=== PATIENT | female | born 1965 | race Caucasian/White ===

== ENCOUNTER 2016-09-19 14:04 | Outpatient (RCR) | payer BC ==
--- OUTSIDE RECORDS SUMMARY | 2016-06-25 14:03 | XMS REPORT | Continuity of Care Document ---
Author Author [facility] Organization [facility] Address Unknown Phone Unavailable Care Team Providers Care Motivational Speaker Name Role Phone Ashanti Hayward PCP [phone] Source Comments Some departments are not documenting in the electronic medical record. If you do not see the information that you expected, contact Release of Information in the Health Information Management department at [phone] for further assistance in locating additional records.[facility] Active Allergies and Adverse Reactions Allergen Noted Date Severity Reactions Comments Adhesive Tape (Rosins) 07/23/2015 Medium RASH, ITCHING Allopurinol 07/28/2015 Medium RASH DRESS syndrome Peanut 07/25/2015 Medium UNKNOWN Shellfish Containing 07/20/2015 Low UNKNOWN Pt also reports severe Products intolerances to casein and Gluten (abdominal pain). Sulfa (Sulfonamide 07/17/2015 Medium HIVES Antibiotics) Current Medications Prescription Sig. Disp. Refills Start End Date Status Date aspirin/acetaminophen/caf Take 2 Tabs by mouth Active feine(+) (EXCEDRIN twice daily as needed. MIGRAINE) 250/250/65 mg tab voriconazole (VFEND) 50 Take 1 (200mg tablet) and 140 Tab 0 /13/20 Active mg tablet 2 (50mg tablets) twice a 15 day every day. voriconazole (VFEND) 200 Take 1 (200mg tablet) and 70 Tab 0 11/13/20 Active mg tablet 2 (50mg tablets) twice a 15 day every day. hydrOXYzine (ATARAX) 25 Take 1 Tab by mouth three 90 Tab 0 11/13/20 Active mg tablet times daily as needed for 15 Itching. Can stop taking on once rash improves cetirizine (ZYRTEC) 10 mg Take 1 Tab by mouth 90 Tab 3 07/28/20 Active tablet daily. Indications: 15 URTICARIA loratadine (CLARITIN) 10 Take 1 Tab by mouth 90 Tab 3 07/28/20 Active mg tablet daily. Can stop taking 15 once rash and itching improves acyclovir (ZOVIRAX) 400 Take 1 Tab by mouth twice 60 Tab 2 07/28/20 Active mg tablet daily. 15 albuterol (VENTOLIN HFA, Inhale 2 Puffs by mouth 3 Inhaler 3 07/28/20 Active PROAIR HFA) 90 every 6 hours as needed 15 mcg/actuation inhaler for Wheezing. famotidine (PEPCID) 20 mg Take 1 Tab by mouth twice 180 Tab 3 Active tablet daily. 15 levofloxacin (LEVAQUIN) Take 1 Tab by mouth every 30 Tab 2 07/28/20 Active 750 mg tablet 24 hours. 15 triamcinolone acetonide apply to area of rash 1 Container 0 07/28/20 Active (KENALOG) 0.1 % topical 15 ointment LORazepam (ATIVAN) 0.5 mg Take 1 Tab by mouth every 30 Tab 0 08/09/20 Active tablet 4 hours as needed for 15 Other... (Itching, insomnia, anxiety). Active Problems Problem Noted Date Rash 08/09/2015 SOB (shortness of breath) 08/09/2015 Tracheobronchitis due to Aspergillus ([facility]) 07/21/2015 CLL (chronic lymphocytic leukemia) ([facility]) 07/17/2015 Anxiety and depression 07/17/2015 Chronic headache 07/17/2015 Tobacco abuse 07/17/2015 Neutropenic fever ([facility]) 07/17/2015 Immunizations Name Dates Previously Given Next Due Flu Vaccine 08/02/2015 Quadrivalent=>3 Yo (Preservative Free) Social History Tobacco Use Types Packs/Day Years Used Date Former Smoker Cigarettes 0.5 30 Quit: 2015 Smokeless Tobacco: Never Used Alcohol Use Drinks/Week oz/Week Comments No Last Filed Vital Signs Vital Sign Reading Time Taken Blood Pressure 94/60 08/17/2015 3:02 PM IT PROJECT COORDINATOR Pulse 76 08/17/2015 3:02 PM IT PROJECT COORDINATOR Temperature 36.7 C (98.1 F) 08/17/2015 3:02 PM IT PROJECT COORDINATOR Respiratory Rate 16 08/17/2015 3:02 PM IT PROJECT COORDINATOR Height 1.626 m (5' 4") 08/17/2015 3:02 PM IT PROJECT COORDINATOR Weight 52.617 kg (116 lb) 08/17/2015 3:02 PM IT PROJECT COORDINATOR Body Mass Index 19.9 08/17/2015 3:02 PM IT PROJECT COORDINATOR Oxygen Saturation 100% 08/09/2015 12:52 PM IT PROJECT COORDINATOR Plan of Care Health Maintenance Due Date Last Done Comments Hepatitis C Screening 1965 Physical (Comprehensive) 1971 Exam Pertussis Vaccine 1975 Tetanus Vaccine 1981 Cervical Cancer Screening 1985 Breast Cancer Screening 2004 Colorectal Cancer 2014 Screening Influenza Vaccine 05/16/2016 08/02/2015 Results from Last 3 Months Not on file
[2016-06-25 14:58] LABS: BASOPHILS % (AUTO) 1 % (0-10); EOSINOPHILS # (AUTO) 0.1 10^3/uL (0.0-0.3); EOSINOPHILS % (AUTO) 3 % (0-10); LYMPHOCYTES # (AUTO) 1.5 X 10^3 (1.0-4.0); LYMPHOCYTES % (AUTO) 37 % (12-44); MEAN CORPUSCULAR HEMOGLOBIN 33 PG (25-34); MEAN CORPUSCULAR HGB CONC 34 G/DL (32-36); MEAN CORPUSCULAR VOLUME 96 FL (80-99); MEAN PLATELET VOLUME 9.7 FL (7.4-10.4); MONOCYTES # (AUTO) 0.5 X 10^3 (0.0-1.0); MONOCYTES % (AUTO) 12 % (0-12); NEUTROPHILS # (AUTO) 1.9 X 10^3 (1.8-7.8); NEUTROPHILS % (AUTO) 47 % (42-75); PLATELET COUNT 204 10^3/uL (130-400); RED BLOOD COUNT 3.95 10^6/uL (4.35-5.85); RED CELL DISTRIBUTION WIDTH 13.8 % (10.0-14.5)
[2016-06-25 15:24] LABS: ANION GAP 11 MMOL/L (5-14); BLOOD UREA NITROGEN 10 MG/DL (7-18); BUN/CREATININE RATIO 13; CALCIUM 8.9 MG/DL (8.5-10.1); CARBON DIOXIDE 20 MMOL/L (21-32); CHLORIDE 112 MMOL/L (98-107); GFR ESTIMATED > 60; GLUCOSE 73 MG/DL (70-105); SODIUM 143 MMOL/L (135-145)
[2016-07-25 13:13] LABS: BASOPHILS # (AUTO) 0.1 10^3/uL (0.0-0.1); BASOPHILS % (AUTO) 1 % (0-10); EOSINOPHILS # (AUTO) 0.1 10^3/uL (0.0-0.3); EOSINOPHILS % (AUTO) 3 % (0-10); LYMPHOCYTES # (AUTO) 2.1 X 10^3 (1.0-4.0); LYMPHOCYTES % (AUTO) 48 % (12-44); MEAN CORPUSCULAR HEMOGLOBIN 33 PG (25-34); MEAN CORPUSCULAR HGB CONC 34 G/DL (32-36); MEAN CORPUSCULAR VOLUME 96 FL (80-99); MEAN PLATELET VOLUME 10.2 FL (7.4-10.4); MONOCYTES # (AUTO) 0.4 X 10^3 (0.0-1.0); MONOCYTES % (AUTO) 10 % (0-12); NEUTROPHILS # (AUTO) 1.7 X 10^3 (1.8-7.8); NEUTROPHILS % (AUTO) 39 % (42-75); PLATELET COUNT 203 10^3/uL (130-400); RED BLOOD COUNT 4.26 10^6/uL (4.35-5.85); WHITE BLOOD COUNT 4.3 10^3/uL (4.3-11.0)
[2016-07-25 13:38] LABS: ALANINE AMINOTRANSFERASE 12 U/L (0-55); ALBUMIN 4.7 G/DL (3.2-4.5); ANION GAP 9 MMOL/L (5-14); ASPARTATE AMINO TRANSFERASE 21 U/L (5-34); BILIRUBIN,TOTAL 0.6 MG/DL (0.1-1.0); BLOOD UREA NITROGEN 11 MG/DL (7-18); BUN/CREATININE RATIO 13; CALCIUM 9.8 MG/DL (8.5-10.1); CARBON DIOXIDE 25 MMOL/L (21-32); CHLORIDE 109 MMOL/L (98-107); CREATININE SERUM 0.86 MG/DL (0.60-1.30); GFR ESTIMATED > 60; GLUCOSE 72 MG/DL (70-105); LACTATE DEHYDROGENASE 203 U/L (125-220); POTASSIUM 3.7 MMOL/L (3.6-5.0); SODIUM 143 MMOL/L (135-145); TOTAL PROTEIN 7.3 G/DL (6.4-8.2)
[2016-07-26 05:35] LABS: IMMUNOGLOBULIN IGA 12 mg/dL (71-263); IMMUNOGLOBULIN IGG 823 mg/dL (672-1680)
[2016-07-26 07:36] LABS: IMMUNOGLOBULIN IGM <10 mg/dL (47-209)
[~2016-09-19 14:04] MED LIST: ACETAMINOPHEN 500 MG TAB (TYLENOL) CANCER CTR PO PRN; ACYC400T PO; ALLO300T2 PO; ASPI-992 PO; CIPR-225 PO; CIPR500T4 PO; DOCU-143 PO; DULO30CA48 PO; FLUT1DIS26 IH; FLUT1DIS26 INH; FLUT1DIS28 IH; IMMUNE GLOBULIN,GAMMA (IGG) 200 ML IV SCH; LEVO500T80 PO; LEVO750T6 PO; OMEP20CA12 PO; OMEP20TA7 PO; ONDA8TAB12 PO; ONDA8TAB6 PO; OSLT75CRX PO; PROC10TA PO; RT-ALBUINH INH; [UNRECOGNIZED DRUG - OTHER]; diphenhydrAMINE 25 MG TAB (BENADRYL) CANCER CENTER PO SCH
== END 2016-09-23 | disposition home or self-care (01) ==
LOC: ONC 14:04
PROVIDERS: ATTEND Internal Medicine Hematology & Oncology
DX: C91.10 Chronic lymphocytic leukemia of B-cell type not having achieved remission (principal); D80.1 Nonfamilial hypogammaglobulinemia; F17.200 Nicotine dependence, unspecified, uncomplicated; Z79.899 Other long term (current) drug therapy
CPT/HCPCS: 36415; 80048; 80053; 82784; 83615; 85025; 96365; 96366; 99213

== ENCOUNTER 2017-01-30 11:03 | Outpatient (RCR) | payer BC ==
--- OUTSIDE RECORDS SUMMARY | 2016-11-07 10:41 | XMS REPORT | Continuity of Care Document ---
Author Author [facility] Organization [facility] Address Unknown Phone Unavailable Care Team Providers Care Gill Box Fixer Name Role Phone Ashanti Hayward PCP [phone] Source Comments Some departments are not documenting in the electronic medical record. If you do not see the information that you expected, contact Release of Information in the Health Information Management department at [phone] for further assistance in locating additional records.[facility] Active Allergies and Adverse Reactions Allergen [...] of breath) 08/09/2015 Tracheobronchitis due to Aspergillus ([facility]) 07/21/2015 CLL (chronic lymphocytic leukemia) ([facility]) 07/17/2015 Anxiety and depression 07/17/2015 Chronic headache 07/17/2015 Tobacco abuse 07/17/2015 Neutropenic fever ([facility]) 07/17/2015 Immunizations Name Dates Previously Given Next Due Flu Vaccine 08/02/2015 Quadrivalent=>3 Yo (Preservative Free) Social History Tobacco Use Types Packs/Day Years Used Date Former Smoker Cigarettes 0.5 30 Quit: 2015 Smokeless Tobacco: Never Used Alcohol Use Drinks/Week oz/Week Comments No Last Filed Vital Signs Vital Sign Reading Time Taken Blood Pressure 94/60 08/17/2015 3:02 PM CAR TOP BOLTER Pulse 76 08/17/2015 3:02 PM CAR TOP BOLTER Temperature 36.7 C (98.1 F) 08/17/2015 3:02 PM CAR TOP BOLTER Respiratory Rate 16 08/17/2015 3:02 PM CAR TOP BOLTER Height 1.626 m (5' 4") 08/17/2015 3:02 PM CAR TOP BOLTER Weight 52.617 kg (116 lb) 08/17/2015 3:02 PM CAR TOP BOLTER Body Mass Index 19.9 08/17/2015 3:02 PM CAR TOP BOLTER Oxygen Saturation 100% 08/09/2015 12:52 PM CAR TOP BOLTER Plan of Care Health Maintenance Due Date Last Done Comments Hepatitis C Screening 1965 Physical (Comprehensive) 1971 Exam Pertussis Vaccine 1975 Tetanus Vaccine 1981 Cervical Cancer Screening 1985 Breast Cancer Screening 2004 Colorectal Cancer 2014 Screening Influenza Vaccine 05/16/2016 08/02/2015 Results from Last 3 Months Not on file
[2016-11-07 10:51] LABS: BASOPHILS % (AUTO) 1 % (0-10); EOSINOPHILS # (AUTO) 0.2 10^3/uL (0.0-0.3); EOSINOPHILS % (AUTO) 3 % (0-10); LYMPHOCYTES # (AUTO) 2.6 X 10^3 (1.0-4.0); LYMPHOCYTES % (AUTO) 44 % (12-44); MEAN CORPUSCULAR HEMOGLOBIN 33 PG (25-34); MEAN CORPUSCULAR HGB CONC 34 G/DL (32-36); MEAN CORPUSCULAR VOLUME 95 FL (80-99); MEAN PLATELET VOLUME 9.9 FL (7.4-10.4); MONOCYTES # (AUTO) 0.6 X 10^3 (0.0-1.0); MONOCYTES % (AUTO) 10 % (0-12); NEUTROPHILS # (AUTO) 2.6 X 10^3 (1.8-7.8); NEUTROPHILS % (AUTO) 44 % (42-75); PLATELET COUNT 186 10^3/uL (130-400); RED BLOOD COUNT 3.87 10^6/uL (4.35-5.85); RED CELL DISTRIBUTION WIDTH 12.9 % (10.0-14.5); WHITE BLOOD COUNT 5.9 10^3/uL (4.3-11.0)
[2016-11-07 11:22] LABS: ALANINE AMINOTRANSFERASE 18 U/L (0-55); ANION GAP 10 MMOL/L (5-14); ASPARTATE AMINO TRANSFERASE 20 U/L (5-34); BILIRUBIN,TOTAL 0.5 MG/DL (0.1-1.0); BLOOD UREA NITROGEN 11 MG/DL (7-18); BUN/CREATININE RATIO 12; CALCIUM 9.2 MG/DL (8.5-10.1); CARBON DIOXIDE 22 MMOL/L (21-32); CHLORIDE 111 MMOL/L (98-107); GFR ESTIMATED > 60; GLUCOSE 107 MG/DL (70-105); POTASSIUM 3.8 MMOL/L (3.6-5.0); SODIUM 143 MMOL/L (135-145); TOTAL PROTEIN 6.2 G/DL (6.4-8.2)
[2016-11-08 06:25] LABS: IMMUNOGLOBULIN IGA 9 mg/dL (71-263); IMMUNOGLOBULIN IGG 529 mg/dL (672-1680)
[2016-11-08 08:34] LABS: IMMUNOGLOBULIN IGM <10 mg/dL (47-209)
[2017-01-30 11:26] LABS: BASOPHILS % (AUTO) 1 % (0-10); EOSINOPHILS # (AUTO) 0.2 10^3/uL (0.0-0.3); EOSINOPHILS % (AUTO) 2 % (0-10); LYMPHOCYTES # (AUTO) 4.9 X 10^3 (1.0-4.0); LYMPHOCYTES % (AUTO) 69 % (12-44); MEAN CORPUSCULAR HEMOGLOBIN 32 PG (25-34); MEAN CORPUSCULAR HGB CONC 34 G/DL (32-36); MEAN CORPUSCULAR VOLUME 95 FL (80-99); MEAN PLATELET VOLUME 10.6 FL (7.4-10.4); MONOCYTES # (AUTO) 0.5 X 10^3 (0.0-1.0); MONOCYTES % (AUTO) 8 % (0-12); NEUTROPHILS # (AUTO) 1.5 X 10^3 (1.8-7.8); NEUTROPHILS % (AUTO) 21 % (42-75); PLATELET COUNT 142 10^3/uL (130-400); RED BLOOD COUNT 4.11 10^6/uL (4.35-5.85); RED CELL DISTRIBUTION WIDTH 12.7 % (10.0-14.5); WHITE BLOOD COUNT 7.1 10^3/uL (4.3-11.0)
[2017-01-30 11:47] LABS: ALANINE AMINOTRANSFERASE 18 U/L (0-55); ALBUMIN 4.2 G/DL (3.2-4.5); ANION GAP 7 MMOL/L (5-14); ASPARTATE AMINO TRANSFERASE 21 U/L (5-34); BILIRUBIN,TOTAL 0.4 MG/DL (0.1-1.0); BLOOD UREA NITROGEN 9 MG/DL (7-18); BUN/CREATININE RATIO 10; CALCIUM 9.4 MG/DL (8.5-10.1); CARBON DIOXIDE 26 MMOL/L (21-32); CHLORIDE 109 MMOL/L (98-107); CREATININE SERUM 0.92 MG/DL (0.60-1.30); GFR ESTIMATED > 60; GLUCOSE 94 MG/DL (70-105); LACTATE DEHYDROGENASE 170 U/L (125-220); POTASSIUM 3.7 MMOL/L (3.6-5.0); SODIUM 142 MMOL/L (135-145); TOTAL PROTEIN 6.4 G/DL (6.4-8.2)
[2017-01-30 23:28] LABS: IMMUNOGLOBULIN IGA 8 mg/dL (71-263); IMMUNOGLOBULIN IGG 634 mg/dL (672-1680)
[2017-01-31 10:11] LABS: IMMUNOGLOBULIN IGM <10 mg/dL (47-209)
== END 2017-02-05 | disposition home or self-care (01) ==
LOC: ONC 11:03
PROVIDERS: ATTEND Internal Medicine Hematology & Oncology
DX: C91.10 Chronic lymphocytic leukemia of B-cell type not having achieved remission (principal); D80.1 Nonfamilial hypogammaglobulinemia; F17.200 Nicotine dependence, unspecified, uncomplicated; Z79.899 Other long term (current) drug therapy
CPT/HCPCS: 36415; 80053; 82784; 83615; 85025; 96365; 96366; 99213

== ENCOUNTER 2017-04-23 10:38 | Outpatient (RCR) | payer BC ==
[2017-04-23 10:56] LABS: BASOPHILS % (AUTO) 0 % (0-10); EOSINOPHILS # (AUTO) 0.2 10^3/uL (0.0-0.3); EOSINOPHILS % (AUTO) 1 % (0-10); LYMPHOCYTES # (AUTO) 9.3 X 10^3 (1.0-4.0); LYMPHOCYTES % (AUTO) 80 % (12-44); MEAN CORPUSCULAR HEMOGLOBIN 32 PG (25-34); MEAN CORPUSCULAR HGB CONC 34 G/DL (32-36); MEAN CORPUSCULAR VOLUME 95 FL (80-99); MEAN PLATELET VOLUME 10.7 FL (7.4-10.4); MONOCYTES # (AUTO) 0.5 X 10^3 (0.0-1.0); MONOCYTES % (AUTO) 4 % (0-12); NEUTROPHILS # (AUTO) 1.7 X 10^3 (1.8-7.8); NEUTROPHILS % (AUTO) 14 % (42-75); PLATELET COUNT 208 10^3/uL (130-400); RED BLOOD COUNT 4.01 10^6/uL (4.35-5.85); RED CELL DISTRIBUTION WIDTH 13.6 % (10.0-14.5); WHITE BLOOD COUNT 11.6 10^3/uL (4.3-11.0)
[2017-04-23 11:22] LABS: ALANINE AMINOTRANSFERASE 15 U/L (0-55); ALBUMIN 4.3 GM/DL (3.2-4.5); ANION GAP 9 MMOL/L (5-14); ASPARTATE AMINO TRANSFERASE 17 U/L (5-34); BILIRUBIN,TOTAL 0.3 MG/DL (0.1-1.0); BLOOD UREA NITROGEN 10 MG/DL (7-18); BUN/CREATININE RATIO 11; CALCIUM 9.4 MG/DL (8.5-10.1); CARBON DIOXIDE 24 MMOL/L (21-32); CHLORIDE 110 MMOL/L (98-107); CREATININE SERUM 0.88 MG/DL (0.60-1.30); GFR ESTIMATED > 60; GLUCOSE 90 MG/DL (70-105); POTASSIUM 3.7 MMOL/L (3.6-5.0); SODIUM 143 MMOL/L (135-145); TOTAL PROTEIN 6.6 GM/DL (6.4-8.2)
[2017-04-24 01:01] LABS: IMMUNOGLOBULIN IGA 9 mg/dL (71-263); IMMUNOGLOBULIN IGG 524 mg/dL (672-1680)
[2017-04-24 08:14] LABS: IMMUNOGLOBULIN IGM <10 mg/dL (47-209)
== END 2017-05-14 | disposition home or self-care (01) ==
LOC: ONC 10:38
PROVIDERS: ATTEND Internal Medicine Hematology & Oncology
DX: C91.10 Chronic lymphocytic leukemia of B-cell type not having achieved remission (principal); D80.1 Nonfamilial hypogammaglobulinemia; F17.200 Nicotine dependence, unspecified, uncomplicated; Z79.899 Other long term (current) drug therapy
CPT/HCPCS: 36415; 80053; 82784; 85025; 96365; 96366

== ENCOUNTER 2017-05-22 14:04 | Outpatient (RCR) | payer BC | END 2017-06-14 | disposition home or self-care (01) | LOC: ONC 14:04 | PROVIDERS: ATTEND Internal Medicine Hematology & Oncology | DX: C91.10 Chronic lymphocytic leukemia of B-cell type not having achieved remission (principal); D80.1 Nonfamilial hypogammaglobulinemia; F17.200 Nicotine dependence, unspecified, uncomplicated; Z79.899 Other long term (current) drug therapy | CPT/HCPCS: 96365; 96366 ==

== ENCOUNTER 2017-07-27 22:09 | Emergency (ER) | payer BC ==
[~2017-07-27] VITALS: Ht 162.6 cm; Wt 47.6 kg
[~2017-07-27 22:09] MED LIST changes: -ACETAMINOPHEN 500 MG TAB (TYLENOL) CANCER CTR PO PRN; -IMMUNE GLOBULIN,GAMMA (IGG) 200 ML IV SCH; -diphenhydrAMINE 25 MG TAB (BENADRYL) CANCER CENTER PO SCH
--- OUTSIDE RECORDS SUMMARY | 2017-07-27 22:15 | XMS REPORT | Clinical Summary ---
Author Author [facility] Organization [facility] Address Unknown Phone Unavailable Care Team Providers Care Lime Filter Operator Name Role Phone PCP Unavailable Source Comments Some departments are not documenting in the electronic medical record. If you do not see the information that you expected, contact Release of Information in the Health Information Management department at [phone] for further assistance in locating additional records.[facility] Allergies Active Allergy Reactions Severity Noted Date Comments Adhesive Tape (Rosins) RASH, ITCHING Medium 07/23/2015 Allopurinol RASH Medium 07/28/2015 DRESS syndrome Peanut UNKNOWN Medium 07/25/2015 Sulfa (Sulfonamide HIVES Medium 07/17/2015 Antibiotics) Shellfish Containing UNKNOWN Low 07/20/2015 Pt also reports severe Products intolerances to casein and Gluten (abdominal pain). Current Medications Prescription Sig. Disp. Refills Start End Date Status Date aspirin/acetaminophen/caf Take 2 Tabs by mouth Active feine(+) (EXCEDRIN twice daily as needed. MIGRAINE) 250/250/65 mg tab voriconazole (VFEND) 50 Take 1 (200mg tablet) and 140 Tab 0 07/28/20 Active mg tablet 2 (50mg tablets) twice a 15 day every day. voriconazole (VFEND) 200 Take 1 (200mg tablet) and 70 Tab 0 /13/20 Active mg tablet 2 (50mg tablets) twice a 15 day every day. hydrOXYzine (ATARAX) 25 Take 1 Tab by mouth three 90 Tab 0 11/13/20 Active mg tablet times daily as needed for 15 Itching. Can stop taking on once rash improves cetirizine (ZYRTEC) 10 mg Take 1 Tab by mouth 90 Tab 3 07/28/20 Active tabletIndications: daily. Indications: 15 URTICARIA URTICARIA loratadine (CLARITIN) 10 Take 1 Tab [...] of breath) 08/09/2015 Tracheobronchitis due to Aspergillus ([facility]) 07/21/2015 CLL (chronic lymphocytic leukemia) ([facility]) 07/17/2015 Anxiety and depression 07/17/2015 Chronic headache 07/17/2015 Tobacco abuse 07/17/2015 Neutropenic fever ([facility]) 07/17/2015 Immunizations Name Dates Previously Given Next Due Flu Vaccine 08/02/2015 Quadrivalent=>3 Yo (Preservative Free) Family History Medical History Relation Name Comments Depression Maternal Grandmother Diabetes Paternal Grandfather Cancer Paternal Grandmother Relation Name Status Comments Maternal Grandmother Paternal Grandfather Paternal Grandmother Social History Tobacco Use Types Packs/Day Years Used Date Former Smoker Cigarettes 0.5 30 Quit: 2015 Smokeless Tobacco: Never Used Alcohol Use Drinks/Week oz/Week Comments No Sex Assigned at Date Recorded Not on file Last Filed Vital Signs Vital Sign Reading Time Taken Blood Pressure 94/60 08/17/2015 3:02 PM FINISHING ROOM SUPERVISOR Pulse 76 08/17/2015 3:02 PM FINISHING ROOM SUPERVISOR Temperature 36.7 C (98.1 F) 08/17/2015 3:02 PM FINISHING ROOM SUPERVISOR Respiratory Rate 16 08/17/2015 3:02 PM FINISHING ROOM SUPERVISOR Oxygen Saturation 100% 08/09/2015 12:52 PM FINISHING ROOM SUPERVISOR Inhaled Oxygen - - Concentration Weight 52.6 kg (116 lb) 08/17/2015 3:02 PM FINISHING ROOM SUPERVISOR Height 162.6 cm (5' 4") 08/17/2015 3:02 PM FINISHING ROOM SUPERVISOR Body Mass Index 19.91 08/17/2015 3:02 PM FINISHING ROOM SUPERVISOR Plan of Treatment Health Maintenance Due Date Last Done Comments HEPATITIS C SCREENING 1965 PHYSICAL (COMPREHENSIVE) 1971 EXAM PERTUSSIS VACCINE 1975 TETANUS VACCINE 1981 CERVICAL CANCER SCREENING 1994 BREAST CANCER SCREENING 2004 COLORECTAL CANCER 2014 SCREENING INFLUENZA VACCINE 04/15/2017 08/02/2015 Results Not on filefrom Last 3 Months
[2017-07-27] MEDS ORDERED: CETI10TA17 (22:21)
[2017-07-27] MEDS ORDERED: GAMMAGARD (22:21)
[2017-07-27] MEDS ORDERED: NS IV 1000 ML 1,000 ML IV ONE (22:22)
--- OUTSIDE RECORDS SUMMARY | 2017-07-27 22:25 | XMS REPORT | Clinical Summary ---
Author Author User, [employer] Organization Ashanti Hayward DO, FACP Address Unknown Phone Allergies, Adverse Reactions, Alerts Allergy Name Reaction Description Start Date Severity Status Provider SULFA Critical Active Ashanti Hayward Conditions or Problems Problem Name Problem Code Onset Date Status Entry Date Provider Comment Standard Description Annotate CLL 204.10 Active Ashanti Hayward Chronic lymphoid leukemia without mention of having achieved remission BRONCHITIS 490 Resolved Ashanti Hayward Bronchitis, not specified as acute or chronic SINUSITIS, SPHENOIDAL, ACUTE 461.3 Resolved Ashanti Hayward Acute sphenoidal sinusitis PNEUMONIA 486 Resolved Ashanti Hayward Pneumonia, organism unspecified WHEEZING 786.07 Active Ashanti Hayward Wheezing PNEUMONIA 486 Resolved Ashanti Hayward Pneumonia, organism unspecified PLEURISY 511.0 Active Ashanti Hayward Pleurisy without mention of effusion or current tuberculosis DEHYDRATION 276.51 Resolved Ashanti Hayward Dehydration CONJUNCTIVITIS 372.30 Resolved Ashanti Hayward Conjunctivitis, unspecified DEPRESSION 311 Active Ashanti Hayward Depressive disorder, not elsewhere classified ANXIETY 300.00 Active Ashanti Hayward Anxiety state, unspecified ASTHMA, INTERMITTENT, MODERATE 493.10 Active Ashanti Hayward Intrinsic asthma, unspecified LEG PAIN, RIGHT 729.5 Active Ashanti Hayward Pain in limb Medication List Medication Instructions Start Date Stop Date Generic Name ND Status Provider Patient Instruction XANAX 0.25 MG TABS 1 PO Q6hrs prn ALPRAZOLAM 14338959175 No Longer Active Ashanti Etelvina Hayward PROAIR HFA 108 (90 BASE) MCG/ACT AERS 2 puff Q4 hrs prn wheezing ALBUTEROL SULFATE 23521482866 No Longer Active Ashanti Etelvina Hayward ADVAIR DISKUS 250-50 MCG/DOSE MISC 1 Puff BID FLUTICASONE-SALMETEROL 86740070741 No Longer Active Ashantisantos Hayward CYMBALTA 30 MG CPEP 1 PO daily DULOXETINE HCL 56573271249 Active Ashantisantos Hayward COLACE 100 MG CAP 5 PO QAM DOCUSATE SODIUM 47585242363 No Longer Active Ashantisantos Hayward ADVAIR DISKUS 100-50 MCG/DOSE MISC 1 puff BID FLUTICASONE-SALMETEROL 72897920815 No Longer Active Ashantisantos Hayward PROAIR HFA 108 (90 BASE) MCG/ACT AERS 2 puff Q4 hrs prn wheezing ALBUTEROL SULFATE 15351353159 No Longer Active Ashanti Hayward NEOSPORIN OINT Apply to affected eye 1/2 in ribbon TID [id number] OINT [id number] No Longer Active Ashanti Hayward INDOMETHACIN 25 MG CAPS 1 PO TID prn INDOMETHACIN 68169063575 No Longer Active Ashantisantos Hayward BIAXIN XL PAC 500 MG TB24 2 pills at same time daily for 7 days CLARITHROMYCIN 19788556315 No Longer Active Ashantisantos Hayward BIAXIN XL PAC 500 MG TB24 2 pills at same time daily for 7 days CLARITHROMYCIN 65682914410 No Longer Active Ashanti Hayward ADVAIR DISKUS 100-50 MCG/DOSE MISC 1 puff BID FLUTICASONE-SALMETEROL 25205733818 No Longer Active Ashanti Etelvina STEVEN'Renae NASAL SPRAY (DEXAMETHASONE, GENTAMICIN, SALINE) 2 puffs each nostril TID for [address] STEVEN'Renae NASAL SPRAY ( DEXAMETHASONE, GENTAMICIN, SALINE) No Longer Active Ashanti Hayward AUGMENTIN 500-125 MG TAB 1 PO BID AMOXICILLIN-POT CLAVULANATE 24674766158 No Longer Active Ashanti Hayward Vital Signs Date Name Value Unit Range Description blood pressure, diastolic - 8462-4 50 mm[Hg] BP cho blood pressure, systolic - 8480-6 100 mm[Hg] BP sys pulse rate E&M - 8867-4 88 /min Heart rate respiratory rate E&M - 9279-1 14 /min Resp rate temperature E&M 98.6 [degF] Body temperature weight E&M - 3141-9 108 [lb_av] Weight Measured blood pressure, diastolic - 8462-4 48 mm[Hg] BP cho blood pressure, systolic - 8480-6 84 mm[Hg] BP sys pulse rate E&M - 8867-4 64 /min Heart rate respiratory rate E&M - 9279-1 14 /min Resp rate temperature E&M 97.5 [degF] Body temperature weight E&M - 3141-9 103 [lb_av] Weight Measured blood pressure, diastolic - 8462-4 60 mm[Hg] BP cho blood pressure, systolic - 8480-6 90 mm[Hg] BP sys pulse rate E&M - 8867-4 70 /min Heart rate respiratory rate E&M - 9279-1 14 /min Resp rate weight E&M - 3141-9 100 [lb_av] Weight Measured blood pressure, diastolic - 8462-4 64 mm[Hg] BP cho blood pressure, systolic - 8480-6 89 mm[Hg] BP sys pulse rate E&M - 8867-4 84 /min Heart rate respiratory rate E&M - 9279-1 14 /min Resp rate weight E&M - 3141-9 100 [lb_av] Weight Measured Diagnostic Results Date Name Value Unit Range Description Clinical Lists Update: CBC,BMP [facility] - Chemistry Estimated Glomerular Filtration Rate (calc) >60 mL/min/1.73m2 glucose, plasma fasting 99 mg/dL urea nitrogen, blood 8 mg/dL calcium, serum 9.4 mg/dL chloride, serum 106 mmol/L carbon dioxide, venous blood 22 mmol/L creatinine, serum 0.87 mg/dL potassium, serum 4.6 mmol/L sodium, serum 138 mmol/L Clinical Lists Update: CBC,BMP [facility] - Hematology platelet count 270 10*3/mm3 erythrocyte (RBC) count 3.62 10*6/mm3 leukocyte count, blood 129.3 10*3/mm3 mean corpuscular volume, RBC 94 fL red blood cell distribution width 17.8 % hemoglobin, blood 10.3 g/dL hematocrit, blood 34 % Encounters Code Encounter Date Provider Facility CPT-48104 Ofc Vst, Est Level IV 17:40:17 CDT Ashanti Hayward DO, FACP CPT-85744 Ofc Vst, Est Level III 21:28:17 CDT Ashantisantos Macdonald Hayward, DO, FACP CPT-28168 Ofc Vst, Est Level IV 17:45:46 CDT Ashanti Etelvina Macdonald Yesy, DO, FACP CPT-04929 Ofc Vst, New Level III 17:10:58 CDT Ashanti Etelvina Macdonald Yesy, DO, FACP CPT-37262 Ofc Vst, Est Level III 16:21:49 CDT Ashanti Etelvina Macdonald Hayward, DO, FACP CPT-65065 Ofc Vst, Est Level IV 14:42:00 BEHAVIORAL THERAPY COORDINATOR Ashantisantos Macdonald Yesy, DO, FACP CPT-20338 Ofc Vst, Est Level IV 12:12:42 BEHAVIORAL THERAPY COORDINATOR Ashanti Macdonald Yesy, DO, FACP CPT-65996 Ofc Vst, Est Level V 10:37:16 CDT Ashantisantos Macdonald Yesy, DO, FACP CPT-97148 Ofc Vst, Est Level IV 15:20:28 CDT Ashanti Etelvina Macdonald Hayward, DO, FACP CPT-69750 Ofc Vst, Est Level IV 14:41:03 CDT Ashanti Macdonald Yesy, DO, FACP CPT-44711 Ofc Vst, Est Level IV 11:11:13 CDT Ashanti Etelvina Macdonald Yesy, DO, FACP CPT-39822 Ofc Vst, New Level IV 12:24:45 BEHAVIORAL THERAPY COORDINATOR Ashanti Etelvina Browningi S Hayward, DO, FACP
[2017-07-27] MEDS ORDERED: HYOSCYAMINE 0.125 MG (LEVSIN) TAB PO ONE (22:30)
[2017-07-27] MEDS ORDERED: ONDANSETRON 4 MG/2 ML (SDV) Z0FRAN IVP ONE (22:30)
--- OUTSIDE RECORDS SUMMARY | 2017-07-27 22:30 | XMS REPORT | Continuity of Care Document ---
Author Author [facility] Address Unknown Phone Unavailable Allergies Active Description Code Type Severity Reaction Onset Reported/Identified Relationship to Patient Clinical Status Yes Sulfa (Sulfonamide Antibiotics) [id number] Drug Allergy Unknown N/A 07/19/2010 Yes ascorbic acid [id number] Drug Allergy Unknown N/A 07/20/2010 Yes bromelains [id number] Drug Allergy Unknown N/A 07/20/2010 Yes glutamine [id number] Drug Allergy Unknown N/A 07/20/2010 Yes quercetin [id number] Drug Allergy Unknown N/A 07/20/2010 Yes selenium [id number] Drug Allergy Unknown N/A 07/20/2010 Yes egg [id number] Drug Allergy Moderate NAUSEA 07/06/2015 Yes gluten [id number] Drug Allergy Moderate ANAPHYLAXIS 07/06/2015 Medications 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 08/14/1343 ROSHAN AYON Ot D80.1 NONFAMILIAL HYPOGAMMAGLOBULINEMIA 08/14/1343 ROSHAN AYON Ot 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 DEPENDENCE, UNSPECIFIED, UNCOMP 08/14/1343 ROSHAN AYON Ot Z79.899 OTHER LONG-TERM (CURRENT) DRUG THERAPY 07/22/2010 Ot 038.2 07/22/2010 Ot 204.10 07/22/2010 Ot 276.51 07/22/2010 Ot 305.1 07/22/2010 Ot 486 07/22/2010 Ot 511.0 07/22/2010 Ot 780.52 07/22/2010 Ot 995.91 12/24/2010 Ot 204.10 03/26/2011 Ot 204.10 03/26/2011 Ot 279.00 03/26/2011 Ot 305.1 03/26/2011 Ot V58.69 07/17/2011 Ot 110.5 07/17/2011 Ot 204.10 07/17/2011 Ot 279.00 07/17/2011 Ot 305.1 07/17/2011 Ot V58.69 10/15/2011 Ot 204.10 10/15/2011 Ot 279.00 10/15/2011 Ot 305.1 10/15/2011 Ot V58.69 01/15/2012 Ot 204.10 CHRONIC LYMPHOID LEUKEMIA, W/O MENTION A 01/15/2012 Ot 279.00 HYPOGAMMAGLOBULINEM NOS 01/15/2012 Ot V58.69 OTH MED,LT,CURRENT USE 07/22/2012 Ot 204.10 CHRONIC LYMPHOID LEUKEMIA, W/O MENTION A 07/22/2012 Ot V58.69 OTH MED,LT,CURRENT USE 11/11/2012 Ot 204.10 CHRONIC LYMPHOID LEUKEMIA, W/O MENTION A 11/11/2012 Ot V58.69 OTH MED,LT,CURRENT USE 02/10/2013 GABOROSHAN N Ot 204.10 CHRONIC LYMPHOID LEUKEMIA, W/O MENTION A 02/10/2013 GABOROSHAN RODRIGUEZ N Ot V58.69 OTH MED,LT,CURRENT USE 07/07/2013 GABOROSHAN N Ot 204.10 CHRONIC LYMPHOID LEUKEMIA, W/O MENTION A 07/07/2013 GABOROSHAN N Ot V58.69 OTH MED,LT,CURRENT USE 10/06/2013 GABOROSHAN RODRIGUEZ N Ot 204.10 CHRONIC LYMPHOID LEUKEMIA, W/O MENTION A 10/06/2013 GABOROSHAN N Ot 279.00 HYPOGAMMAGLOBULINEM NOS 10/06/2013 GABOROSHAN RODRIGUEZ N Ot 305.1 TOBACCO USE DISORDER 10/06/2013 GABOROSHAN N Ot V58.69 OTH MED,LT,CURRENT USE 01/12/2014 GABOROSHAN N Ot 204.10 CHRONIC LYMPHOID LEUKEMIA, W/O MENTION A 01/12/2014 GABOROSHAN N Ot 279.00 HYPOGAMMAGLOBULINEM NOS 01/12/2014 GABO, BOBLEXIE N Ot 305.1 TOBACCO USE DISORDER 01/12/2014 GABOJOSEAN N Ot V58.69 OTH MED,LT,CURRENT USE 05/18/2014 GABOROSHAN RODRIGUEZ N Ot 204.10 CHRONIC LYMPHOID LEUKEMIA, W/O MENTION A 05/18/2014 GABO, BOBAN N Ot 279.00 HYPOGAMMAGLOBULINEM NOS 05/18/2014 GABO, BOBAN N Ot 305.1 TOBACCO USE DISORDER 05/18/2014 GABO, BOBAN N Ot V58.69 OT MED,LT,CURRENT USE 08/22/2014 GABO, BOBAN N Ot 204.10 08/22/2014 GABO, BOBAN N Ot 279.00 08/22/2014 GABO, BOBAN N Ot 305.1 08/22/2014 GABO, BOBAN N Ot V58.69 08/24/2014 GABO, BOBAN N Ot 204.10 CHRONIC LYMPHOID LEUKEMIA, W/O MENTION A 08/24/2014 GABO, BOBAN N Ot 279.00 HYPOGAMMAGLOBULINEM NOS 08/24/2014 GABO, BOBAN N Ot 305.1 TOBACCO USE DISORDER 08/24/2014 GABO, BOBAN N Ot V58.69 OT MED,LT,CURRENT USE 09/22/2014 GABO, BOBAN N Ot 204.10 09/22/2014 GABO, BOBAN N Ot 279.00 09/22/2014 GABO, BOBAN N Ot 305.1 09/22/2014 GABO, BOBAN N Ot V58.69 09/22/2014 GABO, BOBAN N Ot 204.10 09/22/2014 GABO, BOBAN N Ot 279.00 09/22/2014 GABO, BOBAN N Ot 305.1 09/22/2014 GABO, BOBAN N Ot V58.69 09/23/2014 GABO, BOBAN N Ot 204.10 09/23/2014 GABO, BOBAN N Ot 279.00 09/23/2014 GABO, BOBAN N Ot 305.1 09/23/2014 GABO, BOBAN N Ot V58.69 10/02/2014 SOLE CHENEY, MISHEL Wade Ot 487.1 FLU W RESP MANIFEST NEC 10/02/2014 SOLE CHENEY, MISHEL Wade Ot 786.2 COUGH 10/20/2014 GABO, BOBAN N Ot 204.10 10/20/2014 GABO, BOBAN N Ot 279.00 10/20/2014 GABO, BOBAN N Ot 305.1 10/20/2014 GABO, BOBAN N Ot V58.69 11/03/2014 BRUCE REED Ot 204.10 11/03/2014 REEDBRUCE Macdonald TELETYPE TECHNICIAN Ot 279.00 11/03/2014 REEDBRUCE Macdonald TELETYPE TECHNICIAN Ot 305.1 11/03/2014 REED BRUCE Macdonald TELETYPE TECHNICIAN Ot V58.69 11/10/2014 GABO, BOBAN N Ot 204.10 11/10/2014 GABO, BOBAN N Ot 279.00 11/10/2014 GABO, BOBAN N Ot 305.1 11/10/2014 GABO, BOBAN N Ot V58.69 12/21/2014 GABO, BOBAN N Ot 204.10 CHRONIC LYMPHOID LEUKEMIA, W/O MENTION A 12/21/2014 GABO, BOBAN N Ot 279.00 HYPOGAMMAGLOBULINEM NOS 12/21/2014 GABO, BOBAN N Ot 305.1 TOBACCO USE DISORDER 12/21/2014 GABO, BOBAN N Ot V58.69 OT MED,LT,CURRENT USE 01/10/2015 PONCHO TOBAR PSYD 296.22 MO DEPRESSIVE SINGLE MODERATE 01/12/2015 GABO, BOBAN N Ot 204.10 01/12/2015 GABO, BOBAN N Ot 279.00 01/12/2015 GABO, BOBAN N Ot 305.1 01/12/2015 GABO, BOBAN N Ot V58.69 01/12/2015 GABO, BOBAN N Ot 204.10 01/12/2015 GABO, BOBAN N Ot 279.00 01/12/2015 GABO, BOBAN N Ot 305.1 01/12/2015 GABO, BOBAN N Ot V58.69 01/13/2015 GABO, BOBAN N Ot 204.10 01/13/2015 GABO, BOBAN N Ot 279.00 01/13/2015 GBAO, BOBAN N Ot 305.1 01/13/2015 GABO, BOBAN N Ot V58.69 01/13/2015 GABO, BOBAN N Ot 204.10 01/13/2015 GABO, BOBAN N Ot 279.00 01/13/2015 GABO, BOBAN N Ot 305.1 01/13/2015 GABO, BOBAN N Ot V58.69 02/28/2015 GABO, BOBAN N Ot 204.10 02/28/2015 GABO, BOBAN N Ot 279.00 02/28/2015 GABO, BOBAN N Ot 305.1 02/28/2015 GABO, BOBAN N Ot V58.69 03/01/2015 GABO, BOBLEXIE N Ot 786.05 03/07/2015 BRUCE REED TELETYPE TECHNICIAN Ot 204.10 03/07/2015 BRUCE REED TELETYPE TECHNICIAN Ot 279.00 03/07/2015 BRUCE REED S TELETYPE TECHNICIAN Ot 305.1 03/07/2015 BRUCE REED TELETYPE TECHNICIAN Ot V58.69 04/12/2015 GABO JOSEAN N Ot 204.10 CHRONIC LYMPHOID LEUKEMIA, W/O MENTION A 04/12/2015 ROSHAN AYON N Ot 279.00 HYPOGAMMAGLOBULINEM NOS 04/12/2015 GABO BOBAN N Ot 305.1 TOBACCO USE DISORDER 04/12/2015 ROSHAN AYON N Ot V58.69 OT MED,LT,CURRENT USE 04/20/2015 GABO, BOBAN N Ot 204.10 04/20/2015 GABO, BOBAN N Ot 279.00 04/20/2015 GABO, BOBAN N Ot 305.1 04/20/2015 GABO, BOBAN N Ot V58.69 04/21/2015 GABO, BOBAN N Ot 204.10 04/21/2015 GABO, BOBAN N Ot 279.00 04/21/2015 GBAO, BOBAN N Ot 305.1 04/21/2015 GABO, BOBAN N Ot V58.69 05/03/2015 BRUCE REED TELETYPE TECHNICIAN Ot 204.10 05/03/2015 BRUCE REED TELETYPE TECHNICIAN Ot 279.00 05/03/2015 BRUCE REED TELETYPE TECHNICIAN Ot 305.1 05/03/2015 BRUCE REED TELETYPE TECHNICIAN Ot V58.69 05/03/2015 GABO, BOBAN N Ot 204.10 05/03/2015 GABO, BOBAN N Ot 279.00 05/03/2015 GABO, BOBAN N Ot 305.1 05/03/2015 GABO, BOBAN N Ot V58.69 05/04/2015 BRUCE REED S TELETYPE TECHNICIAN Ot 204.10 05/04/2015 BRUCE REED TELETYPE TECHNICIAN Ot 279.00 05/04/2015 BRUCE REED TELETYPE TECHNICIAN Ot 305.1 05/04/2015 BRUCE REED TELETYPE TECHNICIAN Ot V58.69 05/09/2015 GABO, BOBAN N Ot 204.10 05/09/2015 GABO, BOBAN N Ot 279.00 05/09/2015 GABO, BOBAN N Ot 305.1 05/09/2015 GABO, BOBAN N Ot V58.69 05/11/2015 GABO, BOBAN N Ot 204.10 05/11/2015 GABO, BOBAN N Ot 279.00 05/11/2015 GABO, BOBAN N Ot 305.1 05/11/2015 GABO, BOBAN N Ot V58.69 05/18/2015 HUANG DO, RICO Ot 729.5 06/01/2015 HUANG DO, RICO Ot 729.5 06/08/2015 GABO, BOBAN N Ot 204.10 06/08/2015 GABO, BOBAN N Ot 279.00 06/08/2015 GABO, BOBAN N Ot 305.1 06/08/2015 GABO, BOBAN N Ot V58.69 06/14/2015 GABO, BOBAN N Ot 204.10 CHRONIC LYMPHOID LEUKEMIA, W/O MENTION A 06/14/2015 GABO, BOBAN N Ot 279.00 HYPOGAMMAGLOBULINEM NOS 06/14/2015 GABO, BOBAN N Ot 305.1 TOBACCO USE DISORDER 06/14/2015 GABO, BOBAN N Ot V58.69 OT MED,LT,CURRENT USE 06/15/2015 GABO, BOBAN N Ot 204.10 06/15/2015 GABO, BOBAN N Ot 279.00 06/15/2015 GABO, BOBAN N Ot 305.1 06/15/2015 GABO, BOBAN N Ot V58.69 06/15/2015 GABO, BOBAN N Ot 204.10 06/15/2015 GABO, BOBAN N Ot 279.00 06/15/2015 GABO, BOBAN N Ot 305.1 06/15/2015 GABO, BOBAN N Ot V58.69 06/29/2015 HUANG DO, RICO Ot 204.10 06/29/2015 HUANG DO, RICO Ot 300.00 06/29/2015 HUANG DO, RICO Ot 493.10 06/29/2015 HUANG DO, RICO Ot 511.0 06/29/2015 HUANG DO, RICO Ot 729.5 06/29/2015 HUANG DO, RICO Ot V58.69 06/29/2015 SAL DO, RICO Ot V70.0 06/29/2015 REEDBRUCE Macdonald TELETYPE TECHNICIAN Ot C91.10 06/29/2015 DEREK BRUCE Renae TELETYPE TECHNICIAN Ot D80.1 06/29/2015 BRUCE REED TELETYPE TECHNICIAN Ot Z79.899 07/05/2015 Ot 204.10 07/05/2015 Ot 279.00 07/05/2015 Ot 305.1 07/05/2015 Ot 204.10 07/05/2015 Ot 204.10 07/05/2015 Ot 279.00 07/05/2015 Ot 305.1 07/05/2015 Ot V58.69 07/05/2015 Ot 204.10 07/05/2015 Ot 279.00 07/05/2015 Ot 305.1 07/05/2015 Ot V58.69 07/05/2015 Ot 204.10 07/05/2015 Ot 279.00 07/05/2015 Ot 305.1 07/05/2015 Ot V58.69 07/05/2015 BRUCE REED TELETYPE TECHNICIAN Ot 204.10 07/05/2015 EZ REEDSAMM Renae TELETYPE TECHNICIAN Ot 279.00 07/05/2015 BRUCE REED TELETYPE TECHNICIAN Ot 305.1 07/05/2015 DEREK BRUCE Renae TELETYPE TECHNICIAN Ot V58.69 07/05/2015 EZ REEDSAMM S TELETYPE TECHNICIAN Ot 204.10 07/05/2015 EZ REEDSAMM S TELETYPE TECHNICIAN Ot 279.00 07/05/2015 EZ REEDSAMM S TELETYPE TECHNICIAN Ot 305.1 07/05/2015 DEREK EZSAMM Renae TELETYPE TECHNICIAN Ot V58.69 07/05/2015 BRUCE REED S TELETYPE TECHNICIAN Ot 204.10 07/05/2015 BRUCE REED S TELETYPE TECHNICIAN Ot 279.00 07/05/2015 BRUCE REED TELETYPE TECHNICIAN Ot 305.1 07/05/2015 BRUCE REED TELETYPE TECHNICIAN Ot V58.69 07/05/2015 ROSHAN AYON N Ot 564.00 07/05/2015 ROSHAN AYON N Ot 785.6 07/05/2015 ROSHAN AYON N Ot 789.04 07/05/2015 ROSHAN AYON N Ot 789.2 07/05/2015 ROSHAN AYON N Ot 793.5 07/05/2015 REEDBRUCE Macdonald TELETYPE TECHNICIAN Ot 204.10 07/05/2015 REEDBRUCE Macdonald S TELETYPE TECHNICIAN Ot 279.00 07/05/2015 REEDBRUCE S TELETYPE TECHNICIAN Ot 305.1 07/05/2015 DEREK BRUCE S TELETYPE TECHNICIAN Ot V58.69 07/05/2015 ALBERTO DO, EWA C Ot 256.31 07/05/2015 ALBERTO DO, EWA C Ot 785.6 07/05/2015 ALBERTO DO, EWA C Ot 789.04 07/05/2015 ALBERTO DO, EWA C Ot V70.0 07/05/2015 ALBERTO , EWA C Ot V76.12 07/05/2015 DEREK BRUCE S TELETYPE TECHNICIAN Ot 204.10 07/05/2015 DEREK BRUCE S TELETYPE TECHNICIAN Ot 279.00 07/05/2015 DEREK BRUCE S TELETYPE TECHNICIAN Ot 305.1 07/05/2015 DEREK BRUCE S TELETYPE TECHNICIAN Ot V58.69 07/05/2015 ROSHAN AYON N Ot 786.05 07/05/2015 DEREK BRUCE S TELETYPE TECHNICIAN Ot 204.10 07/05/2015 DEREK BRUCE S TELETYPE TECHNICIAN Ot 279.00 07/05/2015 DEREK BRUCE S TELETYPE TECHNICIAN Ot 305.1 07/05/2015 DEREK BRUCE S TELETYPE TECHNICIAN Ot V58.69 07/05/2015 DEREK BRUCE S TELETYPE TECHNICIAN Ot 204.10 07/05/2015 DEREK BRUCE S TELETYPE TECHNICIAN Ot 279.00 07/05/2015 DEREK BRUCE S TELETYPE TECHNICIAN Ot 305.1 07/05/2015 DEREK BRUCE S TELETYPE TECHNICIAN Ot V58.69 07/05/2015 HUANG DO, RIOC Ot 729.5 07/05/2015 HUANG DO, RICO Ot J45.902 07/05/2015 HUANG DO, RICO Ot 204.10 07/05/2015 HUANG DO, RICO Ot 300.00 07/05/2015 HUANG DO, RICO Ot 493.10 07/05/2015 HUANG DO, RICO Ot 511.0 07/05/2015 HUANG DO, RICO Ot 729.5 07/05/2015 HUANG DO, RICO Ot V58.69 07/05/2015 HUANG DO, RICO Ot V70.0 07/05/2015 ROSHAN AYON N Ot 204.10 07/05/2015 GABOJOSE RODRIGUEZLEXIE N Ot 279.00 07/05/2015 GABO, ROSHAN N Ot 305.1 07/05/2015 GABOROSHAN N Ot V58.69 07/05/2015 BRUCE REED TELETYPE TECHNICIAN Ot C91.10 07/05/2015 BRUCE REED TELETYPE TECHNICIAN Ot D80.1 07/05/2015 BRUCE REED TELETYPE TECHNICIAN Ot Z79.899 07/07/2015 GABOROSHAN RODRIGUEZ N Ot C91.10 07/07/2015 GABOROSHAN RODRIGUEZ N Ot D64.9 07/07/2015 GABOROSHAN RODRIGUEZ N Ot D70.1 07/07/2015 GABOROSHAN RODRIGUEZ N Ot F17.200 07/07/2015 GABOROSHAN N Ot F32.9 07/07/2015 GABOROSHAN N Ot F41.9 07/07/2015 GABOROSHAN RODRIGUEZ N Ot J45.909 07/07/2015 GABOROSHAN RODRIGUEZ N Ot R09.89 07/10/2015 HUANG DO, RICO Ot J45.902 07/13/2015 GABOROSHAN N Ot C91.10 07/13/2015 GABOROSHAN N Ot D64.9 07/13/2015 GABOROSHAN N Ot D70.1 07/13/2015 GABOROSHAN N Ot F17.200 07/13/2015 GABOROSHAN N Ot F32.9 07/13/2015 GABOROSHAN N Ot F41.9 07/13/2015 GABOROSHAN RODRIGUEZ N Ot J45.909 07/13/2015 GABOROSHAN RODRIGUEZ N Ot R09.89 07/17/2015 GABOROSHAN RODRIGUEZ N Ot 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 07/17/2015 ROSHAN AYON N Ot D64.81 ANEMIA DUE TO ANTINEOPLASTIC CHEMOTHERAP 07/17/2015 ROSHAN AYON N Ot D64.9 07/17/2015 GABOROSHAN N Ot D69.59 OTHER SECONDARY THROMBOCYTOPENIA 07/17/2015 ROSHAN AYON Ot D70.1 AGRANULOCYTOSIS SECONDARY TO CANCER CHEM 07/17/2015 ROSHAN AYON Ot D80.1 NONFAMILIAL HYPOGAMMAGLOBULINEMIA 07/17/2015 ROSHAN AYON N Ot 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 DEPENDENCE, UNSPECIFIED, UNCOMP 07/17/2015 ROSHAN AYNO Ot F32.9 MAJOR DEPRESSIVE DISORDER, SINGLE EPISOD 07/17/2015 ROSHAN AYON Ot F41.9 ANXIETY DISORDER, UNSPECIFIED 07/17/2015 ROSHAN AYON Ot G43.919 MIGRAINE, UNSP, INTRACTABLE, WITHOUT STA 07/17/2015 ROSHAN AYON Ot G47.00 INSOMNIA, UNSPECIFIED 07/17/2015 ROSHAN AYON Ot J44.9 CHRONIC OBSTRUCTIVE PULMONARY DISEASE, U 07/17/2015 ROSHAN AYON Ot J45.909 UNSPECIFIED ASTHMA, UNCOMPLICATED 07/17/2015 ROSHAN AYON Ot K59.00 CONSTIPATION, UNSPECIFIED 07/17/2015 GABOROSHAN RODRIGUEZ N Ot R09.89 OTH SYMPTOMS AND SIGNS INVOLVING THE CIR 07/17/2015 ROSHAN AYON Ot R21 RASH AND OTHER NONSPECIFIC SKIN ERUPTION 07/17/2015 ROSHAN AYON N Ot R50.81 FEVER PRESENTING WITH CONDITIONS CLASSIF 07/17/2015 ROSHAN AYON Ot T45.1X5A ADVERSE EFFECT OF ANTINEOPLASTIC AND IMM 07/24/2015 ROSHAN AYON Ot 204.10 07/24/2015 GABOROSHAN RODRIGUEZ N Ot 279.00 07/24/2015 GABOROSHAN N Ot 305.1 07/24/2015 GABOROSHAN N Ot V58.69 08/02/2015 GABOROSHAN RODRIGUEZ N Ot C91.10 08/02/2015 GABOROSHAN RODRIGUEZ N Ot D80.1 08/02/2015 GABOROSHAN RODRIGUEZ N Ot F17.200 08/02/2015 GABOROSHAN RODRIGUEZ N Ot Z51.11 08/02/2015 GABOROSHAN RODRIGUEZ N Ot Z79.899 09/12/2015 GABOROSHAN RODRIGUEZ N Ot C91.10 09/12/2015 GABOROSHAN RODRIGUEZ N Ot D80.1 09/12/2015 GABOJOSE RODRIGUEZLEXIE N Ot F17.200 09/12/2015 GABOROSHAN RODRIGUEZ N Ot Z51.11 09/12/2015 GABOROSHAN RODRIGUEZ N Ot Z79.899 09/19/2015 GABOROSHAN RODRIGUEZ N Ot 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 09/19/2015 ROSHAN AYON N Ot D80.1 NONFAMILIAL HYPOGAMMAGLOBULINEMIA 09/19/2015 ROSHAN AYON N Ot 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 DEPENDENCE, UNSPECIFIED, UNCOMP 09/19/2015 GABOROSHAN RODRIGUEZ N Ot Z51.11 ENCOUNTER FOR ANTINEOPLASTIC CHEMOTHERAP 09/19/2015 ROSHAN AYON N Ot Z79.899 OTHER SUPERVISOR COMPOSING ROOM (CURRENT) DRUG THERAPY 09/27/2015 BRUCE REED TELETYPE TECHNICIAN Ot B44.1 09/27/2015 BRUCE REED TELETYPE TECHNICIAN Ot C91.10 09/27/2015 BRUCE REED TELETYPE TECHNICIAN Ot D75.9 09/27/2015 BRUCE REED TELETYPE TECHNICIAN Ot D80.1 09/27/2015 BRUCE REED TELETYPE TECHNICIAN Ot F17.200 09/27/2015 BRUCE REED TELETYPE TECHNICIAN Ot Z79.899 10/09/2015 GABOROSHAN N Ot C91.10 10/09/2015 GABO, ROSHAN N Ot D80.1 10/09/2015 GABO, ROSHAN N Ot F17.200 10/09/2015 GABO, BOBLEXIE N Ot Z51.11 10/09/2015 GABO, BOBAN N Ot Z79.899 11/09/2015 GABO, BOBAN N Ot C91.10 11/09/2015 GABO, BOBAN N Ot D80.1 11/09/2015 GABO, BOBLEXIE N Ot F17.200 11/09/2015 GABO, BOBAN N Ot Z51.11 11/09/2015 GABO, BOBAN N Ot Z79.899 11/23/2015 GABO, BOBAN N Ot C91.10 11/23/2015 GABO, BOBAN N Ot D80.1 11/23/2015 ROSHAN AYON N Ot F17.200 11/23/2015 ROSHAN AYON N Ot Z51.11 11/23/2015 ROSHAN AYON N Ot Z79.899 11/23/2015 BRUCE REED TELETYPE TECHNICIAN Ot B44.1 11/23/2015 BRUCE REED S TELETYPE TECHNICIAN Ot C91.10 11/23/2015 REEDBRUCE Macdonald S TELETYPE TECHNICIAN Ot D75.9 11/23/2015 REEDBRUCE Macdonald S TELETYPE TECHNICIAN Ot D80.1 11/23/2015 BRUCE REED S TELETYPE TECHNICIAN Ot F17.200 11/23/2015 BRUCE REED S TELETYPE TECHNICIAN Ot Z79.899 12/05/2015 Ot 204.10 12/05/2015 Ot 279.00 12/05/2015 Ot 305.1 12/05/2015 Ot 204.10 12/05/2015 Ot 204.10 12/05/2015 Ot 279.00 12/05/2015 Ot 305.1 12/05/2015 Ot V58.69 12/05/2015 Ot 204.10 12/05/2015 Ot 279.00 12/05/2015 Ot 305.1 12/05/2015 Ot V58.69 12/05/2015 Ot 204.10 12/05/2015 Ot 279.00 12/05/2015 Ot 305.1 12/05/2015 Ot V58.69 12/05/2015 REEDBRUCE Macdonald S TELETYPE TECHNICIAN Ot 204.10 12/05/2015 REEDBRUCE S TELETYPE TECHNICIAN Ot 279.00 12/05/2015 DEREK BRUCE S TELETYPE TECHNICIAN Ot 305.1 12/05/2015 DEREK BRUCE S TELETYPE TECHNICIAN Ot V58.69 12/05/2015 REEDBRUCE S TELETYPE TECHNICIAN Ot 204.10 12/05/2015 REEDBRUCE S TELETYPE TECHNICIAN Ot 279.00 12/05/2015 DEREK BRUCE S TELETYPE TECHNICIAN Ot 305.1 12/05/2015 DEREK BRUCE S TELETYPE TECHNICIAN Ot V58.69 12/05/2015 DEREK BRUCE S TELETYPE TECHNICIAN Ot 204.10 12/05/2015 DEREK BRUCE S TELETYPE TECHNICIAN Ot 279.00 12/05/2015 DEREK BRUCE S TELETYPE TECHNICIAN Ot 305.1 12/05/2015 DEREK BRUCE S TELETYPE TECHNICIAN Ot V58.69 12/05/2015 ROSHAN AYON N Ot 564.00 12/05/2015 ROSHAN AYON N Ot 785.6 12/05/2015 ROSHAN AYON N Ot 789.04 12/05/2015 ROSHAN AYON N Ot 789.2 12/05/2015 ROSHAN AYON N Ot 793.5 12/05/2015 DEREK BRUCE Macdonald TELETYPE TECHNICIAN Ot 204.10 12/05/2015 DEREK BRUCE S TELETYPE TECHNICIAN Ot 279.00 12/05/2015 DEREK BRUCE S TELETYPE TECHNICIAN Ot 305.1 12/05/2015 DEREK BRUCE S TELETYPE TECHNICIAN Ot V58.69 12/05/2015 DOLLY RAMSEY EWA C Ot 256.31 12/05/2015 ALBERTO DO EWA C Ot 785.6 12/05/2015 ALBERTO DO EWA C Ot 789.04 12/05/2015 DOLLY RAMSEY EWA C Ot V70.0 12/05/2015 ALBERTOCollin RAMSEY EWA C Ot V76.12 12/05/2015 DEREK BRUCE S TELETYPE TECHNICIAN Ot 204.10 12/05/2015 DEREK BRUCE S TELETYPE TECHNICIAN Ot 279.00 12/05/2015 DEREK BRUCE S TELETYPE TECHNICIAN Ot 305.1 12/05/2015 DEREK BRUCE Macdonald TELETYPE TECHNICIAN Ot V58.69 12/05/2015 ROSHAN AYON N Ot 786.05 12/05/2015 DEREK BRUCE S TELETYPE TECHNICIAN Ot 204.10 12/05/2015 DEREK BRUCE S TELETYPE TECHNICIAN Ot 279.00 12/05/2015 DEREK BRUCE S TELETYPE TECHNICIAN Ot 305.1 12/05/2015 DEREK BRUCE S TELETYPE TECHNICIAN Ot V58.69 12/05/2015 DEREK BRUCE S TELETYPE TECHNICIAN Ot 204.10 12/05/2015 DEREK BRUCE S TELETYPE TECHNICIAN Ot 279.00 12/05/2015 DEREK BRUCE S TELETYPE TECHNICIAN Ot 305.1 12/05/2015 DEREK BRUCE S TELETYPE TECHNICIAN Ot V58.69 12/05/2015 HUANG DO, RICO Ot 729.5 12/05/2015 HUANG DO, RICO Ot J45.902 12/05/2015 HUANG DO, RICO Ot 204.10 12/05/2015 HUANG DO, RICO Ot 300.00 12/05/2015 HUANG DO, RICO Ot 493.10 12/05/2015 HUANG DO, RICO Ot 511.0 12/05/2015 HUANG DO, RICO Ot 729.5 12/05/2015 HUANG DO, [place] Ot V58.69 12/05/2015 HUANG DO, [place] Ot V70.0 12/05/2015 DEREK BRUCE S TELETYPE TECHNICIAN Ot C91.10 12/05/2015 DEREK BRUCE S TELETYPE TECHNICIAN Ot D80.1 12/05/2015 DEREK BRUCE S TELETYPE TECHNICIAN Ot Z79.899 12/05/2015 DEREK BRUCE S TELETYPE TECHNICIAN Ot B44.1 12/05/2015 DEREK BRUCE S TELETYPE TECHNICIAN Ot C91.10 12/05/2015 DEREK BRUCE S TELETYPE TECHNICIAN Ot D75.9 12/05/2015 DEREK BRUCE S TELETYPE TECHNICIAN Ot D80.1 12/05/2015 EZ REEDSAMM S TELETYPE TECHNICIAN Ot F17.200 12/05/2015 DEREK BRUCE S TELETYPE TECHNICIAN Ot Z79.899 12/05/2015 ROSHAN AYON N Ot C91.10 12/05/2015 ROSHAN AYON N Ot D80.1 12/05/2015 ROSHAN AYON N Ot F17.200 12/05/2015 GABOROSHAN RODRIGUEZ N Ot Z51.11 12/05/2015 GABOROSHAN RODRIGUEZ N Ot Z79.899 12/05/2015 DEREK BRUCE S TELETYPE TECHNICIAN Ot B44.1 12/05/2015 DEREK BRUCE S TELETYPE TECHNICIAN Ot C91.10 12/05/2015 DEREK BRUCE S TELETYPE TECHNICIAN Ot D75.9 12/05/2015 DEREK EZSAMM S TELETYPE TECHNICIAN Ot D80.1 12/05/2015 DEREK EZSAMM S TELETYPE TECHNICIAN Ot F17.200 12/05/2015 DEREK BRUCE S TELETYPE TECHNICIAN Ot Z79.899 12/06/2015 GABOROSHAN RODRIGUEZ N Ot C91.10 12/06/2015 GABOROSHAN RODRIGUEZ N Ot D80.1 12/19/2015 GABOROSHAN RODRIGUEZ N Ot 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 12/19/2015 ROSHAN AYON Ot D80.1 NONFAMILIAL HYPOGAMMAGLOBULINEMIA 12/19/2015 ROSHAN AYON Ot 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 DEPENDENCE, UNSPECIFIED, UNCOMP 12/19/2015 ROSHAN AYON Ot Z51.11 ENCOUNTER FOR ANTINEOPLASTIC CHEMOTHERAP 12/19/2015 ROSHAN AYON Ot Z79.899 OTHER LONG-TERM (CURRENT) DRUG THERAPY 12/20/2015 ROSHAN AYON Ot C91.10 12/20/2015 ROSHAN AYON Ot D80.1 01/09/2016 BRUCE REED TELETYPE TECHNICIAN Ot 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 01/09/2016 BRUCE REEDP Ot D80.1 NONFAMILIAL HYPOGAMMAGLOBULINEMIA 01/09/2016 BRUCE REEDP Ot 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 DEPENDENCE, UNSPECIFIED, UNCOMP 01/09/2016 BRUCE REED S TELETYPE TECHNICIAN Ot Z79.899 OTHER SUPERVISOR COMPOSING ROOM (CURRENT) DRUG THERAPY 01/17/2016 SAL RAMSEY [place] Ot 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 01/17/2016 SAL DO [place] Ot Z00.01 ENCOUNTER FOR GENERAL ADULT MEDICAL EXAM 01/22/2016 NANCY HUANG DOI Ot 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 01/22/2016 HUANG DO [place] Ot Z00.01 ENCOUNTER FOR GENERAL ADULT MEDICAL EXAM 01/22/2016 NANCY HUANG DOI Ot 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 01/22/2016 HUANGSOPHIA RAMSEY [place] Ot Z00.01 ENCOUNTER FOR GENERAL ADULT MEDICAL EXAM 01/22/2016 SAL RAMSEY [place] Ot 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 01/22/2016 HUANGSOPHIA RAMSEY [place] Ot Z00.01 ENCOUNTER FOR GENERAL ADULT MEDICAL EXAM 01/24/2016 BRUCE REED TELETYPE TECHNICIAN Ot 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 01/24/2016 BRUCE REED TELETYPE TECHNICIAN Ot D80.1 NONFAMILIAL HYPOGAMMAGLOBULINEMIA 01/24/2016 BRUCE REED TELETYPE TECHNICIAN Ot 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 DEPENDENCE, UNSPECIFIED, UNCOMP 01/24/2016 BRUCE REED TELETYPE TECHNICIAN Ot Z79.899 OTHER SUPERVISOR COMPOSING ROOM (CURRENT) DRUG THERAPY 01/24/2016 SAL RAMSEY [place] Ot 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 01/24/2016 SAL RAMSEY [place] Ot Z00.01 ENCOUNTER FOR GENERAL ADULT MEDICAL EXAM 02/07/2016 ROSHAN AYON N Ot 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 02/07/2016 ROSHAN AYON N Ot D80.1 NONFAMILIAL HYPOGAMMAGLOBULINEMIA 02/07/2016 ROSHAN AYON N Ot 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 DEPENDENCE, UNSPECIFIED, UNCOMP 02/07/2016 ROSHAN AYON N Ot Z51.11 ENCOUNTER FOR ANTINEOPLASTIC CHEMOTHERAP 02/07/2016 ROSHAN AYON N Ot Z79.899 OTHER SUPERVISOR COMPOSING ROOM (CURRENT) DRUG THERAPY 02/23/2016 GABO JOSELEXIE N Ot 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 02/23/2016 GABOROSHAN RODRIGUEZ N Ot D80.1 NONFAMILIAL HYPOGAMMAGLOBULINEMIA 02/23/2016 GABOROSHAN RODRIGUEZ N Ot 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 DEPENDENCE, UNSPECIFIED, UNCOMP 02/23/2016 GBAOROSHAN RODRIGUEZ N Ot Z79.899 OTHER LONG-TERM (CURRENT) DRUG THERAPY 03/25/2016 ROSHAN AYON N Ot 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 03/25/2016 GABOROSHAN N Ot D80.1 NONFAMILIAL HYPOGAMMAGLOBULINEMIA 03/25/2016 ROSHAN AYON N Ot 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 DEPENDENCE, UNSPECIFIED, UNCOMP 03/25/2016 GABOROSHAN N Ot Z79.899 OTHER SUPERVISOR COMPOSING ROOM (CURRENT) DRUG THERAPY 04/02/2016 GABO JOSELEXIE N Ot 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 04/02/2016 GABO ROSHAN N Ot D80.1 NONFAMILIAL HYPOGAMMAGLOBULINEMIA 04/02/2016 GABO JOSELEXIE N Ot 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 DEPENDENCE, UNSPECIFIED, UNCOMP 04/02/2016 GABO JOSELEXIE N Ot Z79.899 OTHER SUPERVISOR COMPOSING ROOM (CURRENT) DRUG THERAPY 04/30/2016 BRUCE REED TELETYPE TECHNICIAN Ot 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 04/30/2016 REEDBRUCE Macdonald TELETYPE TECHNICIAN Ot D80.1 NONFAMILIAL HYPOGAMMAGLOBULINEMIA 04/30/2016 ZE REDESAMM Macdonald TELETYPE TECHNICIAN Ot 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 DEPENDENCE, UNSPECIFIED, UNCOMP 04/30/2016 EZ REEDSAMM Macdonald TELETYPE TECHNICIAN Ot Z79.899 OTHER LONG-TERM (CURRENT) DRUG THERAPY 04/30/2016 BRUCE REED TELETYPE TECHNICIAN Ot 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 04/30/2016 EZ REEDSAMM Macdonald TELETYPE TECHNICIAN Ot D80.1 NONFAMILIAL HYPOGAMMAGLOBULINEMIA 04/30/2016 EZ REEDSAMM Macdonald TELETYPE TECHNICIAN Ot 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 DEPENDENCE, UNSPECIFIED, UNCOMP 04/30/2016 EZ REEDSAMM Macdonald TELETYPE TECHNICIAN Ot Z79.899 OTHER SUPERVISOR COMPOSING ROOM (CURRENT) DRUG THERAPY 05/05/2016 BRUCE REED TELETYPE TECHNICIAN Ot 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 05/05/2016 EZ REEDSAMM Macdonald TELETYPE TECHNICIAN Ot D80.1 NONFAMILIAL HYPOGAMMAGLOBULINEMIA 05/05/2016 EZ REEDSAMM Macdonald TELETYPE TECHNICIAN Ot 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 DEPENDENCE, UNSPECIFIED, UNCOMP 05/05/2016 EZ REEDSAMM Madconald TELETYPE TECHNICIAN Ot Z79.899 OTHER LONG-TERM (CURRENT) DRUG THERAPY 05/13/2016 ROSHAN AYON Ot 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 05/13/2016 ROSHAN AYON Ot D80.1 NONFAMILIAL HYPOGAMMAGLOBULINEMIA 05/13/2016 ROSHAN AYON Ot 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 DEPENDENCE, UNSPECIFIED, UNCOMP 05/13/2016 ROSHAN AYON N Ot Z79.899 OTHER SUPERVISOR COMPOSING ROOM (CURRENT) DRUG THERAPY 05/16/2016 BRUCE REED TELETYPE TECHNICIAN Ot 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 05/16/2016 EZ REEDSAMM Mcadonald TELETYPE TECHNICIAN Ot D80.1 NONFAMILIAL HYPOGAMMAGLOBULINEMIA 05/16/2016 BRUCE REED TELETYPE TECHNICIAN Ot 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 DEPENDENCE, UNSPECIFIED, UNCOMP 05/16/2016 BRUCE REED TELETYPE TECHNICIAN Ot Z79.899 OTHER LONG-TERM (CURRENT) DRUG THERAPY 06/24/2016 GABOROSHAN N Ot 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 06/24/2016 GABOROSHAN N Ot D80.1 NONFAMILIAL HYPOGAMMAGLOBULINEMIA 06/24/2016 GABO, BOBAN N Ot 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 DEPENDENCE, UNSPECIFIED, UNCOMP 06/24/2016 GABOROSHAN N Ot Z79.899 OTHER SUPERVISOR COMPOSING ROOM (CURRENT) DRUG THERAPY 06/26/2016 GABO JOSELEXIE N Ot 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 06/26/2016 GABOROSHAN N Ot D80.1 NONFAMILIAL HYPOGAMMAGLOBULINEMIA 06/26/2016 GABO, BOBLEXIE N Ot 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 DEPENDENCE, UNSPECIFIED, UNCOMP 06/26/2016 GABO, BOBAN N Ot Z79.899 OTHER SUPERVISOR COMPOSING ROOM (CURRENT) DRUG THERAPY 08/02/2016 GABO JOSELEXIE N Ot 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 08/02/2016 GABOROSHAN N Ot D80.1 NONFAMILIAL HYPOGAMMAGLOBULINEMIA 08/02/2016 GABOROSHAN N Ot 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 DEPENDENCE, UNSPECIFIED, UNCOMP 08/02/2016 GABO, BOBLEXIE N Ot Z79.899 OTHER SUPERVISOR COMPOSING ROOM (CURRENT) DRUG THERAPY 09/23/2016 ROSHAN AYON N Ot 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 09/23/2016 GABOROSHAN N Ot D80.1 NONFAMILIAL HYPOGAMMAGLOBULINEMIA 09/23/2016 GABO JOSELEXIE N Ot 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 DEPENDENCE, UNSPECIFIED, UNCOMP 09/23/2016 GABO, BOBAN N Ot Z79.899 OTHER LONG-TERM (CURRENT) DRUG THERAPY 10/16/2016 GABO ROSHAN N Ot 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 10/16/2016 GABO JOSEAN N Ot D80.1 NONFAMILIAL HYPOGAMMAGLOBULINEMIA 10/16/2016 GABO BOBAN N Ot 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 DEPENDENCE, UNSPECIFIED, UNCOMP 10/16/2016 GABO JOSELEXIE N Ot Z79.899 OTHER SUPERVISOR COMPOSING ROOM (CURRENT) DRUG THERAPY 11/11/2016 ROSHAN AYON N Ot 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 11/11/2016 ROSHAN AYON N Ot D80.1 NONFAMILIAL HYPOGAMMAGLOBULINEMIA 11/11/2016 ROSHAN AYON N Ot 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 DEPENDENCE, UNSPECIFIED, UNCOMP 11/11/2016 ROSHAN AYON N Ot Z79.899 OTHER LONG-TERM (CURRENT) DRUG THERAPY 11/29/2016 ROSHAN AYON Trey Ot 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 11/29/2016 ROSHAN AYON N Ot D80.1 NONFAMILIAL HYPOGAMMAGLOBULINEMIA 11/29/2016 ROSHAN AYON N Ot 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 DEPENDENCE, UNSPECIFIED, UNCOMP 11/29/2016 GABO JOSELEXIE N Ot Z79.899 OTHER LONG-TERM (CURRENT) DRUG THERAPY 02/05/2017 ROSHAN AYON Trey Ot 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 02/05/2017 ROSHAN AYON Trey Ot D80.1 NONFAMILIAL HYPOGAMMAGLOBULINEMIA 02/05/2017 ROSHAN AYON N Ot 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 DEPENDENCE, UNSPECIFIED, UNCOMP 02/05/2017 GABOROSHAN RODRIGUEZ N Ot Z79.899 OTHER LONG-TERM (CURRENT) DRUG THERAPY 02/14/2017 GABO JOSELEXIE Trey Ot 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 02/14/2017 ROSHAN AYON N Ot D80.1 NONFAMILIAL HYPOGAMMAGLOBULINEMIA 02/14/2017 ROSHAN AYON N Ot 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 DEPENDENCE, UNSPECIFIED, UNCOMP 02/14/2017 ROSHAN AYON N Ot Z79.899 OTHER LONG-TERM (CURRENT) DRUG THERAPY 03/28/2017 GABO JOSELEXIE N Ot 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 03/28/2017 GABO, JOSELEXIE N Ot D80.1 NONFAMILIAL HYPOGAMMAGLOBULINEMIA 03/28/2017 GABO, JOSELEXIE N Ot 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 DEPENDENCE, UNSPECIFIED, UNCOMP 03/28/2017 GABO, JOSELEXIE N Ot Z79.899 OTHER SUPERVISOR COMPOSING ROOM (CURRENT) DRUG THERAPY 05/14/2017 GABO ROSHAN N Ot 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 05/14/2017 ROSHAN AYON Ot D80.1 NONFAMILIAL HYPOGAMMAGLOBULINEMIA 05/14/2017 ROSHAN AYON Ot 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 DEPENDENCE, UNSPECIFIED, UNCOMP 05/14/2017 ROSHAN AYON Ot Z79.899 OTHER SUPERVISOR COMPOSING ROOM (CURRENT) DRUG THERAPY 05/22/2017 Ot 204.10 CHRONIC LYMPHOID LEUKEMIA, W/O MENTION A 05/22/2017 Ot 279.00 HYPOGAMMAGLOBULINEM NOS 05/22/2017 Ot 305.1 TOBACCO USE DISORDER 05/22/2017 Ot V58.69 OTH MED,LT,CURRENT USE 05/22/2017 Ot 204.10 CHRONIC LYMPHOID LEUKEMIA, W/O MENTION A 05/22/2017 Ot 279.00 HYPOGAMMAGLOBULINEM NOS 05/22/2017 Ot 305.1 TOBACCO USE DISORDER 05/22/2017 Ot V58.69 OTH MED,LT,CURRENT USE 05/22/2017 Ot 204.10 CHRONIC LYMPHOID LEUKEMIA, W/O MENTION A 05/22/2017 Ot 279.00 HYPOGAMMAGLOBULINEM NOS 05/22/2017 Ot 305.1 TOBACCO USE DISORDER 05/22/2017 Ot V58.69 OTH MED,LT,CURRENT USE 05/22/2017 BRUCE REED TELETYPE TECHNICIAN Ot 204.10 CHRONIC LYMPHOID LEUKEMIA, W/O MENTION A 05/22/2017 REEDBRUCE Macdonald TELETYPE TECHNICIAN Ot 279.00 HYPOGAMMAGLOBULINEM NOS 05/22/2017 REEDBRUCE Macdonald TELETYPE TECHNICIAN Ot 305.1 TOBACCO USE DISORDER 05/22/2017 BRUCE REED TELETYPE TECHNICIAN Ot V58.69 OTH MED,LT,CURRENT USE 05/22/2017 BRUCE REED TELETYPE TECHNICIAN Ot 204.10 CHRONIC LYMPHOID LEUKEMIA, W/O MENTION A 05/22/2017 REEDBRUCE TELETYPE TECHNICIAN Ot 279.00 HYPOGAMMAGLOBULINEM NOS 05/22/2017 BRUCE REED TELETYPE TECHNICIAN Ot 305.1 TOBACCO USE DISORDER 05/22/2017 BRUCE REED TELETYPE TECHNICIAN Ot V58.69 OTH MED,LT,CURRENT USE 05/22/2017 BRUCE REED TELETYPE TECHNICIAN Ot 204.10 CHRONIC LYMPHOID LEUKEMIA, W/O MENTION A 05/22/2017 BRUCE REED TELETYPE TECHNICIAN Ot 279.00 HYPOGAMMAGLOBULINEM NOS 05/22/2017 BRUCE REED TELETYPE TECHNICIAN Ot 305.1 TOBACCO USE DISORDER 05/22/2017 BRUCE REED Ot V58.69 OTH MED,LT,CURRENT USE 05/22/2017 ROSHAN AYON N Ot 564.00 UNSPEC CONSTIPATION 05/22/2017 ROSHAN AYON N Ot 785.6 ENLARGEMENT LYMPH NODES 05/22/2017 ROSHAN AYON N Ot 789.04 ABDOMINAL PAIN, LEFT LOWER QUADRANT 05/22/2017 ROSHAN AYON N Ot 789.2 SPLENOMEGALY 05/22/2017 ROSHAN AYON N Ot 793.5 NOSP (ABN) FINDINGS ON RADIOLOGICAL OT 05/22/2017 BRUCE REEDP Ot 204.10 CHRONIC LYMPHOID LEUKEMIA, W/O MENTION A 05/22/2017 BRUCE REEDP Ot 279.00 HYPOGAMMAGLOBULINEM NOS 05/22/2017 BRUCE REED TELETYPE TECHNICIAN Ot 305.1 TOBACCO USE DISORDER 05/22/2017 BRUCE REED Ot V58.69 OTH MED,LT,CURRENT USE 05/22/2017 REFUGIO ALBERTO DOA C Ot 256.31 PREMATURE MENOPAUSE 05/22/2017 DOLLY DOREFUGIOA C Ot 785.6 ENLARGEMENT LYMPH NODES 05/22/2017 EWA ALBERTO DO C Ot 789.04 ABDOMINAL PAIN, LEFT LOWER QUADRANT 05/22/2017 EWA ALBERTO DO C Ot V70.0 ROUTINE MEDICAL EXAM 05/22/2017 REFUGIO ALBERTO DOA C Ot V76.12 OTH SCREEN MAMMO-MALIGN NEOPLASM OF BILLY 05/22/2017 BRUCE REEDP Ot 204.10 CHRONIC LYMPHOID LEUKEMIA, W/O MENTION A 05/22/2017 BRUCE REEDP Ot 279.00 HYPOGAMMAGLOBULINEM NOS 05/22/2017 BRUCE REED TELETYPE TECHNICIAN Ot 305.1 TOBACCO USE DISORDER 05/22/2017 BRUCE REED Ot V58.69 OTH MED,LT,CURRENT USE 05/22/2017 ROSHAN AYON N Ot 786.05 SHORTNESS OF BREATH 05/22/2017 BRUCE REED TELETYPE TECHNICIAN Ot 204.10 CHRONIC LYMPHOID LEUKEMIA, W/O MENTION A 05/22/2017 REED, HILAH S TELETYPE TECHNICIAN Ot 279.00 HYPOGAMMAGLOBULINEM NOS 05/22/2017 BRUCE REED TELETYPE TECHNICIAN Ot 305.1 TOBACCO USE DISORDER 05/22/2017 BRUCE REED TELETYPE TECHNICIAN Ot V58.69 OTH MED,LT,CURRENT USE 05/22/2017 BRUCE REED TELETYPE TECHNICIAN Ot 204.10 CHRONIC LYMPHOID LEUKEMIA, W/O MENTION A 05/22/2017 BRUCE REED TELETYPE TECHNICIAN Ot 279.00 HYPOGAMMAGLOBULINEM NOS 05/22/2017 BRUCE REED TELETYPE TECHNICIAN Ot 305.1 TOBACCO USE DISORDER 05/22/2017 BRUCE REEDP Ot V58.69 OTH MED,LT,CURRENT USE 05/22/2017 NANCY HUANG DOI Ot 729.5 PAIN IN LIMB 05/22/2017 NANCY HUANG DOI Ot J45.902 UNSPECIFIED ASTHMA WITH STATUS ASTHMATIC 05/22/2017 NANCY HUANG DOI Ot 204.10 CHRONIC LYMPHOID LEUKEMIA, W/O MENTION A 05/22/2017 NANCY HUANG DOI Ot 300.00 ANXIETY STATE NOS 05/22/2017 SAL RAMSEY RICO Ot 493.10 INTRINSIC ASTHMA, NOS 05/22/2017 SAL RAMSEY R[place] Ot 511.0 PLEURISY W/O EFFUS OR TB 05/22/2017 NANCY HUANG DOI Ot 729.5 PAIN IN LIMB 05/22/2017 NANCY HUANG DOI Ot V58.69 OTH MED,LT,CURRENT USE 05/22/2017 RICO HUANG DO Ot V70.0 ROUTINE MEDICAL EXAM 05/22/2017 BRUCE REED TELETYPE TECHNICIAN Ot 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 05/22/2017 BRUCE REEDP Ot D80.1 NONFAMILIAL HYPOGAMMAGLOBULINEMIA 05/22/2017 BRUCE REEDP Ot Z79.899 OTHER SUPERVISOR COMPOSING ROOM (CURRENT) DRUG THERAPY 05/22/2017 BRUCE REED TELETYPE TECHNICIAN Ot B44.1 OTHER PULMONARY ASPERGILLOSIS 05/22/2017 BRUCE REED TELETYPE TECHNICIAN Ot 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 05/22/2017 BRUCE REED TELETYPE TECHNICIAN Ot D75.9 DISEASE OF BLOOD AND BLOOD-FORMING ORGAN 05/22/2017 BRUCE REED TELETYPE TECHNICIAN Ot D80.1 NONFAMILIAL HYPOGAMMAGLOBULINEMIA 05/22/2017 BRUCE REEDP Ot 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 DEPENDENCE, UNSPECIFIED, UNCOMP 05/22/2017 BRUCE REED TELETYPE TECHNICIAN Ot Z79.899 OTHER SUPERVISOR COMPOSING ROOM (CURRENT) DRUG THERAPY 05/22/2017 BRUCE REEDP Ot B44.1 OTHER PULMONARY ASPERGILLOSIS 05/22/2017 BRUCE REED TELETYPE TECHNICIAN Ot 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 05/22/2017 BRUCE REEDP Ot D75.9 DISEASE OF BLOOD AND BLOOD-FORMING ORGAN 05/22/2017 BRUCE REEDP Ot D80.1 NONFAMILIAL HYPOGAMMAGLOBULINEMIA 05/22/2017 BRUCE REEDP Ot 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 DEPENDENCE, UNSPECIFIED, UNCOMP 05/22/2017 BRUCE REEDP Ot Z79.899 OTHER SUPERVISOR COMPOSING ROOM (CURRENT) DRUG THERAPY 05/22/2017 ROSHAN AYON Ot 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 05/22/2017 ROSHAN AYON Ot D80.1 NONFAMILIAL HYPOGAMMAGLOBULINEMIA 05/22/2017 BRUCE REED TELETYPE TECHNICIAN Ot 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 05/22/2017 BRUCE REEDP Ot D80.1 NONFAMILIAL HYPOGAMMAGLOBULINEMIA 05/22/2017 BRUCE REED Ot 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 DEPENDENCE, UNSPECIFIED, UNCOMP 05/22/2017 BRUCE REED TELETYPE TECHNICIAN Ot Z79.899 OTHER LONG-TERM (CURRENT) DRUG THERAPY 05/22/2017 RICO HUANG DO Ot 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 05/22/2017 RICO HUANG DO Ot Z00.01 ENCOUNTER FOR GENERAL ADULT MEDICAL EXAM 05/22/2017 BRUCE REEDP Ot 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 05/22/2017 BRUCE REED TELETYPE TECHNICIAN Ot D80.1 NONFAMILIAL HYPOGAMMAGLOBULINEMIA 05/22/2017 REED, HILAH S TELETYPE TECHNICIAN Ot 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 DEPENDENCE, UNSPECIFIED, UNCOMP 05/22/2017 REEDBRUCE Macdonald TELETYPE TECHNICIAN Ot Z79.899 OTHER SUPERVISOR COMPOSING ROOM (CURRENT) DRUG THERAPY 05/22/2017 GABO, BOBAN N Ot 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 05/22/2017 GABO, BOBAN N Ot D80.1 NONFAMILIAL HYPOGAMMAGLOBULINEMIA 05/22/2017 GABO, BOBAN N Ot 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 DEPENDENCE, UNSPECIFIED, UNCOMP 05/22/2017 GABO, BOBAN N Ot Z79.899 OTHER SUPERVISOR COMPOSING ROOM (CURRENT) DRUG THERAPY 05/23/2017 GABO, BOBAN N Ot 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 05/23/2017 GABO, BOBAN N Ot D80.1 NONFAMILIAL HYPOGAMMAGLOBULINEMIA 05/23/2017 GABO, BOBAN N Ot 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 DEPENDENCE, UNSPECIFIED, UNCOMP 05/23/2017 GABO, BOBAN N Ot Z79.899 OTHER LONG-TERM (CURRENT) DRUG THERAPY 06/14/2017 GABO, BOBAN N Ot 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 06/14/2017 GABO, BOBAN N Ot D80.1 NONFAMILIAL HYPOGAMMAGLOBULINEMIA 06/14/2017 GABO, BOBAN N Ot 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 DEPENDENCE, UNSPECIFIED, UNCOMP 06/14/2017 GABO, BOBAN N Ot Z79.899 OTHER SUPERVISOR COMPOSING ROOM (CURRENT) DRUG THERAPY 06/20/2017 GABO, BOBAN N Ot 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 06/20/2017 GABO, BOBAN N Ot D80.1 NONFAMILIAL HYPOGAMMAGLOBULINEMIA 06/20/2017 GABO, BOBAN N Ot 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 DEPENDENCE, UNSPECIFIED, UNCOMP 06/20/2017 GABO, BOBAN N Ot Z79.899 OTHER SUPERVISOR COMPOSING ROOM (CURRENT) DRUG THERAPY Procedures Code Description [place] [address] PSYCH DIAGNOSTIC EVALUATION 01/10/2015 Results Encounters ACCT No. Visit Date/Time Discharge Status Pt. Type Provider Facility Loc./Unit Complaint [id number] 01/10/2015 14:58:00 01/10/2015 23: 59:59 CLS Outpatient PONCHO TOBAR PSYD [id number] 07/17/2017 14:01:00 2016 23:59:59 CLS Outpatient ROSHAN AYON N Via [facility] ONC OV [id number] 05/22/2017 14:04:00 2016 00:01:00 DIS Outpatient ROSHAN AYON N [facility] ONC OV [id number] 04/23/2017 10:38:00 2016 00:01:00 DIS Outpatient ROSHAN AYON N [facility] ONC OV [id number] 01/30/2017 11:03:00 2016 00:01:00 DIS Outpatient ROSHAN AYON N [facility] ONC OV [id number] 09/19/2016 14:04:00 2016 00:01:00 DIS Outpatient ROSHAN AYON N [facility] ONC OV [id number] 05/28/2016 13:31:00 2015 13:44:00 DIS Outpatient ROSHAN AYON N [facility] ONC OV [id number] 04/29/2016 14:18:00 2015 23:59:59 CLS Outpatient BRUCE REED [facility] ONC [id number] 03/04/2016 14:02:00 2015 00:01:00 DIS Outpatient ROSHAN AYON N [facility] ONC OV [id number] 01/16/2016 15:26:00 2015 23:59:59 CLS Outpatient RICO HUANG DO [facility] LAB [id number] 01/08/2016 14:11:00 2015 23:59:59 CLS Outpatient BRUCE REED [facility] ONC [id number] 12/19/2015 15:25:00 2015 00:01:00 DIS Outpatient ROSHAN AYON N [facility] ONC OV [id number] 12/05/2015 12:38:00 2015 23:59:59 CLS Outpatient ROSHAN AYON [facility] RAD HYPOGAMMAGLOBULINEMIA,LEUKEMIA [id number] 11/06/2015 11:02:00 2015 23:59:59 CLS Outpatient BRUCE REED TELETYPE TECHNICIAN [facility] ONC [id number] 09/14/2015 14:07:00 2015 00:01:00 DIS Outpatient ROSHAN AYON [facility] ONC OV [id number] 09/12/2015 09:34:00 2014 23:59:59 CLS Outpatient BRUCE REED TELETYPE TECHNICIAN [facility] ONC [id number] 07/05/2015 22:48:00 2014 11:50:00 DIS Inpatient ROSHAN AYON [facility] 4TH NEUTROPENIC FEVER,MERCADO [id number] 06/16/2015 15:17:00 2014 23:59:59 CLS Outpatient HUANG DO RICO [facility] RT ASTHMA [id number] 06/15/2015 14:13:00 2014 23:59:59 CLS Outpatient BRUCE REED TELETYPE TECHNICIAN [facility] ONC [id number] 05/25/2015 11:01:00 2014 00:01:00 DIS Outpatient ROSHAN AYON [facility] ONC OV [id number] 06/13/2015 10:21:00 2014 23:59:59 CLS Outpatient HUANG DO, RICO [facility] RAD LEUKEMIC RETICULOENDOTHELISOS [id number] 05/15/2015 17:17:00 2014 23:59:59 CLS Outpatient HUANG DO, RICO [facility] RAD RT LEG PAIN [id number] 04/20/2015 10:32:00 2014 23:59:59 CLS Outpatient BRUCE REED TELETYPE TECHNICIAN [facility] ONC [id number] 03/29/2015 13:33:00 2014 00:01:00 DIS Outpatient ROSHAN AYON [facility] ONC OV [id number] 02/09/2015 10:53:00 2014 23:59:59 CLS Outpatient BRUCE REED TELETYPE TECHNICIAN [facility] ONC [id number] 01/16/2015 11:59:00 2014 23:59:59 CLS Outpatient ROSHAN AYON Trey [facility] RAD [id number] 12/15/2014 10:59:00 2014 00:01:00 DIS Outpatient ROSHAN AYON Trey [facility] ONC OV [id number] 10/20/2014 14:03:00 2014 23:59:59 CLS Outpatient BRUCE REED TELETYPE TECHNICIAN [facility] ONC [id number] 10/02/2014 08:19:00 2014 09:58:00 DIS Emergency MISHEL WHIPPLE MD [facility] ER COUGH,FEVER [id number] 08/18/2014 14:30:00 2013 00:01:00 DIS Outpatient ROSHAN AYON Trey [facility] ONC OV [id number] 04/26/2014 14:03:00 2013 00:01:00 DIS Outpatient ROSHAN AYON Trey [facility] ONC OV [id number] 05/05/2014 13:28:00 2013 23:59:59 CLS Outpatient EWA ALBERTO DO [facility] RAD INGUINAL LYMPHADENOPATHY [id number] 04/26/2014 14:05:00 2013 23:59:59 CLS Outpatient BRUCE REED TELETYPE TECHNICIAN [facility] ONC [id number] 03/10/2014 11:07:00 2013 23:59:59 CLS Outpatient ROSHAN AYON Trey [facility] RAD LEFT LOWER QUADRANT PAIN [id number] 01/06/2014 09:56:00 2013 00:01:00 DIS Outpatient GABOJOSELEXIE Yang [facility] ONC OV [id number] 01/06/2014 09:55:00 2013 23:59:59 CLS Outpatient BRUCE REED S TELETYPE TECHNICIAN [facility] ONC [id number] 09/14/2013 10:55:00 2013 00:01:00 DIS Outpatient ROSHAN AYON [facility] ONC OV [id number] 09/14/2013 10:54:00 2012 23:59:59 CLS Outpatient REEDBRUCE S TELETYPE TECHNICIAN [facility] ONC [id number] 07/08/2013 10:15:00 2012 23:59:59 CLS Outpatient BRUCE REED S TELETYPE TECHNICIAN [facility] ONC [id number] 05/13/2013 10:06:00 2012 00:01:00 DIS Outpatient ROSHAN AYON [facility] ONC OV [id number] 01/05/2013 10:24:00 2012 00:01:00 DIS Outpatient ROSHAN AYON [facility] ONC OV [id number] 07/05/2015 23:22:00 Document Registration [id number] 01/05/2013 10:23:00 Document Registration [id number] 10/15/2012 10:00:00 Document Registration [id number] 07/16/2012 10:39:00 Document Registration [id number] 06/18/2012 10:04:00 Document Registration [id number] 04/16/2012 09:06:00 Document Registration [id number] 01/09/2012 10:35:00 Document Registration [id number] 10/10/2011 13:22:00 Document Registration [id number] 07/11/2011 13:11:00 Document Registration [id number] 02/28/2011 13:06:00 Document Registration [id number] 12/20/2010 14:17:00 Document Registration [id number] 08/30/2010 13:07:00 Document Registration [id number] 08/01/2010 14:06:00 Document Registration [id number] 07/19/2010 10:59:00 Document Registration
[2017-07-27 22:49] LABS: BASOPHILS % (AUTO) 0 % (0-10); EOSINOPHILS # (AUTO) 0.1 10^3/uL (0.0-0.3); EOSINOPHILS % (AUTO) 0 % (0-10); LYMPHOCYTES # (AUTO) 9.8 X 10^3 (1.0-4.0); LYMPHOCYTES % (AUTO) 58 % (12-44); MEAN CORPUSCULAR HEMOGLOBIN 32 PG (25-34); MEAN CORPUSCULAR HGB CONC 34 G/DL (32-36); MEAN CORPUSCULAR VOLUME 94 FL (80-99); MEAN PLATELET VOLUME 10.4 FL (7.4-10.4); MONOCYTES # (AUTO) 0.5 X 10^3 (0.0-1.0); MONOCYTES % (AUTO) 3 % (0-12); NEUTROPHILS # (AUTO) 6.3 X 10^3 (1.8-7.8); NEUTROPHILS % (AUTO) 38 % (42-75); PLATELET COUNT 193 10^3/uL (130-400); RED BLOOD COUNT 4.51 10^6/uL (4.35-5.85); RED CELL DISTRIBUTION WIDTH 12.8 % (10.0-14.5); WHITE BLOOD COUNT 16.7 10^3/uL (4.3-11.0)
[2017-07-27 23:08] LABS: KETONES,URINE 1+ (NEGATIVE); LEUKOCYTE ESTERASE ,URINE 1+ (NEGATIVE); NITRITE,URINE NEGATIVE (NEGATIVE); PH,URINE 6 (5-9); PROTEIN,URINE 1+ (NEGATIVE); UROBILINOGEN,URINE NORMAL (NORMAL)
[2017-07-27 23:13] LABS: ALBUMIN 4.3 GM/DL (3.2-4.5); BILIRUBIN,TOTAL 0.5 MG/DL (0.1-1.0); CALCIUM 9.4 MG/DL (8.5-10.1); CREATININE SERUM 1.02 MG/DL (0.60-1.30); MAGNESIUM 2.3 MG/DL (1.8-2.4); POTASSIUM 3.6 MMOL/L (3.6-5.0); TOTAL PROTEIN 7.3 GM/DL (6.4-8.2)
[2017-07-27 23:17] LABS: BILIRUBIN,URINE 1+ (NEGATIVE)
[2017-07-27 23:19] LABS: WBC,URINE 0-2 /HPF
[2017-07-27] MEDS ORDERED: RX-ONDANSETRON 4 MG ODT (ZOFRAN) PPK #4 SL STA (23:40)
[2017-07-27] MEDS ORDERED: RX-HYOSCYAMINE 0.125 MG SL (LEVSIN) PPK#6 SL STA (23:40)
[2017-07-27] MEDS ORDERED: fentaNYL INJECTION 100 MCG/2 ML AMP IVP ONE (23:45)
[2017-07-27] MEDS ORDERED: HYDROcodone/APAP 5 MG/325 MG (LORTAB) TAB PO ONE (23:45)
--- NOTE | 2017-07-28 | ED GI ---
General Chief Complaint: Abdominal/GI Problems Stated Complaint: STOMACH FLU Nursing Triage Note: DIARRHEA, NAUSEA, HEADACHE Sepsis Screen: No Definite Risk Source of Information: Patient Exam Limitations: No Limitations History of Present Illness Time Seen By Provider: 22:12 Initial Comments This 52 old woman presents to the emergency room with diarrhea, headache and nausea with abdominal cramping that started this evening. She denies fever. She has CLL but is not currently receiving treatment. Her oncologist is Dr. Power and her primary care providers Dr. Huang. Allergies and Home Medications Allergies Coded Allergies: egg (Verified Allergy, Intermediate, NAUSEA, 07/06/15) Sulfa (Sulfonamide Antibiotics) (Unverified Allergy, Unknown, 07/19/10) Home Medications Cetirizine HCl 10 Mg Tablet, (Reported) Duloxetine HCl 30 Mg Capsule.dr, 30 MG PO DAILY, (Reported) [Gammagard] , (Reported) Review of Systems Constitutional: no symptoms reported EENTM: No Symptoms Reported Respiratory: No Symptoms Reported Cardiovascular: No Symptoms Reported Gastrointestinal: See HPI Genitourinary: No Symptoms Reported Musculoskeletal: no symptoms reported Skin: no symptoms reported Psychiatric/Neurological: See HPI Endocrine: No Symptoms Reported Hematologic/Lymphatic: See HPI Past Wbbchlq-Kkmxcs-Cipqzg Hx Patient Social History Alcohol Use: Denies Use Recreational Drug Use: No Smoking Status: Never a Smoker Recent Foreign Travel: No Contact w/Someone Who Travel: No Recent Infectious Disease Expo: No Recent Hopitalizations: No Immunizations Up To Date Tetanus Booster (TDap): More than 5yrs PED Vaccines UTD: Yes Seasonal Allergies Seasonal Allergies: No Surgeries History of Surgeries: Yes (2 C-sections) Surgeries: Section, Tubal Ligation Respiratory History of Respiratory Disorde: Yes ("chronic left lower lung fungal infection ") Respiratory Disorders: Asthma, Pneumonia Currently Using CPAP: No Currently Using BIPAP: No Cardiovascular History of Cardiac Disorders: Yes Cardiac Disorders: Hypotension Neurological History of Neurological Disord: No Reproductive System : No Hx Reproductive Disorders: No Sexually Transmitted Disease: No HIV/AIDS: 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 Genitourinary History of Genitourinary Disor: No Gastrointestinal History of Gastrointestinal Di: Yes Gastrointestinal Disorders: Irritable Bowel Musculoskeletal History of Musculoskeletal Dis: No Endocrine History of Endocrine Disorders: Yes (HYPOGLYCEMIA) HEENT History of HEENT Disorders: No Loss of Vision: Denies Hearing Impairment: Denies Cancer History of Cancer: Yes Cancer: Leukemia (CLL) Psychosocial History of Psychiatric Problem: No Integumentary History of Skin or Integumenta: No Blood Transfusions History of Blood Disorders: Yes (anemia) Adverse Reaction to a Blood Tr: No Family Medical History Family Medial History: Idiopathic hypertrophic subaortic stenosis 19 FATHER Physical Exam Vital Signs VS - Last 72 Hours, by Label 07/27/17 07/28/17 22:21 00:07 Temp 98.1 98.1 Pulse 79 75 Resp 20 20 B/P (MAP) 101/53 Pulse Ox 100 100 O2 Delivery Room Air Room Air Capillary Refill : Less Than 3 Seconds General Appearance: WD/WN, mild distress HEENT: PERRL/EOMI, normal ENT inspection, pharynx normal Neck: normal inspection Respiratory: lungs clear, normal breath sounds, no respiratory distress, no accessory muscle use Cardiovascular: regular rate, rhythm, no edema, no murmur Gastrointestinal: normal bowel sounds, soft, tenderness (left lower quadrant) Extremities: normal inspection, no pedal edema Neurologic/Psychiatric: second worker II-XII nml as tested, no motor/sensory deficits, alert, normal mood/affect, oriented x 3 Skin: normal color, warm/dry Progress/Results/Core Measures Results/Orders Lab Results Laboratory Tests Test 07/27/17 22:35 07/27/17 23:00 Range/Units White Blood Count 16.7 H 4.3-11.0 10^3/uL Red Blood Count 4.51 4.35-5.85 10^6/uL Hemoglobin 14.6 11.5-16.0 G/DL Hematocrit 43 35-52 % Mean Corpuscular Volume 94 80-99 FL Mean Corpuscular Hemoglobin 32 25-34 PG Mean Corpuscular Hemoglobin Concent 34 32-36 G/DL Red Cell Distribution Width 12.8 10.0-14.5 % Platelet Count 193 130-400 10^3/uL Mean Platelet Volume 10.4 7.4-10.4 FL Neutrophils (%) (Auto) 38 L 42-75 % Lymphocytes (%) (Auto) 58 H 12-44 % Monocytes (%) (Auto) 3 0-12 % Eosinophils (%) (Auto) 0 0-10 % Basophils (%) (Auto) 0 0-10 % Neutrophils # (Auto) 6.3 1.8-7.8 X 10^3 Lymphocytes # (Auto) 9.8 H 1.0-4.0 X 10^3 Monocytes # (Auto) 0.5 0.0-1.0 X 10^3 Eosinophils # (Auto) 0.1 0.0-0.3 10^3/uL Basophils # (Auto) 0.0 0.0-0.1 10^3/uL Sodium Level 140 135-145 MMOL/L Potassium Level 3.6 3.6-5.0 MMOL/L Chloride Level 107 98-107 MMOL/L Carbon Dioxide Level 19 L 21-32 MMOL/L Anion Gap 14 5-14 MMOL/L Blood Urea Nitrogen 15 7-18 MG/DL Creatinine 1.02 0.60-1.30 MG/DL Estimat Glomerular Filtration Rate 57 BUN/Creatinine Ratio 15 Glucose Level 129 H 70-105 MG/DL Calcium Level 9.4 8.5-10.1 MG/DL Magnesium Level 2.3 1.8-2.4 MG/DL Total Bilirubin 0.5 0.1-1.0 MG/DL Aspartate Amino Transf (AST/SGOT) 25 5-34 U/L Alanine Aminotransferase (ALT/SGPT) 23 0-55 U/L Alkaline Phosphatase 75 40-136 U/L Total Protein 7.3 6.4-8.2 GM/DL Albumin 4.3 3.2-4.5 GM/DL Urine Color YELLOW Urine Clarity CLEAR Urine pH 6 5-9 Urine Specific [place] 1.010 L 1.016-1.022 Urine Protein 1+ H NEGATIVE Urine Glucose (UA) NEGATIVE NEGATIVE Urine Ketones 1+ H NEGATIVE Urine Nitrite NEGATIVE NEGATIVE Urine Bilirubin 1+ H NEGATIVE Urine Urobilinogen NORMAL NORMAL MG/DL Urine Leukocyte Esterase 1+ H NEGATIVE Urine RBC (Auto) 2+ H NEGATIVE Urine RBC 2-5 H /HPF Urine WBC 0-2 /HPF Urine Crystals NONE /LPF Urine Bacteria NEGATIVE /HPF Urine Casts NONE /LPF Urine Mucus LARGE H /LPF Urine Culture Indicated NO My Orders Orders - GUSTAVO MEZA MD Cbc With Automated Diff (07/27/17 22:22) Comprehensive Metabolic Panel (07/27/17 22:22) Magnesium (07/27/17 22:22) Ua Culture If Indicated (07/27/17 22:22) Saline Lock/Iv-Start (07/27/17 22:22) Ns Iv 1000 Ml (Sodium Chloride 0.9%) (07/27/17 22:22) Ondansetron Injection (Zofran Injectio (07/27/17 22:30) Hyoscyamine Sl Tablet (Levsin Sl Tablet) (07/27/17 22:30) Stool Culture (07/27/17 22:47) Fecal Wbc (07/27/17 22:47) C Difficile Ag + Toxin A/B. (07/27/17 22:47) Fentanyl Injection (Sublimaze Injection (07/27/17 23:45) Hydrocodone/Apap 5/325 Tablet (Lortab 5 (07/27/17 23:45) Rx-Ondansetron Po (Rx-Zofran Po) (07/27/17 23:40) Rx-Hyoscyamine Tab (Rx-Levsin Sl) (07/27/17 23:40) Medications Given in ED Current Medications Medications Dose Ordered Sig/Francisco Javier Route Start Time Stop Time Status Last Admin Dose Admin Acetaminophen/ Hydrocodone Bitart 1 tab ONCE ONCE PO 07/27/17 23:45 07/27/17 23:46 DC 07/27/17 23:57 1 TAB Fentanyl Citrate 50 mcg ONCE ONCE IVP 07/27/17 23:45 07/27/17 23:46 DC 07/27/17 23:57 50 MCG Hyoscyamine Sulfate 0.25 mg ONCE ONCE PO 07/27/17 22:30 07/27/17 22:31 DC 07/27/17 22:29 0.25 MG Ondansetron HCl 8 mg ONCE ONCE IVP 07/27/17 22:30 07/27/17 22:31 DC 07/27/17 22:29 8 MG Sodium Chloride 1,000 ml @ 0 mls/hr Q0M ONCE IV 07/27/17 22:22 07/27/17 22:24 DC 07/27/17 22:29 0 MLS/HR Vital Signs/I&O Vital Sign - Last 12Hours 07/27/17 07/28/17 22:21 00:07 Temp 98.1 98.1 Pulse 79 75 Resp 20 20 B/P (MAP) 101/53 Pulse Ox 100 100 O2 Delivery Room Air Room Air Blood Pressure Mean: 69 Progress Note : Progress Note Patient's pain initially improved with fluids, Levsin, and Zofran but then rebounded. Labs were reviewed and she was found to have leukocytosis. She had no further episodes of diarrhea and nausea resolved. Because of her CLL, I felt it would be appropriate to pursue her pain and symptoms further with CT scan. Patient is concern about her history of multiple CT scans and cumulative radiation exposure. She would like to avoid any further radiation exposure if at all possible. She commits to returning to the emergency room if symptoms worsen. She was given fentanyl and hydrocodone for immediate relief of pain. Vital signs remained unremarkable. Departure Impression Impression: Primary Impression: Diarrhea Qualified Codes: R19.7 - Diarrhea, unspecified Additional Impressions: Nausea Abdominal pain, left lower quadrant CLL (chronic lymphocytic leukemia) Disposition: HOME, SELF-CARE Condition: Improved Departure-Patient Inst. Decision time for Depature: 23:45 Referrals: RICO HUANG DO (PCP) Primary Care Physician ROSHAN POWER (Family) Primary Care Physician Patient Instructions: Diarrhea in Adolescents and Adults, Acute Abdomen (Belly Pain), Adult (DC) Add. Discharge Instructions: Follow-up with Dr. Power and Dr. Huang as soon as possible. Drink plenty of clear liquids. Dissolve the Zofran (ondansetron) under the tongue every 4 hours as needed for nausea and vomiting. Dissolve Levsin (hyoscyamine) under the tongue every 4 hours as needed for abdominal cramping and diarrhea. Gradually advance your diet with small quantities of bland food as tolerated. Return to the emergency room if symptoms worsen or you're not improving as expected. All discharge instructions reviewed with patient and/or family. Voiced understanding. Copy Copies To 1: ROSHAN POWER Copies To 2: RICO HUANG JOSHUA T MD Jul 27, 2017 23:59
[2017-07-28 00:07] VITALS: BP 105/66
== END 2017-07-28 00:07 | disposition home or self-care (01) ==
LOC: EDUNIT# 22:09 → ER 22:11
DX: R19.7 Diarrhea, unspecified (principal); R10.32 Left lower quadrant pain; R11.0 Nausea; C91.10 Chronic lymphocytic leukemia of B-cell type not having achieved remission; J45.909 Unspecified asthma, uncomplicated; Z87.01 Personal history of pneumonia (recurrent); Z87.59 Personal history of other complications of pregnancy, childbirth and the puerperium; Z98.51 Tubal ligation status
CPT/HCPCS: 36415; 80053; 81000; 83735; 85025

== ENCOUNTER → 2017-08-05 | Outpatient (CLI) | payer BC ==
[~2017-08-05] MED LIST changes: +CETI10TA17; +GAMMAGARD
[2017-08-05 16:11] LABS: BASOPHILS # (AUTO) 0.1 10^3/uL (0.0-0.1); BASOPHILS % (AUTO) 0 % (0-10); EOSINOPHILS # (AUTO) 0.2 10^3/uL (0.0-0.3); EOSINOPHILS % (AUTO) 1 % (0-10); LYMPHOCYTES # (AUTO) 12.2 X 10^3 (1.0-4.0); LYMPHOCYTES % (AUTO) 70 % (12-44); MEAN CORPUSCULAR HEMOGLOBIN 33 PG (25-34); MEAN CORPUSCULAR HGB CONC 34 G/DL (32-36); MEAN CORPUSCULAR VOLUME 96 FL (80-99); MONOCYTES # (AUTO) 1.1 X 10^3 (0.0-1.0); MONOCYTES % (AUTO) 7 % (0-12); NEUTROPHILS # (AUTO) 3.8 X 10^3 (1.8-7.8); NEUTROPHILS % (AUTO) 22 % (42-75); PLATELET COUNT 251 10^3/uL (130-400); RED BLOOD COUNT 4.25 10^6/uL (4.35-5.85); RED CELL DISTRIBUTION WIDTH 12.8 % (10.0-14.5); WHITE BLOOD COUNT 17.3 10^3/uL (4.3-11.0)
[2017-08-05 16:18] LABS: BILIRUBIN,URINE NEGATIVE (NEGATIVE); KETONES,URINE NEGATIVE (NEGATIVE); LEUKOCYTE ESTERASE ,URINE NEGATIVE (NEGATIVE); NITRITE,URINE NEGATIVE (NEGATIVE); PH,URINE 6.5 (5-9); PROTEIN,URINE NEGATIVE (NEGATIVE); UROBILINOGEN,URINE NORMAL (NORMAL)
[2017-08-05 16:30] LABS: ALANINE AMINOTRANSFERASE 26 U/L (0-55); ALBUMIN 4.4 GM/DL (3.2-4.5); ANION GAP 12 MMOL/L (5-14); ASPARTATE AMINO TRANSFERASE 29 U/L (5-34); BILIRUBIN,TOTAL 0.3 MG/DL (0.1-1.0); BLOOD UREA NITROGEN 16 MG/DL (7-18); BUN/CREATININE RATIO 20; CALCIUM 9.3 MG/DL (8.5-10.1); CARBON DIOXIDE 24 MMOL/L (21-32); CHLORIDE 106 MMOL/L (98-107); CREATININE SERUM 0.81 MG/DL (0.60-1.30); GFR ESTIMATED > 60; POTASSIUM 3.5 MMOL/L (3.6-5.0); SODIUM 142 MMOL/L (135-145); TOTAL PROTEIN 7.6 GM/DL (6.4-8.2)
[2017-08-05 16:31] LABS: WBC,URINE RARE /HPF
[2017-08-05 16:41] LABS: GLUCOSE 60 MG/DL (70-105)
[2017-08-05 17:06] LABS: ERYTHROCYTE SEDIMENTATION RATE 5 MM/HR (0-30)
== END ==
LOC: LAB 15:45
PROVIDERS: ATTEND Internal Medicine
DX: R50.81 Fever presenting with conditions classified elsewhere (principal); R60.9 Edema, unspecified; C91.10 Chronic lymphocytic leukemia of B-cell type not having achieved remission; R53.83 Other fatigue
CPT/HCPCS: 36415; 80053; 81000; 85025; 85652

== ENCOUNTER 2017-09-11 14:07 | Outpatient (RCR) | payer BC ==
[2017-06-19 14:40] LABS: BASOPHILS # (AUTO) 0.1 10^3/uL (0.0-0.1); BASOPHILS % (AUTO) 1 % (0-10); EOSINOPHILS # (AUTO) 0.2 10^3/uL (0.0-0.3); EOSINOPHILS % (AUTO) 1 % (0-10); HEMATOCRIT 39 % (35-52); HEMOGLOBIN 13.2 G/DL (11.5-16.0); LYMPHOCYTES # (AUTO) 9.6 X 10^3 (1.0-4.0); LYMPHOCYTES % (AUTO) 76 % (12-44); MEAN CORPUSCULAR HEMOGLOBIN 33 PG (25-34); MEAN CORPUSCULAR HGB CONC 34 G/DL (32-36); MEAN CORPUSCULAR VOLUME 97 FL (80-99); MEAN PLATELET VOLUME 10.4 FL (7.4-10.4); MONOCYTES # (AUTO) 0.7 X 10^3 (0.0-1.0); MONOCYTES % (AUTO) 5 % (0-12); NEUTROPHILS # (AUTO) 2.2 X 10^3 (1.8-7.8); NEUTROPHILS % (AUTO) 17 % (42-75); PLATELET COUNT 185 10^3/uL (130-400); RED BLOOD COUNT 4.04 10^6/uL (4.35-5.85); RED CELL DISTRIBUTION WIDTH 12.9 % (10.0-14.5); WHITE BLOOD COUNT 12.6 10^3/uL (4.3-11.0)
[2017-06-19 15:02] LABS: ALBUMIN 4.3 GM/DL (3.2-4.5); BILIRUBIN,TOTAL 0.3 MG/DL (0.1-1.0); CALCIUM 9.2 MG/DL (8.5-10.1); POTASSIUM 3.9 MMOL/L (3.6-5.0); TOTAL PROTEIN 7.1 GM/DL (6.4-8.2)
[2017-08-14 14:12] LABS: BASOPHILS # (AUTO) 0.1 10^3/uL (0.0-0.1); BASOPHILS % (AUTO) 0 % (0-10); EOSINOPHILS # (AUTO) 0.1 10^3/uL (0.0-0.3); EOSINOPHILS % (AUTO) 1 % (0-10); HEMATOCRIT 38 % (35-52); HEMOGLOBIN 12.9 G/DL (11.5-16.0); LYMPHOCYTES # (AUTO) 10.2 X 10^3 (1.0-4.0); LYMPHOCYTES % (AUTO) 71 % (12-44); MEAN CORPUSCULAR HEMOGLOBIN 33 PG (25-34); MEAN CORPUSCULAR HGB CONC 34 G/DL (32-36); MEAN CORPUSCULAR VOLUME 96 FL (80-99); MONOCYTES # (AUTO) 0.9 X 10^3 (0.0-1.0); MONOCYTES % (AUTO) 6 % (0-12); NEUTROPHILS # (AUTO) 3.2 X 10^3 (1.8-7.8); NEUTROPHILS % (AUTO) 22 % (42-75); PLATELET COUNT 185 10^3/uL (130-400); RED BLOOD COUNT 3.96 10^6/uL (4.35-5.85); RED CELL DISTRIBUTION WIDTH 12.6 % (10.0-14.5)
[2017-08-14 14:25] LABS: WHITE BLOOD COUNT 14.5 10^3/uL (4.3-11.0)
[2017-08-14 14:32] LABS: ALANINE AMINOTRANSFERASE 24 U/L (0-55); ALBUMIN 4.2 GM/DL (3.2-4.5); ALKALINE PHOSPHATASE 68 U/L (40-136); BILIRUBIN,TOTAL 0.5 MG/DL (0.1-1.0); BUN/CREATININE RATIO 26; CARBON DIOXIDE 24 MMOL/L (21-32); CHLORIDE 105 MMOL/L (98-107); CREATININE SERUM 0.81 MG/DL (0.60-1.30); GFR ESTIMATED > 60; GLUCOSE 84 MG/DL (70-105); POTASSIUM 3.7 MMOL/L (3.6-5.0); SODIUM 140 MMOL/L (135-145); TOTAL PROTEIN 6.9 GM/DL (6.4-8.2)
[~2017-09-11 14:07] MED LIST changes: +ACETAMINOPHEN 500 MG TAB (TYLENOL) CANCER CTR PO PRN; +IMMUNE GLOBULIN,GAMMA (IGG) 200 ML IV SCH; +diphenhydrAMINE 25 MG TAB (BENADRYL) CANCER CENTER PO SCH
== END 2017-09-17 | disposition home or self-care (01) ==
LOC: ONC 14:07
PROVIDERS: ATTEND Internal Medicine Hematology & Oncology
DX: C91.10 Chronic lymphocytic leukemia of B-cell type not having achieved remission (principal); D80.1 Nonfamilial hypogammaglobulinemia; F17.200 Nicotine dependence, unspecified, uncomplicated; Z79.899 Other long term (current) drug therapy
CPT/HCPCS: 36415; 80053; 82784; 83615; 85025; 96365; 96366

== ENCOUNTER 2017-10-09 14:02 | Outpatient (RCR) | payer BC ==
[2017-11-06 14:05] LABS: BASOPHILS # (AUTO) 0.1 10^3/uL (0.0-0.1); BASOPHILS % (AUTO) 0 % (0-10); EOSINOPHILS # (AUTO) 0.1 10^3/uL (0.0-0.3); EOSINOPHILS % (AUTO) 0 % (0-10); HEMATOCRIT 42 % (35-52); HEMOGLOBIN 14.3 G/DL (11.5-16.0); LYMPHOCYTES # (AUTO) 16.7 X 10^3 (1.0-4.0); LYMPHOCYTES % (AUTO) 81 % (12-44); MEAN CORPUSCULAR HEMOGLOBIN 33 PG (25-34); MEAN CORPUSCULAR HGB CONC 35 G/DL (32-36); MEAN CORPUSCULAR VOLUME 95 FL (80-99); MEAN PLATELET VOLUME 9.7 FL (7.4-10.4); MONOCYTES # (AUTO) 0.6 X 10^3 (0.0-1.0); MONOCYTES % (AUTO) 3 % (0-12); NEUTROPHILS # (AUTO) 3.3 X 10^3 (1.8-7.8); NEUTROPHILS % (AUTO) 16 % (42-75); PLATELET COUNT 202 10^3/uL (130-400); RED BLOOD COUNT 4.39 10^6/uL (4.35-5.85); WHITE BLOOD COUNT 20.7 10^3/uL (4.3-11.0)
[2017-11-06 14:22] LABS: ALANINE AMINOTRANSFERASE 13 U/L (0-55); ALBUMIN 4.2 GM/DL (3.2-4.5); ALKALINE PHOSPHATASE 71 U/L (40-136); BILIRUBIN,TOTAL 0.4 MG/DL (0.1-1.0); BUN/CREATININE RATIO 20; CALCIUM 9.2 MG/DL (8.5-10.1); CARBON DIOXIDE 22 MMOL/L (21-32); CHLORIDE 109 MMOL/L (98-107); CREATININE SERUM 0.84 MG/DL (0.60-1.30); GFR ESTIMATED > 60; GLUCOSE 102 MG/DL (70-105); SODIUM 140 MMOL/L (135-145); TOTAL PROTEIN 7.1 GM/DL (6.4-8.2)
[2017-11-06 14:23] LABS: SMEAR SCAN COMMENT YES
== END 2017-11-06 08:25 | disposition home or self-care (01) ==
LOC: ONC 14:02
PROVIDERS: ATTEND Internal Medicine Hematology & Oncology
DX: C91.10 Chronic lymphocytic leukemia of B-cell type not having achieved remission (principal); D80.1 Nonfamilial hypogammaglobulinemia; F17.200 Nicotine dependence, unspecified, uncomplicated; Z79.899 Other long term (current) drug therapy
CPT/HCPCS: 80053; 83615; 85025; 96365; 96366

== ENCOUNTER 2017-11-06 13:29 | Outpatient (RCR) | payer BC ==
[~2017-11-06 13:29] MED LIST changes: -ACETAMINOPHEN 500 MG TAB (TYLENOL) CANCER CTR PO PRN; -IMMUNE GLOBULIN,GAMMA (IGG) 200 ML IV SCH; -diphenhydrAMINE 25 MG TAB (BENADRYL) CANCER CENTER PO SCH
[2017-11-06] MEDS ORDERED: ACETAMINOPHEN 500 MG TAB (TYLENOL) CANCER CTR ONE (14:31)
[2017-11-06] MEDS ORDERED: diphenhydrAMINE 25 MG TAB (BENADRYL) CANCER CENTER PO ONE (14:31)
== END 2017-11-18 10:31 | disposition home or self-care (01) ==
LOC: ONC 13:29
PROVIDERS: ATTEND Internal Medicine Hematology & Oncology
DX: C91.10 Chronic lymphocytic leukemia of B-cell type not having achieved remission (principal); D80.1 Nonfamilial hypogammaglobulinemia; F17.200 Nicotine dependence, unspecified, uncomplicated; Z79.899 Other long term (current) drug therapy
CPT/HCPCS: 36415; 96365; 96366

== ENCOUNTER → 2017-11-11 | Outpatient (CLI) | payer BC ==
[~2017-11-11] MED LIST changes: +GADOBUTROL 7.5 MMOL/7.5 ML (GADAVIST) VIAL IV ONE
--- NOTE | 2017-11-11 11:38 | Diagnostic Imaging Report ---
CLINICAL INDICATION: Patient with history of leukemia with chemotherapy treatments in 2016. Patient is having memory loss with daily headaches. EXAMINATION: MRI of the brain performed without and with 5 cc of Gadavist IV contrast. Sequences include axial DWI, ADC map, axial gradient echo, axial T2, axial FLAIR, axial T1, axial T1 post IV contrast, coronal T1 fat-sat post IV contrast, and sagittal T1 post IV contrast. COMPARISON: MRI of the brain performed without and with IV contrast dated 07/17/2015. FINDINGS: Overall, there is stable appearance to the brain parenchyma compared to the prior study. There is stable mild patchy and confluent high T2 signal involving the subcortical and deep white matter both cerebral hemispheres and involving the periventricular regions. There are stable subtle small area of enhancement in the posterior right frontal lobe periventricular region which is best seen on axial postcontrast sequence series 8, image 19 and coronal T1 post contrast sequence series 9, images 17 and 18. There is no masslike enhancement seen. There is no other areas of abnormal enhancement seen. There is no new abnormal parenchymal signal abnormality. There is no evidence of acute cerebral infarct, intracranial hemorrhage, brain herniation, or hydrocephalus. The brain parenchymal volume appears appropriate for patient's age. The [place] vascular structures show no gross abnormality as visualized. The pituitary gland, sella, and suprasellar regions are unremarkable as visualized. The extra cranial soft tissue, skull, and orbits are unremarkable. Paranasal sinuses are unremarkable. There is a small amount of fluid in the right mastoid air cells which has decreased compared to the prior study. Likely mucous retention cyst seen involving the posterior nasopharyngeal soft tissue. IMPRESSION: 1: There is interval decrease fluid in the right mastoid air cells. 2: Otherwise, stable MRI of the brain with mild patchy confluent high T2 signal in the white matter of both cerebral hemispheres and very subtle nonspecific enhancement involving the posterior right frontal lobe region. There is no masslike enhancement seen. There is no developing brain parenchymal abnormality. 3: The remainder of the brain parenchyma is unremarkable. Dictated by: Dictated on workstation # [id number]
== END ==
LOC: RAD 09:33
PROVIDERS: ATTEND Internal Medicine Hematology & Oncology
DX: H74.8X1 Other specified disorders of right middle ear and mastoid (principal); R41.3 Other amnesia; R90.82 White matter disease, unspecified; Z85.6 Personal history of leukemia
CPT/HCPCS: 70553

== ENCOUNTER 2017-11-23 18:13 | Emergency (ER) | payer BC ==
[~2017-11-23] VITALS: Ht 162.6 cm; Wt 58.1 kg
[~2017-11-23 18:13] MED LIST changes: -GADOBUTROL 7.5 MMOL/7.5 ML (GADAVIST) VIAL IV ONE
[2017-11-23] MEDS ORDERED: FLUT1DIS26 (19:01)
[2017-11-23] MEDS ORDERED: DEXT20TA8 (19:01)
[2017-11-23] MEDS ORDERED: DEXA4TAB (19:01)
[2017-11-23] MEDS ORDERED: NS IV 500 ML 500 ML IV ONE (19:05)
--- NOTE | 2017-11-23 19:15 | ED General ---
General Chief Complaint: Respiratory Problems Stated Complaint: SOB Nursing Triage Note: PT REPORTS SOB AND DX OF FUNGAL PNEUMONIAL. HX OF CLL Nursing Sepsis Screen: No Definite Risk Source of Information: Patient Exam Limitations: No Limitations History of Present Illness Date Seen by Provider: Nov 23, 2017 Time Seen by Provider: 18:55 Initial Comments Here with report of a variety of complaints including chest pressure and overall not feeling well. Does report some shortness of breath. States pressure is central and is been going on throughout the day. She does have history of chronic leukocytic leukemia. She has had recent dexamethasone treatment for allergic reaction after MRI. That caused a rash. Does have history of fungal pneumonia. Denies nausea or vomiting. Does state that she feels a little weak. Drinking okay but not eating well. Would like to get to feeling better so she can go back to work. Timing/Duration: 1-2 Days Severity: Moderate Associated Systoms: Chest Pain, No Cough, No Fever/Chills, No Headaches, Loss of Appetite, Malaise, No Nausea/Vomiting, Rash, Shortness of Air, Weakness Allergies and Home Medications Allergies Coded Allergies: egg (Verified Allergy, Intermediate, NAUSEA, 07/06/15) Sulfa (Sulfonamide Antibiotics) (Unverified Allergy, Unknown, 07/19/10) Home Medications Duloxetine HCl 30 Mg Capsule.dr, 30 MG PO DAILY, (Reported) Patient Home Medication List Home Medication List Reviewed: Yes Constitutional: see HPI EENTM: No nose congestion, No throat swelling Respiratory: see HPI, No cough, short of breath Cardiovascular: no symptoms reported Gastrointestinal: no symptoms reported, No abdominal pain, No nausea, No vomiting Genitourinary: no symptoms reported Musculoskeletal: no symptoms reported Skin: no symptoms reported Psychiatric/Neurological: No Symptoms Reported All Other Systems Reviewed Negative Unless Noted: Yes Past Yvybfip-Zlkaje-Zyboew Hx Patient Social History Alcohol Use: Denies Use Recreational Drug Use: No Smoking Status: Never a Smoker Recent Foreign Travel: No Contact w/Someone Who Travel: No Recent Infectious Disease Expo: No Recent Hopitalizations: No Immunizations Up To Date Tetanus Booster (TDap): More than 5yrs PED Vaccines UTD: Yes Seasonal Allergies Seasonal Allergies: No Surgeries History of Surgeries: Yes (2 C-sections) Surgeries: Section, Tubal Ligation Respiratory History of Respiratory Disorde: Yes ("chronic left lower lung fungal infection ") Respiratory Disorders: Asthma, Pneumonia Currently Using CPAP: No Currently Using BIPAP: No Cardiovascular History of Cardiac Disorders: Yes Cardiac Disorders: Hypotension Neurological History of Neurological Disord: No Reproductive System Hx Reproductive Disorders: No Sexually Transmitted Disease: No HIV/AIDS: No 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 Genitourinary History of Genitourinary Disor: No Gastrointestinal History of Gastrointestinal Di: Yes Gastrointestinal Disorders: Irritable Bowel Musculoskeletal History of Musculoskeletal Dis: No Endocrine History of Endocrine Disorders: Yes (HYPOGLYCEMIA) HEENT History of HEENT Disorders: No Loss of Vision: Denies Hearing Impairment: Denies Cancer History of Cancer: Yes Cancer: Leukemia Psychosocial History of Psychiatric Problem: No Integumentary History of Skin or Integumenta: No Blood Transfusions History of Blood Disorders: Yes (anemia) Adverse Reaction to a Blood Tr: No Reviewed Nursing Assessment Reviewed/Agree w Nursing PMH: Yes Family Medical History Significant Family History: Heart Disease Family Medial History: Idiopathic hypertrophic subaortic stenosis 19 FATHER Physical Exam Vital Signs Vital Signs - First Documented 11/23/17 18:45 Temp 97.9 Pulse 79 Resp 18 B/P (MAP) 139/83 (101) Pulse Ox 98 O2 Delivery Room Air Capillary Refill : Less Than 3 Seconds General Appearance: No Apparent Distress, WD/WN HEENT: PERRL/EOMI, Pharynx Normal Neck: Non Tender, Supple Respiratory: Lungs Clear, Normal Breath Sounds Cardiovascular: Regular Rate, Rhythm, No Murmur Gastrointestinal: Non Tender, Soft Back: Normal Inspection, No CVA Tenderness, No Vertebral Tenderness Extremity: Normal Range of Motion, Non Tender Neurologic/Psychiatric: Alert, Oriented x3 Skin: Normal Color, Warm/Dry Progress/Results/Core Measures Suspected Sepsis Recent Fever Within 48 Hours: No Infection Criteria Present: None New/Unexplained Altered Menta: No Sepsis Screen: No Definite Risk Sepsis Diagnosis: SIRS Temperature:97.9 Pulse: 79 Respiratory Rate: 18 Laboratory Tests 11/23/17 19:00: White Blood Count 26.2H Blood Pressure 139 /83 Mean: 101 Laboratory Tests 11/23/17 19:00: Creatinine 0.95, Platelet Count 226, Total Bilirubin 0.4 Results/Orders Lab Results Laboratory Tests Test 11/23/17 19:00 Range/Units White Blood Count 26.2 H 4.3-11.0 10^3/uL Red Blood Count 4.45 4.35-5.85 10^6/uL Hemoglobin 14.5 11.5-16.0 G/DL Hematocrit 42 35-52 % Mean Corpuscular Volume 94 80-99 FL Mean Corpuscular Hemoglobin 33 25-34 PG Mean Corpuscular Hemoglobin Concent 35 32-36 G/DL Red Cell Distribution Width 12.9 10.0-14.5 % Platelet Count 226 130-400 10^3/uL Mean Platelet Volume 10.0 7.4-10.4 FL Neutrophils (%) (Auto) 15 L 42-75 % Lymphocytes (%) (Auto) 82 H 12-44 % Monocytes (%) (Auto) 2 0-12 % Eosinophils (%) (Auto) 1 0-10 % Basophils (%) (Auto) 0 0-10 % Neutrophils # (Auto) 3.9 1.8-7.8 X 10^3 Lymphocytes # (Auto) 21.5 H 1.0-4.0 X 10^3 Monocytes # (Auto) 0.5 0.0-1.0 X 10^3 Eosinophils # (Auto) 0.2 0.0-0.3 10^3/uL Basophils # (Auto) 0.1 0.0-0.1 10^3/uL Neutrophils % (Manual) 0 % Lymphocytes % (Manual) 82 % Monocytes % (Manual) 1 % Eosinophils % (Manual) 1 % Basophils % (Manual) 0 % Band Neutrophils 16 % Blood Morphology Comment NORMAL D-Dimer < 0.27 0.00-0.49 UG/ML Sodium Level 139 135-145 MMOL/L Potassium Level 3.4 L 3.6-5.0 MMOL/L Chloride Level 104 98-107 MMOL/L Carbon Dioxide Level 23 21-32 MMOL/L Anion Gap 12 5-14 MMOL/L Blood Urea Nitrogen 16 7-18 MG/DL Creatinine 0.95 0.60-1.30 MG/DL Estimat Glomerular Filtration Rate > 60 BUN/Creatinine Ratio 17 Glucose Level 94 70-105 MG/DL Calcium Level 9.5 8.5-10.1 MG/DL Total Bilirubin 0.4 0.1-1.0 MG/DL Aspartate Amino Transf (AST/SGOT) 17 5-34 U/L Alanine Aminotransferase (ALT/SGPT) 19 0-55 U/L Alkaline Phosphatase 77 40-136 U/L Troponin I < 0.30 <0.30 NG/ML C-Reactive Protein High Sensitivity 0.03 0.00-0.50 MG/DL Total Protein 7.3 6.4-8.2 GM/DL Albumin 4.4 3.2-4.5 GM/DL TSH [facility] Testing 1.63 0.35-4.94 UIU/ML Micro Results Microbiology 11/23/17 Influenza Types A,B Antigen (ALEX) - Final, Complete My Orders Orders - MISHEL WHIPPLE MD Cbc With Automated Diff (11/23/17 19:05) Comprehensive Metabolic Panel (11/23/17 19:05) Hs C Reactive Protein (11/23/17 19:05) Fibrin Degradation Products (11/23/17:05) Thyroid Analyzer (11/23/17:05) Troponin I (11/23/17 19:05) Chest Pa/Lat (2 View) (11/23/17 19:05) Saline Lock/Iv-Start (11/23/17 19:05) Ns Iv 500 Ml (Sodium Chloride 0.9%) (11/23/17 19:05) Ekg Tracing (11/23/17 19:05) Manual Differential (11/23/17 19:00) Influenza A And B Antigens (11/23/17 19:59) Medications Given in ED Current Medications Medications Dose Ordered Sig/Francisco Javier Route Start Time Stop Time Status Last Admin Dose Admin Sodium Chloride 500 ml @ 0 mls/hr Q0M ONCE IV 11/23/17 19:05 11/23/17 19:08 DC 11/23/17 19:20 0 MLS/HR Vital Signs/I&O Vital Sign - Last 12Hours 11/23/17 18:45 Temp 97.9 Pulse 79 Resp 18 B/P (MAP) 139/83 (101) Pulse Ox 98 O2 Delivery Room Air Capillary Refill : Less Than 3 Seconds Blood Pressure Mean: 101 Progress Note : Progress Note Seen and evaluated. IV, labs, chest x-ray and EKG ordered. Family initially resistant to the chest x-ray because they are worried she's had temperature elevation. We did discuss options but I am not able to answer questions related to pneumonia or lung disease without a chest x-ray and I did inform them of that. They opted for the x-ray. I appreciate the concerns for radiation dosing but she does have leukemia and has been on steroids and reports history of fungal pneumonia and x-rays indicated as well as with the recent history of chest pressure and family history of heart disease that was related to a cardiomyopathy. 2100: Influenza negative. Pneumonia not noted on chest x-ray. White count is elevated but she is just finishing dexamethasone therapy after allergic reaction from MRI. I do not believe that she is suffering from a current infection. She will follow-up with Dr. Rizvi related to the white count and I will send a copy of the chart to him. Discharged home with return precautions. Patient verbalize understanding instructions and agreement with plan. Diagnostic Imaging Diagonstic Imaging: Xray Plain Films/CT/US/NM/MRI: chest Comments NAME: JOI RINALDI [facility] REC#: [id number] PT STATUS: REG ER : 1965 PHYSICIAN: MISHEL WHIPPLE MD ADMIT DATE: 11/23/17/ER Signed Date of Exam: 11/23/17 CHEST PA/LAT (2 VIEW) INDICATION: Shortness of breath, history of fungal pneumonia, history of CLL COMPARISON STUDY: Chest from 07/17/15. FINDINGS: Frontal and lateral views of the chest demonstrate the lungs to be clear. The heart, mediastinum, pulmonary vascularity and visualized bony thorax are normal. IMPRESSION: Normal chest. Dictated by: Dictated on workstation # [id number] Dict: 11/23/171945 Trans: 11/23/171953 Interpreted by: NIXON HO MD Electronically signed by: NIXON HO MD 11/23/171953 Departure Impression Impression: Primary Impression: CLL (chronic lymphocytic leukemia) Disposition: 01 HOME, SELF-CARE Condition: Improved Departure-Patient Inst. Decision time for Depature: 21:09 Referrals: RICO HUANG DO (PCP) Primary Care Physician ROSHAN POWER (Family) Primary Care Physician Patient Instructions: Chest Pain (DC), Chronic Lymphocytic Leukemia (CLL) Add. Discharge Instructions: All discharge instructions reviewed with patient and/or family. Voiced understanding. Continue plenty of fluids and eat a normal diet. Follow-up with Dr. Power in a few days for recheck. Call his office in the morning. Return for worsening, fever, vomiting, weakness, breathing problems or other concerns as needed. Get plenty of rest over the next 24 hours Copy Copies To 1: ROSHAN POWER TIMOTHY D MD Nov 23, 2017 19:15
[2017-11-23 19:19] LABS: BASOPHILS # (AUTO) 0.1 10^3/uL (0.0-0.1); BASOPHILS % (AUTO) 0 % (0-10); EOSINOPHILS # (AUTO) 0.2 10^3/uL (0.0-0.3); EOSINOPHILS % (AUTO) 1 % (0-10); HEMATOCRIT 42 % (35-52); HEMOGLOBIN 14.5 G/DL (11.5-16.0); LYMPHOCYTES # (AUTO) 21.5 X 10^3 (1.0-4.0); LYMPHOCYTES % (AUTO) 82 % (12-44); MEAN CORPUSCULAR HEMOGLOBIN 33 PG (25-34); MEAN CORPUSCULAR HGB CONC 35 G/DL (32-36); MEAN CORPUSCULAR VOLUME 94 FL (80-99); MONOCYTES # (AUTO) 0.5 X 10^3 (0.0-1.0); MONOCYTES % (AUTO) 2 % (0-12); NEUTROPHILS # (AUTO) 3.9 X 10^3 (1.8-7.8); NEUTROPHILS % (AUTO) 15 % (42-75); PLATELET COUNT 226 10^3/uL (130-400); RED BLOOD COUNT 4.45 10^6/uL (4.35-5.85); RED CELL DISTRIBUTION WIDTH 12.9 % (10.0-14.5); WHITE BLOOD COUNT 26.2 10^3/uL (4.3-11.0)
[2017-11-23 19:38] LABS: ALANINE AMINOTRANSFERASE 19 U/L (0-55); ALBUMIN 4.4 GM/DL (3.2-4.5); ALKALINE PHOSPHATASE 77 U/L (40-136); BILIRUBIN,TOTAL 0.4 MG/DL (0.1-1.0); BUN/CREATININE RATIO 17; CALCIUM 9.5 MG/DL (8.5-10.1); CARBON DIOXIDE 23 MMOL/L (21-32); CHLORIDE 104 MMOL/L (98-107); CREATININE SERUM 0.95 MG/DL (0.60-1.30); GFR ESTIMATED > 60; GLUCOSE 94 MG/DL (70-105); POTASSIUM 3.4 MMOL/L (3.6-5.0); SODIUM 139 MMOL/L (135-145); TOTAL PROTEIN 7.3 GM/DL (6.4-8.2)
--- NOTE | 2017-11-23 19:49 | Diagnostic Imaging Report ---
INDICATION: Shortness of breath, history of fungal pneumonia, history of CLL COMPARISON STUDY: Chest from 07/17/15. FINDINGS: Frontal and lateral views of the chest demonstrate the lungs to be clear. The heart, mediastinum, pulmonary vascularity and visualized bony thorax are normal. IMPRESSION: Normal chest. Dictated by: Dictated on workstation # [id number]
[2017-11-23 19:52] LABS: BAND NEUTROPHILS 16 %; BASOPHILS % (MANUAL) 0 %; EOSINOPHILS % (MANUAL) 1 %; LYMPHOCYTES % (MANUAL) 82 %; MONOCYTES % (MANUAL) 1 %; NEUTROPHILS % (MANUAL) 0 %
[2017-11-23 19:53] LABS: RBC MORPH NORMAL
[2017-11-23 19:57] LABS: TSH (THYROID ANALYZER) 1.63 UIU/ML (0.35-4.94)
[2017-11-23 21:17] VITALS: BP 121/69
--- OUTSIDE RECORDS SUMMARY | 2017-11-24 10:09 | XMS REPORT | Clinical Summary ---
Author Author [facility] Organization [facility] Address Unknown Phone Unavailable Care Team Providers Care Manager Ccu Name Role Phone HaywardAshanti kimbrough DO PCP Gurwinder Mancia Unavailable Leonarda Dominique RN Unavailable Unavailable Rajat Rolle DO [address] DO Unavailable Asya Arroyo DO Unavailable Karla Albreto Unavailable Unavailable Klever Moon MD Unavailable Unavailable Jory Malagon RN Unavailable Unavailable Male, Vandana Mederos MD Unavailable Source Comments Some departments are not documenting in the electronic medical record. If you do not see the information that you expected, contact Release of Information in the Health Information Management department at [phone] for further assistance in locating additional records.[facility] Allergies Active Allergy Reactions Severity Noted Date Comments Adhesive Tape (Rosins) RASH, ITCHING Medium 07/23/2015 Allopurinol RASH Medium 07/28/2015 DRESS syndrome Peanut UNKNOWN Medium 07/25/2015 Shellfish Containing UNKNOWN Low 07/20/2015 Pt also reports severe Products intolerances to casein and Gluten (abdominal pain). Sulfa (Sulfonamide HIVES Medium 07/17/2015 Antibiotics) Current Medications Prescription Sig. Disp. Refills [...] 1 (200mg tablet) and 70 Tab 0 07/28/20 Active mg tablet 2 (50mg tablets) twice a 15 day every day. hydrOXYzine (ATARAX) 25 Take 1 Tab by mouth three 90 Tab 0 07/28/20 Active mg tablet times daily as needed [...] of breath) 08/09/2015 Tracheobronchitis due to Aspergillus (HCC) 07/21/2015 CLL (chronic lymphocytic leukemia) ([facility]) 07/17/2015 Anxiety and depression 07/17/2015 Chronic headache 07/17/2015 Tobacco abuse 07/17/2015 Neutropenic fever (HCC) 07/17/2015 Immunizations Name Dates Previously Given Next [...] Taken Blood Pressure 94/60 08/17/2015 3:02 PM AP OPERATOR Pulse 76 08/17/2015 3:02 PM AP OPERATOR Temperature 36.7 C (98.1 F) 08/17/2015 3:02 PM AP OPERATOR Respiratory Rate 16 08/17/2015 3:02 PM AP OPERATOR Oxygen Saturation 100% 08/09/2015 12:52 PM AP OPERATOR Inhaled Oxygen - - Concentration Weight 52.6 kg (116 lb) 08/17/2015 3:02 PM AP OPERATOR Height 162.6 cm (5' 4") 08/17/2015 3:02 PM AP OPERATOR Body Mass Index 19.91 08/17/2015 3:02 PM AP OPERATOR Plan of Treatment Health Maintenance Due Date Last Done Comments HEPATITIS C SCREENING 1964 PHYSICAL (COMPREHENSIVE) 1971 EXAM PERTUSSIS VACCINE 1975 TETANUS VACCINE 1981 CERVICAL CANCER SCREENING 1994 BREAST CANCER SCREENING 2004 COLORECTAL CANCER 2014 SCREENING INFLUENZA VACCINE 06/15/2018 08/02/2015 HIV SCREENING Completed 07/24/2015 Results Not on filefrom Last 3 Months
--- OUTSIDE RECORDS SUMMARY | 2017-11-24 10:13 | XMS REPORT | Continuity of Care Document ---
Author Author [facility], [place] Address Unknown Phone Unavailable Allergies Active Description Code Type Severity Reaction Onset Reported/Identified Relationship to Patient Clinical Status Yes Sulfa (Sulfonamide Antibiotics) [id number] Drug Allergy Unknown N/A 2009 Yes ascorbic acid [id number] Drug Allergy Unknown N/A 07/20/2010 Yes bromelains [id number] Drug Allergy Unknown N/A 07/20/2010 Yes glutamine [id number] Drug Allergy Unknown N/A 07/20/2010 Yes quercetin [id number] Drug Allergy Unknown N/A 07/20/2010 Yes selenium [id number] Drug Allergy Unknown N/A 07/20/2010 Yes egg [id number] Drug Allergy Moderate NAUSEA 07/06/2015 Yes gluten [id number] Drug Allergy Moderate ANAPHYLAXIS 07/06/2015 Medications There is no data. 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 08/14/1343 ROSHAN AYON Ot D80.1 NONFAMILIAL HYPOGAMMAGLOBULINEMIA 08/14/1343 ROSHAN AYON Ot 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 DEPENDENCE, UNSPECIFIED, UNCOMP 08/14/1343 ROSHAN AYON Ot Z79.899 OTHER LONGTERM (CURRENT) DRUG THERAPY 07/22/2010 Ot 038.2 07/22/2010 [...] 279.00 HYPOGAMMAGLOBULINEM NOS 01/15/2012 Ot V58.69 OTH MED,LT, CURRENT USE 07/22/2012 Ot 204.10 CHRONIC LYMPHOID LEUKEMIA, W/O MENTION A 07/22/2012 Ot V58.69 OTH MED,LT, CURRENT USE 11/11/2012 Ot 204.10 CHRONIC LYMPHOID LEUKEMIA, W/O MENTION A 11/11/2012 Ot V58.69 OTH MED,LT, CURRENT USE 02/10/2013 GABOROSHAN RODRIGUEZ N Ot 204.10 CHRONIC LYMPHOID LEUKEMIA, W/O MENTION A 02/10/2013 GABOROSHAN RODRIGUEZ N Ot V58.69 OTH MED,LT,CURRENT USE 07/07/2013 GABOROSHAN N Ot 204.10 CHRONIC LYMPHOID LEUKEMIA, W/O MENTION A 07/07/2013 GABOROSHAN N Ot V58.69 OTH MED,LT,CURRENT USE 10/06/2013 GABOROSHAN N Ot 204.10 CHRONIC LYMPHOID LEUKEMIA, W/O MENTION A 10/06/2013 GABOROSHAN N Ot 279.00 HYPOGAMMAGLOBULINEM NOS 10/06/2013 GABOROSHAN RODRIGUEZ N Ot 305.1 TOBACCO USE DISORDER 10/06/2013 GABOROSHAN N Ot V58.69 OTH MED,LT,CURRENT USE 01/12/2014 GABOROSHAN N Ot 204.10 CHRONIC LYMPHOID LEUKEMIA, W/O MENTION A 01/12/2014 GABOROSHAN N Ot 279.00 HYPOGAMMAGLOBULINEM NOS 01/12/2014 GABOROSHAN N Ot 305.1 TOBACCO USE DISORDER 01/12/2014 GABOROSHAN N Ot V58.69 OTH MED,LT,CURRENT USE 05/18/2014 GABOROSHAN RODRIGUEZ N Ot 204.10 CHRONIC LYMPHOID LEUKEMIA, W/O MENTION A 05/18/2014 GABO, BOBAN N Ot 279.00 HYPOGAMMAGLOBULINEM NOS 05/18/2014 GABO, BOBAN N Ot 305.1 TOBACCO USE DISORDER 05/18/2014 GABO, BOBAN N Ot V58.69 OTH MED,LT,CURRENT USE 08/22/2014 GABO, BOBAN N Ot 204.10 08/22/2014 GABO, BOBAN N Ot 279.00 08/22/2014 GABO, BOBAN N Ot 305.1 08/22/2014 GABO, BOBAN N Ot V58.69 08/24/2014 GABO, BOBAN N Ot 204.10 CHRONIC LYMPHOID LEUKEMIA, W/O MENTION A 08/24/2014 GABO, BOBAN N Ot 279.00 HYPOGAMMAGLOBULINEM NOS 08/24/2014 GABO, BOBAN N Ot 305.1 TOBACCO USE DISORDER 08/24/2014 GABO, BOBAN N Ot V58.69 OTH MED,LT,CURRENT USE 09/22/2014 GABO, BOBAN N Ot [...] 09/23/2014 GABO, BOBAN N Ot V58.69 10/02/2014 MISHEL WHIPPLE MD Ot 487.1 FLU W RESP MANIFEST NEC 10/02/2014 MISHEL WHIPPLE MD Ot 786.2 COUGH 10/20/2014 GABO, BOBAN N Ot 204.10 10/20/2014 GABO, BOBAN N Ot 279.00 10/20/2014 GABO, BOBAN N Ot 305.1 10/20/2014 GABO, BOBAN N Ot V58.69 11/03/2014 BRUCE REED BANQUET COOK Ot 204.10 11/03/2014 BRUCE REED BANQUET COOK Ot 279.00 11/03/2014 BRUCE REED BANQUET COOK Ot 305.1 11/03/2014 BRUCE REED BANQUET COOK Ot V58.69 11/10/2014 GABO, BOBAN N Ot 204.10 11/10/2014 GABO, BOBAN N Ot 279.00 11/10/2014 GABO, BOBAN N Ot 305.1 11/10/2014 GABO, BOBAN N Ot V58.69 12/21/2014 GABO, BOBAN N Ot 204.10 CHRONIC LYMPHOID LEUKEMIA, W/O MENTION A 12/21/2014 GABO, BOBAN N Ot 279.00 HYPOGAMMAGLOBULINEM NOS 12/21/2014 GABO, BOBAN N Ot 305.1 TOBACCO USE DISORDER 12/21/2014 GABO, BOBAN N Ot V58.69 OTH MED,LT,CURRENT USE 01/10/2015 PONCHO TOBAR PSYD 296.22 [...] 02/28/2015 GABO, BOBAN N Ot 279.00 02/28/2015 GABOROSHAN RODRIGUEZ N Ot 305.1 02/28/2015 GABOROSHAN RODRIGUEZ N Ot V58.69 03/01/2015 ROSHAN AYON N Ot 786.05 03/07/2015 BRUCE REED BANQUET COOK Ot 204.10 03/07/2015 BRUCE REED BANQUET COOK Ot 279.00 03/07/2015 BRUCE REED BANQUET COOK Ot 305.1 03/07/2015 BRUCE REED BANQUET COOK Ot V58.69 04/12/2015 JOSE AYONAN N Ot 204.10 CHRONIC LYMPHOID LEUKEMIA, W/O MENTION A 04/12/2015 ROSHAN AYON N Ot 279.00 HYPOGAMMAGLOBULINEM NOS 04/12/2015 ROSHAN AYNO N Ot 305.1 TOBACCO USE DISORDER 04/12/2015 ROSHAN AYON N Ot V58.69 OTH MED,LT,CURRENT USE 04/20/2015 ROSHAN AYON N Ot 204.10 04/20/2015 ROSHAN AYON N Ot 279.00 04/20/2015 GABO, BOBELXIE N Ot 305.1 04/20/2015 GABOROSHAN RODRIGUEZ N Ot V58.69 04/21/2015 GABO, BOBAN N Ot 204.10 04/21/2015 GABO, BOBLEXIE N Ot 279.00 04/21/2015 GABO, BOBAN N Ot 305.1 04/21/2015 GABO, BOBAN N Ot V58.69 05/03/2015 BRUCE REED BANQUET COOK Ot 204.10 05/03/2015 BRUCE REED BANQUET COOK Ot 279.00 05/03/2015 BRUCE REED S BANQUET COOK Ot 305.1 05/03/2015 BRUCE REED S BANQUET COOK Ot V58.69 05/03/2015 GABO, BOBAN N Ot 204.10 05/03/2015 GABO, BOBAN N Ot 279.00 05/03/2015 GABO, BOBAN N Ot 305.1 05/03/2015 GABO, BOBAN N Ot V58.69 05/04/2015 BRUCE REED S BANQUET COOK Ot 204.10 05/04/2015 BRUCE REED BANQUET COOK Ot 279.00 05/04/2015 BRUCE REED BANQUET COOK Ot 305.1 05/04/2015 REEDBRUCE Macdonald BANQUET COOK Ot V58.69 05/09/2015 GABO, BOBAN N Ot [...] DISORDER 06/14/2015 GABO, BOBAN N Ot V58.69 OTH MED,LT,CURRENT USE 06/15/2015 GABO, BOBAN N Ot [...] 06/29/2015 HUANG DO, RICO Ot V58.69 06/29/2015 HUANG DO, RICO Ot V70.0 06/29/2015 REEDBRUCE Macdonald BANQUET COOK Ot C91.10 06/29/2015 DEREK BRUCE Macdonald BANQUET COOK Ot D80.1 06/29/2015 DEREK BRUCE Macdonald BANQUET COOK Ot Z79.899 07/05/2015 Ot 204.10 07/05/2015 Ot 279.00 07/05/2015 Ot 305.1 07/05/2015 Ot 204.10 07/05/2015 Ot 204.10 07/05/2015 Ot 279.00 07/05/2015 Ot 305.1 07/05/2015 Ot V58.69 07/05/2015 Ot 204.10 07/05/2015 Ot 279.00 07/05/2015 Ot 305.1 07/05/2015 Ot V58.69 07/05/2015 Ot 204.10 07/05/2015 Ot 279.00 07/05/2015 Ot 305.1 07/05/2015 Ot V58.69 07/05/2015 DEREK BRUCE Renae BANQUET COOK Ot 204.10 07/05/2015 DEREK BRUCE Renae BANQUET COOK Ot 279.00 07/05/2015 DEREK BRUCE Macdonald BANQUET COOK Ot 305.1 07/05/2015 DEREK BRUCE Macdonald BANQUET COOK Ot V58.69 07/05/2015 BRUCE REED BANQUET COOK Ot 204.10 07/05/2015 DEREK BRUCE S BANQUET COOK Ot 279.00 07/05/2015 DEREK BRUCE Macdonald BANQUET COOK Ot 305.1 07/05/2015 DEREK BRUCE Macdonald BANQUET COOK Ot V58.69 07/05/2015 BRUCE REED BANQUET COOK Ot 204.10 07/05/2015 DEREK BRUCE Renae BANQUET COOK Ot 279.00 07/05/2015 DEREK BRUCE Macdonald BANQUET COOK Ot 305.1 07/05/2015 BRUCE REED BANQUET COOK Ot V58.69 07/05/2015 ROSHAN AYON N Ot 564.00 07/05/2015 ROSHAN AYON N Ot 785.6 07/05/2015 ROSHAN AYON N Ot 789.04 07/05/2015 ROSHAN AYON N Ot 789.2 07/05/2015 ROSHAN AYON N Ot 793.5 07/05/2015 REEDBRUCE Macdonald BANQUET COOK Ot 204.10 07/05/2015 REEDBRUCE Macdonald S BANQUET COOK Ot 279.00 07/05/2015 REEDBRUCE Macdonald S BANQUET COOK Ot 305.1 07/05/2015 REEDBRUCE Macdonald S BANQUET COOK Ot V58.69 07/05/2015 ALBERTO DO, EWA C Ot 256.31 07/05/2015 ALBERTO DO, EWA C Ot 785.6 07/05/2015 ALBERTO DO, EWA C Ot 789.04 07/05/2015 ALBERTO DO, EWA C Ot V70.0 07/05/2015 ALBERTO DO, EWA C Ot V76.12 07/05/2015 DEREK BRUCE S BANQUET COOK Ot 204.10 07/05/2015 DEREK BRUCE S BANQUET COOK Ot 279.00 07/05/2015 DEREK BRUCE S BANQUET COOK Ot 305.1 07/05/2015 REEDBRUCE Macdonald S BANQUET COOK Ot V58.69 07/05/2015 ROSHAN AYON N Ot 786.05 07/05/2015 DEREKBRUCE S BANQUET COOK Ot 204.10 07/05/2015 DEREKBRUCE S BANQUET COOK Ot 279.00 07/05/2015 DEREK BRUCE S BANQUET COOK Ot 305.1 07/05/2015 DEREK BRUCE S BANQUET COOK Ot V58.69 07/05/2015 DEREK BRUCE S BANQUET COOK Ot 204.10 07/05/2015 DEREK BRUCE S BANQUET COOK Ot 279.00 07/05/2015 DEREKBRUCE S BANQUET COOK Ot 305.1 07/05/2015 DEREK BRUCE S BANQUET COOK Ot V58.69 07/05/2015 HUANG DO, RICO Ot 729.5 07/05/2015 [...] 07/05/2015 GABO, ROSHAN N Ot 305.1 07/05/2015 GABO, ROSHAN N Ot V58.69 07/05/2015 BRUCE REED BANQUET COOK Ot C91.10 07/05/2015 BRUCE REED BANQUET COOK Ot D80.1 07/05/2015 BRUCE REED BANQUET COOK Ot Z79.899 07/07/2015 GABOROSHAN RODRIGUEZ N Ot C91.10 07/07/2015 GABOROSHAN N Ot D64.9 07/07/2015 GABOROSHAN N Ot D70.1 07/07/2015 GABOROSHAN N Ot F17.200 07/07/2015 GABOROSHAN N Ot F32.9 07/07/2015 GABOROSHAN N Ot F41.9 07/07/2015 GABOROSHAN N Ot J45.909 07/07/2015 GABOROSHAN N Ot R09.89 07/10/2015 HUANG DO, RICO Ot J45.902 07/13/2015 GABO JOSELEXIE N Ot C91.10 07/13/2015 GABOROSHAN N Ot D64.9 07/13/2015 GABOROSHAN N Ot D70.1 07/13/2015 GABO BOBAN N Ot F17.200 07/13/2015 GABO, BOBAN N Ot F32.9 07/13/2015 GABO, BOBAN N Ot F41.9 07/13/2015 GABOROSHAN N Ot J45.909 07/13/2015 GABO, BOBAN N Ot R09.89 07/17/2015 GABOROSHAN RODRIGUEZ N Ot 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 07/17/2015 ROSHAN AYON N Ot D64.81 ANEMIA DUE TO ANTINEOPLASTIC CHEMOTHERAP 07/17/2015 ROSHAN AYON Ot D64.9 07/17/2015 ROSHAN AYON Ot D69.59 OTHER SECONDARY THROMBOCYTOPENIA 07/17/2015 ROSHAN AYON Ot D70.1 AGRANULOCYTOSIS SECONDARY TO CANCER CHEM 07/17/2015 ROSHAN AYON Ot D80.1 NONFAMILIAL HYPOGAMMAGLOBULINEMIA 07/17/2015 ROSHAN AYON Ot 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 DEPENDENCE, UNSPECIFIED, UNCOMP 07/17/2015 ROSHAN AYON Ot F32.9 MAJOR DEPRESSIVE DISORDER, SINGLE EPISOD 07/17/2015 ROSHAN AYON Ot F41.9 ANXIETY DISORDER, UNSPECIFIED 07/17/2015 ROSHAN AYON Ot G43.919 MIGRAINE, UNSP, INTRACTABLE, WITHOUT STA 07/17/2015 ROSHAN AYON Ot G47.00 INSOMNIA, UNSPECIFIED 07/17/2015 ROSHAN AYON Ot J44.9 CHRONIC OBSTRUCTIVE PULMONARY DISEASE, U 07/17/2015 ROSHAN AYON Ot J45.909 UNSPECIFIED ASTHMA, UNCOMPLICATED 07/17/2015 ROSHAN AYON Ot K59.00 CONSTIPATION, UNSPECIFIED 07/17/2015 ROSHAN AYON Ot R09.89 OTH SYMPTOMS AND SIGNS INVOLVING THE CIR 07/17/2015 ROSHAN AYON Ot R21 RASH AND OTHER NONSPECIFIC SKIN ERUPTION 07/17/2015 ROSHAN AYON Ot R50.81 FEVER PRESENTING WITH CONDITIONS CLASSIF 07/17/2015 ROSHAN AYON Ot T45.1X5A ADVERSE EFFECT OF ANTINEOPLASTIC AND IMM 07/24/2015 ROSHAN AYON Ot 204.10 07/24/2015 ROSHAN AYON Ot 279.00 07/24/2015 GABOROSHAN RODRIGUEZ Ot 305.1 07/24/2015 ROSHAN AYON Ot V58.69 08/02/2015 ROSHAN AYON Ot C91.10 08/02/2015 ROSHAN AYON Ot D80.1 08/02/2015 ROSHAN AYON Ot F17.200 08/02/2015 ROSHAN AYON Ot Z51.11 08/02/2015 ROSHAN AYON Ot Z79.899 09/12/2015 ROSHAN AYON Ot C91.10 09/12/2015 GABOROSHAN RODRIGUEZ N Ot D80.1 09/12/2015 GABOROSHAN RODRIGUEZ N Ot F17.200 09/12/2015 GABOROSHAN RODRIGUEZ N Ot Z51.11 09/12/2015 ROSHAN AYON N Ot Z79.899 09/19/2015 ROSHAN AYON N Ot 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 09/19/2015 ROSHAN AYON N Ot D80.1 NONFAMILIAL HYPOGAMMAGLOBULINEMIA 09/19/2015 ROSHAN AYON N Ot 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 DEPENDENCE, UNSPECIFIED, UNCOMP 09/19/2015 ROSHAN AYON N Ot Z51.11 ENCOUNTER FOR ANTINEOPLASTIC CHEMOTHERAP 09/19/2015 ROSHAN AYON N Ot Z79.899 OTHER LONGTERM (CURRENT) DRUG THERAPY 09/27/2015 BRUCE REED BANQUET COOK Ot B44.1 09/27/2015 BRUCE REED BANQUET COOK Ot C91.10 09/27/2015 BRUCE REED BANQUET COOK Ot D75.9 09/27/2015 BRUCE REED BANQUET COOK Ot D80.1 09/27/2015 BRUCE REED BANQUET COOK Ot F17.200 09/27/2015 BRUCE REED BANQUET COOK Ot Z79.899 10/09/2015 GABOROSHAN RODRIGUEZ N Ot C91.10 10/09/2015 GABO, BOBLEXIE N Ot D80.1 10/09/2015 GABO BOBLEXIE N Ot F17.200 10/09/2015 GABO, BOBLEXIE N Ot Z51.11 10/09/2015 GABO, BOBAN N Ot Z79.899 11/09/2015 GABO, BOBAN N Ot C91.10 11/09/2015 GABO, BOBLEXIE N Ot D80.1 11/09/2015 GABO, BOBLEXIE N Ot F17.200 11/09/2015 GABO, BOBAN N Ot Z51.11 11/09/2015 GABO, BOBAN N Ot Z79.899 11/23/2015 GABO, BOBAN N Ot C91.10 11/23/2015 GABO, BOBAN N Ot D80.1 11/23/2015 ROSHAN AYON N Ot F17.200 11/23/2015 ROSHAN AYON N Ot Z51.11 11/23/2015 ROSHAN AYON N Ot Z79.899 11/23/2015 BRUCE REED BANQUET COOK Ot B44.1 11/23/2015 REEDBRUCE Macdonald BANQUET COOK Ot C91.10 11/23/2015 DEREKBRUCE S BANQUET COOK Ot D75.9 11/23/2015 REEDBRUCE S BANQUET COOK Ot D80.1 11/23/2015 BRUCE REED S BANQUET COOK Ot F17.200 11/23/2015 BRUCE REED S BANQUET COOK Ot Z79.899 12/05/2015 Ot 204.10 12/05/2015 Ot 279.00 12/05/2015 Ot 305.1 12/05/2015 Ot 204.10 12/05/2015 Ot 204.10 12/05/2015 Ot 279.00 12/05/2015 Ot 305.1 12/05/2015 Ot V58.69 12/05/2015 Ot 204.10 12/05/2015 Ot 279.00 12/05/2015 Ot 305.1 12/05/2015 Ot V58.69 12/05/2015 Ot 204.10 12/05/2015 Ot 279.00 12/05/2015 Ot 305.1 12/05/2015 Ot V58.69 12/05/2015 REEDBRUCE Macdonald BANQUET COOK Ot 204.10 12/05/2015 DEREK BRUCE S BANQUET COOK Ot 279.00 12/05/2015 DEREK BRUCE S BANQUET COOK Ot 305.1 12/05/2015 DEREK BRUCE S BANQUET COOK Ot V58.69 12/05/2015 DEREK BRUCE S BANQUET COOK Ot 204.10 12/05/2015 DEREK BRUCE S BANQUET COOK Ot 279.00 12/05/2015 DEREK BRUCE S BANQUET COOK Ot 305.1 12/05/2015 DEREK BRUCE S BANQUET COOK Ot V58.69 12/05/2015 DEREK BRUCE S BANQUET COOK Ot 204.10 12/05/2015 DEREK BRUCE S BANQUET COOK Ot 279.00 12/05/2015 DEREK BRUCE S BANQUET COOK Ot 305.1 12/05/2015 REEDBRUCE Macdonald BANQUET COOK Ot V58.69 12/05/2015 ROSHAN AYON N Ot 564.00 12/05/2015 ROSHAN AYON N Ot 785.6 12/05/2015 ROSHAN AYON N Ot 789.04 12/05/2015 ROSHAN AYON N Ot 789.2 12/05/2015 ROSHAN AYON N Ot 793.5 12/05/2015 DEREK BRUCE S BANQUET COOK Ot 204.10 12/05/2015 DEREKBRUCE S BANQUET COOK Ot 279.00 12/05/2015 DEREKBRUCE S BANQUET COOK Ot 305.1 12/05/2015 DEREK BRUCE S BANQUET COOK Ot V58.69 12/05/2015 ALBERTOCollin RAMSEY EWA C Ot 256.31 12/05/2015 ALBERTOCollin RAMSEY EWA C Ot 785.6 12/05/2015 ALBERTOCollin RAMSEY EWA C Ot 789.04 12/05/2015 DOLLY RAMSEY EWA C Ot V70.0 12/05/2015 ALBERTOCollin RAMSEY EWA C Ot V76.12 12/05/2015 DEREK BRUCE S BANQUET COOK Ot 204.10 12/05/2015 DEREK BRUCE S BANQUET COOK Ot 279.00 12/05/2015 DEREK BRUCE S BANQUET COOK Ot 305.1 12/05/2015 DEREK BRUCE S BANQUET COOK Ot V58.69 12/05/2015 ROSHAN AYON N Ot 786.05 12/05/2015 DEREK BRUCE S BANQUET COOK Ot 204.10 12/05/2015 DEREK BRUCE S BANQUET COOK Ot 279.00 12/05/2015 DEREK BRUCE S BANQUET COOK Ot 305.1 12/05/2015 DEREK BRUCE S BANQUET COOK Ot V58.69 12/05/2015 DEREK BRUCE S BANQUET COOK Ot 204.10 12/05/2015 DEREK BRUCE S BANQUET COOK Ot 279.00 12/05/2015 DEREK BRUCE S BANQUET COOK Ot 305.1 12/05/2015 DEREK BRUCE S BANQUET COOK Ot V58.69 12/05/2015 NANCY HUANG DOI Ot 729.5 12/05/2015 SAL RAMSEY RICO Ot J45.902 12/05/2015 HUANG DO, RICO Ot 204.10 12/05/2015 HUANG DO, RICO Ot 300.00 12/05/2015 HUANG DO, RICO Ot 493.10 12/05/2015 HUANG DO, RICO Ot 511.0 12/05/2015 HUANG DO, RICO Ot 729.5 12/05/2015 HUANG DO, RICO Ot V58.69 12/05/2015 HUANG DO, RICO Ot V70.0 12/05/2015 DEREK BRUCE S BANQUET COOK Ot C91.10 12/05/2015 DEREK BRUCE S BANQUET COOK Ot D80.1 12/05/2015 DEREK BRUCE S BANQUET COOK Ot Z79.899 12/05/2015 DEREK BRUCE S BANQUET COOK Ot B44.1 12/05/2015 DEREK BRUCE S BANQUET COOK Ot C91.10 12/05/2015 DEREK BRUCE S BANQUET COOK Ot D75.9 12/05/2015 DEREK BRUCE S BANQUET COOK Ot D80.1 12/05/2015 DEREK BRUCE S BANQUET COOK Ot F17.200 12/05/2015 DEREK BRUCE S BANQUET COOK Ot Z79.899 12/05/2015 ROSHAN AYON N Ot C91.10 12/05/2015 ROSHAN AYON N Ot D80.1 12/05/2015 ROSHAN AYON N Ot F17.200 12/05/2015 ROSHAN AYON N Ot Z51.11 12/05/2015 ROSHAN AYON N Ot Z79.899 12/05/2015 DEREK BRUCE S BANQUET COOK Ot B44.1 12/05/2015 DEREK BRUCE S BANQUET COOK Ot C91.10 12/05/2015 DEREK BRUCE S BANQUET COOK Ot D75.9 12/05/2015 DEREK BRUCE S BANQUET COOK Ot D80.1 12/05/2015 DEREK BRUCE S BANQUET COOK Ot F17.200 12/05/2015 DEREK BRUCE S BANQUET COOK Ot Z79.899 12/06/2015 GABOROSHAN RODRIGUEZ N Ot C91.10 12/06/2015 ROSHAN AYON N Ot D80.1 12/19/2015 ROSHAN AYON Ot 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 12/19/2015 ROSHAN AYON Ot D80.1 NONFAMILIAL HYPOGAMMAGLOBULINEMIA 12/19/2015 ROSHAN AYON Ot 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 DEPENDENCE, UNSPECIFIED, UNCOMP 12/19/2015 ROSHAN AYON Ot Z51.11 ENCOUNTER FOR ANTINEOPLASTIC CHEMOTHERAP 12/19/2015 ROSHAN AYON Ot Z79.899 OTHER TRANSMISSION AND PROTECTION ENGINEER (CURRENT) DRUG THERAPY 12/20/2015 ROSHAN AYON Ot C91.10 12/20/2015 ROSHAN AYON Ot D80.1 01/09/2016 BRUCE REED BANQUET COOK Ot 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 01/09/2016 BRUCE REEDP Ot D80.1 NONFAMILIAL HYPOGAMMAGLOBULINEMIA 01/09/2016 BRUCE REEDP Ot 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 DEPENDENCE, UNSPECIFIED, UNCOMP 01/09/2016 BRUCE REED BANQUET COOK Ot Z79.899 OTHER TRANSMISSION AND PROTECTION ENGINEER (CURRENT) DRUG THERAPY 01/17/2016 SAL RAMSEY RICO [...] CHRONIC LYMPHOCYTIC LEUK OF B-CELL TYPE 01/22/2016 SAL DO RICO Ot Z00.01 ENCOUNTER FOR GENERAL ADULT MEDICAL EXAM 01/22/2016 NANCY HUANG DOI Ot 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 01/22/2016 SAL RAMSEY R[place] Ot Z00.01 ENCOUNTER FOR GENERAL ADULT MEDICAL EXAM 01/24/2016 BRUCE REED BANQUET COOK Ot 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 01/24/2016 BRUCE REED BANQUET COOK Ot D80.1 NONFAMILIAL HYPOGAMMAGLOBULINEMIA 01/24/2016 BRUCE REED BANQUET COOK Ot 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 DEPENDENCE, UNSPECIFIED, UNCOMP 01/24/2016 BRUCE REED BANQUET COOK Ot Z79.899 OTHER LONGTERM (CURRENT) DRUG THERAPY 01/24/2016 NANCY HUANG DOI Ot 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 01/24/2016 NANCY HUANG DOI Ot Z00.01 ENCOUNTER FOR GENERAL ADULT MEDICAL EXAM 02/07/2016 ROSHAN AYON N Ot 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 02/07/2016 GABOROSHAN RODRIGUEZ N Ot D80.1 NONFAMILIAL HYPOGAMMAGLOBULINEMIA 02/07/2016 GABOROSHAN RODRIGUEZ N Ot 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 DEPENDENCE, UNSPECIFIED, UNCOMP 02/07/2016 GABOROSHAN RODRIGUEZ N Ot Z51.11 ENCOUNTER FOR ANTINEOPLASTIC CHEMOTHERAP 02/07/2016 ROSHAN AYON N Ot Z79.899 OTHER LONGTERM (CURRENT) DRUG THERAPY 02/23/2016 ROSHAN AYON N Ot 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 02/23/2016 GABOROSHAN N Ot D80.1 NONFAMILIAL HYPOGAMMAGLOBULINEMIA 02/23/2016 GABOROSHAN N Ot 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 DEPENDENCE, UNSPECIFIED, UNCOMP 02/23/2016 GABOROSHAN N Ot Z79.899 OTHER LONGTERM (CURRENT) DRUG THERAPY 03/25/2016 ROSHAN AYON N Ot 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 03/25/2016 GABOROSHAN N Ot D80.1 NONFAMILIAL HYPOGAMMAGLOBULINEMIA 03/25/2016 GABOROSHAN N Ot 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 DEPENDENCE, UNSPECIFIED, UNCOMP 03/25/2016 GABOROSHAN N Ot Z79.899 OTHER TRANSMISSION AND PROTECTION ENGINEER (CURRENT) DRUG THERAPY 04/02/2016 GABOROSHAN N Ot 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 04/02/2016 GABOROSHAN N Ot D80.1 NONFAMILIAL HYPOGAMMAGLOBULINEMIA 04/02/2016 GABOROSHAN N Ot 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 DEPENDENCE, UNSPECIFIED, UNCOMP 04/02/2016 GABOROSHAN N Ot Z79.899 OTHER TRANSMISSION AND PROTECTION ENGINEER (CURRENT) DRUG THERAPY 04/30/2016 BRUCE REED BANQUET COOK Ot 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 04/30/2016 EZ REEDSAMM Macdonald BANQUET COOK Ot D80.1 NONFAMILIAL HYPOGAMMAGLOBULINEMIA 04/30/2016 EZ REEDSAMM Macdonald BANQUET COOK Ot 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 DEPENDENCE, UNSPECIFIED, UNCOMP 04/30/2016 EZ REEDSAMM Macdonald BANQUET COOK Ot Z79.899 OTHER TRANSMISSION AND PROTECTION ENGINEER (CURRENT) DRUG THERAPY 04/30/2016 BRUCE REED BANQUET COOK Ot 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 04/30/2016 EZ REEDSAMM Renae BANQUET COOK Ot D80.1 NONFAMILIAL HYPOGAMMAGLOBULINEMIA 04/30/2016 BRUCE REED BANQUET COOK Ot 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 DEPENDENCE, UNSPECIFIED, UNCOMP 04/30/2016 EZ REEDSAMM Macdonald BANQUET COOK Ot Z79.899 OTHER TRANSMISSION AND PROTECTION ENGINEER (CURRENT) DRUG THERAPY 05/05/2016 BRUCE REEDP Ot 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 05/05/2016 BRUCE REED BANQUET COOK Ot D80.1 NONFAMILIAL HYPOGAMMAGLOBULINEMIA 05/05/2016 EZ REEDSAMM Renae BANQUET COOK Ot 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 DEPENDENCE, UNSPECIFIED, UNCOMP 05/05/2016 EZ REEDSAMM Macdonald BANQUET COOK Ot Z79.899 OTHER LONGTERM (CURRENT) DRUG THERAPY 05/13/2016 ROSHAN AYON Ot 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 05/13/2016 ROSHAN YAON Ot D80.1 NONFAMILIAL HYPOGAMMAGLOBULINEMIA 05/13/2016 GABOROSHAN RODRIGUEZ Ot 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 DEPENDENCE, UNSPECIFIED, UNCOMP 05/13/2016 ROSHAN AYON Ot Z79.899 OTHER TRANSMISSION AND PROTECTION ENGINEER (CURRENT) DRUG THERAPY 05/16/2016 BRUCE REED BANQUET COOK Ot 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 05/16/2016 BRUCE REED BANQUET COOK Ot D80.1 NONFAMILIAL HYPOGAMMAGLOBULINEMIA 05/16/2016 BRUCE REED BANQUET COOK Ot 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 DEPENDENCE, UNSPECIFIED, UNCOMP 05/16/2016 BRUCE REED BANQUET COOK Ot Z79.899 OTHER TRANSMISSION AND PROTECTION ENGINEER (CURRENT) DRUG THERAPY 06/24/2016 GABOROSHAN RODRIGUEZ N Ot 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 06/24/2016 GABOROSHAN N Ot D80.1 NONFAMILIAL HYPOGAMMAGLOBULINEMIA 06/24/2016 GABOROSHAN N Ot 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 DEPENDENCE, UNSPECIFIED, UNCOMP 06/24/2016 GABO JOSELEXIE N Ot Z79.899 OTHER TRANSMISSION AND PROTECTION ENGINEER (CURRENT) DRUG THERAPY 06/26/2016 GAOB ROSHAN N Ot 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 06/26/2016 GABOROSHAN N Ot D80.1 NONFAMILIAL HYPOGAMMAGLOBULINEMIA 06/26/2016 GABOROSHAN N Ot 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 DEPENDENCE, UNSPECIFIED, UNCOMP 06/26/2016 GABO JOSELEXIE N Ot Z79.899 OTHER TRANSMISSION AND PROTECTION ENGINEER (CURRENT) DRUG THERAPY 08/02/2016 GABO ROSHAN N Ot 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 08/02/2016 GABOROSHAN N Ot D80.1 NONFAMILIAL HYPOGAMMAGLOBULINEMIA 08/02/2016 GABOROSHAN N Ot 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 DEPENDENCE, UNSPECIFIED, UNCOMP 08/02/2016 GABO JOSELEXIE N Ot Z79.899 OTHER TRANSMISSION AND PROTECTION ENGINEER (CURRENT) DRUG THERAPY 09/23/2016 GABO JOSELEXIE N Ot 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 09/23/2016 GABOROSHAN N Ot D80.1 NONFAMILIAL HYPOGAMMAGLOBULINEMIA 09/23/2016 GABOROSHAN N Ot 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 DEPENDENCE, UNSPECIFIED, UNCOMP 09/23/2016 GABOJOSELEXIE N Ot Z79.899 OTHER LONGTERM (CURRENT) DRUG THERAPY 10/16/2016 GABOROSHAN N Ot 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 10/16/2016 GABOROSHAN N Ot D80.1 NONFAMILIAL HYPOGAMMAGLOBULINEMIA 10/16/2016 GABOROSHAN N Ot 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 DEPENDENCE, UNSPECIFIED, UNCOMP 10/16/2016 GABOROSHAN N Ot Z79.899 OTHER TRANSMISSION AND PROTECTION ENGINEER (CURRENT) DRUG THERAPY 11/11/2016 ROSHAN AYON Trey Ot 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 11/11/2016 ROSHAN AYON Trey Ot D80.1 NONFAMILIAL HYPOGAMMAGLOBULINEMIA 11/11/2016 ROSHAN AYON N Ot 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 DEPENDENCE, UNSPECIFIED, UNCOMP 11/11/2016 ROSHAN AYON N Ot Z79.899 OTHER LONGTERM (CURRENT) DRUG THERAPY 11/29/2016 GABO JOSELEXIE Trey Ot 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 11/29/2016 ROSHAN AYON N Ot D80.1 NONFAMILIAL HYPOGAMMAGLOBULINEMIA 11/29/2016 ROSHAN AYON N Ot 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 DEPENDENCE, UNSPECIFIED, UNCOMP 11/29/2016 GABO JOSELEXIE N Ot Z79.899 OTHER LONGTERM (CURRENT) DRUG THERAPY 02/05/2017 GABO JOSELEXIE Trey Ot 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 02/05/2017 ROSHAN AYON Trey Ot D80.1 NONFAMILIAL HYPOGAMMAGLOBULINEMIA 02/05/2017 ROSHAN AYON N Ot 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 DEPENDENCE, UNSPECIFIED, UNCOMP 02/05/2017 ROSHAN AYON N Ot Z79.899 OTHER LONGTERM (CURRENT) DRUG THERAPY 02/14/2017 GABO JOSELEXIE Trey Ot 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 02/14/2017 ROSHAN AYON N Ot D80.1 NONFAMILIAL HYPOGAMMAGLOBULINEMIA 02/14/2017 GABO JOSELEXIE N Ot 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 DEPENDENCE, UNSPECIFIED, UNCOMP 02/14/2017 GABO JOSELEXIE N Ot Z79.899 OTHER TRANSMISSION AND PROTECTION ENGINEER (CURRENT) DRUG THERAPY 03/28/2017 GABO JOSELEXIE N Ot 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 03/28/2017 GABO JOSELEXIE N Ot D80.1 NONFAMILIAL HYPOGAMMAGLOBULINEMIA 03/28/2017 GABO JOSELEXIE N Ot 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 DEPENDENCE, UNSPECIFIED, UNCOMP 03/28/2017 GABO JOSELEXIE N Ot Z79.899 OTHER TRANSMISSION AND PROTECTION ENGINEER (CURRENT) DRUG THERAPY 05/14/2017 GABO ROSHAN Yang Ot 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 05/14/2017 ROSHAN AYON Ot D80.1 NONFAMILIAL HYPOGAMMAGLOBULINEMIA 05/14/2017 ROSHAN AYON Ot 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 DEPENDENCE, UNSPECIFIED, UNCOMP 05/14/2017 ROSHAN AYON Ot Z79.899 OTHER TRANSMISSION AND PROTECTION ENGINEER (CURRENT) DRUG THERAPY 05/22/2017 Ot 204.10 CHRONIC LYMPHOID LEUKEMIA, W/O MENTION A 05/22/2017 Ot 279.00 HYPOGAMMAGLOBULINEM NOS 05/22/2017 Ot 305.1 TOBACCO USE DISORDER 05/22/2017 Ot V58.69 OTH MED,LT, CURRENT USE 05/22/2017 Ot 204.10 CHRONIC LYMPHOID LEUKEMIA, W/O MENTION A 05/22/2017 Ot 279.00 HYPOGAMMAGLOBULINEM NOS 05/22/2017 Ot 305.1 TOBACCO USE DISORDER 05/22/2017 Ot V58.69 OTH MED,LT, CURRENT USE 05/22/2017 Ot 204.10 CHRONIC LYMPHOID LEUKEMIA, W/O MENTION A 05/22/2017 Ot 279.00 HYPOGAMMAGLOBULINEM NOS 05/22/2017 Ot 305.1 TOBACCO USE DISORDER 05/22/2017 Ot V58.69 OTH MED,LT, CURRENT USE 05/22/2017 BRUCE REED BANQUET COOK Ot 204.10 CHRONIC LYMPHOID LEUKEMIA, W/O MENTION A 05/22/2017 REEDBRUCE Macdonald BANQUET COOK Ot 279.00 HYPOGAMMAGLOBULINEM NOS 05/22/2017 REEDBRUCE Macdonald S BANQUET COOK Ot 305.1 TOBACCO USE DISORDER 05/22/2017 BRUCE REED BANQUET COOK Ot V58.69 OTH MED,LT,CURRENT USE 05/22/2017 BRUCE REED BANQUET COOK Ot 204.10 CHRONIC LYMPHOID LEUKEMIA, W/O MENTION A 05/22/2017 REEDBRUCE BANQUET COOK Ot 279.00 HYPOGAMMAGLOBULINEM NOS 05/22/2017 BRUCE REED BANQUET COOK Ot 305.1 TOBACCO USE DISORDER 05/22/2017 BRUCE REED BANQUET COOK Ot V58.69 OTH MED,LT,CURRENT USE 05/22/2017 BRUCE REED S BANQUET COOK Ot 204.10 CHRONIC LYMPHOID LEUKEMIA, W/O MENTION A 05/22/2017 BRUCE REED BANQUET COOK Ot 279.00 HYPOGAMMAGLOBULINEM NOS 05/22/2017 BRUCE REED BANQUET COOK Ot 305.1 TOBACCO USE DISORDER 05/22/2017 BRUCE REED Ot V58.69 OTH MED,LT,CURRENT USE 05/22/2017 ROSHAN AYON N Ot 564.00 UNSPEC CONSTIPATION 05/22/2017 ROSHAN AYON N Ot 785.6 ENLARGEMENT LYMPH NODES 05/22/2017 ROSHAN AYON N Ot 789.04 ABDOMINAL PAIN, LEFT LOWER QUADRANT 05/22/2017 ROSHAN AYON N Ot 789.2 SPLENOMEGALY 05/22/2017 ROSHAN AYON N Ot 793.5 NOSP (ABN) FINDINGS ON RADIOLOGICAL OT 05/22/2017 BRUCE REED BANQUET COOK Ot 204.10 CHRONIC LYMPHOID LEUKEMIA, W/O MENTION A 05/22/2017 BRUCE REEDP Ot 279.00 HYPOGAMMAGLOBULINEM NOS 05/22/2017 BRUCE REED BANQUET COOK Ot 305.1 TOBACCO USE DISORDER 05/22/2017 BRUCE REED Ot V58.69 OTH MED,LT,CURRENT USE 05/22/2017 EWA ALBERTO DO C Ot 256.31 PREMATURE MENOPAUSE 05/22/2017 EWA ALBERTO DO Ot 785.6 ENLARGEMENT LYMPH NODES 05/22/2017 EWA ALBERTO DO Ot 789.04 ABDOMINAL PAIN, LEFT LOWER QUADRANT 05/22/2017 EWA ALBERTO DO Ot V70.0 ROUTINE MEDICAL EXAM 05/22/2017 EWA ALBERTO DO Ot V76.12 OTH SCREEN MAMMO-MALIGN NEOPLASM OF BILLY 05/22/2017 BRUCE REED BANQUET COOK Ot 204.10 CHRONIC LYMPHOID LEUKEMIA, W/O MENTION A 05/22/2017 BRUCE REED BANQUET COOK Ot 279.00 HYPOGAMMAGLOBULINEM NOS 05/22/2017 BRUCE REED BANQUET COOK Ot 305.1 TOBACCO USE DISORDER 05/22/2017 BRUCE REEDP Ot V58.69 OTH MED,LT,CURRENT USE 05/22/2017 ROSHAN AYON N Ot 786.05 SHORTNESS OF BREATH 05/22/2017 BRUCE REED BANQUET COOK Ot 204.10 CHRONIC LYMPHOID LEUKEMIA, W/O MENTION A 05/22/2017 BRUCE REED BANQUET COOK Ot 279.00 HYPOGAMMAGLOBULINEM NOS 05/22/2017 BRUCE REED BANQUET COOK Ot 305.1 TOBACCO USE DISORDER 05/22/2017 BRUCE REED Ot V58.69 OTH MED,LT,CURRENT USE 05/22/2017 BRUCE REED BANQUET COOK Ot 204.10 CHRONIC LYMPHOID LEUKEMIA, W/O MENTION A 05/22/2017 BRUCE REED BANQUET COOK Ot 279.00 HYPOGAMMAGLOBULINEM NOS 05/22/2017 BRUCE REED BANQUET COOK Ot 305.1 TOBACCO USE DISORDER 05/22/2017 BRUCE REED BANQUET COOK Ot V58.69 OTH MED,LT,CURRENT USE 05/22/2017 NANCY HUANG DOI Ot 729.5 PAIN IN LIMB 05/22/2017 NANCY HUANG DOI Ot J45.902 UNSPECIFIED ASTHMA WITH STATUS ASTHMATIC 05/22/2017 NANCY HUANG DOI Ot 204.10 CHRONIC LYMPHOID LEUKEMIA, W/O MENTION A 05/22/2017 NANCY HUANG DOI Ot 300.00 ANXIETY STATE NOS 05/22/2017 SAL RAMSEY RICO Ot 493.10 INTRINSIC ASTHMA, NOS 05/22/2017 NANCY HUANG DOI Ot 511.0 PLEURISY W/O EFFUS OR TB 05/22/2017 NANCY HUANG DOI Ot 729.5 PAIN IN LIMB 05/22/2017 NANCY HUANG DOI Ot V58.69 OTH MED,LT,CURRENT USE 05/22/2017 RICO HUANG DO Ot V70.0 ROUTINE MEDICAL EXAM 05/22/2017 BRUCE REEDP Ot 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 05/22/2017 BRUCE REEDP Ot D80.1 NONFAMILIAL HYPOGAMMAGLOBULINEMIA 05/22/2017 BRUCE REED BANQUET COOK Ot Z79.899 OTHER TRANSMISSION AND PROTECTION ENGINEER (CURRENT) DRUG THERAPY 05/22/2017 BRUCE REED BANQUET COOK Ot B44.1 OTHER PULMONARY ASPERGILLOSIS 05/22/2017 BRUCE REED BANQUET COOK Ot 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 05/22/2017 BRUCE REED BANQUET COOK Ot D75.9 DISEASE OF BLOOD AND BLOOD-FORMING ORGAN 05/22/2017 BRUCE REED BANQUET COOK Ot D80.1 NONFAMILIAL HYPOGAMMAGLOBULINEMIA 05/22/2017 BRUCE REEDP Ot 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 DEPENDENCE, UNSPECIFIED, UNCOMP 05/22/2017 BRUCE REED BANQUET COOK Ot Z79.899 OTHER TRANSMISSION AND PROTECTION ENGINEER (CURRENT) DRUG THERAPY 05/22/2017 BRUCE REEDP Ot B44.1 OTHER PULMONARY ASPERGILLOSIS 05/22/2017 BRUCE REED BANQUET COOK Ot 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 05/22/2017 BRUCE REEDP Ot D75.9 DISEASE OF BLOOD AND BLOOD-FORMING ORGAN 05/22/2017 BRUCE REEDP Ot D80.1 NONFAMILIAL HYPOGAMMAGLOBULINEMIA 05/22/2017 BRUCE REEDP Ot 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 DEPENDENCE, UNSPECIFIED, UNCOMP 05/22/2017 BRUCE REEDP Ot Z79.899 OTHER TRANSMISSION AND PROTECTION ENGINEER (CURRENT) DRUG THERAPY 05/22/2017 ROSHAN AYON Ot 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 05/22/2017 ROSHAN AYON Ot D80.1 NONFAMILIAL HYPOGAMMAGLOBULINEMIA 05/22/2017 BRUCE REED BANQUET COOK Ot 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 05/22/2017 BRUCE REED BANQUET COOK Ot D80.1 NONFAMILIAL HYPOGAMMAGLOBULINEMIA 05/22/2017 BRUCE REEDP Ot 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 DEPENDENCE, UNSPECIFIED, UNCOMP 05/22/2017 BRUCE REED BANQUET COOK Ot Z79.899 OTHER LONGTERM (CURRENT) DRUG THERAPY 05/22/2017 RICO HUANG DO Ot 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 05/22/2017 RICO HUANG DO Ot Z00.01 ENCOUNTER FOR GENERAL ADULT MEDICAL EXAM 05/22/2017 BRUCE REEDP Ot 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 05/22/2017 BRUCE REEDP Ot D80.1 NONFAMILIAL HYPOGAMMAGLOBULINEMIA 05/22/2017 BRUCE REED BANQUET COOK Ot 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 DEPENDENCE, UNSPECIFIED, UNCOMP 05/22/2017 BRUCE REED BANQUET COOK Ot Z79.899 OTHER LONGTERM (CURRENT) DRUG THERAPY 05/22/2017 GABOROSHAN N Ot 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 05/22/2017 GABO BOBAN N Ot D80.1 NONFAMILIAL HYPOGAMMAGLOBULINEMIA 05/22/2017 GABO BOBAN N Ot 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 DEPENDENCE, UNSPECIFIED, UNCOMP 05/22/2017 GABO, BOBAN N Ot Z79.899 OTHER LONGTERM (CURRENT) DRUG THERAPY 05/23/2017 GABO, BOBAN N Ot 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 05/23/2017 GABO, BOBAN N Ot D80.1 NONFAMILIAL HYPOGAMMAGLOBULINEMIA 05/23/2017 GABO, BOBAN N Ot 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 DEPENDENCE, UNSPECIFIED, UNCOMP 05/23/2017 GABO, BOBAN N Ot Z79.899 OTHER LONGTERM (CURRENT) DRUG THERAPY 06/14/2017 GABO, BOBAN N Ot 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 06/14/2017 GABO, BOBAN N Ot D80.1 NONFAMILIAL HYPOGAMMAGLOBULINEMIA 06/14/2017 GABO, BOBAN N Ot 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 DEPENDENCE, UNSPECIFIED, UNCOMP 06/14/2017 GABO, BOBAN N Ot Z79.899 OTHER TRANSMISSION AND PROTECTION ENGINEER (CURRENT) DRUG THERAPY 06/20/2017 GABO, BOBAN N Ot 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 06/20/2017 GABO, BOBAN N Ot D80.1 NONFAMILIAL HYPOGAMMAGLOBULINEMIA 06/20/2017 GABO, BOBAN N Ot 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 DEPENDENCE, UNSPECIFIED, UNCOMP 06/20/2017 GABO, BOBAN N Ot Z79.899 OTHER LONGTERM (CURRENT) DRUG THERAPY 07/28/2017 SUSANA CHENEY, GUSTAVO Barger Ot 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 07/28/2017 SUSANA CHENEY, GUSTAVO Barger Ot J45.909 UNSPECIFIED ASTHMA, UNCOMPLICATED 07/28/2017 SUSANA CHENEY, GUSTAVO Barger Ot R10.32 LEFT LOWER QUADRANT PAIN 07/28/2017 SUSANA CHENEY, GUSTAVO Barger Ot R11.0 NAUSEA 07/28/2017 SUSANA CHENEY, GUSTAVO Barger Ot R19.7 DIARRHEA, UNSPECIFIED 07/28/2017 SUSANA CHENEY, GUSTAVO Barger Ot Z87.01 PERSONAL HISTORY OF PNEUMONIA (RECURRENT 07/28/2017 SUSANA CHENEY, GUSTAVO Barger Ot Z87.59 PERSONAL HISTORY OF COMP OF PREG, CHLDBR 07/28/2017 SUSANA CHENEY, GUSTAVO Barger Ot Z98.51 TUBAL LIGATION STATUS 08/04/2017 ROSHAN AYON Ot 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 08/04/2017 ROSHAN AYON Ot D80.1 NONFAMILIAL HYPOGAMMAGLOBULINEMIA 08/04/2017 ROSHAN AYON Ot 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 DEPENDENCE, UNSPECIFIED, UNCOMP 08/04/2017 ROSHAN AYON Ot Z79.899 OTHER LONGTERM (CURRENT) DRUG THERAPY 08/14/2017 RICO HUANG DO Ot 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 08/14/2017 NANCY HUANG DOI Ot R50.81 FEVER PRESENTING WITH CONDITIONS CLASSIF 08/14/2017 RICO HUANG DO Ot R53.83 OTHER FATIGUE 08/14/2017 NANCY HUANG DOI Ot R60.9 EDEMA, UNSPECIFIED 09/17/2017 ROSHAN AYON Ot 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 09/17/2017 ROSHAN AYON Ot D80.1 NONFAMILIAL HYPOGAMMAGLOBULINEMIA 09/17/2017 ROSHAN AYON Ot 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 DEPENDENCE, UNSPECIFIED, UNCOMP 09/17/2017 ROSHAN AYON Ot Z79.899 OTHER LONGTERM (CURRENT) DRUG THERAPY 09/21/2017 ROSHAN AYON Ot 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 09/21/2017 ROSHAN AYON Ot D80.1 NONFAMILIAL HYPOGAMMAGLOBULINEMIA 09/21/2017 ROSHAN AYON Ot 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 DEPENDENCE, UNSPECIFIED, UNCOMP 09/21/2017 ROSHAN AYON Ot Z79.899 OTHER TRANSMISSION AND PROTECTION ENGINEER (CURRENT) DRUG THERAPY 09/23/2017 ROSHAN AYON N Ot 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 09/23/2017 ROSHAN AYON N Ot D80.1 NONFAMILIAL HYPOGAMMAGLOBULINEMIA 09/23/2017 ROSHAN AYON N Ot 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 DEPENDENCE, UNSPECIFIED, UNCOMP 09/23/2017 ROSHAN AYON N Ot Z79.899 OTHER LONGTERM (CURRENT) DRUG THERAPY 10/29/2017 ROSHAN AYON N Ot 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 10/29/2017 ROSHAN AYON N Ot D80.1 NONFAMILIAL HYPOGAMMAGLOBULINEMIA 10/29/2017 ROSHAN AYON N Ot 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 DEPENDENCE, UNSPECIFIED, UNCOMP 10/29/2017 ROSHAN AYON N Ot Z79.899 OTHER LONGTERM (CURRENT) DRUG THERAPY 11/06/2017 ROSHAN AYON N Ot 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 11/06/2017 ROSHAN AYON N Ot D80.1 NONFAMILIAL HYPOGAMMAGLOBULINEMIA 11/06/2017 ROSHAN AYON N Ot 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 DEPENDENCE, UNSPECIFIED, UNCOMP 11/06/2017 ROSHAN AYON N Ot Z79.899 OTHER TRANSMISSION AND PROTECTION ENGINEER (CURRENT) DRUG THERAPY 11/06/2017 RESHMA HENRIQUEZ MD Ot 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 11/06/2017 RESHMA HENRIQUEZ MD Ot D80.1 NONFAMILIAL HYPOGAMMAGLOBULINEMIA 11/06/2017 RESHMA HENRIQUEZ MD Ot 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 DEPENDENCE, UNSPECIFIED, UNCOMP 11/06/2017 RESHMA HENRIQUEZ MD Ot Z79.899 OTHER TRANSMISSION AND PROTECTION ENGINEER (CURRENT) DRUG THERAPY 11/07/2017 RSEHMA HENRIQUEZ MD Ot 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 11/07/2017 RESHMA HENRIQUEZ MD Ot D80.1 NONFAMILIAL HYPOGAMMAGLOBULINEMIA 11/07/2017 RESHMA HENRIQUEZ MD Ot 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 DEPENDENCE, UNSPECIFIED, UNCOMP 11/07/2017 RESHMA HENRIQUEZ MD Ot Z79.899 OTHER TRANSMISSION AND PROTECTION ENGINEER (CURRENT) DRUG THERAPY 11/11/2017 Ot 204.10 CHRONIC LYMPHOID LEUKEMIA, W/O MENTION A 11/11/2017 Ot 279.00 HYPOGAMMAGLOBULINEM NOS 11/11/2017 Ot 305.1 TOBACCO USE DISORDER 11/11/2017 Ot V58.69 OTH MED,LT, CURRENT USE 11/11/2017 Ot 204.10 CHRONIC LYMPHOID LEUKEMIA, W/O MENTION A 11/11/2017 Ot 279.00 HYPOGAMMAGLOBULINEM NOS 11/11/2017 Ot 305.1 TOBACCO USE DISORDER 11/11/2017 Ot V58.69 OTH MED,LT, CURRENT USE 11/11/2017 BRUCE REED BANQUET COOK Ot 204.10 CHRONIC LYMPHOID LEUKEMIA, W/O MENTION A 11/11/2017 REEDBRUCE S BANQUET COOK Ot 279.00 HYPOGAMMAGLOBULINEM NOS 11/11/2017 REED, HILAH S BANQUET COOK Ot 305.1 TOBACCO USE DISORDER 11/11/2017 BRUCE REED BANQUET COOK Ot V58.69 OTH MED,LT,CURRENT USE 11/11/2017 BRUCE REED S BANQUET COOK Ot 204.10 CHRONIC LYMPHOID LEUKEMIA, W/O MENTION A 11/11/2017 BRUCE REED S BANQUET COOK Ot 279.00 HYPOGAMMAGLOBULINEM NOS 11/11/2017 REEDEZAH S BANQUET COOK Ot 305.1 TOBACCO USE DISORDER 11/11/2017 BRUCE REED S BANQUET COOK Ot V58.69 OTH MED,LT,CURRENT USE 11/11/2017 BRUCE REED S BANQUET COOK Ot 204.10 CHRONIC LYMPHOID LEUKEMIA, W/O MENTION A 11/11/2017 BRUCE REED S BANQUET COOK Ot 279.00 HYPOGAMMAGLOBULINEM NOS 11/11/2017 BRUCE REED S BANQUET COOK Ot 305.1 TOBACCO USE DISORDER 11/11/2017 BRUCE REED BANQUET COOK Ot V58.69 OTH MED,LT,CURRENT USE 11/11/2017 GABO JOSELEXIE N Ot 564.00 UNSPEC CONSTIPATION 11/11/2017 GABOROSHAN N Ot 785.6 ENLARGEMENT LYMPH NODES 11/11/2017 GABOROSHAN N Ot 789.04 ABDOMINAL PAIN, LEFT LOWER QUADRANT 11/11/2017 GABOROSHAN N Ot 789.2 SPLENOMEGALY 11/11/2017 GABO, ROSHAN N Ot 793.5 NOSP (ABN) FINDINGS ON RADIOLOGICAL OT 11/11/2017 BRUCE REED BANQUET COOK Ot 204.10 CHRONIC LYMPHOID LEUKEMIA, W/O MENTION A 11/11/2017 BRUCE REED BANQUET COOK Ot 279.00 HYPOGAMMAGLOBULINEM NOS 11/11/2017 BRUCE REED BANQUET COOK Ot 305.1 TOBACCO USE DISORDER 11/11/2017 BRUCE REEDP Ot V58.69 OTH MED,LT,CURRENT USE 11/11/2017 DOLLY RAMSEY EWA C Ot 256.31 PREMATURE MENOPAUSE 11/11/2017 DOLLY RAMSEY EWA C Ot 785.6 ENLARGEMENT LYMPH NODES 11/11/2017 DOLLY RAMSEY EWA C Ot 789.04 ABDOMINAL PAIN, LEFT LOWER QUADRANT 11/11/2017 DOLLY RAMSEY EWA C Ot V70.0 ROUTINE MEDICAL EXAM 11/11/2017 DOLLY RAMSEY EWA C Ot V76.12 OTH SCREEN MAMMO-MALIGN NEOPLASM OF BILLY 11/11/2017 BRUCE REED BANQUET COOK Ot 204.10 CHRONIC LYMPHOID LEUKEMIA, W/O MENTION A 11/11/2017 BRUCE REED BANQUET COOK Ot 279.00 HYPOGAMMAGLOBULINEM NOS 11/11/2017 BRUCE REED BANQUET COOK Ot 305.1 TOBACCO USE DISORDER 11/11/2017 BRUCE REED BANQUET COOK Ot V58.69 OTH MED,LT,CURRENT USE 11/11/2017 GABOROSHAN Ot 786.05 SHORTNESS OF BREATH 11/11/2017 BRUCE REED BANQUET COOK Ot 204.10 CHRONIC LYMPHOID LEUKEMIA, W/O MENTION A 11/11/2017 BRUCE REED BANQUET COOK Ot 279.00 HYPOGAMMAGLOBULINEM NOS 11/11/2017 BRUCE REED BANQUET COOK Ot 305.1 TOBACCO USE DISORDER 11/11/2017 BRUCE REED BANQUET COOK Ot V58.69 OTH MED,LT,CURRENT USE 11/11/2017 BRUCE REED BANQUET COOK Ot 204.10 CHRONIC LYMPHOID LEUKEMIA, W/O MENTION A 11/11/2017 BRUCE REED S BANQUET COOK Ot 279.00 HYPOGAMMAGLOBULINEM NOS 11/11/2017 BRUCE REED S BANQUET COOK Ot 305.1 TOBACCO USE DISORDER 11/11/2017 BRUCE REED BANQUET COOK Ot V58.69 OTH MED,LT,CURRENT USE 11/11/2017 SAL RAMSEY RICO Ot 729.5 PAIN IN LIMB 11/11/2017 NANCY HUANG DOI Ot J45.902 UNSPECIFIED ASTHMA WITH STATUS ASTHMATIC 11/11/2017 SAL RAMSEY RICO Ot 204.10 CHRONIC LYMPHOID LEUKEMIA, W/O MENTION A 11/11/2017 SAL RAMSEY RICO Ot 300.00 ANXIETY STATE NOS 11/11/2017 SAL RAMSEY RICO Ot 493.10 INTRINSIC ASTHMA, NOS 11/11/2017 SAL RAMSEY RICO Ot 511.0 PLEURISY W/O EFFUS OR TB 11/11/2017 SAL RAMSEY RICO Ot 729.5 PAIN IN LIMB 11/11/2017 SAL RAMSEY RICO Ot V58.69 OTH MED,LT,CURRENT USE 11/11/2017 SAL RAMSEY RICO Ot V70.0 ROUTINE MEDICAL EXAM 11/11/2017 BRUCE REED BANQUET COOK Ot 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 11/11/2017 BRUCE REED BANQUET COOK Ot D80.1 NONFAMILIAL HYPOGAMMAGLOBULINEMIA 11/11/2017 BRUCE REEDP Ot Z79.899 OTHER TRANSMISSION AND PROTECTION ENGINEER (CURRENT) DRUG THERAPY 11/11/2017 BRUCE REEDP Ot B44.1 OTHER PULMONARY ASPERGILLOSIS 11/11/2017 BRUCE REED BANQUET COOK Ot 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 11/11/2017 BRUCE REEDP Ot D75.9 DISEASE OF BLOOD AND BLOOD-FORMING ORGAN 11/11/2017 BRUCE REEDP Ot D80.1 NONFAMILIAL HYPOGAMMAGLOBULINEMIA 11/11/2017 BRUCE REEDP Ot 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 DEPENDENCE, UNSPECIFIED, UNCOMP 11/11/2017 BRUCE REED BANQUET COOK Ot Z79.899 OTHER TRANSMISSION AND PROTECTION ENGINEER (CURRENT) DRUG THERAPY 11/11/2017 BRUCE REED BANQUET COOK Ot B44.1 OTHER PULMONARY ASPERGILLOSIS 11/11/2017 BRUCE REED BANQUET COOK Ot 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 11/11/2017 BRUCE REED BANQUET COOK Ot D75.9 DISEASE OF BLOOD AND BLOOD-FORMING ORGAN 11/11/2017 BRUCE REEDP Ot D80.1 NONFAMILIAL HYPOGAMMAGLOBULINEMIA 11/11/2017 BRUCE REEDP Ot 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 DEPENDENCE, UNSPECIFIED, UNCOMP 11/11/2017 BRUCE REED BANQUET COOK Ot Z79.899 OTHER TRANSMISSION AND PROTECTION ENGINEER (CURRENT) DRUG THERAPY 11/11/2017 ROSHAN AYON Trey Ot 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 11/11/2017 ROSHAN AYON Trey Ot D80.1 NONFAMILIAL HYPOGAMMAGLOBULINEMIA 11/11/2017 BRUCE REEDP Ot 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 11/11/2017 BRUCE REEDP Ot D80.1 NONFAMILIAL HYPOGAMMAGLOBULINEMIA 11/11/2017 BRUCE REED Ot 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 DEPENDENCE, UNSPECIFIED, UNCOMP 11/11/2017 BRUCE REEDP Ot Z79.899 OTHER LONGTERM (CURRENT) DRUG THERAPY 11/11/2017 RICO HUANG DO Ot 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 11/11/2017 RICO HUANG DO Ot Z00.01 ENCOUNTER FOR GENERAL ADULT MEDICAL EXAM 11/11/2017 BRUCE REED Ot 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 11/11/2017 BRUCE REEDP Ot D80.1 NONFAMILIAL HYPOGAMMAGLOBULINEMIA 11/11/2017 BRUCE REED Ot 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 DEPENDENCE, UNSPECIFIED, UNCOMP 11/11/2017 BRUCE REEDP Ot Z79.899 OTHER TRANSMISSION AND PROTECTION ENGINEER (CURRENT) DRUG THERAPY 11/11/2017 RICO HUANG DO Ot 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 11/11/2017 RICO HUANG DO Ot R50.81 FEVER PRESENTING WITH CONDITIONS CLASSIF 11/11/2017 RICO HUANG DO Ot R53.83 OTHER FATIGUE 11/11/2017 RICO HUANG DO Ot R60.9 EDEMA, UNSPECIFIED 11/11/2017 FLORENCE CHENEY, RESHMA Ot 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 11/11/2017 RESHMA HENRIQUEZ MD, Ot D80.1 NONFAMILIAL HYPOGAMMAGLOBULINEMIA 11/11/2017 RESHMA HENRIQUEZ MD, Ot 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 DEPENDENCE, UNSPECIFIED, UNCOMP 11/11/2017 RESHMA HENRIQUEZ MD, Ot Z79.899 OTHER LONGTERM (CURRENT) DRUG THERAPY 11/12/2017 RESHMA HENRIQUEZ MD, Ot H74.8X1 OTHER SPECIFIED DISORDERS OF RIGHT MIDDL 11/12/2017 RESHMA HENRIQUEZ MD, Ot R41.3 OTHER AMNESIA 11/12/2017 RESHMA HENRIQUEZ MD, Ot R90.82 WHITE MATTER DISEASE, UNSPECIFIED 11/12/2017 RESHMA HENRIQUEZ MD, Ot Z85.6 PERSONAL HISTORY OF LEUKEMIA Procedures Code [place] [id number] PSYCH DIAGNOSTIC EVALUATION 01/10/2015 Results Test Result Range Complete blood count (CBC) with automated white blood cell (WBC) differential - 07/27/17 22:35 Blood leukocytes automated count (number/volume) 16.7 10*3/uL 4.3-11.0 Blood erythrocytes automated count (number/volume) 4.51 10*6/uL 4.35-5.85 Venous blood hemoglobin measurement (mass/volume) 14.6 g/dL 11.5-16.0 Blood hematocrit (volume fraction) 43 % 35-52 Automated erythrocyte mean corpuscular volume 94 [foz_us] 80-99 Automated erythrocyte mean corpuscular hemoglobin (mass per erythrocyte) 32 pg 25-34 Automated erythrocyte mean corpuscular hemoglobin concentration measurement ( mass/volume) 34 g/dL 32-36 Automated erythrocyte distribution width ratio 12.8 % 10.0-14.5 Automated blood platelet count (count/volume) 193 10*3/uL 130-400 Automated blood platelet mean volume measurement 10.4 [foz_us] 7.4-10.4 Automated blood neutrophils/100 leukocytes 38 % 42-75 Automated blood lymphocytes/100 leukocytes 58 % 12-44 Blood monocytes/100 leukocytes 3 % 0-12 Automated blood eosinophils/100 leukocytes 0 % 0-10 Automated blood basophils/100 leukocytes 0 % 0-10 Blood neutrophils automated count (number/volume) 6.3 10*3 1.8-7.8 Blood lymphocytes automated count (number/volume) 9.8 10*3 1.0-4.0 Blood monocytes automated count (number/volume) 0.5 10*3 0.0-1.0 Automated eosinophil count 0.1 10*3/uL 0.0-0.3 Automated blood basophil count (count/volume) 0.0 10*3/uL 0.0-0.1 Comprehensive metabolic panel - 07/27/17 22:35 Serum or plasma sodium measurement (moles/volume) 140 mmol/L 135-145 Serum or plasma potassium measurement (moles/volume) 3.6 mmol/L 3.6-5.0 Serum or plasma chloride measurement (moles/volume) 107 mmol/L 98-107 Carbon dioxide 19 mmol/L 21-32 Serum or plasma anion gap determination (moles/volume) 14 mmol/L 5-14 Serum or plasma urea nitrogen measurement (mass/volume) 15 mg/dL 7-18 Serum or plasma creatinine measurement (mass/volume) 1.02 mg/dL 0.60-1.30 Serum or plasma urea nitrogen/creatinine mass ratio 15 NRG Serum or plasma creatinine measurement with calculation of estimated glomerular filtration rate 57 NRG Serum or plasma glucose measurement (mass/volume) 129 mg/dL 70-105 Serum or plasma calcium measurement (mass/volume) 9.4 mg/dL 8.5-10.1 Serum or plasma total bilirubin measurement (mass/volume) 0.5 mg/dL 0.1-1.0 Serum or plasma alkaline phosphatase measurement (enzymatic activity/volume) 75 U/L 40-136 Serum or plasma aspartate aminotransferase measurement (enzymatic activity/ volume) 25 U/L 5-34 Serum or plasma alanine aminotransferase measurement (enzymatic activity/volume ) 23 U/L 0-55 Serum or plasma protein measurement (mass/volume) 7.3 g/dL 6.4-8.2 Serum or plasma albumin measurement (mass/volume) 4.3 g/dL 3.2-4.5 Magnesium - 07/27/17 22:35 Magnesium 2.3 mg/dL 1.8-2.4 Complete urinalysis with reflex to culture - 07/27/17 23:00 Urine color determination YELLOW NRG Urine clarity determination CLEAR NRG Urine pH measurement by test strip 6 5-9 Specific gravity of urine by test strip 1.010 1.016- 1.022 Urine protein assay by test strip, semi-quantitative 1+ NEGATIVE Urine glucose detection by automated test strip NEGATIVE NEGATIVE Erythrocytes detection in urine sediment by light microscopy 2+ NEGATIVE Urine ketones detection by automated test strip 1+ NEGATIVE Urine nitrite detection by test strip NEGATIVE NEGATIVE Urine total bilirubin detection by test strip 1+ NEGATIVE Urine urobilinogen measurement by automated test strip (mass/volume) NORMAL NORMAL Urine leukocyte esterase detection by dipstick 1+ NEGATIVE Automated urine sediment erythrocyte count by microscopy (number/high power field) [HPF] NRG Automated urine sediment leukocyte count by microscopy (number/high power field ) [HPF] NRG Bacteria detection in urine sediment by light microscopy NEGATIVE NRG Crystals detection in urine sediment by light microscopy NONE NRG Casts detection in urine sediment by light microscopy NONE NRG Mucus detection in urine sediment by light microscopy LARGE NRG Complete urinalysis with reflex to culture NO NRG Complete blood count (CBC) with automated white blood cell (WBC) differential - 08/05/17 16:05 Blood leukocytes automated count (number/volume) 17.3 10*3/uL 4.3-11.0 Blood erythrocytes automated count (number/volume) 4.25 10*6/uL 4.35-5.85 Venous blood hemoglobin measurement (mass/volume) 14.0 g/dL 11.5-16.0 Blood hematocrit (volume fraction) 41 % 35-52 Automated erythrocyte mean corpuscular volume 96 [foz_us] 80-99 Automated erythrocyte mean corpuscular hemoglobin (mass per erythrocyte) 33 pg 25-34 Automated erythrocyte mean corpuscular hemoglobin concentration measurement ( mass/volume) 34 g/dL 32-36 Automated erythrocyte distribution width ratio 12.8 % 10.0-14.5 Automated blood platelet count (count/volume) 251 10*3/uL 130-400 Automated blood platelet mean volume measurement 10.0 [foz_us] 7.4-10.4 Automated blood neutrophils/100 leukocytes 22 % 42-75 Automated blood lymphocytes/100 leukocytes 70 % 12-44 Blood monocytes/100 leukocytes 7 % 0-12 Automated blood eosinophils/100 leukocytes 1 % 0-10 Automated blood basophils/100 leukocytes 0 % 0-10 Blood neutrophils automated count (number/volume) 3.8 10*3 1.8-7.8 Blood lymphocytes automated count (number/volume) 12.2 10*3 1.0-4.0 Blood monocytes automated count (number/volume) 1.1 10*3 0.0-1.0 Automated eosinophil count 0.2 10*3/uL 0.0-0.3 Automated blood basophil count (count/volume) 0.1 10*3/uL 0.0-0.1 Comprehensive metabolic panel - 08/05/17 16:05 Serum or plasma sodium measurement (moles/volume) 142 mmol/L 135-145 Serum or plasma potassium measurement (moles/volume) 3.5 mmol/L 3.6-5.0 Serum or plasma chloride measurement (moles/volume) 106 mmol/L 98-107 Carbon dioxide 24 mmol/L 21-32 Serum or plasma anion gap determination (moles/volume) 12 mmol/L 5-14 Serum or plasma urea nitrogen measurement (mass/volume) 16 mg/dL 7-18 Serum or plasma creatinine measurement (mass/volume) 0.81 mg/dL 0.60-1.30 Serum or plasma urea nitrogen/creatinine mass ratio 20 NRG Serum or plasma creatinine measurement with calculation of estimated glomerular filtration rate > NRG Serum or plasma glucose measurement (mass/volume) 60 mg/dL 70-105 Serum or plasma calcium measurement (mass/volume) 9.3 mg/dL 8.5-10.1 Serum or plasma total bilirubin measurement (mass/volume) 0.3 mg/dL 0.1-1.0 Serum or plasma alkaline phosphatase measurement (enzymatic activity/volume) 72 U/L 40-136 Serum or plasma aspartate aminotransferase measurement (enzymatic activity/ volume) 29 U/L 5-34 Serum or plasma alanine aminotransferase measurement (enzymatic activity/volume ) 26 U/L 0-55 Serum or plasma protein measurement (mass/volume) 7.6 g/dL 6.4-8.2 Serum or plasma albumin measurement (mass/volume) 4.4 g/dL 3.2-4.5 Complete urinalysis with reflex to culture - 08/05/17 16:05 Urine color determination YELLOW NRG Urine clarity determination CLEAR NRG Urine pH measurement by test strip 6.5 5-9 Specific gravity of urine by test strip 1.005 1.016- 1.022 Urine protein assay by test strip, semi-quantitative NEGATIVE NEGATIVE Urine glucose detection by automated test strip NEGATIVE NEGATIVE Erythrocytes detection in urine sediment by light microscopy 1+ NEGATIVE Urine ketones detection by automated test strip NEGATIVE NEGATIVE Urine nitrite detection by test strip NEGATIVE NEGATIVE Urine total bilirubin detection by test strip NEGATIVE NEGATIVE Urine urobilinogen measurement by automated test strip (mass/volume) NORMAL NORMAL Urine leukocyte esterase detection by dipstick NEGATIVE NEGATIVE Automated urine sediment erythrocyte count by microscopy (number/high power field) [HPF] NRG Automated urine sediment leukocyte count by microscopy (number/high power field ) RARE NRG Bacteria detection in urine sediment by light microscopy NEGATIVE NRG Crystals detection in urine sediment by light microscopy NONE NRG Casts detection in urine sediment by light microscopy NONE NRG Mucus detection in urine sediment by light microscopy NEGATIVE NRG Complete urinalysis with reflex to culture NO NRG Erythrocyte sedimentation rate by westergren method - 08/05/17 16:05 Erythrocyte sedimentation rate by westergren method 5 mm 0-30 Encounters ACCT No. Visit Date/Time Discharge Status Pt. Type Provider Facility Loc./Unit Complaint [id number] 01/10/2015 14:58:00 01/10/2015 23:59:59 CLS Outpatient PONCHO TOBAR PSYD [id number] 11/18/2017 10:32:00 11/18/2017 23:59:59 CLS Outpatient ROSHAN AYON [facility] ONC OV [id number] 11/06/2017 13:29:00 11/18/2017 10:31:00 DIS Outpatient RESHMA HENRIQUEZ MD [facility] ONC OV [id number] 11/11/2017 09:33:00 11/11/2017 23:59:59 CLS Outpatient RESHMA HENRIQUEZ MD [facility] RAD R41.3 MEMORY LOSS [id number] 10/09/2017 14:02:00 11/06/2017 08:25:00 DIS Outpatient ROSHAN AYON [facility] ONC OV [id number] 09/11/2017 14:07:00 09/17/2017 00:01:00 DIS Outpatient ROSHAN AYON [facility] ONC OV [id number] 08/05/2017 15:45:00 08/05/2017 23:59:59 CLS Outpatient RICO HUANG DO [facility] LAB R50.81 C91.10 R53.83 [id number] 07/27/2017 22:11:00 07/28/2017 00:07:00 DIS Emergency GUSTAVO MEZA MD [facility] ER STOMACH FLU [id number] 05/22/2017 14:04:00 06/14/2017 00:01:00 DIS Outpatient ROSHAN AYON Trey [facility] ONC OV [id number] 04/23/2017 10:38:00 05/14/2017 00:01:00 DIS Outpatient ROSHAN AYON Trey [facility] ONC OV [id number] 01/30/2017 11:03:00 02/05/2017 00:01:00 DIS Outpatient ROSHAN AYON Trey [facility] ONC OV [id number] 09/19/2016 14:04:00 09/23/2016 00:01:00 DIS Outpatient ROSHAN AYON Trey [facility] ONC OV [id number] 05/28/2016 13:31:00 06/24/2016 13:44:00 DIS Outpatient ROSHAN AYON Trey [facility] ONC OV [id number] 04/29/2016 14:18:00 04/29/2016 23:59:59 CLS Outpatient BRUCE REED BANQUET COOK [facility] ONC [id number] 03/04/2016 14:02:00 03/25/2016 00:01:00 DIS Outpatient ROSHAN AYON Trey [facility] ONC OV [id number] 01/16/2016 15:26:00 01/16/2016 23:59:59 CLS Outpatient RICO HUANG DO [facility] LAB [id number] 01/08/2016 14:11:00 01/08/2016 23:59:59 CLS Outpatient BRUCE REED BANQUET COOK [facility] ONC [id number] 12/19/2015 15:25:00 12/19/2015 00:01:00 DIS Outpatient ROSHAN AYON Trey [facility] ONC OV [id number] 12/05/2015 12:38:00 12/05/2015 23:59:59 CLS Outpatient GABO JOSELEXIE Yang [facility] RAD HYPOGAMMAGLOBULINEMIA, LEUKEMIA [id number] 11/06/2015 11:02:00 11/06/2015 23:59:59 CLS Outpatient REED, HILAH S BANQUET COOK [facility] ONC [id number] 09/14/2015 14:07:00 09/19/2015 00:01:00 DIS Outpatient ROSHAN AYON [facility] ONC OV [id number] 09/12/2015 09:34:00 09/12/2015 23:59:59 CLS Outpatient BRUCE REED BANQUET COOK [facility] ONC [id number] 07/05/2015 22:48:00 07/17/2015 11:50:00 DIS Inpatient ROSHAN AYON [facility] 4TH NEUTROPENIC FEVER,MERCADO [id number] 06/16/2015 15:17:00 06/16/2015 23:59:59 CLS Outpatient SAL RAMSEY RICO [facility] RT ASTHMA [id number] 06/15/2015 14:13:00 06/15/2015 23:59:59 CLS Outpatient BRUCE REED BANQUET COOK [facility] ONC [id number] 05/25/2015 11:01:00 06/14/2015 00:01:00 DIS Outpatient ROSHAN AYON [facility] ONC OV [id number] 06/13/2015 10:21:00 06/13/2015 23:59:59 CLS Outpatient SAL RAMSEY RICO [facility] RAD LEUKEMIC RETICULOENDOTHELISOS [id number] 05/15/2015 17:17:00 05/15/2015 23:59:59 CLS Outpatient SAL RAMSEY RICO [facility] RAD RT LEG PAIN [id number] 04/20/2015 10:32:00 04/20/2015 23:59:59 CLS Outpatient BRUCE REED BANQUET COOK [facility] ONC [id number] 03/29/2015 13:33:00 04/12/2015 00:01:00 DIS Outpatient ROSHAN AYON [facility] ONC OV [id number] 02/09/2015 10:53:00 02/09/2015 23:59:59 CLS Outpatient BRUCE REED BANQUET COOK [facility] ONC [id number] 01/16/2015 11:59:00 01/16/2015 23:59:59 CLS Outpatient ROSHAN AYON [facility] RAD [id number] 12/15/2014 10:59:00 12/21/2014 00:01:00 DIS Outpatient ROSHAN AYON N [facility] ONC OV [id number] 10/20/2014 14:03:00 10/20/2014 23:59:59 CLS Outpatient BRUCE REED BANQUET COOK [facility] ONC [id number] 10/02/2014 08:19:00 10/02/2014 09:58:00 DIS Emergency MISHEL WHIPPLE MD [facility] ER COUGH,FEVER [id number] 08/18/2014 14:30:00 08/24/2014 00:01:00 DIS Outpatient ROSHAN AYON Trey [facility] ONC OV [id number] 04/26/2014 14:03:00 05/18/2014 00:01:00 DIS Outpatient ROSHAN AYON [facility] ONC OV [id number] 05/05/2014 13:28:00 05/05/2014 23:59:59 CLS Outpatient EWA ALBERTO DO [facility] RAD INGUINAL LYMPHADENOPATHY [id number] 04/26/2014 14:05:00 04/26/2014 23:59:59 CLS Outpatient BRUCE REED BANQUET COOK [facility] ONC [id number] 03/10/2014 11:07:00 03/10/2014 23:59:59 CLS Outpatient ROSHAN AYON [facility] RAD LEFT LOWER QUADRANT PAIN [id number] 01/06/2014 09:56:00 01/12/2014 00:01:00 DIS Outpatient ROSHAN AYON N [facility] ONC OV [id number] 01/06/2014 09:55:00 01/06/2014 23:59:59 CLS Outpatient BRUCE REED BANQUET COOK [facility] ONC [id number] 09/14/2013 10:55:00 10/06/2013 00:01:00 DIS Outpatient ROSHAN AYON N [facility] ONC OV [id number] 09/14/2013 10:54:00 09/14/2013 23:59:59 CLS Outpatient BRUCE REED BANQUET COOK [facility] ONC [id number] 07/08/2013 10:15:00 07/08/2013 23:59:59 CLS Outpatient BRUCE REED BANQUET COOK [facility] ONC [id number] 05/13/2013 10:06:00 07/07/2013 00:01:00 DIS Outpatient ROSHAN AYON [facility] ONC OV [id number] 01/05/2013 10:24:00 02/10/2013 00:01:00 DIS Outpatient ROSHAN AYON [facility] ONC OV [id number] 07/05/2015 23:22:00 Document Registration [id number] 01/05/2013 10:23:00 Document Registration [id number] 10/15/2012 10:00:00 Document Registration [id number] 07/16/2012 10:39:00 Document Registration [id number] 06/18/2012 10:04:00 Document Registration [id number] 04/16/2012 09:06:00 Document Registration [id number] 01/09/2012 10:35:00 Document Registration [id number] 10/10/2011 13:22:00 Document Registration [id number] 07/11/2011 13:11:00 Document Registration [id number] 02/28/2011 13:06:00 Document Registration [id number] 12/20/2010 14:17:00 Document Registration [id number] 08/30/2010 13:07:00 Document Registration [id number] 08/01/2010 14:06:00 Document Registration [id number] 07/19/2010 10:59:00 Document Registration
== END 2017-11-23 21:17 | disposition home or self-care (01) ==
LOC: EDUNIT# 18:13 → ER 18:15
DX: C91.10 Chronic lymphocytic leukemia of B-cell type not having achieved remission (principal); K58.9 Irritable bowel syndrome, unspecified; J45.909 Unspecified asthma, uncomplicated; Z98.51 Tubal ligation status; Z87.59 Personal history of other complications of pregnancy, childbirth and the puerperium; Z88.2 Allergy status to sulfonamides; Z87.01 Personal history of pneumonia (recurrent)
CPT/HCPCS: 36415; 71046; 80053; 84443; 84484; 85007; 85027; 85379; 86141; 87804; 93005

== ENCOUNTER 2018-01-08 13:22 | Outpatient (RCR) | payer BC ==
[2017-11-18 11:06] LABS: BASOPHILS % (AUTO) 0 % (0-10); EOSINOPHILS # (AUTO) 0.3 10^3/uL (0.0-0.3); EOSINOPHILS % (AUTO) 2 % (0-10); HEMATOCRIT 42 % (35-52); HEMOGLOBIN 14.1 G/DL (11.5-16.0); LYMPHOCYTES # (AUTO) 15.6 X 10^3 (1.0-4.0); LYMPHOCYTES % (AUTO) 79 % (12-44); MEAN CORPUSCULAR HEMOGLOBIN 32 PG (25-34); MEAN CORPUSCULAR HGB CONC 34 G/DL (32-36); MEAN CORPUSCULAR VOLUME 96 FL (80-99); MEAN PLATELET VOLUME 10.3 FL (7.4-10.4); MONOCYTES # (AUTO) 0.8 X 10^3 (0.0-1.0); MONOCYTES % (AUTO) 4 % (0-12); NEUTROPHILS % (AUTO) 15 % (42-75); PLATELET COUNT 202 10^3/uL (130-400); RED BLOOD COUNT 4.35 10^6/uL (4.35-5.85); RED CELL DISTRIBUTION WIDTH 13.4 % (10.0-14.5); WHITE BLOOD COUNT 19.7 10^3/uL (4.3-11.0)
[2017-11-18 11:30] LABS: ALANINE AMINOTRANSFERASE 14 U/L (0-55); ALBUMIN 3.9 GM/DL (3.2-4.5); ALKALINE PHOSPHATASE 70 U/L (40-136); BILIRUBIN,TOTAL 0.5 MG/DL (0.1-1.0); BUN/CREATININE RATIO 20; CALCIUM 8.9 MG/DL (8.5-10.1); CARBON DIOXIDE 23 MMOL/L (21-32); CHLORIDE 109 MMOL/L (98-107); CREATININE SERUM 0.86 MG/DL (0.60-1.30); GFR ESTIMATED > 60; GLUCOSE 68 MG/DL (70-105); POTASSIUM 4.1 MMOL/L (3.6-5.0); SODIUM 141 MMOL/L (135-145); TOTAL PROTEIN 6.6 GM/DL (6.4-8.2)
[~2018-01-08 13:22] MED LIST changes: +ACETAMINOPHEN 500 MG TAB (TYLENOL) CANCER CTR PO PRN; +DEXA4TAB; +DEXT20TA8; +FAMOTIDINE 20MG/2ML IV (CANCER CTR) IV SCH; +FLUT1DIS26; +IMMUNE GLOBULIN,GAMMA (IGG) 200 ML IV SCH; +NS IV 500 ML (CANCER CENTER) IV SCH; -PROC10TA PO; +PROC10TA10 PO; +diphenhydrAMINE 25 MG TAB (BENADRYL) CANCER CENTER PO SCH; +diphenhydrAMINE 50 MG/ML INJ (CANCER CENTER) IV ONE; +methylPREDNISolone 125 MG/2 ML (SOLU-MEDROL) CANCER CTR IV ONE
[2018-01-08 13:47] LABS: BASOPHILS % (AUTO) 0 % (0-10); EOSINOPHILS # (AUTO) 0.1 10^3/uL (0.0-0.3); EOSINOPHILS % (AUTO) 1 % (0-10); HEMATOCRIT 44 % (35-52); HEMOGLOBIN 14.6 G/DL (11.5-16.0); LYMPHOCYTES # (AUTO) 16.4 X 10^3 (1.0-4.0); LYMPHOCYTES % (AUTO) 84 % (12-44); MEAN CORPUSCULAR HEMOGLOBIN 31 PG (25-34); MEAN CORPUSCULAR HGB CONC 33 G/DL (32-36); MEAN CORPUSCULAR VOLUME 95 FL (80-99); MEAN PLATELET VOLUME 10.2 FL (7.4-10.4); MONOCYTES # (AUTO) 0.8 X 10^3 (0.0-1.0); MONOCYTES % (AUTO) 4 % (0-12); NEUTROPHILS # (AUTO) 2.3 X 10^3 (1.8-7.8); NEUTROPHILS % (AUTO) 12 % (42-75); PLATELET COUNT 177 10^3/uL (130-400); RED BLOOD COUNT 4.66 10^6/uL (4.35-5.85); RED CELL DISTRIBUTION WIDTH 13.9 % (10.0-14.5); WHITE BLOOD COUNT 19.6 10^3/uL (4.3-11.0)
[2018-01-08 14:08] LABS: ALANINE AMINOTRANSFERASE 22 U/L (0-55); ALBUMIN 4.4 GM/DL (3.2-4.5); ALKALINE PHOSPHATASE 91 U/L (40-136); BILIRUBIN,TOTAL 0.3 MG/DL (0.1-1.0); BUN/CREATININE RATIO 11; CALCIUM 9.8 MG/DL (8.5-10.1); CARBON DIOXIDE 24 MMOL/L (21-32); CHLORIDE 107 MMOL/L (98-107); CREATININE SERUM 0.79 MG/DL (0.60-1.30); GFR ESTIMATED > 60; GLUCOSE 98 MG/DL (70-105); POTASSIUM 4.9 MMOL/L (3.6-5.0); SODIUM 140 MMOL/L (135-145)
== END 2018-02-16 | disposition home or self-care (01) ==
LOC: ONC 13:22
PROVIDERS: ATTEND Internal Medicine Hematology & Oncology
DX: C91.10 Chronic lymphocytic leukemia of B-cell type not having achieved remission (principal); D80.1 Nonfamilial hypogammaglobulinemia; R21 Rash and other nonspecific skin eruption; R41.3 Other amnesia; F17.200 Nicotine dependence, unspecified, uncomplicated; Z79.899 Other long term (current) drug therapy
CPT/HCPCS: 36415; 80053; 82784; 83615; 85025; 96365; 96366; 96374; 96375; 99213

== ENCOUNTER 2018-06-09 15:02 | Outpatient (RCR) | payer BC ==
[2018-04-16 13:22] LABS: BASOPHILS # (AUTO) 0.1 10^3/uL (0.0-0.1); BASOPHILS % (AUTO) 0 % (0-10); EOSINOPHILS # (AUTO) 0.2 10^3/uL (0.0-0.3); EOSINOPHILS % (AUTO) 1 % (0-10); HEMATOCRIT 39 % (35-52); HEMOGLOBIN 13.4 G/DL (11.5-16.0); LYMPHOCYTES # (AUTO) 36.4 X 10^3 (1.0-4.0); LYMPHOCYTES % (AUTO) 91 % (12-44); MEAN CORPUSCULAR HEMOGLOBIN 32 PG (25-34); MEAN CORPUSCULAR HGB CONC 34 G/DL (32-36); MEAN CORPUSCULAR VOLUME 95 FL (80-99); MEAN PLATELET VOLUME 9.8 FL (7.4-10.4); MONOCYTES # (AUTO) 0.8 X 10^3 (0.0-1.0); MONOCYTES % (AUTO) 2 % (0-12); NEUTROPHILS # (AUTO) 2.6 X 10^3 (1.8-7.8); NEUTROPHILS % (AUTO) 6 % (42-75); PLATELET COUNT 193 10^3/uL (130-400); RED BLOOD COUNT 4.14 10^6/uL (4.35-5.85); RED CELL DISTRIBUTION WIDTH 13.5 % (10.0-14.5)
[2018-04-16 13:51] LABS: CARBON DIOXIDE 24 MMOL/L (21-32); CHLORIDE 110 MMOL/L (98-107); CREATININE SERUM 0.85 MG/DL (0.60-1.30); POTASSIUM 4.7 MMOL/L (3.6-5.0); SODIUM 144 MMOL/L (135-145)
[2018-04-16 13:52] LABS: ALANINE AMINOTRANSFERASE 24 U/L (0-55); ALBUMIN 4.4 GM/DL (3.2-4.5); ALKALINE PHOSPHATASE 82 U/L (40-136); BILIRUBIN,TOTAL 0.5 MG/DL (0.1-1.0); BUN/CREATININE RATIO 14; CALCIUM 9.9 MG/DL (8.5-10.1); GFR ESTIMATED > 60; GLUCOSE 70 MG/DL (70-105); TOTAL PROTEIN 6.7 GM/DL (6.4-8.2)
[2018-05-14 14:44] LABS: BASOPHILS # (AUTO) 0.1 10^3/uL (0.0-0.1); BASOPHILS % (AUTO) 0 % (0-10); EOSINOPHILS # (AUTO) 0.1 10^3/uL (0.0-0.3); EOSINOPHILS % (AUTO) 0 % (0-10); HEMATOCRIT 35 % (35-52); HEMOGLOBIN 12.1 G/DL (11.5-16.0); LYMPHOCYTES % (AUTO) 90 % (12-44); MEAN CORPUSCULAR HEMOGLOBIN 33 PG (25-34); MEAN CORPUSCULAR HGB CONC 34 G/DL (32-36); MEAN CORPUSCULAR VOLUME 97 FL (80-99); MEAN PLATELET VOLUME 10.5 FL (7.4-10.4); MONOCYTES # (AUTO) 0.9 X 10^3 (0.0-1.0); MONOCYTES % (AUTO) 2 % (0-12); NEUTROPHILS % (AUTO) 7 % (42-75); PLATELET COUNT 175 10^3/uL (130-400); RED BLOOD COUNT 3.67 10^6/uL (4.35-5.85); RED CELL DISTRIBUTION WIDTH 13.7 % (10.0-14.5)
[2018-05-14 14:46] LABS: WHITE BLOOD COUNT 42.1 10^3/uL (4.3-11.0)
[~2018-06-09 15:02] MED LIST changes: -FAMOTIDINE 20MG/2ML IV (CANCER CTR) IV SCH; -diphenhydrAMINE 50 MG/ML INJ (CANCER CENTER) IV ONE; -methylPREDNISolone 125 MG/2 ML (SOLU-MEDROL) CANCER CTR IV ONE
== END 2018-07-07 13:32 | disposition home or self-care (01) ==
LOC: ONC 15:02
PROVIDERS: ATTEND Internal Medicine Hematology & Oncology
DX: C91.10 Chronic lymphocytic leukemia of B-cell type not having achieved remission (principal); D80.1 Nonfamilial hypogammaglobulinemia; R21 Rash and other nonspecific skin eruption; R41.3 Other amnesia; F17.200 Nicotine dependence, unspecified, uncomplicated; Z79.899 Other long term (current) drug therapy
CPT/HCPCS: 36415; 80053; 82784; 83615; 85025; 96365; 96366; J1569

== ENCOUNTER → 2018-08-19 | Outpatient (CLI) | payer BC ==
[~2018-08-19] MED LIST changes: -ACETAMINOPHEN 500 MG TAB (TYLENOL) CANCER CTR PO PRN; +ACHD5005 PO; +CETI10TA17 PO; -IMMUNE GLOBULIN,GAMMA (IGG) 200 ML IV SCH; -NS IV 500 ML (CANCER CENTER) IV SCH; +OMEP40CA36 PO; +POLY17PO6 PO; +SUCR1TAB PO; -diphenhydrAMINE 25 MG TAB (BENADRYL) CANCER CENTER PO SCH
--- NOTE | 2018-08-19 18:27 | Diagnostic Imaging Report ---
INDICATION: Pelvic pain. Pelvic sonography performed in the routine fashion. Comparison made to 05/05/2014. FINDINGS: The uterus measures 5.1 x 3.9 x 2.4 cm. Endometrium measures 4 mm in thickness. There is no uterine mass. Neither ovary could be visualized. There is no free fluid. IMPRESSION: Relatively small uterus with no overt focal lesion. Neither ovary could be visualized. There is no free fluid. Dictated by: Dictated on workstation # [id number]
== END ==
LOC: RAD 14:19
PROVIDERS: ATTEND Internal Medicine
DX: R10.2 Pelvic and perineal pain (principal); R10.30 Lower abdominal pain, unspecified
CPT/HCPCS: 76830; 76856

== ENCOUNTER → 2018-08-24 | Outpatient (CLI) | payer BC ==
[2018-08-24 09:20] LABS: BASOPHILS # (AUTO) 0.1 10^3/uL (0.0-0.1); BASOPHILS % (AUTO) 0 % (0-10); EOSINOPHILS # (AUTO) 0.2 10^3/uL (0.0-0.3); EOSINOPHILS % (AUTO) 1 % (0-10); HEMATOCRIT 38 % (35-52); HEMOGLOBIN 12.7 G/DL (11.5-16.0); LYMPHOCYTES # (AUTO) 32.1 X 10^3 (1.0-4.0); LYMPHOCYTES % (AUTO) 93 % (12-44); MEAN CORPUSCULAR HEMOGLOBIN 32 PG (25-34); MEAN CORPUSCULAR HGB CONC 33 G/DL (32-36); MEAN CORPUSCULAR VOLUME 98 FL (80-99); MEAN PLATELET VOLUME 10.4 FL (7.4-10.4); MONOCYTES # (AUTO) 0.4 X 10^3 (0.0-1.0); MONOCYTES % (AUTO) 1 % (0-12); NEUTROPHILS # (AUTO) 1.6 X 10^3 (1.8-7.8); NEUTROPHILS % (AUTO) 5 % (42-75); PLATELET COUNT 141 10^3/uL (130-400); RED BLOOD COUNT 3.93 10^6/uL (4.35-5.85); RED CELL DISTRIBUTION WIDTH 13.4 % (10.0-14.5)
[2018-08-24 09:22] LABS: WHITE BLOOD COUNT 34.4 10^3/uL (4.3-11.0)
[2018-08-24 09:47] LABS: ALANINE AMINOTRANSFERASE 16 U/L (0-55); ALBUMIN 4.3 GM/DL (3.2-4.5); ALKALINE PHOSPHATASE 71 U/L (40-136); BILIRUBIN,TOTAL 0.5 MG/DL (0.1-1.0); BUN/CREATININE RATIO 9; CALCIUM 9.4 MG/DL (8.5-10.1); CARBON DIOXIDE 25 MMOL/L (21-32); CHLORIDE 109 MMOL/L (98-107); CHOLESTEROL 203 MG/DL (< 200); CREATININE SERUM 0.87 MG/DL (0.60-1.30); GFR ESTIMATED > 60; GLUCOSE 86 MG/DL (70-105); HDL CHOLESTEROL 56 MG/DL (40-60); POTASSIUM 4.2 MMOL/L (3.6-5.0); SODIUM 142 MMOL/L (135-145); TOTAL PROTEIN 6.8 GM/DL (6.4-8.2); TRIGLYCERIDES 59 MG/DL (<150); VLDL CHOLESTEROL 12 MG/DL (5-40)
[2018-08-24 10:14] LABS: BAND NEUTROPHILS 0 %; BASOPHILS % (MANUAL) 0 %; EOSINOPHILS % (MANUAL) 0 %; LYMPHOCYTES % (MANUAL) 0 %; MONOCYTES % (MANUAL) 1 %; NEUTROPHILS % (MANUAL) 6 %; RBC MORPH NORMAL; REACTIVE LYMPHOCYTES 93 %
== END ==
LOC: LAB 09:08
PROVIDERS: ATTEND Internal Medicine
DX: Z00.01 Encounter for general adult medical examination with abnormal findings (principal); E78.00 Pure hypercholesterolemia, unspecified; E78.1 Pure hyperglyceridemia
CPT/HCPCS: 36415; 80053; 80061; 84443; 85007; 85027

== ENCOUNTER → 2019-01-04 | Outpatient (RCR) | payer BC ==
[2018-10-06 11:18] LABS: BASOPHILS # (AUTO) 0.1 10^3/uL (0.0-0.1); BASOPHILS % (AUTO) 0 % (0-10); EOSINOPHILS # (AUTO) 0.1 10^3/uL (0.0-0.3); EOSINOPHILS % (AUTO) 0 % (0-10); HEMATOCRIT 38 % (35-52); HEMOGLOBIN 12.6 G/DL (11.5-16.0); LYMPHOCYTES # (AUTO) 48.2 X 10^3 (1.0-4.0); LYMPHOCYTES % (AUTO) 95 % (12-44); MEAN CORPUSCULAR HEMOGLOBIN 33 PG (25-34); MEAN CORPUSCULAR HGB CONC 34 G/DL (32-36); MEAN CORPUSCULAR VOLUME 97 FL (80-99); MEAN PLATELET VOLUME 10.2 FL (7.4-10.4); MONOCYTES % (AUTO) 2 % (0-12); NEUTROPHILS # (AUTO) 1.5 X 10^3 (1.8-7.8); NEUTROPHILS % (AUTO) 3 % (42-75); PLATELET COUNT 153 10^3/uL (130-400); RED CELL DISTRIBUTION WIDTH 13.8 % (10.0-14.5)
[2018-10-06 11:20] LABS: WHITE BLOOD COUNT 50.9 10^3/uL (4.3-11.0)
[2018-10-06 11:42] LABS: ALBUMIN 4.4 GM/DL (3.2-4.5); BILIRUBIN,TOTAL 0.4 MG/DL (0.1-1.0); CALCIUM 9.3 MG/DL (8.5-10.1); CREATININE SERUM 0.98 MG/DL (0.60-1.30); POTASSIUM 3.7 MMOL/L (3.6-5.0); TOTAL PROTEIN 6.8 GM/DL (6.4-8.2)
[2018-11-03 11:39] LABS: BASOPHILS # (AUTO) 0.1 10^3/uL (0.0-0.1); BASOPHILS % (AUTO) 0 % (0-10); EOSINOPHILS # (AUTO) 0.2 10^3/uL (0.0-0.3); EOSINOPHILS % (AUTO) 0 % (0-10); HEMATOCRIT 37 % (35-52); HEMOGLOBIN 12.4 G/DL (11.5-16.0); LYMPHOCYTES # (AUTO) 46.8 X 10^3 (1.0-4.0); LYMPHOCYTES % (AUTO) 94 % (12-44); MEAN CORPUSCULAR HEMOGLOBIN 33 PG (25-34); MEAN CORPUSCULAR HGB CONC 34 G/DL (32-36); MEAN CORPUSCULAR VOLUME 97 FL (80-99); MEAN PLATELET VOLUME 10.2 FL (7.4-10.4); MONOCYTES # (AUTO) 1.1 X 10^3 (0.0-1.0); MONOCYTES % (AUTO) 2 % (0-12); NEUTROPHILS # (AUTO) 1.7 X 10^3 (1.8-7.8); NEUTROPHILS % (AUTO) 3 % (42-75); PLATELET COUNT 155 10^3/uL (130-400); RED CELL DISTRIBUTION WIDTH 14.6 % (10.0-14.5)
[2018-11-03 11:43] LABS: WHITE BLOOD COUNT 49.9 10^3/uL (4.3-11.0)
[2018-11-03 11:59] LABS: ALANINE AMINOTRANSFERASE 19 U/L (0-55); ALBUMIN 4.1 GM/DL (3.2-4.5); ALKALINE PHOSPHATASE 70 U/L (40-136); BILIRUBIN,TOTAL 0.3 MG/DL (0.1-1.0); BUN/CREATININE RATIO 14; CALCIUM 9.2 MG/DL (8.5-10.1); CARBON DIOXIDE 21 MMOL/L (21-32); CHLORIDE 111 MMOL/L (98-107); CREATININE SERUM 0.94 MG/DL (0.60-1.30); GFR ESTIMATED > 60; GLUCOSE 95 MG/DL (70-105); POTASSIUM 4.7 MMOL/L (3.6-5.0); SODIUM 142 MMOL/L (135-145); TOTAL PROTEIN 6.6 GM/DL (6.4-8.2)
[2018-12-07 11:45] LABS: BASOPHILS # (AUTO) 0.4 10^3/uL (0.0-0.1); BASOPHILS % (AUTO) 0 % (0-10); EOSINOPHILS # (AUTO) 0.8 10^3/uL (0.0-0.3); EOSINOPHILS % (AUTO) 1 % (0-10); HEMATOCRIT 39 % (35-52); HEMOGLOBIN 12.6 G/DL (11.5-16.0); LYMPHOCYTES # (AUTO) 98.5 X 10^3 (1.0-4.0); LYMPHOCYTES % (AUTO) 94 % (12-44); MEAN CORPUSCULAR HEMOGLOBIN 33 PG (25-34); MEAN CORPUSCULAR HGB CONC 32 G/DL (32-36); MEAN CORPUSCULAR VOLUME 102 FL (80-99); MEAN PLATELET VOLUME 9.9 FL (7.4-10.4); MONOCYTES # (AUTO) 2.4 X 10^3 (0.0-1.0); MONOCYTES % (AUTO) 2 % (0-12); NEUTROPHILS # (AUTO) 2.3 X 10^3 (1.8-7.8); NEUTROPHILS % (AUTO) 2 % (42-75); PLATELET COUNT 198 10^3/uL (130-400); RED CELL DISTRIBUTION WIDTH 14.4 % (10.0-14.5)
[2018-12-07 11:47] LABS: WHITE BLOOD COUNT 104.3 10^3/uL (4.3-11.0)
[2018-12-07 12:07] LABS: ALANINE AMINOTRANSFERASE 12 U/L (0-55); ALBUMIN 4.1 GM/DL (3.2-4.5); ALKALINE PHOSPHATASE 75 U/L (40-136); BILIRUBIN,TOTAL 0.4 MG/DL (0.1-1.0); BUN/CREATININE RATIO 14; CALCIUM 9.2 MG/DL (8.5-10.1); CARBON DIOXIDE 22 MMOL/L (21-32); CHLORIDE 110 MMOL/L (98-107); CREATININE SERUM 0.93 MG/DL (0.60-1.30); GFR ESTIMATED > 60; GLUCOSE 91 MG/DL (70-105); POTASSIUM 4.4 MMOL/L (3.6-5.0); SODIUM 142 MMOL/L (135-145); TOTAL PROTEIN 6.7 GM/DL (6.4-8.2)
[2018-12-21 14:23] LABS: HEMATOCRIT 37 % (35-52); HEMOGLOBIN 12.4 G/DL (11.5-16.0); MEAN CORPUSCULAR HEMOGLOBIN 34 PG (25-34); MEAN CORPUSCULAR HGB CONC 34 G/DL (32-36); MEAN CORPUSCULAR VOLUME 101 FL (80-99); MEAN PLATELET VOLUME 10.3 FL (7.4-10.4); PLATELET COUNT 139 10^3/uL (130-400); RED CELL DISTRIBUTION WIDTH 14.1 % (10.0-14.5)
[2018-12-21 14:25] LABS: WHITE BLOOD COUNT 64.1 10^3/uL (4.3-11.0)
[~2019-01-04] MED LIST changes: +ACETAMINOPHEN 500 MG TAB (TYLENOL) CANCER CTR PO PRN; +CYANOCOBALAMIN INJ 1000 MCG/ML (CANCER CENTER) ONE; +IMMUNE GLOBULIN,GAMMA (IGG) 200 ML IV SCH; +NS IV 500 ML (CANCER CENTER) IV SCH; +diphenhydrAMINE 25 MG TAB (BENADRYL) CANCER CENTER PO SCH
== END | disposition home or self-care (01) ==
LOC: ONC 10-06 10:59
PROVIDERS: ATTEND Internal Medicine Hematology & Oncology
DX: C91.10 Chronic lymphocytic leukemia of B-cell type not having achieved remission (principal); D80.1 Nonfamilial hypogammaglobulinemia; R21 Rash and other nonspecific skin eruption; R41.3 Other amnesia; F17.200 Nicotine dependence, unspecified, uncomplicated; Z79.899 Other long term (current) drug therapy
CPT/HCPCS: 36415; 80053; 82784; 83615; 85025; 96365; 96366; 99213; J1569

== ENCOUNTER 2019-04-01 10:08 | Outpatient (RCR) | payer BC ==
[2019-01-05 14:25] LABS: HEMATOCRIT 38 % (35-52); HEMOGLOBIN 12.7 G/DL (11.5-16.0); MEAN CORPUSCULAR HEMOGLOBIN 33 PG (25-34); MEAN CORPUSCULAR HGB CONC 33 G/DL (32-36); MEAN CORPUSCULAR VOLUME 100 FL (80-99); MEAN PLATELET VOLUME 10.4 FL (7.4-10.4); PLATELET COUNT 128 10^3/uL (130-400); RED CELL DISTRIBUTION WIDTH 13.9 % (10.0-14.5)
[2019-01-05 14:32] LABS: WHITE BLOOD COUNT 63.1 10^3/uL (4.3-11.0)
[2019-01-05 14:43] LABS: ALANINE AMINOTRANSFERASE 23 U/L (0-55); ALBUMIN 4.3 GM/DL (3.2-4.5); ALKALINE PHOSPHATASE 77 U/L (40-136); BILIRUBIN,TOTAL 0.4 MG/DL (0.1-1.0); BUN/CREATININE RATIO 11; CALCIUM 9.8 MG/DL (8.5-10.1); CARBON DIOXIDE 24 MMOL/L (21-32); CHLORIDE 110 MMOL/L (98-107); CREATININE SERUM 0.91 MG/DL (0.60-1.30); GFR ESTIMATED > 60; GLUCOSE 81 MG/DL (70-105); POTASSIUM 4.7 MMOL/L (3.6-5.0); SODIUM 142 MMOL/L (135-145); TOTAL PROTEIN 6.8 GM/DL (6.4-8.2)
[2019-02-04 14:28] LABS: BASOPHILS # (AUTO) 0.3 10^3/uL (0.0-0.1); BASOPHILS % (AUTO) 0 % (0-10); EOSINOPHILS # (AUTO) 0.2 10^3/uL (0.0-0.3); EOSINOPHILS % (AUTO) 0 % (0-10); HEMATOCRIT 36 % (35-52); HEMOGLOBIN 12.2 G/DL (11.5-16.0); LYMPHOCYTES # (AUTO) 83.4 X 10^3 (1.0-4.0); LYMPHOCYTES % (AUTO) 92 % (12-44); MEAN CORPUSCULAR HEMOGLOBIN 33 PG (25-34); MEAN CORPUSCULAR HGB CONC 34 G/DL (32-36); MEAN CORPUSCULAR VOLUME 99 FL (80-99); MEAN PLATELET VOLUME 10.3 FL (7.4-10.4); MONOCYTES # (AUTO) 2.1 X 10^3 (0.0-1.0); MONOCYTES % (AUTO) 2 % (0-12); NEUTROPHILS # (AUTO) 5.1 X 10^3 (1.8-7.8); NEUTROPHILS % (AUTO) 6 % (42-75); PLATELET COUNT 138 10^3/uL (130-400); RED CELL DISTRIBUTION WIDTH 13.9 % (10.0-14.5)
[2019-02-04 14:29] LABS: WHITE BLOOD COUNT 91.1 10^3/uL (4.3-11.0)
[2019-02-04 14:47] LABS: ALBUMIN 4.3 GM/DL (3.2-4.5); BILIRUBIN,TOTAL 0.5 MG/DL (0.1-1.0); CALCIUM 9.5 MG/DL (8.5-10.1); CREATININE SERUM 1.01 MG/DL (0.60-1.30); POTASSIUM 3.8 MMOL/L (3.6-5.0); TOTAL PROTEIN 6.6 GM/DL (6.4-8.2)
[2019-03-04 14:47] LABS: HEMATOCRIT 36 % (35-52); HEMOGLOBIN 12.2 G/DL (11.5-16.0); MEAN CORPUSCULAR HEMOGLOBIN 33 PG (25-34); MEAN CORPUSCULAR HGB CONC 34 G/DL (32-36); MEAN CORPUSCULAR VOLUME 98 FL (80-99); MEAN PLATELET VOLUME 10.2 FL (7.4-10.4); PLATELET COUNT 160 10^3/uL (130-400); RED CELL DISTRIBUTION WIDTH 14.3 % (10.0-14.5)
[2019-03-04 14:50] LABS: WHITE BLOOD COUNT 52.6 10^3/uL (4.3-11.0)
[2019-03-04 15:06] LABS: ALBUMIN 4.3 GM/DL (3.2-4.5); CALCIUM 9.5 MG/DL (8.5-10.1); POTASSIUM 4.3 MMOL/L (3.6-5.0); TOTAL PROTEIN 6.9 GM/DL (6.4-8.2)
[2019-03-04 15:32] LABS: BILIRUBIN,TOTAL 0.5 MG/DL (0.1-1.0); CREATININE SERUM 1.08 MG/DL (0.60-1.30)
[~2019-04-01 10:08] MED LIST changes: -CYANOCOBALAMIN INJ 1000 MCG/ML (CANCER CENTER) ONE
== END 2019-04-05 | disposition home or self-care (01) ==
LOC: ONC 10:08
PROVIDERS: ATTEND Internal Medicine Hematology & Oncology
DX: C91.10 Chronic lymphocytic leukemia of B-cell type not having achieved remission (principal); D80.1 Nonfamilial hypogammaglobulinemia; R21 Rash and other nonspecific skin eruption; R41.3 Other amnesia; F17.200 Nicotine dependence, unspecified, uncomplicated; Z79.899 Other long term (current) drug therapy
CPT/HCPCS: 36415; 80053; 83615; 85025; 96365; 96366; J1569

== ENCOUNTER 2019-07-21 13:34 | Outpatient (RCR) | payer BC ==
[2019-04-29 14:07] LABS: HEMATOCRIT 37 % (35-52); HEMOGLOBIN 12.2 G/DL (11.5-16.0); MEAN CORPUSCULAR HEMOGLOBIN 32 PG (25-34); MEAN CORPUSCULAR HGB CONC 33 G/DL (32-36); MEAN CORPUSCULAR VOLUME 99 FL (80-99); MEAN PLATELET VOLUME 10.2 FL (7.4-10.4); PLATELET COUNT 149 10^3/uL (130-400)
[2019-04-29 14:12] LABS: WHITE BLOOD COUNT 45.5 10^3/uL (4.3-11.0)
[2019-04-29 14:26] LABS: ALBUMIN 4.4 GM/DL (3.2-4.5); BILIRUBIN,TOTAL 0.4 MG/DL (0.1-1.0); CALCIUM 9.6 MG/DL (8.5-10.1); CREATININE SERUM 1.04 MG/DL (0.60-1.30); POTASSIUM 4.2 MMOL/L (3.6-5.0); TOTAL PROTEIN 7.3 GM/DL (6.4-8.2)
[~2019-07-21 13:34] MED LIST changes: -DULO30CA48 PO; +DULO30CA49 PO; -OMEP20CA12 PO; +OMEP20CA13 PO
[2019-07-21 13:53] LABS: HEMATOCRIT 36 % (35-52); HEMOGLOBIN 11.4 G/DL (11.5-16.0); MEAN CORPUSCULAR HEMOGLOBIN 31 PG (25-34); MEAN CORPUSCULAR HGB CONC 32 G/DL (32-36); MEAN CORPUSCULAR VOLUME 98 FL (80-99); PLATELET COUNT 180 10^3/uL (130-400); RED CELL DISTRIBUTION WIDTH 14.7 % (10.0-14.5)
[2019-07-21 13:56] LABS: WHITE BLOOD COUNT 72.1 10^3/uL (4.3-11.0)
[2019-07-21 14:12] LABS: ALANINE AMINOTRANSFERASE 8 U/L (0-55); ALBUMIN 4.1 GM/DL (3.2-4.5); ALKALINE PHOSPHATASE 100 U/L (40-136); BILIRUBIN,TOTAL 0.4 MG/DL (0.1-1.0); BUN/CREATININE RATIO 8; CALCIUM 9.3 MG/DL (8.5-10.1); CARBON DIOXIDE 25 MMOL/L (21-32); CHLORIDE 109 MMOL/L (98-107); CREATININE SERUM 0.91 MG/DL (0.60-1.30); GFR ESTIMATED > 60; GLUCOSE 80 MG/DL (70-105); POTASSIUM 4.3 MMOL/L (3.6-5.0); SODIUM 143 MMOL/L (135-145); TOTAL PROTEIN 6.8 GM/DL (6.4-8.2)
== END 2019-07-28 | disposition home or self-care (01) ==
LOC: ONC 13:34
PROVIDERS: ATTEND Internal Medicine Hematology & Oncology
DX: C91.10 Chronic lymphocytic leukemia of B-cell type not having achieved remission (principal); D80.1 Nonfamilial hypogammaglobulinemia; R21 Rash and other nonspecific skin eruption; R41.3 Other amnesia; F17.200 Nicotine dependence, unspecified, uncomplicated; Z79.899 Other long term (current) drug therapy
CPT/HCPCS: 36415; 80053; 82784; 83615; 85025; 96365; 96366; J1569

== ENCOUNTER 2019-10-24 21:06 | Observation (INO) | payer BC ==
[~2019-10-24] VITALS: Ht 165 cm; Wt 56.3 kg
[~2019-10-24 21:06] MED LIST changes: -ACETAMINOPHEN 500 MG TAB (TYLENOL) CANCER CTR PO PRN; -IMMUNE GLOBULIN,GAMMA (IGG) 200 ML IV SCH; -NS IV 500 ML (CANCER CENTER) IV SCH; +OMEP-280 PO; -OMEP20CA13 PO; +OMEP40CA27 PO; -OMEP40CA36 PO; -diphenhydrAMINE 25 MG TAB (BENADRYL) CANCER CENTER PO SCH
[2019-10-24] MEDS ORDERED: NS IV 1000 ML 1,000 ML IV SCH (21:21)
--- NOTE | 2019-10-24 21:25 | ED Psychosocial ---
General Stated Complaint: POSS OVERDOSE Source: patient Exam Limitations: no limitations History of Present Illness Date Seen by Provider: Oct 24, 2019 Time Seen by Provider: 21:14 Initial Comments Patient arrives to ER by private conveyance with her family and chief complaint that about an hour prior to arrival she took both left and a bottle of Aricept 5 mg somewhere between 1 and 30 tablets. She is feeling drowsy in the past 20 minutes has vomited 3 times. She denies any pain. 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 She is followed by Dr. Estephania Hayward and Dr. Gagr for oncology. The bottle of Aricept was filled May 03, 2019. The patient is sedate but does still answer orientation questions appropriately. Pt took the pills to finally . She is Suicidal. She also is a history of asthma. She denies any shortness of breath or pain. No diarrhea. She has a Hx of Depression but no history of suicide attempts in the past. No inpatient psychiatric placement. Allergies and Home Medications Allergies Coded Allergies: egg (Verified Allergy, Intermediate, NAUSEA, 07/06/15) Sulfa (Sulfonamide Antibiotics) (Unverified Allergy, Unknown, 07/19/10) Uncoded Allergies: IV contrast (Allergy, Intermediate, RASH, 07/28/18) Home Medications Cetirizine HCl 10 Mg Tablet, 10 MG PO DAILY, (Reported) Duloxetine HCl 30 Mg Capsule.dr, 30 MG PO DAILY, (Reported) Hydrocodone Bit/Acetaminophen 1 Tab Tab, 1 TAB PO BID PRN for PAIN-MODERATE Prescribed by: RICO HAYWARD on 07/31/18 110 Omeprazole 40 Mg Capsule.dr, 40 MG PO BID Prescribed by: RICO HAYWARD on 07/31/18 110 Polyethylene Glycol 3350 17 Gm Powd.pack, 17 GM PO DAILY Prescribed by: RICO HAYWARD on 07/31/18 110 Sucralfate 1 Gm Tablet, 1 GM PO ACHS Prescribed by: RICO HAYWARD on 07/31/18 1102 [Gammagard] , MONTHLY, (Reported) Patient Home Medication List Home Medication List Reviewed: Yes Review of Systems Constitutional: No chills, No fever EENTM: No ear pain, No eye pain Respiratory: No cough, No short of breath Cardiovascular: No chest pain, No Hx of Intervention Gastrointestinal: No abdominal pain; nausea, vomiting Genitourinary: No discharge, No dysuria Musculoskeletal: No back pain, No joint pain All Other Systems Reviewed Negative Unless Noted: Yes Past Hsbzjfo-Nqpadv-Jwjeds Hx Patient Social History Alcohol Use: Denies Use Recreational Drug Use: No Smoking Status: Never a Smoker Former Smoker, Quit: Jul 29, 2010 Recent Foreign Travel: No Contact w/Someone Who Travel: No Recent Hopitalizations: No Immunizations Up To Date Tetanus Booster (TDap): More than 5yrs PED Vaccines UTD: Yes Seasonal Allergies Seasonal Allergies: No Past Medical History Surgeries: Yes (2 C-sections) Section, Tubal Ligation Respiratory: Yes ("chronic left lower lung fungal infection") Asthma, Pneumonia Currently Using CPAP: No Currently Using BIPAP: No Cardiac: Yes Hypotension Neurological: No Headaches /Migraines 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 Sexually Transmitted Disease: No HIV/AIDS: No Genitourinary: No Gastrointestinal: Yes Irritable Bowel Musculoskeletal: No Endocrine: Yes (HYPOGLYCEMIA) HEENT: Yes Loss of Vision: Denies Hearing Impairment: Hard of Hearing Cancer: Yes Leukemia Did You Recieve Any Treatments: Yes What Type of Treatment Did You: Chemotherapy Psychosocial: No Integumentary: No Blood Disorders: Yes (anemia) Adverse Reaction/Blood Tranf: No Family Medical History Idiopathic hypertrophic subaortic stenosis 19 FATHER Heart Disease Physical Exam Vital Signs - First Documented 10/24/19 21:10 Temp 36.5 Pulse 80 Resp 24 B/P (MAP) 103/68 (80) Pulse Ox 100 O2 Delivery Room Air Capillary Refill : Height, Weight, BMI Height: 5'4.00" Weight: 133lbs. 4.0oz. 60.758103kc; 22.9 BMI Method:Stated General Appearance: WD/WN, mild distress HEENT: PERRL/EOMI, pharynx normal Neck: full range of motion, supple, normal inspection Respiratory: lungs clear, normal breath sounds, no respiratory distress, no accessory muscle use Cardiovascular: normal peripheral pulses, regular rate, rhythm Peripheral Pulses: 2+ Radial Pulses (R), 2+ Radial Pulses (L) Gastrointestinal: non tender, soft Neurologic/Psychiatric: normal mood/affect, oriented x 3, other (somnolent, GCS 14.) Behavior/Eye Contact: cooperative, normal speech, avoids eye contact Thoughts/Hallucinations: no apparent hallucination; No delusions Skin: normal color, warm/dry Progress/Results/Core Measures Results/Orders Lab Results Laboratory Tests Test 10/24/19 21:23 10/24/19 21:34 10/24/19 22:10 Range/Units White Blood Count 81.3 *H 4.3-11.0 10^3/uL Red Blood Count 3.45 L 4.35-5.85 10^6/uL Hemoglobin 10.2 L 11.5-16.0 G/DL Hematocrit 32 L 35-52 % Mean Corpuscular Volume 94 80-99 FL Mean Corpuscular Hemoglobin 30 25-34 PG Mean Corpuscular Hemoglobin Concent 32 32-36 G/DL Red Cell Distribution Width 16.0 H 10.0-14.5 % Platelet Count 277 130-400 10^3/uL Mean Platelet Volume 9.7 7.4-10.4 FL Neutrophils (%) (Auto) 5 L 42-75 % Lymphocytes (%) (Auto) 92 H 12-44 % Monocytes (%) (Auto) 3 0-12 % Eosinophils (%) (Auto) 0 0-10 % Basophils (%) (Auto) 0 0-10 % Neutrophils # (Auto) 3.7 1.8-7.8 X 10^3 Lymphocytes # (Auto) 74.5 H 1.0-4.0 X 10^3 Monocytes # (Auto) 2.9 H 0.0-1.0 X 10^3 Eosinophils # (Auto) 0.0 0.0-0.3 10^3/uL Basophils # (Auto) 0.2 H 0.0-0.1 10^3/uL Sodium Level 137 135-145 MMOL/L Potassium Level 3.2 L 3.6-5.0 MMOL/L Chloride Level 104 98-107 MMOL/L Carbon Dioxide Level 20 L 21-32 MMOL/L Anion Gap 13 5-14 MMOL/L Blood Urea Nitrogen 12 7-18 MG/DL Creatinine 1.00 0.60-1.30 MG/DL Estimat Glomerular Filtration Rate 58 BUN/Creatinine Ratio 12 Glucose Level 119 H 70-105 MG/DL Calcium Level 9.7 8.5-10.1 MG/DL Corrected Calcium 9.7 8.5-10.1 MG/DL Total Bilirubin 0.2 0.1-1.0 MG/DL Aspartate Amino Transf (AST/SGOT) 16 5-34 U/L Alanine Aminotransferase (ALT/SGPT) 8 0-55 U/L Alkaline Phosphatase 106 40-136 U/L Total Protein 7.7 6.4-8.2 GM/DL Albumin 4.0 3.2-4.5 GM/DL Salicylates Level < 5.0 L 5.0-20.0 MG/DL Acetaminophen Level < 10 L 10-30 UG/ML Serum Alcohol < 10 <10 MG/DL Urine Color YELLOW Urine Clarity SL CLOUDY Urine pH 7.0 5-9 Urine Specific Emmet 1.020 1.016-1.022 Urine Protein NEGATIVE NEGATIVE Urine Glucose (UA) NEGATIVE NEGATIVE Urine Ketones TRACE H NEGATIVE Urine Nitrite NEGATIVE NEGATIVE Urine Bilirubin NEGATIVE NEGATIVE Urine Urobilinogen 1.0 < = 1.0 MG/DL Urine Leukocyte Esterase NEGATIVE NEGATIVE Urine RBC (Auto) TRACE-I NEGATIVE Urine RBC 5-10 H /HPF Urine WBC RARE /HPF Urine Squamous Epithelial Cells RARE /HPF Urine Crystals NONE /LPF Urine Bacteria TRACE /HPF Urine Casts NONE /LPF Urine Mucus MODERATE H /LPF Urine Culture Indicated NO Urine Opiates Screen NEGATIVE NEGATIVE Urine Oxycodone Screen NEGATIVE NEGATIVE Urine Methadone Screen NEGATIVE NEGATIVE Urine Propoxyphene Screen NEGATIVE NEGATIVE Urine Barbiturates Screen NEGATIVE NEGATIVE Ur Tricyclic Antidepressants Screen NEGATIVE NEGATIVE Urine Phencyclidine Screen NEGATIVE NEGATIVE Urine Amphetamines Screen NEGATIVE NEGATIVE Urine Methamphetamines Screen NEGATIVE NEGATIVE Urine Benzodiazepines Screen NEGATIVE NEGATIVE Urine Cocaine Screen NEGATIVE NEGATIVE Urine Cannabinoids Screen NEGATIVE NEGATIVE Blood Gas Puncture Site RIGHT RADIAL Blood Gas Patient Temperature 36.5 Arterial Blood pH 7.48 H 7.37-7.43 Arterial Blood Partial Pressure CO2 30 L 35-45 MMHG Arterial Blood Partial Pressure O2 28 *L 79-93 MMHG Arterial Blood HCO3 22 L 23-27 MMOL/L Arterial Blood Total CO2 22.9 21.0-31.0 MMOL/L Arterial Blood Oxygen Saturation 51 L 94-100 % Arterial Blood Base Excess -1.1 -2.5-2.5 MMOL/L Bakari Test POSITIVE Blood Gas Ventilator Setting NO Blood Gas Inspired Oxygen ROOM AIR My Orders Orders - BARI OLMOS Ua Culture If Indicated (10/24/19 21:21) Cbc With Automated Diff (10/24/19 21:21) Comprehensive Metabolic Panel (10/24/19 21:21) Alcohol (10/24/19 21:21) Drug Screen Stat (Urine) (10/24/19 21:21) Acetaminophen (10/24/19 21:21) Salicylate (10/24/19 21:21) Ekg Tracing (10/24/19 21:21) Ed Iv/Invasive Line Start (10/24/19 21:21) Monitor-Rhythm Ecg Trace Only (10/24/19 21:21) Bh Status Checks/Observation Q15M (10/24/19 21:21) Ed Iv/Invasive Line Start (10/24/19 21:21) Ns Iv 1000 Ml (Sodium Chloride 0.9%) (10/24/19 21:21) Catheter(Urinary) Insert & Ass 03,15 (10/24/19 21:25) Atropine 0.4 Mg/Ml 3 Ml Syr (Atropine 1 (10/24/19 21:45) Ondansetron Injection (Zofran Injectio (10/24/19 21:45) End Tidal Co2 (10/24/19 21:42) Atropine Injection (Atropine Injection) (10/24/19 21:37) Arterial Blood Gas (10/24/19 22:14) Medications Given in ED Current Medications Medications Dose Ordered Sig/Francisco Javier Route Start Time Stop Time Status Last Admin Dose Admin Atropine Sulfate 0.4 mg ONCE ONCE IV 10/24/19 21:45 10/24/19 21:46 DC 10/24/19 21:48 0.4 MG Ondansetron HCl 8 mg ONCE ONCE IVP 10/24/19 21:45 10/24/19 21:46 DC 10/24/19 21:45 8 MG Vital Signs/I&O 10/24/19 10/24/19 21:10 22:26 Temp 36.5 Pulse 80 75 Resp 24 12 B/P (MAP) 103/68 (80) 112/58 (76) Pulse Ox 100 100 O2 Delivery Room Air Room Air Progress Progress Note : Time: 21:23 Progress Note Called poison control and they recommend symptom medics support for a cholinergi c overdose. Expect nausea vomiting diaphoresis salivation. They recommend IV fluids and if that's and successful for hypotension give dopamine or norepinephrine. Seizures are possible. Respiratory depression or paralysis as possible. Respiratory support and/or intubation as necessary. Observe until symptoms are resolved entirely. At this time the patient is having some increased lacrimation and salivation as well as nausea vomiting so were going to give her some Zofran and atropine. End-tidal CO2 monitoring. Plan to watch her for an hour or 2 in the ER before sending her up. Initial ECG Impression Date: Oct 24, 2019 Initial ECG Impression Time: 21:25 Initial ECG Rate: 79 Initial ECG Rhythm: Normal Sinus Initial ECG Intervals: Normal Initial ECG Impression: Normal Comment No clinically relevant ST elevation or depression. Some respiratory artifact. Normal sinus rhythm. Departure Communication (Admissions) Time/Spoke to Admitting Phy: 21:45 Dr. Hayward agrees to admit the patient to the ICU. We discussed the concerns for respiratory depression and possible need for intubation but at this time at least the patient does not require intubation. We will monitor the patient for an hour or 2 in the ER before sending her up. Impression Primary Impression: Suicide attempt Additional Impression: Anticholinergic drug overdose Qualified Codes: T44.3X2A - Poisoning by other parasympatholytics [anticholinergics and antimuscarinics] and spasmolytics, intentional self- harm, initial encounter Disposition: ADMITTED INPATIENT Condition: Critical Admissions Decision to Admit Reason: Admit from ER (General) Decision to Admit/Date: Oct 24, 2019 Time/Decision to Admit Time: 21:49 Departure-Patient Inst. Referrals: RICO HAYWARD DO (PCP/Family) Primary Care Physician BARI OLMOS Oct 24, 2019 21:25
[2019-10-24 21:34] LABS: BASOPHILS # (AUTO) 0.2 10^3/uL (0.0-0.1); BASOPHILS % (AUTO) 0 % (0-10); EOSINOPHILS % (AUTO) 0 % (0-10); HEMATOCRIT 32 % (35-52); HEMOGLOBIN 10.2 G/DL (11.5-16.0); MEAN CORPUSCULAR HEMOGLOBIN 30 PG (25-34); MEAN CORPUSCULAR HGB CONC 32 G/DL (32-36); MEAN CORPUSCULAR VOLUME 94 FL (80-99); MEAN PLATELET VOLUME 9.7 FL (7.4-10.4); PLATELET COUNT 277 10^3/uL (130-400)
[2019-10-24 21:36] LABS: LYMPHOCYTES # (AUTO) 74.5 X 10^3 (1.0-4.0); LYMPHOCYTES % (AUTO) 92 % (12-44); MONOCYTES # (AUTO) 2.9 X 10^3 (0.0-1.0); MONOCYTES % (AUTO) 3 % (0-12); NEUTROPHILS # (AUTO) 3.7 X 10^3 (1.8-7.8); NEUTROPHILS % (AUTO) 5 % (42-75); WHITE BLOOD COUNT 81.3 10^3/uL (4.3-11.0)
[2019-10-24] MEDS ORDERED: ATROPINE INJ 0.4 MG/ML SDV ONE (21:37)
[2019-10-24 21:42] LABS: BILIRUBIN,URINE NEGATIVE (NEGATIVE); COLOR,URINE YELLOW; GLUCOSE, URINE (UA) NEGATIVE (NEGATIVE); KETONES,URINE TRACE (NEGATIVE); LEUKOCYTE ESTERASE ,URINE NEGATIVE (NEGATIVE); NITRITE,URINE NEGATIVE (NEGATIVE); PROTEIN,URINE NEGATIVE (NEGATIVE)
[2019-10-24] MEDS ORDERED: ONDANSETRON 4 MG/2 ML (SDV) Z0FRAN IVP ONE (21:45)
[2019-10-24] MEDS ORDERED: ATROPINE 1.2 MG/3 ML (0.4 MG/ML) SYR IV ONE (21:45)
[2019-10-24 21:51] LABS: BACTERIA,URINE TRACE /HPF; CLARITY,URINE SL CLOUDY; SQUAMOUS EPITHELIAL CELL,UR RARE /HPF; WBC,URINE RARE /HPF
[2019-10-24 21:52] LABS: AMPHETAMINE SCREEN, URINE NEGATIVE (NEGATIVE); BARBITURATE SCREEN URINE NEGATIVE (NEGATIVE); BENZODIAZEPINES SCREEN URINE NEGATIVE (NEGATIVE); CANNABINOID SCREEN, URINE NEGATIVE (NEGATIVE); COCAINE SCREEN URINE NEGATIVE (NEGATIVE); METHADONE STAT NEGATIVE (NEGATIVE); METHAMPHETAMINE SCREEN URINE S NEGATIVE (NEGATIVE); OPIATE SCREEN URINE NEGATIVE (NEGATIVE); OXYCODONE STAT NEGATIVE (NEGATIVE); PROPOXYPHENE STAT NEGATIVE (NEGATIVE); TRICYCLIC ANTIDEPRESSANTS SCRE NEGATIVE (NEGATIVE)
[2019-10-24 21:54] LABS: ALANINE AMINOTRANSFERASE 8 U/L (0-55); ALKALINE PHOSPHATASE 106 U/L (40-136); BILIRUBIN,TOTAL 0.2 MG/DL (0.1-1.0); BUN/CREATININE RATIO 12; CALCIUM 9.7 MG/DL (8.5-10.1); CARBON DIOXIDE 20 MMOL/L (21-32); CHLORIDE 104 MMOL/L (98-107); GFR ESTIMATED 58; GLUCOSE 119 MG/DL (70-105); POTASSIUM 3.2 MMOL/L (3.6-5.0); SALICYLATE < 5.0 MG/DL (5.0-20.0); SODIUM 137 MMOL/L (135-145); TOTAL PROTEIN 7.7 GM/DL (6.4-8.2)
[2019-10-24 21:58] LABS: ACETAMINOPHEN < 10 UG/ML (10-30)
[2019-10-24 22:22] LABS: ABG BASE EXCESS -1.1 MMOL/L (-2.5-2.5); ABG OXYGEN SATURATION 51 % (94-100); ABG PCO2 30 MMHG (35-45); ABG PH 7.48 (7.37-7.43); ABG TCO2 22.9 MMOL/L (21.0-31.0)
--- NOTE | 2019-10-24 22:24 | NUR ---
Patient is now awake, sitting in bed with mother by her side. Patient tearful. Patient is alert to person, time and place. Patient denies any pain at this time.
[2019-10-24 22:25] LABS: ABG PO2 28 MMHG (79-93); ALLENS TEST POSITIVE; VENTILATOR NO
[2019-10-24 22:26] VITALS: BP 112/58
[2019-10-24 22:26] LABS: INSPIRED O2 ROOM AIR; PATIENT TEMP 36.5
--- NOTE | 2019-10-24 22:41 | NUR ---
Patient has eyes closed but responds to verbal stimuli. Patient denies any pain. She is able to answer some questions appropriately.
--- NOTE | 2019-10-24 23:09 | NUR ---
Patient awake and talking. She denies any pain. No signs of respiratory distress. Patient given ice chips per verbal order by Dr. Baez. Mother at bedside.
[2019-10-24 23:34] VITALS: BP 100/70
[2019-10-24 23:45] VITALS: BP 111/69
[2019-10-24] MEDS ORDERED: LORazepam INJ 2 MG/ML (ATIVAN) VIAL IV PRN (23:45)
[2019-10-24] MEDS ORDERED: ACETAMINOPHEN 500 MG TAB (TYLENOL) PO PRN (23:45)
[2019-10-24] MEDS ORDERED: NS W/KCL 40 MEQ/L 1,000 ML IV SCH (23:45)
[2019-10-24] MEDS ORDERED: ANTACID SUSP 30 ML UDC (MYLANTA) PO PRN (23:45)
[2019-10-24] MEDS ORDERED: NS W/KCL 40 MEQ/L 1,000 ML IV ONE (23:49)
[2019-10-25] VITALS (19 sets, daily range): BP systolic 95–122; BP diastolic 50–68
--- NOTE | 2019-10-25 | NUR ---
PT DENIES ANY ACTIVE THOUGHTS OF HARMING SELF.
[2019-10-25 03:52] LABS: HEMATOCRIT 29 % (35-52); HEMOGLOBIN 9.1 G/DL (11.5-16.0); MEAN CORPUSCULAR HEMOGLOBIN 29 PG (25-34); MEAN CORPUSCULAR HGB CONC 32 G/DL (32-36); MEAN CORPUSCULAR VOLUME 93 FL (80-99); MEAN PLATELET VOLUME 9.6 FL (7.4-10.4); PLATELET COUNT 210 10^3/uL (130-400); RED CELL DISTRIBUTION WIDTH 15.7 % (10.0-14.5)
[2019-10-25 03:53] LABS: WHITE BLOOD COUNT 55.2 10^3/uL (4.3-11.0)
[2019-10-25 04:12] LABS: ALANINE AMINOTRANSFERASE 8 U/L (0-55); ALBUMIN 3.3 GM/DL (3.2-4.5); ALKALINE PHOSPHATASE 90 U/L (40-136); BILIRUBIN,TOTAL 0.3 MG/DL (0.1-1.0); BUN/CREATININE RATIO 13; CALCIUM 8.6 MG/DL (8.5-10.1); CARBON DIOXIDE 18 MMOL/L (21-32); CHLORIDE 110 MMOL/L (98-107); CREATININE SERUM 0.77 MG/DL (0.60-1.30); GFR ESTIMATED > 60; GLUCOSE 112 MG/DL (70-105); MAGNESIUM 1.9 MG/DL (1.6-2.4); PHOSPHORUS 2.1 MG/DL (2.3-4.7); POTASSIUM 4.2 MMOL/L (3.6-5.0); SODIUM 136 MMOL/L (135-145); TOTAL PROTEIN 6.4 GM/DL (6.4-8.2)
--- NOTE | 2019-10-25 04:56 | Pulmonary Consultation ---
History of Present Illness History of Present Illness Date Seen by Provider: Oct 25, 2019 Time Seen by Provider: 04:51 Date of Admission Allergies and Home Medications Allergies Coded Allergies: egg (Verified Allergy, Intermediate, NAUSEA, 07/06/15) Sulfa (Sulfonamide Antibiotics) (Unverified Allergy, Unknown, 07/19/10) Uncoded Allergies: IV contrast (Allergy, Intermediate, RASH, 07/28/18) Home Medications Cetirizine HCl 10 Mg Tablet, 10 MG PO DAILY, (Reported) Duloxetine HCl 30 Mg Capsule.dr, 30 MG PO DAILY, (Reported) Hydrocodone Bit/Acetaminophen 1 Tab Tab, 1 TAB PO BID PRN for PAIN-MODERATE Prescribed by: RICO HUANG on 07/31/18 1102 Omeprazole 40 Mg Capsule.dr, 40 MG PO BID Prescribed by: RICO HUANG on 07/31/18 1102 Polyethylene Glycol 3350 17 Gm Powd.pack, 17 GM PO DAILY Prescribed by: RICO HUANG on 07/31/18 1105 Sucralfate 1 Gm Tablet, 1 GM PO ACHS Prescribed by: RICO HUANG on 07/31/18 1102 [Gammagard] , MONTHLY, (Reported) Past Rbolhrx-Cpockm-Hiqevv Hx Patient Social History Alcohol Use: Denies Use Recreational Drug Use: No Smoking Status: Never a Smoker Former Smoker, Quit: Jul 29, 2010 2nd Hand Smoke Exposure: No Recent Foreign Travel: No Contact w/Someone Who Travel: No Recent Infectious Disease Expo: No Recent Hopitalizations: No Physical Abuse: No Sexual Abuse: No Mistreated: No Fear: No Immunizations Up To Date Tetanus Booster (TDap): More than 5yrs PED Vaccines UTD: Yes Seasonal Allergies Seasonal Allergies: No Past Medical History Surgeries: Yes (2 C-sections) Section, Tubal Ligation Respiratory: Yes ("chronic left lower lung fungal infection") Asthma, Pneumonia Currently Using CPAP: No Currently Using BIPAP: No Cardiac: Yes Hypotension Neurological: Yes (diagnosed with dementia january 2019) Dementia, Headaches /Migraines 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 Sexually Transmitted Disease: No HIV/AIDS: No Genitourinary: No Gastrointestinal: Yes Irritable Bowel Musculoskeletal: No Endocrine: Yes (HYPOGLYCEMIA) HEENT: Yes Loss of Vision: Denies Hearing Impairment: Hard of Hearing Cancer: Yes Leukemia Did You Recieve Any Treatments: Yes What Type of Treatment Did You: Chemotherapy Psychosocial: No Nursing Suicide Risk Notes: Patient states "I want to " when asked why she took the bottle of Donepezil tonight Integumentary: No Blood Disorders: Yes (anemia, CLL leukemia ) Adverse Reaction/Blood Tranf: No Family Medical History Idiopathic hypertrophic subaortic stenosis 19 FATHER Heart Disease Sepsis Event Evaluation Height, Weight, BMI Height: 5'4.00" Weight: 133lbs. 4.0oz. 60.808373zi; 20.67 BMI Method:Stated Exam Exam Vital Signs Date Time Temp Pulse Resp B/P (MAP) Pulse Ox O2 Delivery O2 Flow Rate FiO2 10/25/19 04:00 99 Room Air 10/25/19 04:00 60 18 108/58 (75) 99 Room Air 10/25/19 03:00 63 28 108/64 (79) 99 Room Air 10/25/19 02:00 63 26 95/63 (74) 99 Room Air 10/25/19 01:00 60 10/25/19 01:00 60 21 95/58 (70) 100 Room Air 10/25/19 00:30 66 22 110/52 (71) 100 Room Air 10/25/19 00:16 100 Room Air 10/25/19 00:15 66 20 107/50 (69) 100 Room Air 10/25/19 00:00 66 21 108/50 (69) 100 Room Air 10/24/19 23:45 36.2 74 16 111/69 (83) 100 Room Air 10/24/19 23:36 78 10/24/19 23:34 66 33 100/70 (80) 100 Room Air 10/24/19 23:21 36.1 73 16 111/67 100 Room Air 10/24/19 22:26 75 12 112/58 (76) 100 Room Air 10/24/19 21:10 36.5 80 24 103/68 (80) 100 Room Air I & O 10/25/19 07:00 Intake Total 1025 ml Output Total 300 ml Balance 725 ml Height & Weight Height: 5'4.00" Weight: 133lbs. 4.0oz. 60.196877ez; 20.67 BMI Method:Stated Capillary Refill: Less Than 3 Seconds Peripheral Pulses: 2+ Radial Pulses (R), 2+ Radial Pulses (L) Gastrointestinal: non tender, soft Results Lab Laboratory Tests 10/24/19 21:23 10/25/19 03:45 Assessment/Plan Assessment/Plan s/p Suicidal attempt with Aricept -Poison control following -Suicide precautions -Sitter N/V secondary to OD -Check CXR Dehydration -IVF change to D5LR at 150 Metabolic acidosis -Monitor -IVF Major depression HX of CLL - with chronic leukocytosis -Follows with Dr. Power recent dementia dx Hx of asthma - stable currently - NADIYA CRYSTAL DO Oct 25, 2019 04:56
[2019-10-25] MEDS: ONDANSETRON 4 MG/2 ML (SDV) Z0FRAN IV PRN ×3 (04:57→14:41)
[2019-10-25] MEDS: D5 LR IV SOLUTION 1,000 ML IV SCH ×4 (06:22→21:02)
--- NOTE | 2019-10-25 07:03 | Diagnostic Imaging Report ---
EXAMINATION: Chest 1 view HISTORY: Evaluate for pneumonia and aspiration. COMPARISON: 11/23/2017 FINDINGS: The lung volumes are normal. No focal consolidation is seen. No large pleural effusion or pneumothorax is seen. The cardiomediastinal silhouette is normal in size and contour. No acute osseous abnormality is seen. IMPRESSION: 1. No focal consolidation suggest pneumonia or aspiration. Recommend continued follow-up if symptoms persist. Dictated by: Dictated on workstation # [id number]
[2019-10-25] MEDS ORDERED: FLU QUADRIvalent (5+ YOA) 2019-2020 (AFLURIA) 0.5 ML IM ONE (08:00)
--- NOTE | 2019-10-25 10:10 | NUR ---
DR HUANG ORDERED TO DC CELINE SWEENEY.
--- NOTE | 2019-10-25 11:00 | NUR ---
Pastoral care visit.
[2019-10-25] MEDS ORDERED: ENOXAPARIN 40 MG/0.4 ML (LOVENOX) SYR SC SCH (12:00)
--- NOTE | 2019-10-25 12:04 | Short Stay Summary-Hospitalist ---
History of Present Illness HPI/Chief Complaint CC: Suicide attempt with Aricept overdose HPI: This is a 54[facility] clinic pt of mine with a hx of CLL and significant dem entia memory loss from the residual treatment of her condition who presents after taking 30 pills of Aricept at home. She has since stabilized, provided supportive care overnight and is ready for transfer [place] [facility] [place] management. Source: patient Exam Limitations: no limitations Date Seen 10/25/19 Time Seen by a Provider: 10:30 Attending Physician Ashanti Hayward DO PCP Ashanti Hayward DO Referring Physician Date of Admission Oct 24, 2019 at 22:50 Home Medications & Allergies Home Medications Reviewed patient Home Medication Reconciliation performed by pharmacy medication reconciliations studio technician video operator and/or nursing. Patients Allergies have been reviewed. Allergies Allergies Coded Allergies egg (Verified Allergy, Intermediate, NAUSEA, 07/06/15) Sulfa (Sulfonamide Antibiotics) (Unverified Allergy, Unknown, 07/19/10) Uncoded Allergies IV contrast ( Allergy, Intermediate, RASH, 07/28/18) Past Txllmfk-Dijbdm-Nrodlm Hx Past Med/Social Hx: Reviewed Nursing Past Med/Soc Hx, Reviewed and Corrections made Patient Social History Marrital Status: Employed/Student: unemployed Alcohol Use: Denies Use Recreational Drug Use: No Smoking Status: Former Smoker Former Smoker, Quit: Jul 29, 2010 2nd Hand Smoke Exposure: No Recent Foreign Travel: No Contact w/other who traveled: No Recent Hopitalizations: No Recent Infectious Disease Expo: No Immunizations Up To Date Tetanus Booster (TDap): More than 5yrs Pediatric: Yes Seasonal Allergies Seasonal Allergies: No Past Medical History Surgeries: Section, Tubal Ligation Respiratory: Asthma Currently Using CPAP: No Currently Using BIPAP: No Cardiac: Hypotension Neurological: Dementia, Headaches /Migraines Reproductive: No Sexually Transmitted Disease: No HIV/AIDS: No Menopausal Gastrointestinal: Irritable Bowel Loss of Vision: Denies Hearing Impairment: Hard of Hearing Cancer: Leukemia Did You Recieve Any Treatments: Yes What Type of Treatment Did You: Chemotherapy Psychosocial: Anxiety, Depression History of Blood Disorders: Yes (anemia, CLL leukemia ) Adverse Reaction to Blood Noble: No Family History Idiopathic hypertrophic subaortic stenosis 19 FATHER Heart Disease Review of Systems Constitutional: see HPI, malaise, weakness Gastrointestinal: nausea, vomiting Psychiatric/Neurological: Depressed Physical Exam Physical Exam Vital Signs Vital Signs - First Documented 10/24/19 21:10 Temp 36.5 Pulse 80 Resp 24 B/P (MAP) 103/68 (80) Pulse Ox 100 O2 Delivery Room Air Capillary Refill : Less Than 3 Seconds Height, Weight, BMI Height: 5'4.00" Weight: 133lbs. 4.0oz. [id number]; 20.67 BMI Method:Stated General Appearance: No Apparent Distress, WD/WN, Chronically ill, Thin Eyes: Bilateral Eye Normal Inspection, Bilateral Eye PERRL HEENT: PERRL/EOMI, Normal ENT Inspection, Pharynx Normal Neck: Full Range of Motion, Normal Inspection, Non Tender, Supple, Carotid Bruit Respiratory: Chest Non Tender, Lungs Clear, Normal Breath Sounds, No Accessory Muscle Use, No Respiratory Distress Cardiovascular: Regular Rate, Rhythm, No Edema, No Gallop, No JVD, No Murmur, Normal Peripheral Pulses Gastrointestinal: Normal Bowel Sounds, No Organomegaly, No Pulsatile Mass, Non Tender, Soft Back: Normal Inspection, No CVA Tenderness, No Vertebral Tenderness Extremity: Normal Capillary Refill, Normal Inspection, Normal Range of Motion, Non Tender, No Calf Tenderness, No Pedal Edema Neurologic/Psychiatric: Alert, Oriented x3, No Motor/Sensory Deficits, senior mechanical engineer II- XII Norm as Tested, Depressed Affect Skin: Normal Color, Warm/Dry Lymphatic: No Adenopathy Results Results/Procedures Labs Laboratory Tests 10/24/19 21:23 10/25/19 03:45 Patient resulted labs reviewed. Short Stay Diagnosis Discharge Diagnosis-Short Stay Admission Diagnosis Assessment: Suicide attempt Dementia [facility] Spousal domestic issues for many years Former smoker Asthma Depression CLL Plan: 1-on-1 Suicidal precautions Home meds Final Discharge Diagnosis Assessment: Suicide attempt Dementia confirmed at [facility] Spousal domestic issues for many years Former smoker Asthma Depression CLL Plan: 1-on-1 Suicidal precautions Home meds Conclusion Plan Psych hospital Diagnosis/Problems Diagnosis/Problems (1) Suicide attempt Status: Acute (2) Anticholinergic drug overdose Status: Acute Qualifiers: Qualified Codes: T44.3X2A - Poisoning by other parasympatholytics [anticholinergics and antimuscarinics] and spasmolytics, intentional self-harm, initial encounter (3) CLL (chronic lymphocytic leukemia) Status: Chronic (4) Stress disorder, acute Status: Acute (5) Memory loss due to medical condition Status: Chronic (6) Headache Status: Resolved Resolution Date/Time: 07/30/18 @ 11:28 (7) Asthma Status: Chronic Clinical Quality Measures DVT/VTE Risk/Contraindication: Risk Factor Score Per Nursin RFS Level Per Nursing on Admit: 4+=Very High ASHANTI HAYWARD DO Oct 25, 2019 12:04
--- NOTE | 2019-10-25 14:26 | NUR ---
THIS NURSE NOTIFIED DR HUANG PT VITALS STABLE. PT HAS VOMITED X3. [facility] IS HELPING. ORDERS GIVEN TO GO TO THE FLOOR WITH 1:1 SITTER. ERIC NOTIFIED POSSIBLE TRANSFER TOMORROW.
--- NOTE | 2019-10-25 15:39 | NUR ---
Pt met with Dr. Hayward and is agreeable to admission at [facility] at [facility] due to recent overdose. [facility] is [facility]. Advance Directives were discussed with pt and she did complete DPOA for Health Care decisions giving her sister Madison Mascorro DPOA. Advance Directive was notarized and signed in presence of her mother Neelam Noriega. Interactive Media Marketing Strategist and Director of the Behavioral Unit Ms Jennifer Guajardo,Psychologist met with pt and mother and is making arrangements for admission tomorrow as pt continues to complain of nausea and weakness.
--- NOTE | 2019-10-25 16:08 | NUR ---
THIS NURSE CALLED REPORT TO ELVIRA TYSON ON FOURTH FLOOR. BELONGING PACKED AND PT TAKEN DOWN VIA WHEELCHAIR.
[2019-10-25] MEDS ORDERED: DOCUSATE SODIUM 100 MG (COLACE) CAP PO PRN (21:00)
[2019-10-25] MEDS ORDERED: ALPRAZolam 0.25 MG (XANAX) TAB PO PRN (21:00)
[2019-10-25] MEDS ORDERED: HYDROcodone/APAP 5 MG/325 MG (LORTAB) TAB PO PRN (21:00)
[2019-10-25] MEDS ORDERED: CALCIUM CARBONATE 500 MG (TUMS) TAB.CHEW PO PRN (21:00)
[2019-10-25] MEDS ORDERED: diphenhydrAMINE 25 MG TAB (BENADRYL) PO PRN (21:00)
[2019-10-25] MEDS ORDERED: MELATONIN 3 MG TABLET PO PRN (21:00)
[2019-10-25] MEDS ORDERED: LOPERAMIDE 2 MG (IMODIUM) TABLET PO PRN (21:00)
[2019-10-25] MEDS: SENNA W/DOCUSATE (SENOKOT S) TABLET PO SCH (21:55)
[2019-10-26 00:23] VITALS: BP 123/63
[2019-10-26] MEDS: D5 LR IV SOLUTION 1,000 ML IV SCH (03:47)
[2019-10-26 04:00] VITALS: BP 118/62
[2019-10-26 06:39] LABS: BASOPHILS # (AUTO) 0.1 10^3/uL (0.0-0.1); BASOPHILS % (AUTO) 0 % (0-10); EOSINOPHILS % (AUTO) 0 % (0-10); HEMATOCRIT 30 % (35-52); HEMOGLOBIN 9.1 G/DL (11.5-16.0); LYMPHOCYTES # (AUTO) 53.1 X 10^3 (1.0-4.0); LYMPHOCYTES % (AUTO) 92 % (12-44); MEAN CORPUSCULAR HEMOGLOBIN 29 PG (25-34); MEAN CORPUSCULAR HGB CONC 30 G/DL (32-36); MEAN CORPUSCULAR VOLUME 96 FL (80-99); MEAN PLATELET VOLUME 10.6 FL (7.4-10.4); MONOCYTES # (AUTO) 1.6 X 10^3 (0.0-1.0); MONOCYTES % (AUTO) 3 % (0-12); NEUTROPHILS # (AUTO) 2.8 X 10^3 (1.8-7.8); NEUTROPHILS % (AUTO) 5 % (42-75); PLATELET COUNT 195 10^3/uL (130-400); RED CELL DISTRIBUTION WIDTH 16.1 % (10.0-14.5)
[2019-10-26 06:43] LABS: WHITE BLOOD COUNT 57.6 10^3/uL (4.3-11.0)
--- NOTE | 2019-10-26 06:51 | NUR ---
WBC 57.6. THIS RN CONTACTED DR MCCAULEY RE THE CRITICAL VALUE. NO NEW ORDERS.
[2019-10-26 07:06] LABS: ALANINE AMINOTRANSFERASE 9 U/L (0-55); ALBUMIN 3.5 GM/DL (3.2-4.5); ALKALINE PHOSPHATASE 90 U/L (40-136); BILIRUBIN,TOTAL 0.2 MG/DL (0.1-1.0); BUN/CREATININE RATIO 7; CALCIUM 9.2 MG/DL (8.5-10.1); CARBON DIOXIDE 19 MMOL/L (21-32); CHLORIDE 112 MMOL/L (98-107); CREATININE SERUM 0.73 MG/DL (0.60-1.30); GFR ESTIMATED > 60; GLUCOSE 91 MG/DL (70-105); POTASSIUM 3.4 MMOL/L (3.6-5.0); SODIUM 142 MMOL/L (135-145); TOTAL PROTEIN 6.8 GM/DL (6.4-8.2)
[2019-10-26 08:21] VITALS: BP 113/65
--- NOTE | 2019-10-26 09:00 | NUR ---
report given to Alessia at [facility]
[2019-10-26] MEDS: SENNA W/DOCUSATE (SENOKOT S) TABLET PO SCH (09:01)
--- NOTE | 2019-10-26 09:05 | Discharge Summary ---
Discharge Summary Hospital Course Was the Problem List Reviewed?: Yes Problems/Dx: (1) Suicide attempt Status: Acute (2) Anticholinergic drug overdose Status: Acute Qualifiers: Qualified Codes: T44.3X2A - Poisoning by other parasympatholytics [anticholinergics and antimuscarinics] and spasmolytics, intentional self-harm, initial encounter (3) CLL (chronic lymphocytic leukemia) Status: Chronic (4) Stress disorder, acute Status: Acute (5) Memory loss due to medical condition Status: Chronic (6) Headache Status: Resolved (7) Asthma Status: Chronic Hospital Course Date of Admission: Oct 24, 2019 at 22:50 Admission Diagnosis : Family Physician/Provider: Ashanti Hayward DO Date of Discharge: 10/26/19 Discharge Diagnosis: Suicide attempt, CLL, dementia Hospital Course: Hospital Course: Pt had an uneventful hospital course for suicide attempt for overdose of Aricept. She did have anticholinergic effects from the overdose which were supported in the ICU w/ close monitoring and transfer down to the 4th floor with one on one sitter. Pt was accepted to senior behavioral unit for psych treatment for severe depression along with dementia and she was discharged there in stable condition. Labs and Pending Lab Test: Laboratory Tests 10/26/19 05:56: White Blood Count 57.6*H, Red Blood Count 3.15L, Hemoglobin 9.1L, Hematocrit 30L , Mean Corpuscular Volume 96, Mean Corpuscular Hemoglobin 29, Mean Corpuscular Hemoglobin Concent 30L, Red Cell Distribution Width 16.1H, Platelet Count 195, Mean Platelet Volume 10.6H, Neutrophils (%) (Auto) 5L, Lymphocytes (%) (Auto) 92H, Monocytes (%) (Auto) 3, Eosinophils (%) (Auto) 0, Basophils (%) (Auto) 0, Neutrophils # (Auto) 2.8, Lymphocytes # (Auto) 53.1H, Monocytes # (Auto) 1.6H, Eosinophils # (Auto) 0.0, Basophils # (Auto) 0.1, Sodium Level 142, Potassium Level 3.4L, Chloride Level 112H, Carbon Dioxide Level 19L, Anion Gap 11, Blood Urea Nitrogen 5L, Creatinine 0.73, Estimat Glomerular Filtration Rate > 60, BUN/Creatinine Ratio 7, Glucose Level 91, Calcium Level 9.2, Corrected Calcium 9.6, Total Bilirubin 0.2, Aspartate Amino Transf (AST/SGOT) 14, Alanine Aminotransferase (ALT/SGPT) 9, Alkaline Phosphatase 90, Total Protein 6.8, Al bumin 3.5 Home Meds Active Miralax (Polyethylene Glycol 3350) 17 Gm Powd.pack 17 Gm PO DAILY Hydrocodone/Acetaminophen 5/325mg Tablet (Acetaminophen/Hydrocodone Bitart) 1 Tab Tab 1 Tab PO BID PRN MDD 10 Omeprazole 40 Mg Capsule.dr 40 Mg PO BID Sucralfate 1 Gm Tablet 1 Gm PO ACHS Reported Cetirizine HCl 10 Mg Tablet 10 Mg PO DAILY [Gammagard] MONTHLY Duloxetine HCl 30 Mg Capsule.dr 30 Mg PO DAILY Assessment/Pt Instructions [facility] 1 week Discharge Planning: <30 minutes discharge planning Discharge Instructions Discharge Diet: No Restrictions Pneumonia Vaccine Order Indica: Yes Discharge Physical Examination Vital Signs Vital Signs Date Time Temp Pulse Resp B/P (MAP) Pulse Ox O2 Delivery O2 Flow Rate FiO2 10/26/19 08:21 36.8 68 18 113/65 (81) 99 Room Air General Appearance: No Apparent Distress, WD/WN, Chronically ill, Other Allergies: Coded Allergies: egg (Verified Allergy, Intermediate, NAUSEA, 07/06/15) Sulfa (Sulfonamide Antibiotics) (Unverified Allergy, Unknown, 07/19/10) Uncoded Allergies: IV contrast (Allergy, Intermediate, RASH, 07/28/18) Discharge Summary Date of Admission Oct 24, 2019 at 22:50 Date of Discharge Discharge Date: Oct 26, 2019 Admission Diagnosis Assessment: Suicide attempt Dementia confirmed at [facility] Spousal domestic issues for many years Former smoker Asthma Depression CLL Plan: 1-on-1 Suicidal precautions Home meds Discharge Diagnosis Psych hospital (1) Suicide attempt Status: Acute (2) Anticholinergic drug overdose Status: Acute Qualifiers: Qualified Codes: T44.3X2A - Poisoning by other parasympatholytics [anticholinergics and antimuscarinics] and spasmolytics, intentional self-harm, initial encounter (3) CLL (chronic lymphocytic leukemia) Status: Chronic (4) Stress disorder, acute Status: Acute (5) Memory loss due to medical condition Status: Chronic (6) Headache Status: Resolved (7) Asthma Status: Chronic Clinical Quality Measures DVT/VTE Risk/Contraindication: Risk Factor Score Per Nursin RFS Level Per Nursing on Admit: 4+=Very High ASHANTI HAYWARD DO Oct 26, 2019 09:05
[2019-10-26] MEDS ORDERED: FLU QUADRIvalent (5+ YOA) 2019-2020 (AFLURIA) 0.5 ML IM ONE (09:20)
--- NOTE | 2019-10-26 09:33 | NUR ---
This RN attempted to give FLU vaccine to patient at this time. patient refused administration and patients mother stated she should be up to date but can not remember when the last flu vaccine was given.
[2019-10-26 10:25] VITALS: BP 113/65
== END 2019-10-26 10:25 ==
LOC: EDUNIT# 21:06 → ER 21:08 → ICU 22:50 → 4TH 10-25 16:30
PROVIDERS: ADMIT Internal Medicine; ATTEND Internal Medicine
DX: T14.91XA Suicide attempt, initial encounter (principal); T44.3X2A Poisoning by other parasympatholytics [anticholinergics and antimuscarinics] and spasmolytics, intentional self-harm, initial encounter; J45.909 Unspecified asthma, uncomplicated; I95.9 Hypotension, unspecified; G43.909 Migraine, unspecified, not intractable, without status migrainosus; E16.2 Hypoglycemia, unspecified; D64.9 Anemia, unspecified; C91.90 Lymphoid leukemia, unspecified not having achieved remission; R41.3 Other amnesia; F43.9 Reaction to severe stress, unspecified; Z88.2 Allergy status to sulfonamides; Z91.041 Radiographic dye allergy status; Z87.891 Personal history of nicotine dependence; Z79.891 Long term (current) use of opiate analgesic; Z79.899 Other long term (current) drug therapy; Z98.51 Tubal ligation status; Z91.42 Personal history of forced labor or sexual exploitation; Z82.49 Family history of ischemic heart disease and other diseases of the circulatory system
CPT/HCPCS: 36415; 71045; 80053; 80306; 80320; 80329; 81000; 82805; 82962; 83735; 84100; 85025; 87081; 93005; 93041; 96374; 96375; G0378

== ENCOUNTER → 2019-11-17 | Outpatient (RCR) | payer BC ==
[2019-10-20 14:59] LABS: HEMATOCRIT 31 % (35-52); HEMOGLOBIN 9.3 G/DL (11.5-16.0); MEAN CORPUSCULAR HEMOGLOBIN 29 PG (25-34); MEAN CORPUSCULAR HGB CONC 30 G/DL (32-36); MEAN CORPUSCULAR VOLUME 97 FL (80-99); MEAN PLATELET VOLUME 10.1 FL (7.4-10.4); PLATELET COUNT 259 10^3/uL (130-400)
[2019-10-20 15:00] LABS: WHITE BLOOD COUNT 60.9 10^3/uL (4.3-11.0)
[2019-10-20 15:24] LABS: ALANINE AMINOTRANSFERASE 8 U/L (0-55); ALBUMIN 3.7 GM/DL (3.2-4.5); ALKALINE PHOSPHATASE 98 U/L (40-136); BILIRUBIN,TOTAL 0.2 MG/DL (0.1-1.0); BUN/CREATININE RATIO 10; CALCIUM 9.5 MG/DL (8.5-10.1); CARBON DIOXIDE 22 MMOL/L (21-32); CHLORIDE 109 MMOL/L (98-107); GFR ESTIMATED > 60; GLUCOSE 73 MG/DL (70-105); POTASSIUM 4.4 MMOL/L (3.6-5.0); SODIUM 141 MMOL/L (135-145); TOTAL PROTEIN 6.9 GM/DL (6.4-8.2)
[~2019-11-17] MED LIST changes: +ACETAMINOPHEN 500 MG TAB (TYLENOL) CANCER CTR ONE; +ACETAMINOPHEN 500 MG TAB (TYLENOL) CANCER CTR PO PRN; +IMMUNE GLOBULIN,GAMMA (IGG) 200 ML IV SCH; +NS IV 500 ML (CANCER CENTER) IV SCH; -OMEP-280 PO; +OMEP20CA18 PO; -ONDA8TAB12 PO; +ONDA8TAB15 PO; +diphenhydrAMINE 25 MG TAB (BENADRYL) CANCER CENTER PO ONE; +diphenhydrAMINE 25 MG TAB (BENADRYL) CANCER CENTER PO SCH
[2019-11-17 14:03] LABS: BASOPHILS # (AUTO) 0.1 10^3/uL (0.0-0.1); BASOPHILS % (AUTO) 0 % (0-10); EOSINOPHILS # (AUTO) 0.1 10^3/uL (0.0-0.3); EOSINOPHILS % (AUTO) 0 % (0-10); HEMATOCRIT 33 % (35-52); HEMOGLOBIN 9.9 G/DL (11.5-16.0); LYMPHOCYTES # (AUTO) 60.4 X 10^3 (1.0-4.0); LYMPHOCYTES % (AUTO) 92 % (12-44); MEAN CORPUSCULAR HEMOGLOBIN 29 PG (25-34); MEAN CORPUSCULAR HGB CONC 30 G/DL (32-36); MEAN CORPUSCULAR VOLUME 96 FL (80-99); MEAN PLATELET VOLUME 9.9 FL (7.4-10.4); MONOCYTES # (AUTO) 1.5 X 10^3 (0.0-1.0); MONOCYTES % (AUTO) 2 % (0-12); NEUTROPHILS # (AUTO) 3.7 X 10^3 (1.8-7.8); NEUTROPHILS % (AUTO) 6 % (42-75); PLATELET COUNT 275 10^3/uL (130-400); RED CELL DISTRIBUTION WIDTH 16.8 % (10.0-14.5)
[2019-11-17 14:04] LABS: WHITE BLOOD COUNT 65.8 10^3/uL (4.3-11.0)
[2019-11-17 14:27] LABS: ALANINE AMINOTRANSFERASE < 6 U/L (0-55); ALBUMIN 3.9 GM/DL (3.2-4.5); ALKALINE PHOSPHATASE 98 U/L (40-136); BILIRUBIN,TOTAL 0.3 MG/DL (0.1-1.0); BUN/CREATININE RATIO 13; CALCIUM 9.7 MG/DL (8.5-10.1); CARBON DIOXIDE 25 MMOL/L (21-32); CHLORIDE 107 MMOL/L (98-107); CREATININE SERUM 0.89 MG/DL (0.60-1.30); GFR ESTIMATED > 60; GLUCOSE 113 MG/DL (70-105); POTASSIUM 4.2 MMOL/L (3.6-5.0); SODIUM 140 MMOL/L (135-145); TOTAL PROTEIN 7.3 GM/DL (6.4-8.2)
== END | disposition home or self-care (01) ==
LOC: ONC 08-19 14:11
PROVIDERS: ATTEND Internal Medicine Hematology & Oncology
DX: C91.10 Chronic lymphocytic leukemia of B-cell type not having achieved remission (principal); D80.1 Nonfamilial hypogammaglobulinemia; R21 Rash and other nonspecific skin eruption; R41.3 Other amnesia; F17.200 Nicotine dependence, unspecified, uncomplicated; Z79.899 Other long term (current) drug therapy
CPT/HCPCS: 36415; 80053; 82784; 83615; 85025; 96365; 96366; J1569

== ENCOUNTER 2020-03-08 14:21 | Outpatient (RCR) | payer BC ==
[2020-01-12 11:09] LABS: HEMATOCRIT 33 % (35-52); HEMOGLOBIN 9.8 G/DL (11.5-16.0); MEAN CORPUSCULAR HEMOGLOBIN 28 PG (25-34); MEAN CORPUSCULAR HGB CONC 30 G/DL (32-36); MEAN CORPUSCULAR VOLUME 93 FL (80-99); PLATELET COUNT 249 10^3/uL (130-400); RED CELL DISTRIBUTION WIDTH 17.1 % (10.0-14.5)
[2020-01-12 11:10] LABS: WHITE BLOOD COUNT 53.8 10^3/uL (4.3-11.0)
[2020-01-12 11:31] LABS: ALANINE AMINOTRANSFERASE < 6 U/L (0-55); ALBUMIN 3.7 GM/DL (3.2-4.5); ALKALINE PHOSPHATASE 93 U/L (40-136); BILIRUBIN,TOTAL 0.3 MG/DL (0.1-1.0); BUN/CREATININE RATIO 16; CALCIUM 9.5 MG/DL (8.5-10.1); CARBON DIOXIDE 22 MMOL/L (21-32); CHLORIDE 107 MMOL/L (98-107); CREATININE SERUM 0.81 MG/DL (0.60-1.30); GFR ESTIMATED > 60; GLUCOSE 110 MG/DL (70-105); POTASSIUM 4.1 MMOL/L (3.6-5.0); SODIUM 140 MMOL/L (135-145); TOTAL PROTEIN 7.2 GM/DL (6.4-8.2)
[2020-01-12 11:45] LABS: SMEAR SCAN COMMENT YES
[~2020-03-08 14:21] MED LIST changes: -ACETAMINOPHEN 500 MG TAB (TYLENOL) CANCER CTR PO PRN; -NS IV 500 ML (CANCER CENTER) IV SCH; -diphenhydrAMINE 25 MG TAB (BENADRYL) CANCER CENTER PO SCH
== END 2020-03-14 | disposition home or self-care (01) ==
LOC: ONC 14:21
PROVIDERS: ATTEND Internal Medicine Hematology & Oncology
DX: C91.10 Chronic lymphocytic leukemia of B-cell type not having achieved remission (principal); D80.1 Nonfamilial hypogammaglobulinemia; R21 Rash and other nonspecific skin eruption; R41.3 Other amnesia; F17.200 Nicotine dependence, unspecified, uncomplicated; Z79.899 Other long term (current) drug therapy
CPT/HCPCS: 36415; 80053; 82784; 83615; 85025; 96365; 96366; J1569

== ENCOUNTER 2020-06-29 13:24 | Outpatient (RCR) | payer BC ==
[2020-04-06 13:43] LABS: HEMATOCRIT 28 % (35-52); HEMOGLOBIN 8.4 G/DL (11.5-16.0); MEAN CORPUSCULAR HEMOGLOBIN 28 PG (25-34); MEAN CORPUSCULAR HGB CONC 31 G/DL (32-36); MEAN CORPUSCULAR VOLUME 91 FL (80-99); MEAN PLATELET VOLUME 9.9 FL (7.4-10.4); PLATELET COUNT 283 10^3/uL (130-400)
[2020-04-06 13:51] LABS: WHITE BLOOD COUNT 47.7 10^3/uL (4.3-11.0)
[2020-04-06 14:00] LABS: ALANINE AMINOTRANSFERASE 8 U/L (0-55); ALBUMIN 3.4 GM/DL (3.2-4.5); ALKALINE PHOSPHATASE 76 U/L (40-136); BILIRUBIN,TOTAL 0.2 MG/DL (0.1-1.0); BUN/CREATININE RATIO 23; CARBON DIOXIDE 26 MMOL/L (21-32); CHLORIDE 107 MMOL/L (98-107); CREATININE SERUM 0.81 MG/DL (0.60-1.30); GFR ESTIMATED > 60; GLUCOSE 96 MG/DL (70-105); POTASSIUM 4.1 MMOL/L (3.6-5.0); SODIUM 140 MMOL/L (135-145); TOTAL PROTEIN 6.6 GM/DL (6.4-8.2)
[~2020-06-29 13:24] MED LIST changes: -ACETAMINOPHEN 500 MG TAB (TYLENOL) CANCER CTR ONE; +ACETAMINOPHEN 500 MG TAB (TYLENOL) CANCER CTR PO PRN; -diphenhydrAMINE 25 MG TAB (BENADRYL) CANCER CENTER PO ONE; +diphenhydrAMINE 25 MG TAB (BENADRYL) CANCER CENTER PO SCH
[2020-06-29 14:08] LABS: BASOPHILS # (AUTO) 0.1 10^3/uL (0.0-0.1); BASOPHILS % (AUTO) 0 % (0-10); EOSINOPHILS % (AUTO) 0 % (0-10); HEMATOCRIT 32 % (35-52); HEMOGLOBIN 9.5 g/dL (11.5-16.0); LYMPHOCYTES # (AUTO) 50.3 10^3/uL (1.0-4.0); LYMPHOCYTES % (AUTO) 86 % (12-44); MEAN CORPUSCULAR HEMOGLOBIN 29 pg (25-34); MEAN CORPUSCULAR HGB CONC 30 g/dL (32-36); MEAN CORPUSCULAR VOLUME 96 fL (80-99); MEAN PLATELET VOLUME 9.9 fL (9.0-12.2); MONOCYTES # (AUTO) 3.6 10^3/uL (0.0-1.0); MONOCYTES % (AUTO) 6 % (0-12); NEUTROPHILS # (AUTO) 4.2 10^3/uL (1.8-7.8); NEUTROPHILS % (AUTO) 7 % (42-75); PLATELET COUNT 213 10^3/uL (130-400)
[2020-06-29 14:10] LABS: WHITE BLOOD COUNT 58.3 10^3/uL (4.3-11.0)
[2020-06-29 14:25] LABS: ALANINE AMINOTRANSFERASE 9 U/L (0-55); ALBUMIN 3.7 GM/DL (3.2-4.5); ALKALINE PHOSPHATASE 74 U/L (40-136); BILIRUBIN,TOTAL 0.2 MG/DL (0.1-1.0); BUN/CREATININE RATIO 24; CALCIUM 8.9 MG/DL (8.5-10.1); CARBON DIOXIDE 24 MMOL/L (21-32); CHLORIDE 106 MMOL/L (98-107); CREATININE SERUM 0.78 MG/DL (0.60-1.30); GFR ESTIMATED > 60; GLUCOSE 76 MG/DL (70-105); POTASSIUM 4.4 MMOL/L (3.6-5.0); SODIUM 139 MMOL/L (135-145); TOTAL PROTEIN 6.8 GM/DL (6.4-8.2)
== END 2020-07-05 | disposition home or self-care (01) ==
LOC: ONC 13:24
PROVIDERS: ATTEND Internal Medicine Hematology & Oncology
DX: C91.10 Chronic lymphocytic leukemia of B-cell type not having achieved remission (principal); D80.1 Nonfamilial hypogammaglobulinemia; R41.3 Other amnesia; F17.210 Nicotine dependence, cigarettes, uncomplicated; Z79.899 Other long term (current) drug therapy
CPT/HCPCS: 80053; 82784 ×3; 83615; 85025; 96365; 96366; G0463; 36415; J1569

== ENCOUNTER 2020-08-24 14:01 | Outpatient (RCR) | payer BC | END 2020-09-18 16:00 | disposition home or self-care (01) | LOC: ONC 14:01 | PROVIDERS: ATTEND Internal Medicine Hematology & Oncology | DX: Z51.11 Encounter for antineoplastic chemotherapy (principal); C91.10 Chronic lymphocytic leukemia of B-cell type not having achieved remission; D80.1 Nonfamilial hypogammaglobulinemia; R41.3 Other amnesia; F17.210 Nicotine dependence, cigarettes, uncomplicated; Z79.899 Other long term (current) drug therapy | CPT/HCPCS: 96365; 96366; J1569 ==

== ENCOUNTER → 2020-11-03 | Outpatient (CLI) | payer BC ==
[~2020-11-03] VITALS: Ht 165 cm; Wt 56.0 kg
[~2020-11-03] MED LIST changes: -ACETAMINOPHEN 500 MG TAB (TYLENOL) CANCER CTR PO PRN; +BAMLANIVIMAB (NON FORM) 700 MG in NS (IVPB) 100 ML IV ONE; -CIPR500T4 PO; +CIPR500T5 PO; +EPINEPHrine INJECTION 1 MG/ML AMP IM PRN; -IMMUNE GLOBULIN,GAMMA (IGG) 200 ML IV SCH; -diphenhydrAMINE 25 MG TAB (BENADRYL) CANCER CENTER PO SCH; +diphenhydrAMINE 50 MG/ML INJ (BENADRYL) IV PRN
[2020-11-03 08:11] VITALS: BP 93/63
[2020-11-03 10:18] VITALS: BP 84/40
== END ==
LOC: INFUSION 08:14
PROVIDERS: ATTEND Nurse Practitioner Family
DX: Z23 Encounter for immunization (principal); U07.1 COVID-19

== ENCOUNTER 2020-11-23 14:08 | Outpatient (RCR) | payer BC ==
[2020-09-21 14:23] LABS: BASOPHILS % (AUTO) 0 % (0-10); EOSINOPHILS % (AUTO) 0 % (0-10); HEMATOCRIT 36 % (35-52); HEMOGLOBIN 10.3 g/dL (11.5-16.0); LYMPHOCYTES # (AUTO) 66.7 10^3/uL (1.0-4.0); LYMPHOCYTES % (AUTO) 90 % (12-44); MEAN CORPUSCULAR HEMOGLOBIN 28 pg (25-34); MEAN CORPUSCULAR HGB CONC 29 g/dL (32-36); MEAN CORPUSCULAR VOLUME 97 fL (80-99); MEAN PLATELET VOLUME 10.1 fL (9.0-12.2); MONOCYTES # (AUTO) 2.3 10^3/uL (0.0-1.0); MONOCYTES % (AUTO) 3 % (0-12); NEUTROPHILS # (AUTO) 4.6 10^3/uL (1.8-7.8); NEUTROPHILS % (AUTO) 6 % (42-75); PLATELET COUNT 224 10^3/uL (130-400)
[2020-09-21 14:24] LABS: WHITE BLOOD COUNT 73.7 10^3/uL (4.3-11.0)
[2020-09-21 14:46] LABS: ALANINE AMINOTRANSFERASE 14 U/L (0-55); ALBUMIN 3.8 GM/DL (3.2-4.5); ALKALINE PHOSPHATASE 91 U/L (40-136); BILIRUBIN,TOTAL 0.2 MG/DL (0.1-1.0); BUN/CREATININE RATIO 19; CALCIUM 9.2 MG/DL (8.5-10.1); CARBON DIOXIDE 26 MMOL/L (21-32); CHLORIDE 105 MMOL/L (98-107); CREATININE SERUM 0.91 MG/DL (0.60-1.30); GFR ESTIMATED > 60; GLUCOSE 108 MG/DL (70-105); POTASSIUM 4.1 MMOL/L (3.6-5.0); SODIUM 139 MMOL/L (135-145); TOTAL PROTEIN 7.3 GM/DL (6.4-8.2)
[~2020-11-23 14:08] MED LIST changes: +ACETAMINOPHEN 500 MG TAB (TYLENOL) CANCER CTR PO PRN; -BAMLANIVIMAB (NON FORM) 700 MG in NS (IVPB) 100 ML IV ONE; -EPINEPHrine INJECTION 1 MG/ML AMP IM PRN; +IMMUNE GLOBULIN,GAMMA (IGG) 200 ML IV SCH; +diphenhydrAMINE 25 MG TAB (BENADRYL) CANCER CENTER PO SCH; -diphenhydrAMINE 50 MG/ML INJ (BENADRYL) IV PRN
== END 2020-12-20 | disposition home or self-care (01) ==
LOC: ONC 14:08
PROVIDERS: ATTEND Internal Medicine Hematology & Oncology
DX: Z51.11 Encounter for antineoplastic chemotherapy (principal); C91.10 Chronic lymphocytic leukemia of B-cell type not having achieved remission; D80.1 Nonfamilial hypogammaglobulinemia; D64.9 Anemia, unspecified; D75.9 Disease of blood and blood-forming organs, unspecified; J40 Bronchitis, not specified as acute or chronic; F17.210 Nicotine dependence, cigarettes, uncomplicated; Z92.21 Personal history of antineoplastic chemotherapy; Z79.899 Other long term (current) drug therapy
CPT/HCPCS: 80053; 82784 ×3; 83615; 85025; 96365; 96366; G0463; 36415; J1569

== ENCOUNTER 2021-03-15 13:37 | Outpatient (RCR) | payer BC ==
[2020-12-21 14:55] LABS: BASOPHILS % (AUTO) 0 % (0-10); EOSINOPHILS % (AUTO) 0 % (0-10); HEMATOCRIT 30 % (35-52); HEMOGLOBIN 9.1 g/dL (11.5-16.0); LYMPHOCYTES # (AUTO) 43.4 10^3/uL (1.0-4.0); LYMPHOCYTES % (AUTO) 84 % (12-44); MEAN CORPUSCULAR HEMOGLOBIN 27 pg (25-34); MEAN CORPUSCULAR HGB CONC 30 g/dL (32-36); MEAN CORPUSCULAR VOLUME 88 fL (80-99); MEAN PLATELET VOLUME 9.6 fL (9.0-12.2); MONOCYTES # (AUTO) 3.9 10^3/uL (0.0-1.0); MONOCYTES % (AUTO) 8 % (0-12); NEUTROPHILS # (AUTO) 4.3 10^3/uL (1.8-7.8); NEUTROPHILS % (AUTO) 8 % (42-75); PLATELET COUNT 284 10^3/uL (130-400)
[2020-12-21 14:57] LABS: WHITE BLOOD COUNT 51.8 10^3/uL (4.3-11.0)
[2020-12-21 15:18] LABS: ALANINE AMINOTRANSFERASE 13 U/L (0-55); ALBUMIN 3.5 GM/DL (3.2-4.5); ALKALINE PHOSPHATASE 73 U/L (40-136); BILIRUBIN,TOTAL 0.2 MG/DL (0.1-1.0); BUN/CREATININE RATIO 20; CALCIUM 8.8 MG/DL (8.5-10.1); CARBON DIOXIDE 24 MMOL/L (21-32); CHLORIDE 99 MMOL/L (98-107); CREATININE SERUM 0.83 MG/DL (0.60-1.30); GFR ESTIMATED > 60; GLUCOSE 94 MG/DL (70-105); SODIUM 134 MMOL/L (135-145); TOTAL PROTEIN 6.7 GM/DL (6.4-8.2)
[~2021-03-15 13:37] MED LIST changes: -ACYC400T PO; +ACYC400T21 PO; -OMEP40CA27 PO; +OMEP40CA6 PO
[2021-03-15 13:57] LABS: BASOPHILS # (AUTO) 0.1 10^3/uL (0.0-0.1); BASOPHILS % (AUTO) 0 % (0-10); EOSINOPHILS # (AUTO) 0.2 10^3/uL (0.0-0.3); EOSINOPHILS % (AUTO) 0 % (0-10); HEMATOCRIT 37 % (35-52); HEMOGLOBIN 11.2 g/dL (11.5-16.0); LYMPHOCYTES # (AUTO) 47.8 10^3/uL (1.0-4.0); LYMPHOCYTES % (AUTO) 83 % (12-44); MEAN CORPUSCULAR HEMOGLOBIN 27 pg (25-34); MEAN CORPUSCULAR HGB CONC 30 g/dL (32-36); MEAN CORPUSCULAR VOLUME 88 fL (80-99); MEAN PLATELET VOLUME 10.6 fL (9.0-12.2); MONOCYTES # (AUTO) 5.2 10^3/uL (0.0-1.0); MONOCYTES % (AUTO) 9 % (0-12); NEUTROPHILS # (AUTO) 4.3 10^3/uL (1.8-7.8); NEUTROPHILS % (AUTO) 7 % (42-75); PLATELET COUNT 190 10^3/uL (130-400)
[2021-03-15 14:01] LABS: WHITE BLOOD COUNT 57.7 10^3/uL (4.3-11.0)
[2021-03-15 14:19] LABS: ALBUMIN 3.9 GM/DL (3.2-4.5); BILIRUBIN,TOTAL 0.3 MG/DL (0.1-1.0); CALCIUM 9.1 MG/DL (8.5-10.1); CREATININE SERUM 0.97 MG/DL (0.60-1.30); POTASSIUM 3.7 MMOL/L (3.6-5.0); TOTAL PROTEIN 6.5 GM/DL (6.4-8.2)
== END 2021-03-21 | disposition home or self-care (01) ==
LOC: ONC 13:37
PROVIDERS: ATTEND Internal Medicine Hematology & Oncology
DX: C91.12 Chronic lymphocytic leukemia of B-cell type in relapse (principal); D80.1 Nonfamilial hypogammaglobulinemia; D64.9 Anemia, unspecified; D75.9 Disease of blood and blood-forming organs, unspecified; J40 Bronchitis, not specified as acute or chronic; F17.210 Nicotine dependence, cigarettes, uncomplicated; Z92.21 Personal history of antineoplastic chemotherapy; Z79.899 Other long term (current) drug therapy
CPT/HCPCS: 80053; 82784 ×3; 83615; 85025; G0463; 36415; 96365; 96366; J1569

== ENCOUNTER 2021-06-06 13:09 | Outpatient (RCR) | payer BC | END 2021-07-11 | disposition home or self-care (01) | LOC: ONC 13:09 | PROVIDERS: ATTEND Internal Medicine Hematology & Oncology | DX: Z51.11 Encounter for antineoplastic chemotherapy (principal); C91.12 Chronic lymphocytic leukemia of B-cell type in relapse; D80.1 Nonfamilial hypogammaglobulinemia; D64.9 Anemia, unspecified; D75.9 Disease of blood and blood-forming organs, unspecified; J40 Bronchitis, not specified as acute or chronic; F17.210 Nicotine dependence, cigarettes, uncomplicated; Z92.21 Personal history of antineoplastic chemotherapy; Z79.899 Other long term (current) drug therapy | CPT/HCPCS: 96365; 96366; J1569 ==

== ENCOUNTER 2021-07-23 14:14 | Outpatient (RCR) | payer BC ==
[~2021-07-23 14:14] MED LIST changes: -LEVO500T80 PO; +LEVO500T81 PO; +ONDA-106 PO; -ONDA8TAB15 PO
[2021-07-23 14:38] LABS: BASOPHILS # (AUTO) 0.1 10^3/uL (0.0-0.1); BASOPHILS % (AUTO) 0 % (0-10); EOSINOPHILS # (AUTO) 0.2 10^3/uL (0.0-0.3); EOSINOPHILS % (AUTO) 0 % (0-10); HEMATOCRIT 36 % (35-52); LYMPHOCYTES # (AUTO) 54.9 10^3/uL (1.0-4.0); LYMPHOCYTES % (AUTO) 86 % (12-44); MEAN CORPUSCULAR HEMOGLOBIN 27 pg (25-34); MEAN CORPUSCULAR HGB CONC 31 g/dL (32-36); MEAN CORPUSCULAR VOLUME 90 fL (80-99); MEAN PLATELET VOLUME 11.1 fL (9.0-12.2); MONOCYTES # (AUTO) 5.1 10^3/uL (0.0-1.0); MONOCYTES % (AUTO) 8 % (0-12); NEUTROPHILS # (AUTO) 3.7 10^3/uL (1.8-7.8); NEUTROPHILS % (AUTO) 6 % (42-75); PLATELET COUNT 194 10^3/uL (130-400)
[2021-07-23 14:42] LABS: WHITE BLOOD COUNT 64.2 10^3/uL (4.3-11.0)
[2021-07-23 14:59] LABS: ALBUMIN 4.2 GM/DL (3.2-4.5); BILIRUBIN,TOTAL 0.2 MG/DL (0.1-1.0); CALCIUM 9.5 MG/DL (8.5-10.1); CREATININE SERUM 0.94 MG/DL (0.60-1.30); POTASSIUM 4.3 MMOL/L (3.6-5.0); TOTAL PROTEIN 7.1 GM/DL (6.4-8.2)
[2021-08-13] MEDS ORDERED: DULO60CA59 PO (15:35)
== END 2021-08-30 13:15 | disposition home or self-care (01) ==
LOC: ONC 14:14
PROVIDERS: ATTEND Internal Medicine Hematology & Oncology
DX: C91.12 Chronic lymphocytic leukemia of B-cell type in relapse (principal); D80.1 Nonfamilial hypogammaglobulinemia; D64.9 Anemia, unspecified; D75.9 Disease of blood and blood-forming organs, unspecified; J40 Bronchitis, not specified as acute or chronic; F17.210 Nicotine dependence, cigarettes, uncomplicated; Z92.21 Personal history of antineoplastic chemotherapy; Z79.899 Other long term (current) drug therapy
CPT/HCPCS: 36415; 80053; 82784; 83615; 85025; 96365; 96366; J1569

== ENCOUNTER 2021-08-11 15:12 | Observation (INO) | payer BC, MEDICARE ==
[~2021-08-11] VITALS: Ht 167.6 cm; Wt 51.0 kg
[~2021-08-11 15:12] MED LIST changes: -ACETAMINOPHEN 500 MG TAB (TYLENOL) CANCER CTR PO PRN; -IMMUNE GLOBULIN,GAMMA (IGG) 200 ML IV SCH; -diphenhydrAMINE 25 MG TAB (BENADRYL) CANCER CENTER PO SCH
[2021-08-11] MEDS ORDERED: LORazepam INJ 2 MG/ML (ATIVAN) VIAL ONE (15:19)
--- NOTE | 2021-08-11 15:29 | ED Neurological Problem ---
General Chief Complaint: Altered Mental Status Stated Complaint: CONFUSION Source: patient Exam Limitations: no limitations (NIYA PRIETO APRN) History of Present Illness Date Seen by Provider: Aug 11, 2021 Time Seen by Provider: 15:27 Initial Comments to ER by EMS from [facility] where she walked into and was noted to be making some suicidal comments. EMS was summoned and transported her to the emergency room. 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 Timing/Duration: 1 week Severity: moderate Associated Symptoms: denies symptoms (NIYA PRIETO APRN) Allergies and Home Medications Allergies Coded Allergies: Sulfa (Sulfonamide Antibiotics) (Verified Allergy, Unknown, 08/11/21) Uncoded Allergies: IV contrast (Allergy, Intermediate, RASH, 07/28/18) Patient Home Medication List Home Medication List Reviewed: Yes (NIYA PRIETO APRN) Cetirizine HCl (Cetirizine HCl) 10 Mg Tablet, 10 MG PO DAILY, (Reported) Entered as Reported by: ALEYDA GREY on 07/29/18 0948 Duloxetine HCl (Duloxetine HCl) 30 Mg Capsule.dr, 30 MG PO DAILY, (Reported) Entered as Reported by: ALEYDA GREY on 07/06/15 0823 Hydrocodone Bit/Acetaminophen (Lortab 5 Mg Tablet) 1 Tab Tab, 1 TAB PO BID PRN for PAIN-MODERATE Prescribed by: RICO HUANG on 07/31/18 1102 Omeprazole (Omeprazole) 40 Mg Capsule.dr, 40 MG PO BID Prescribed by: RICO HUANG on 07/31/18 1102 Polyethylene Glycol 3350 (Miralax) 17 Gm Powd.pack, 17 GM PO DAILY Prescribed by: RICO HUANG on 07/31/18 1105 Sucralfate (Sucralfate) 1 Gm Tablet, 1 GM PO ACHS Prescribed by: RICO HUANG on 07/31/18 1102 [Gammagard] , MONTHLY, (Reported) Entered as Reported by: ALEYDA GREY on 07/29/18 0947 Review of Systems Review of Systems Constitutional: see HPI, other (Unable to obtain due to altered mental status) (NIYA PRIETO APRN) Past Gvmyspg-Onzevu-Nfsmoc Hx Immunizations Up To Date Tetanus Booster (TDap): More than 5yrs PED Vaccines UTD: Yes (NIYA PRIETO APRN) Seasonal Allergies Seasonal Allergies: No (NIYA PRIETO APRN) Past Medical History Surgeries: Yes (2 C-sections) Section, Tubal Ligation Respiratory: Yes ("chronic left lower lung fungal infection") Asthma, Pneumonia Currently Using CPAP: No Currently Using BIPAP: No Cardiac: Yes Hypotension Neurological: Yes (diagnosed with dementia january 2019) Dementia, Headaches /Migraines Reproductive Disorders: No 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 History: Menopausal Sexually Transmitted Disease: No HIV/AIDS: No Genitourinary: No Gastrointestinal: Yes Irritable Bowel Musculoskeletal: No Endocrine: Yes (HYPOGLYCEMIA) HEENT: Yes Loss of Vision: Denies Hearing Impairment: Hard of Hearing Cancer: Yes Leukemia Did You Recieve Any Treatments: Yes What Type of Treatment Did You: Chemotherapy Psychosocial: No Anxiety, Depression Integumentary: No Blood Disorders: Yes (anemia, CLL leukemia ) Adverse Reaction/Blood Tranf: No (NIYA PRIETO APRN) Family Medical History Idiopathic hypertrophic subaortic stenosis 19 FATHER Heart Disease (NIYA PRIETO APRN) Physical Exam Vital Signs Vital Signs - First Documented 08/11/21 15:15 Temp 37.3 Pulse 90 Resp 95 B/P (MAP) 123/78 (93) Pulse Ox 95 (GUSTAVO MEZA MD) Vital Signs Capillary Refill : (NIYA PRIETO APRN) Height, Weight, BMI Height: 5'4.00" Weight: 133lbs. 4.0oz. 60.266375vy; 20.67 BMI Method:Stated General Appearance: WD/WN, no apparent distress, thin, other (Alert looking around the room but completely disoriented. She does not know where she is at, she does not know her date of . She is smiling and pleasant and tries to have conversation but conversation is completely nonsensical. She arrives and says "this is wrong" but cannot elaborate. Seems at risk for elopement and agitation so we did give 0.5 mg of lorazepam.) HEENT: PERRL/EOMI, normal ENT inspection Neck: non-tender, full range of motion Respiratory: normal breath sounds, no respiratory distress, no accessory muscle use Cardiovascular: regular rate, rhythm, no murmur Gastrointestinal: normal bowel sounds, non tender Extremities: normal range of motion, non-tender Neurologic/Psychiatric: alert Crainal Nerves: normal hearing, normal speech Skin: normal color, warm/dry (NIYA PRIETO APRN) Progress/Results/Core Measures Results/Orders Lab Results Laboratory Tests Test 08/11/21 15:21 08/11/21 15:22 Range/Units White Blood Count 40.7 *H 4.3-11.0 10^3/uL Red Blood Count 3.88 3.80-5.11 10^6/uL Hemoglobin 10.8 L 11.5-16.0 g/dL Hematocrit 35 35-52 % Mean Corpuscular Volume 89 80-99 fL Mean Corpuscular Hemoglobin 28 25-34 pg Mean Corpuscular Hemoglobin Concent 31 L 32-36 g/dL Red Cell Distribution Width 18.3 H 10.0-14.5 % Platelet Count 166 130-400 10^3/uL Mean Platelet Volume 10.3 9.0-12.2 fL Immature Granulocyte % (Auto) 0 % Neutrophils (%) (Auto) 8 L 42-75 % Lymphocytes (%) (Auto) 83 H 12-44 % Monocytes (%) (Auto) 9 0-12 % Eosinophils (%) (Auto) 0 0-10 % Basophils (%) (Auto) 0 0-10 % Neutrophils # (Auto) 3.1 1.8-7.8 10^3/uL Lymphocytes # (Auto) 33.7 H 1.0-4.0 10^3/uL Monocytes # (Auto) 3.7 H 0.0-1.0 10^3/uL Eosinophils # (Auto) 0.1 0.0-0.3 10^3/uL Basophils # (Auto) 0.1 0.0-0.1 10^3/uL Immature Granulocyte # (Auto) 0.0 0.0-0.1 10^3/uL Neutrophils % (Manual) 12 % Lymphocytes % (Manual) 47 % Monocytes % (Manual) 8 % Atypical Lymphocytes % Reactive Lymphocytes 33 % Blood Morphology Comment NORMAL Sodium Level 134 L 135-145 MMOL/L Potassium Level 4.3 3.6-5.0 MMOL/L Chloride Level 102 98-107 MMOL/L Carbon Dioxide Level 23 21-32 MMOL/L Anion Gap 9 5-14 MMOL/L Blood Urea Nitrogen 16 7-18 MG/DL Creatinine 0.85 0.60-1.30 MG/DL Estimat Glomerular Filtration Rate 69 BUN/Creatinine Ratio 19 Glucose Level 86 70-105 MG/DL Calcium Level 9.1 8.5-10.1 MG/DL Corrected Calcium 9.3 8.5-10.1 MG/DL Total Bilirubin 0.3 0.1-1.0 MG/DL Aspartate Amino Transf (AST/SGOT) 24 5-34 U/L Alanine Aminotransferase (ALT/SGPT) 14 0-55 U/L Alkaline Phosphatase 116 40-136 U/L Total Protein 6.6 6.4-8.2 GM/DL Albumin 3.7 3.2-4.5 GM/DL Salicylates Level < 5.0 L 5.0-20.0 MG/DL Acetaminophen Level < 10 L 10-30 UG/ML Serum Alcohol < 10 <10 MG/DL Glucometer 78 70-110 MG/DL (GUSTAVO MEZA MD) My Orders Orders - GUSTAVO MEZA MD Lorazepam Injection (Ativan Injection) (08/11/21 15:19) (GUSTAVO MEZA MD) Medications Given in ED Current Medications Medications Dose Ordered Sig/Francisco Javier Route Start Time Stop Time Status Last Admin Dose Admin Lorazepam 2 mg STK-MED ONCE .ROUTE 08/11/21 15:19 08/11/21 15:21 DC 08/11/21 15:22 0.5 MG (GUSTAVO MEZA MD) Vital Signs/I&O 08/11/21 15:15 Temp 37.3 Pulse 90 Resp 95 B/P (MAP) 123/78 (93) Pulse Ox 95 (GUSTAVO MEZA MD) Departure Communication (Admissions) Family Conversation 181-adult DCF report (Intake ID [id number]). has shown up to report that he is taking the patient home, she cannot be admitted right now but he cannot give a reason why. Patient is cooperative and at risk to herself and at risk given the lack of observation provided by her as he had no idea she left the house and went to [facility]. Given her advanced dementia she cannot be left unattended like this. She is at risk if she goes home with him. Spoke with Dr. Huang, will admit the patient, the can discuss with the courts on Friday who has power of workers compensation defense attorney. He alleges that he has power of workers compensation defense attorney and states that he will go home and get the paperwork. Dr. Huang and supervisor steffen house noted. Patient is in bed cooperative and no distress doing well. 1721-Spoke with Dr. Huang, will admit for altered mental status. Will consult PT OT and forensic social worker regarding the increased help needed at home versus possible senior care placement if that is deemed appropriate at the time of discharge. Patient's sister Madison at [phone] was updated on this plan and is very appreciative of the care. She states the patient's has been less involved recently, mother is 85 years old and primary caregiver has been the patient's 18-year-old son. After 0.5 mg IV lorazepam patient has remained cooperative in the emergency room without elopement or agitation. Additionally, she has been unable to produce a urine sample for us yet despite a couple of trips to the bathroom. I will order a bag of IV fluids to help with urine production as a straight catheterization would be poorly tolerated given her Alzheimer's disease. 1756-I spoke with the patient's Pavel, he states "she is not going to be admitted". I strongly advised against taking her home. This is the first time that he has called despite several attempts from us to contact him. I discussed with him that it was a bad idea to take her home and that the care that she is receiving from him in the observation from him is not appropriate. (NIYA PRIETO APRN) Impression Primary Impression: Altered mental status Disposition: ADMITTED INPATIENT Condition: Stable Admissions Decision to Admit Reason: Admit from ER (General) Decision to Admit/Date: Aug 11, 2021 Time/Decision to Admit Time: 17:22 (NIYA PRIETO APRN) Departure-Patient Inst. Referrals: RICO HUANG DO (PCP/Family) Primary Care Physician ATTENDING PHYSICIAN NOTE: I was physically present as attending physician in the emergency department during the care of this patient, but I was not directly involved in the decision making or delivery of care for this patient. (GUSTAVO MEZA MD) NIYA PRIETO APRN Aug 11, 2021 15:29 GUSTAVO MEZA MD Aug 11, 2021 20:24
[2021-08-11 15:31] LABS: BASOPHILS # (AUTO) 0.1 10^3/uL (0.0-0.1); BASOPHILS % (AUTO) 0 % (0-10); EOSINOPHILS # (AUTO) 0.1 10^3/uL (0.0-0.3); EOSINOPHILS % (AUTO) 0 % (0-10); HEMATOCRIT 35 % (35-52); HEMOGLOBIN 10.8 g/dL (11.5-16.0); LYMPHOCYTES # (AUTO) 33.7 10^3/uL (1.0-4.0); LYMPHOCYTES % (AUTO) 83 % (12-44); MEAN CORPUSCULAR HEMOGLOBIN 28 pg (25-34); MEAN CORPUSCULAR HGB CONC 31 g/dL (32-36); MEAN CORPUSCULAR VOLUME 89 fL (80-99); MEAN PLATELET VOLUME 10.3 fL (9.0-12.2); MONOCYTES # (AUTO) 3.7 10^3/uL (0.0-1.0); MONOCYTES % (AUTO) 9 % (0-12); NEUTROPHILS # (AUTO) 3.1 10^3/uL (1.8-7.8); NEUTROPHILS % (AUTO) 8 % (42-75); PLATELET COUNT 166 10^3/uL (130-400)
[2021-08-11 15:32] LABS: WHITE BLOOD COUNT 40.7 10^3/uL (4.3-11.0)
[2021-08-11 15:38] LABS: CHLORIDE 102 MMOL/L (98-107); POTASSIUM 4.3 MMOL/L (3.6-5.0); SODIUM 134 MMOL/L (135-145)
[2021-08-11 15:39] LABS: ALBUMIN 3.7 GM/DL (3.2-4.5)
[2021-08-11 15:40] LABS: CALCIUM 9.1 MG/DL (8.5-10.1)
[2021-08-11 15:41] LABS: GLUCOSE 86 MG/DL (70-105); TOTAL PROTEIN 6.6 GM/DL (6.4-8.2)
[2021-08-11 15:42] LABS: CARBON DIOXIDE 23 MMOL/L (21-32)
[2021-08-11 15:43] LABS: BILIRUBIN,TOTAL 0.3 MG/DL (0.1-1.0)
[2021-08-11 15:45] LABS: ALKALINE PHOSPHATASE 116 U/L (40-136); CREATININE SERUM 0.85 MG/DL (0.60-1.30); GFR ESTIMATED 69
[2021-08-11 15:46] LABS: BUN/CREATININE RATIO 19
[2021-08-11 15:48] LABS: ACETAMINOPHEN < 10 UG/ML (10-30); ALANINE AMINOTRANSFERASE 14 U/L (0-55); SALICYLATE < 5.0 MG/DL (5.0-20.0)
[2021-08-11 16:19] LABS: LYMPHOCYTES % (MANUAL) 47 %; MONOCYTES % (MANUAL) 8 %; NEUTROPHILS % (MANUAL) 12 %; REACTIVE LYMPHOCYTES 33 %
[2021-08-11 16:20] LABS: RBC MORPH NORMAL
[2021-08-11] MEDS ORDERED: LACTATED RINGERS 1,000 ML IV SCH (17:00)
[2021-08-11] MEDS ORDERED: HALOPERIDOL 5 MG/ML (HALDOL) VIAL IM PRN ×2 (17:30→18:15)
[2021-08-11] MEDS ORDERED: LORazepam 0.5 MG (ATIVAN) TABLET PO PRN ×2 (17:30→18:15)
[2021-08-11] MEDS ORDERED: HALOPERIDOL 0.5 MG (HALDOL) TAB PO PRN ×2 (17:30→18:15)
[2021-08-11] MEDS ORDERED: LORazepam INJ 2 MG/ML (ATIVAN) VIAL IVP PRN (17:30)
[2021-08-11] MEDS: LORazepam INJ 2 MG/ML (ATIVAN) VIAL IVP PRN ×2 (17:30→17:40)
[2021-08-11] MEDS ORDERED: WATER (STERILE) FOR INJ 10 ML BTL INJ SCH (18:15)
[2021-08-11] MEDS ORDERED: ZIPRASIDONE 20 MG INJ (GEODON) VIAL IM PRN (18:15)
[2021-08-11 19:35] VITALS: BP 94/45
[2021-08-11] MEDS ORDERED: WATER (STERILE) FOR INJECTION 10 ML ONE (19:55)
[2021-08-11] MEDS ORDERED: ZIPRASIDONE 20 MG INJ (GEODON) VIAL IM ONE (19:55)
[2021-08-11] MEDS: ZIPRASIDONE 20 MG INJ (GEODON) VIAL IM PRN (20:02)
[2021-08-11 23:18] VITALS: BP 99/51
[2021-08-12 04:44] VITALS: BP 95/60
[2021-08-12 05:18] LABS: BILIRUBIN,URINE NEGATIVE (NEGATIVE); CLARITY,URINE CLEAR; COLOR,URINE YELLOW; GLUCOSE, URINE (UA) NEGATIVE (NEGATIVE); KETONES,URINE NEGATIVE (NEGATIVE); LEUKOCYTE ESTERASE ,URINE NEGATIVE (NEGATIVE); NITRITE,URINE NEGATIVE (NEGATIVE); PROTEIN,URINE NEGATIVE (NEGATIVE)
[2021-08-12 05:31] LABS: AMPHETAMINE SCREEN, URINE NEGATIVE (NEGATIVE); BACTERIA,URINE NEGATIVE /HPF; BARBITURATE SCREEN URINE NEGATIVE (NEGATIVE); BENZODIAZEPINES SCREEN URINE POSITIVE (NEGATIVE); CANNABINOID SCREEN, URINE NEGATIVE (NEGATIVE); COCAINE SCREEN URINE NEGATIVE (NEGATIVE); METHADONE STAT NEGATIVE (NEGATIVE); METHAMPHETAMINE SCREEN URINE S NEGATIVE (NEGATIVE); OPIATE SCREEN URINE NEGATIVE (NEGATIVE); OXYCODONE STAT NEGATIVE (NEGATIVE); PROPOXYPHENE STAT NEGATIVE (NEGATIVE); TRICYCLIC ANTIDEPRESSANTS SCRE NEGATIVE (NEGATIVE); WBC,URINE 0-2 /HPF
[2021-08-12 07:48] VITALS: BP 90/58
[2021-08-12] MEDS: ZIPRASIDONE 20 MG INJ (GEODON) VIAL IM PRN ×2 (08:51→20:27)
[2021-08-12] MEDS: WATER (STERILE) FOR INJ 10 ML BTL INJ SCH ×2 (08:51→20:27)
[2021-08-12 11:41] VITALS: BP 91/52
--- NOTE | 2021-08-12 12:23 | History & Physical-Hospitalist ---
History of Present Illness HPI/Chief Complaint Chief complaint: Altered mental status with elopement from home History of present illness: This is a 56-year-old white female clinic patient of mine who rarely comes to my clinic who has a past medical history of CLL status post treatment at and managed by Dr. Rizvi who presented to the ER after she wandered into the [facility] and started stating suicidal statements. She lives at home with her who is rarely home. Her autistic son who is a senior at high school and 18 years old essentially watches over her. She has confirmed dementia likely related to chemotherapy and treatment for leukemia performed in the past. She had been up to [facility] to confirm this 4 years ago. We will have hospice social worker evaluate options tomorrow when they return to work since an ideal situation would be to be admitted to a nursing facility. She would need to be in a lockdown facility due to high risk for elopement. 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 Patients Allergies have been reviewed. Allergies Allergies Coded Allergies Sulfa (Sulfonamide Antibiotics) (Verified Allergy, Unknown, 08/11/21) Uncoded Allergies IV contrast ( Allergy, Intermediate, RASH, 07/28/18) Past [id number] Hx Patient Social History Marrital Status: Employed/Student: unemployed Tobacco Use?: No Smoking Status: Former Smoker Substance use?: No Alcohol Use?: No Pt feels they are or have been: No Immunizations Up To Date Tetanus Booster (TDap): Unknown Hepatitis A: No Hepatitis B: No PED Vaccines UTD: Yes Seasonal Allergies Seasonal Allergies: No Current Status Advance Directives: Yes Advance Directive Location: Scanned into EMR Communicates: Verbally Primary Language: Sri Lankan Preferred Spoken Language: Sri Lankan Is interpretation needed?: No Sensory deficits: Other Implanted or Applied Medical D: Other Past Medical History Surgeries: Section, Tubal Ligation Asthma, Pneumonia Currently Using CPAP: No Currently Using BIPAP: No Hypotension Dementia, Headaches /Migraines 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 Sexually Transmitted Disease: No HIV/AIDS: No Irritable Bowel Loss of Vision: Denies Hearing Impairment: Hard of Hearing Leukemia Did You Recieve Any Treatments: Yes What Type of Treatment Did You: Chemotherapy Anxiety, Depression Blood Disorders: Yes (anemia, CLL leukemia ) Adverse Reaction/Blood Tranf: No Family Medical History Idiopathic hypertrophic subaortic stenosis 19 FATHER Heart Disease Review of Systems ROS-Unable to Obtain: Confusion Constitutional: see HPI Physical Exam Physical Exam Vital Signs Vital Signs - First Documented 08/11/21 08/11/21 15:15 18:53 Temp 37.3 Pulse 90 Resp 95 B/P (MAP) 123/78 (93) Pulse Ox 95 O2 Delivery Room Air Capillary Refill : Height, Weight, BMI Height: 5'4.00" Weight: 133lbs. 4.0oz. [id number]; 18.15 BMI Method:Stated General Appearance: No Apparent Distress, Chronically ill, Thin Eyes: Right Eye Normal Inspection, Right Eye PERRL HEENT: PERRL/EOMI, Normal ENT Inspection, Pharynx Normal, Moist Mucous Membranes Neck: Full Range of Motion, Normal Inspection, Non Tender Respiratory: Chest Non Tender, Lungs Clear, Normal Breath Sounds, No Accessory Muscle Use, No Respiratory Distress Cardiovascular: Regular Rate, Rhythm, No Edema, No Gallop, No JVD, No Murmur, Normal Peripheral Pulses Gastrointestinal: Normal Bowel Sounds, No Organomegaly, No Pulsatile Mass, Non Tender, Soft Back: Normal Inspection, No CVA Tenderness, No Vertebral Tenderness Extremity: Normal Capillary Refill, Normal Inspection, Normal Range of Motion, Non Tender, No Calf Tenderness, No Pedal Edema Neurologic/Psychiatric: Alert, No Motor/Sensory Deficits, Depressed Affect, Disoriented Skin: Normal Color, Warm/Dry Lymphatic: No Adenopathy Results Results/Procedures Labs Laboratory Tests 08/11/21 15:21 Patient resulted labs reviewed. Assessment/Plan Admission Diagnosis Assessment: Altered mental status and elopement from home without proper supervision from Confirmed early onset dementia from [facility] likely related to leukemia treatment in the past CLL Asthma Plan: Supportive care Social work consult Admission Status: Observation Diagnosis/Problems Diagnosis/Problems (1) Altered mental status Status: Acute (2) Memory loss due to medical condition Status: Chronic (3) CLL (chronic lymphocytic leukemia) Status: Chronic ASHANTI HAYWARD DO Aug 12, 2021 12:23
[2021-08-12] MEDS: ENOXAPARIN 30 MG/0.3 ML (LOVENOX) SYR SC SCH (12:36)
[2021-08-12] MEDS: ACETAMINOPHEN 325 MG TABLET PO PRN (12:37)
[2021-08-12 15:30] VITALS: BP 99/50
[2021-08-12] MEDS: LORazepam INJ 2 MG/ML (ATIVAN) VIAL IVP PRN (17:33)
[2021-08-12 20:14] VITALS: BP 114/72
[2021-08-12 23:52] VITALS: BP 99/55
[2021-08-13 04:42] VITALS: BP 96/46
[2021-08-13] MEDS: LORazepam INJ 2 MG/ML (ATIVAN) VIAL IVP PRN (05:29)
[2021-08-13 06:04] LABS: BASOPHILS # (AUTO) 0.1 10^3/uL (0.0-0.1); BASOPHILS % (AUTO) 0 % (0-10); EOSINOPHILS # (AUTO) 0.1 10^3/uL (0.0-0.3); EOSINOPHILS % (AUTO) 0 % (0-10); HEMATOCRIT 33 % (35-52); HEMOGLOBIN 10.5 g/dL (11.5-16.0); LYMPHOCYTES # (AUTO) 30.9 10^3/uL (1.0-4.0); LYMPHOCYTES % (AUTO) 85 % (12-44); MEAN CORPUSCULAR HEMOGLOBIN 28 pg (25-34); MEAN CORPUSCULAR HGB CONC 32 g/dL (32-36); MEAN CORPUSCULAR VOLUME 90 fL (80-99); MEAN PLATELET VOLUME 11.1 fL (9.0-12.2); MONOCYTES # (AUTO) 2.9 10^3/uL (0.0-1.0); MONOCYTES % (AUTO) 8 % (0-12); NEUTROPHILS # (AUTO) 2.4 10^3/uL (1.8-7.8); NEUTROPHILS % (AUTO) 7 % (42-75); PLATELET COUNT 171 10^3/uL (130-400)
[2021-08-13 06:08] LABS: WHITE BLOOD COUNT 36.4 10^3/uL (4.3-11.0)
[2021-08-13 06:23] LABS: ALBUMIN 3.5 GM/DL (3.2-4.5); BILIRUBIN,TOTAL 0.2 MG/DL (0.1-1.0); CALCIUM 9.2 MG/DL (8.5-10.1); CREATININE SERUM 0.96 MG/DL (0.60-1.30); TOTAL PROTEIN 6.3 GM/DL (6.4-8.2)
[2021-08-13 07:56] VITALS: BP 102/50
--- NOTE | 2021-08-13 11:05 | Progress Note - Hospitalist ---
MARTHA CHAPMAN 08/13/21 1105: Subjective HPI/CC On Admission Date Seen by Provider: Aug 13, 2021 Time Seen by Provider: 07:48 Chief complaint: Altered mental status with elopement from home Subjective/Events-last exam Ms. Schrader was A&Ox0 this morning and was very confused but pleasant. I was unable to obtain any history or ROS from her due to her mental status. Physical exam was likewise limited. Plan with her is most likely home placement depending on family wishes. Focused Exam Capillary Refill: Less Than 3 Seconds Peripheral Pulses: 2+ Radial Pulses (R), 2+ Radial Pulses (L) Objective Exam Vital Signs Vital Signs Date Time Temp Pulse Resp B/P (MAP) Pulse Ox O2 Delivery O2 Flow Rate FiO2 08/13/21 08:00 Room Air 08/13/21 07:56 37.8 87 18 102/50 (67) 94 Capillary Refill : General Appearance: No Apparent Distress, Thin HEENT: No Scleral Icterus (L), No Scleral Icterus (R) Respiratory: Chest Non Tender, Lungs Clear, Normal Breath Sounds, No Accessory Muscle Use, No Respiratory Distress Cardiovascular: Regular Rate, Rhythm, No Murmur, Normal Peripheral Pulses Neurologic/Psychiatric: Alert (Responsive but confused); No Oriented x3 (Or iented x 0); Disoriented Results/Procedures Lab Laboratory Tests 08/13/21 05:56 Patient resulted labs reviewed. Assessment/Plan Assessment and Plan Assess & Plan/Chief Complaint Assessment AMS - Elopement from home without proper supervision from Confirmed early onset dementia from [facility] - Likely related to leukemia treatment in the past h/o CLL Asthma Plan Supportive care Social work consult Possible SNF placement depending on family wishes ASHANTI HAYWARD DO 08/14/21 0537: Subjective Subjective/Events-last exam Hospital Course: Pt had a short hospital course. She was admitted due to elopement from home and arriving at [facility]. EMS brought her to the ER and the patient was found to have delusional statements and hx of dementia. She was hospitalized and placed in observation to keep safe. Her CLL was noted to have white count elevation but no changes. Pt was deemed stable for DC to the senior unit. Review of Systems Neurological: Confusion Objective Exam General Appearance: WD/WN, Anxious, Chronically ill Assessment/Plan Assessment and Plan Assess & Plan/Chief Complaint [facility] psych [facility] Supervisory-Addendum Brief Verification & Attestation Participated in pt care: history, MDM, physical Personally performed: exam, history, MDM, supervision of care Care discussed with: Medical Student Procedures: n/a Results interpretation: Verified all documentation Verification and Attestation of Medical Student E/M Service A medical student performed and documented this service in my presence. I reviewed and verified all information documented by the medical student and made modifications to such information, when appropriate. I personally performed the physical exam and medical decision making. Ashanti Hayward, Aug 14, 2021,05:36 MARTHA CHAPMAN Aug 13, 2021 11:05 ASHANTI HAYWARD DO Aug 14, 2021 05:37
[2021-08-13 12:00] VITALS: BP 103/51
[2021-08-13] MEDS: ENOXAPARIN 30 MG/0.3 ML (LOVENOX) SYR SC SCH (13:26)
[2021-08-13 15:12] VITALS: BP 145/81
[2021-08-13] MEDS ORDERED: DULO60CA59 PO (15:35)
[2021-08-13 19:29] VITALS: BP 121/62
[2021-08-13] MEDS: ACETAMINOPHEN 325 MG TABLET PO PRN (20:14)
[2021-08-13 23:19] VITALS: BP 96/50
[2021-08-14 03:45] VITALS: BP 95/63
--- NOTE | 2021-08-14 06:49 | Discharge Summary ---
Diagnosis/Chief Complaint Date of Admission Aug 11, 2021 at 17:27 Date of Discharge Discharge Date: Aug 14, 2021 Discharge Diagnosis Assessment: Altered mental status and elopement from home without proper supervision from Confirmed early onset dementia from [facility] likely related to leukemia treatment in the past CLL Asthma Discharge Summary Discharge Physical Examination Allergies: Coded Allergies: Sulfa (Sulfonamide Antibiotics) (Verified Allergy, Unknown, 08/11/21) Uncoded Allergies: IV contrast (Allergy, Intermediate, RASH, 07/28/18) Vitals & I&Os Vital Signs Date Time Temp Pulse Resp B/P (MAP) Pulse Ox O2 Delivery O2 Flow Rate FiO2 08/14/21 14:15 36.6 84 18 108/68 97 Room Air General Appearance: Alert, Oriented X3, Cooperative Respiratory: Clear to Auscultation Cardiovascular: Regular Rate Hospital Course Was the Problem List Reviewed?: Yes Hospital course: Pt had an uneventful hospital course when she was admitted for altered mental status due to severe and worsening dementia after she eloped from home. Pt was deemed stable for senior behavioral unit admission and she was transported there by EMS. Labs (last 24 hrs) Laboratory Tests 08/11/21 15:21: White Blood Count 40.7*H, Red Blood Count 3.88, Hemoglobin 10.8L, Hematocrit 35, Mean Corpuscular Volume 89, Mean Corpuscular Hemoglobin 28, Mean Corpuscular Hemoglobin Concent 31L, Red Cell Distribution Width 18.3H, Platelet Count 166, Mean Platelet Volume 10.3, Immature Granulocyte % (Auto) 0, Neutrophils (%) (Auto) 8L, Lymphocytes (%) (Auto) 83H, Monocytes (%) (Auto) 9, Eosinophils (%) (Auto) 0, Basophils (%) (Auto) 0, Neutrophils # (Auto) 3.1, Lymphocytes # (Auto) 33.7H, Monocytes # (Auto) 3.7H, Eosinophils # (Auto) 0.1, Basophils # (Auto) 0.1, Immature Granulocyte # (Auto) 0.0, Neutrophils % (Manual) 12, Lymphocytes % (Manual) 47, Monocytes % (Manual) 8, Atypical Lymphocytes , Reactive Lymphocytes 33, Blood Morphology Comment NORMAL, Sodium Level 134L, Potassium Level 4.3, Chloride Level 102, Carbon Dioxide Level 23, Anion Gap 9, Blood Urea Nitrogen 16, Creatinine 0.85, Estimat Glomerular Filtration Rate 69, BUN/Creatinine Ratio 19, Glucose Level 86, Calcium Level 9.1, Corrected Calcium 9.3, Total Bilirubin 0.3, Aspartate Amino Transf (AST/SGOT) 24, Alanine Aminotransferase (ALT/SGPT) 14, Alkaline Phosphatase 116, Total Protein 6.6, Albumin 3.7, Salicylates Level < 5.0L, Acetaminophen Level < 10L, Serum Alcohol < 10 08/11/21 15:22: Glucometer 78 08/12/21 03:47: Urine Color YELLOW, Urine Clarity CLEAR, Urine pH 6.0, Urine Specific [place] 1.010L, Urine Protein NEGATIVE, Urine Glucose (UA) NEGATIVE, Urine Ketones NEGATIVE, Urine Nitrite NEGATIVE, Urine Bilirubin NEGATIVE, Urine Urobilinogen 0.2, Urine Leukocyte Esterase NEGATIVE, Urine RBC (Auto) NEGATIVE, Urine RBC NONE, Urine WBC 0-2, Urine Squamous Epithelial Cells 2-5, Urine Crystals NONE, Urine Bacteria NEGATIVE, Urine Casts NONE, Urine Mucus NEGATIVE, Urine Culture Indicated NO, Urine Opiates Screen NEGATIVE, Urine Oxycodone Screen NEGATIVE, Urine Methadone Screen NEGATIVE, Urine Propoxyphene Screen NEGATIVE, Urine Barbiturates Screen NEGATIVE, Ur Tricyclic Antidepressants Screen NEGATIVE, Urine Phencyclidine Screen NEGATIVE, Urine Amphetamines Screen NEGATIVE, Urine Methamphetamines Screen NEGATIVE, Urine Benzodiazepines Screen POSITIVEH, Urine Cocaine Screen NEGATIVE, Urine Cannabinoids Screen NEGATIVE 08/13/21 05:56: White Blood Count 36.4*H, Red Blood Count 3.70L, Hemoglobin 10.5L, Hematocrit 33L, Mean Corpuscular Volume 90, Mean Corpuscular Hemoglobin 28, Mean Corpuscular Hemoglobin Concent 32, Red Cell Distribution Width 18.2H, Platelet Count 171, Mean Platelet Volume 11.1, Immature Granulocyte % (Auto) 0, Neutrophils (%) (Auto) 7L, Lymphocytes (%) (Auto) 85H, Monocytes (%) (Auto) 8, Eosinophils (%) (Auto) 0, Basophils (%) (Auto) 0, Neutrophils # (Auto) 2.4, Lymphocytes # (Auto) 30.9H, Monocytes # (Auto) 2.9H, Eosinophils # (Auto) 0.1, Basophils # (Auto) 0.1, Immature Granulocyte # (Auto) 0.0, Sodium Level 137, Potassium Level 4.0, Chloride Level 104, Carbon Dioxide Level 22, Anion Gap 11, Blood Urea Nitrogen 15, Creatinine 0.96, Estimat Glomerular Filtration Rate 60, BUN/Creatinine Ratio 16, Glucose Level 108H, Calcium Level 9.2, Corrected Calcium 9.6, Total Bilirubin 0.2, Aspartate Amino Transf (AST/SGOT) 19, Alanine Aminotransferase (ALT/SGPT) 12, Alkaline Phosphatase 97, Total Protein 6.3L, Albumin 3.5 08/13/21 20:55: Vitamin B12 Level 379, Thyroid Stimulating Hormone (TSH) 2.15 08/14/21 11:40: SARS-CoV-2 RNA (RT-PCR) Not Detected Pending Labs Laboratory Tests 08/11/21 15:21: White Blood Count 40.7, Red Blood Count 3.88, Hemoglobin 10.8, Hematocrit 35, Mean Corpuscular Volume 89, Mean Corpuscular Hemoglobin 28, Mean Corpuscular Hemoglobin Concent 31, Red Cell Distribution Width 18.3, Platelet Count 166, Mean Platelet Volume 10.3, Immature Granulocyte % (Auto) 0, Neutrophils (%) (Auto) 8, Lymphocytes (%) (Auto) 83, Monocytes (%) (Auto) 9, Eosinophils (%) (Auto) 0, Basophils (%) (Auto) 0, Neutrophils # (Auto) 3.1, Lymphocytes # (Auto) 33.7, Monocytes # (Auto) 3.7, Eosinophils # (Auto) 0.1, Basophils # (Auto) 0.1, Immature Granulocyte # (Auto) 0.0, Neutrophils % (Manual) 12, Lymphocytes % (Manual) 47, Monocytes % (Manual) 8, Atypical Lymphocytes , Reactive Lymphocytes 33, Blood Morphology Comment NORMAL, Sodium Level 134, Potassium Level 4.3, Chloride Level 102, Carbon Dioxide Level 23, Anion Gap 9, Blood Urea Nitrogen 16, Creatinine 0.85, Estimat Glomerular Filtration Rate 69, BUN/Creatinine Ratio 19, Glucose Level 86, Calcium Level 9.1, Corrected Calcium 9.3, Total Bilirubin 0.3, Aspartate Amino Transf (AST/SGOT) 24, Alanine Aminotransferase (ALT/SGPT) 14, Alkaline Phosphatase 116, Total Protein 6.6, Albumin 3.7, Salicylates Level < 5.0, Acetaminophen Level < 10, Serum Alcohol < 10 08/11/21 15:22: Glucometer 78 08/12/21 03:47: Urine Color YELLOW, Urine Clarity CLEAR, Urine pH 6.0, Urine Specific [place] 1.010, Urine Protein NEGATIVE, Urine Glucose (UA) NEGATIVE, Urine Ketones NEGATIVE, Urine Nitrite NEGATIVE, Urine Bilirubin NEGATIVE, Urine Urobilinogen 0.2, Urine Leukocyte Esterase NEGATIVE, Urine RBC (Auto) NEGATIVE, Urine RBC NONE, Urine WBC 0-2, Urine Squamous Epithelial Cells 2-5, Urine Crystals NONE, Urine Bacteria NEGATIVE, Urine Casts NONE, Urine Mucus NEGATIVE, Urine Culture Indicated NO, Urine Opiates Screen NEGATIVE, Urine Oxycodone Screen NEGATIVE, Urine Methadone Screen NEGATIVE, Urine Propoxyphene Screen NEGATIVE, Urine Barbiturates Screen NEGATIVE, Ur Tricyclic Antidepressants Screen NEGATIVE, Urine Phencyclidine Screen NEGATIVE, Urine Amphetamines Screen NEGATIVE, Urine Methamphetamines Screen NEGATIVE, Urine Benzodiazepines Screen POSITIVE, Urine Cocaine Screen NEGATIVE, Urine Cannabinoids Screen NEGATIVE 08/13/21 05:56: White Blood Count 36.4, Red Blood Count 3.70, Hemoglobin 10.5, Hematocrit 33, Mean Corpuscular Volume 90, Mean Corpuscular Hemoglobin 28, Mean Corpuscular Hemoglobin Concent 32, Red Cell Distribution Width 18.2, Platelet Count 171, Mean Platelet Volume 11.1, Immature Granulocyte % (Auto) 0, Neutrophils (%) (Auto) 7, Lymphocytes (%) (Auto) 85, Monocytes (%) (Auto) 8, Eosinophils (%) (Auto) 0, Basophils (%) (Auto) 0, Neutrophils # (Auto) 2.4, Lymphocytes # (Auto) 30.9, Monocytes # (Auto) 2.9, Eosinophils # (Auto) 0.1, Basophils # (Auto) 0.1, Immature Granulocyte # (Auto) 0.0, Sodium Level 137, Potassium Level 4.0, Chlor faith Level 104, Carbon Dioxide Level 22, Anion Gap 11, Blood Urea Nitrogen 15, Creatinine 0.96, Estimat Glomerular Filtration Rate 60, BUN/Creatinine Ratio 16, Glucose Level 108, Calcium Level 9.2, Corrected Calcium 9.6, Total Bilirubin 0.2, Aspartate Amino Transf (AST/SGOT) 19, Alanine Aminotransferase (ALT/SGPT) 12, Alkaline Phosphatase 97, Total Protein 6.3, Albumin 3.5 08/13/21 20:55: Vitamin B12 Level 379, Thyroid Stimulating Hormone (TSH) 2.15 08/14/21 11:40: SARS-CoV-2 RNA (RT-PCR) Not Detected Discharge Home Medications: Active Scripts Active Reported Duloxetine HCl 60 Mg Capsule.dr 60 Mg PO DAILY Instructions to patient/family Please see electronic discharge instructions given to patient. Diagnosis/Problems Diagnosis/Problems (1) Altered mental status Status: Acute (2) Memory loss due to medical condition Status: Chronic (3) CLL (chronic lymphocytic leukemia) Status: Chronic RICO HUANG DO Aug 14, 2021 06:49
[2021-08-14 07:54] VITALS: BP 87/53
[2021-08-14] MEDS ORDERED: DULoxetine 30 MG (CYMBALTA) CAP PO SCH (09:00)
[2021-08-14 11:31] VITALS: BP 108/68
[2021-08-14] MEDS: LORazepam INJ 2 MG/ML (ATIVAN) VIAL IVP PRN (14:10)
[2021-08-14 14:15] VITALS: BP 108/68
== END 2021-08-14 10:00 ==
LOC: ER 15:12 → UNDOADMOB 17:27 → 4TH 17:27 → UNDODISOB 08-14 14:10
PROVIDERS: ADMIT Internal Medicine; ATTEND Internal Medicine
DX: R41.82 Altered mental status, unspecified (principal); I95.9 Hypotension, unspecified; J45.909 Unspecified asthma, uncomplicated; C91.10 Chronic lymphocytic leukemia of B-cell type not having achieved remission; G43.909 Migraine, unspecified, not intractable, without status migrainosus; K58.9 Irritable bowel syndrome, unspecified; D64.9 Anemia, unspecified; F32.A Depression, unspecified; F41.9 Anxiety disorder, unspecified; F03.90 Unspecified dementia, unspecified severity, without behavioral disturbance, psychotic disturbance, mood disturbance, and anxiety; Z87.891 Personal history of nicotine dependence; Z92.21 Personal history of antineoplastic chemotherapy; Z98.51 Tubal ligation status
CPT/HCPCS: 80053 ×2; 80306; 81000; 82607; 82947; 84443; 85007; 85025; 85027; 87636; 96374; 96376; 99284; G0378; G0480 ×3; 36415; 80320; 80329

== ENCOUNTER 2021-09-05 13:22 | Outpatient (RCR) | payer BC, MEDICARE ==
[~2021-09-05 13:22] MED LIST changes: +DULO60CA59 PO
[2021-09-05] MEDS ORDERED: ACETAMINOPHEN 500 MG TAB (TYLENOL) CANCER CTR ONE (13:23)
[2021-09-05] MEDS ORDERED: diphenhydrAMINE 25 MG TAB (BENADRYL) CANCER CENTER PO ONE (13:23)
[2021-09-05] MEDS ORDERED: IMMUNE GLOBULIN,GAMMA (IGG) 200 ML IV SCH (13:30)
== END 2021-09-14 | disposition home or self-care (01) ==
LOC: ONC 13:22
PROVIDERS: ATTEND Internal Medicine Hematology & Oncology
DX: Z51.11 Encounter for antineoplastic chemotherapy (principal); C91.12 Chronic lymphocytic leukemia of B-cell type in relapse; D80.1 Nonfamilial hypogammaglobulinemia; D64.9 Anemia, unspecified; D75.9 Disease of blood and blood-forming organs, unspecified; J40 Bronchitis, not specified as acute or chronic; F17.210 Nicotine dependence, cigarettes, uncomplicated; Z92.21 Personal history of antineoplastic chemotherapy; Z79.899 Other long term (current) drug therapy
CPT/HCPCS: 96365; 96366; J1569

== ENCOUNTER 2022-08-14 15:08 | Inpatient (IN) | payer MEDICARE ==
[~2022-08-14] VITALS: Ht 165 cm; Wt 37.5 kg
[~2022-08-14 15:08] MED LIST changes: +ALBU8.5H6 INH; +LEVO-55 PO; -LEVO500T81 PO; +OMEP20TA56 PO; -OMEP20TA7 PO; -RT-ALBUINH INH
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
[2022-08-14] MEDS ORDERED: LACTATED RINGERS 1,000 ML IV SCH ×2 (15:30→17:00)
[2022-08-14] MEDS ORDERED: DROPERIDOL 5 MG/2 ML (INAPSINE) ED ONLY! IM ONE (15:30)
[2022-08-14] MEDS ORDERED: LORazepam INJ 2 MG/ML (ATIVAN) VIAL IM ONE (16:00)
[2022-08-14 16:16] LABS: BASOPHILS # (AUTO) 0.1 10^3/uL (0.0-0.1); BASOPHILS % (AUTO) 0 % (0-10); EOSINOPHILS # (AUTO) 0.1 10^3/uL (0.0-0.3); EOSINOPHILS % (AUTO) 0 % (0-10); HEMATOCRIT 39 % (35-52); HEMOGLOBIN 11.5 g/dL (11.5-16.0); LYMPHOCYTES # (AUTO) 49.1 10^3/uL (1.0-4.0); LYMPHOCYTES % (AUTO) 84 % (12-44); MEAN CORPUSCULAR HEMOGLOBIN 25 pg (25-34); MEAN CORPUSCULAR HGB CONC 30 g/dL (32-36); MEAN CORPUSCULAR VOLUME 85 fL (80-99); MEAN PLATELET VOLUME 10.3 fL (9.0-12.2); MONOCYTES # (AUTO) 4.2 10^3/uL (0.0-1.0); MONOCYTES % (AUTO) 7 % (0-12); NEUTROPHILS # (AUTO) 5.2 10^3/uL (1.8-7.8); NEUTROPHILS % (AUTO) 9 % (42-75); PLATELET COUNT 261 10^3/uL (130-400)
[2022-08-14 16:18] LABS: WHITE BLOOD COUNT 58.7 10^3/uL (4.3-11.0)
[2022-08-14 16:46] LABS: POTASSIUM 4.4 MMOL/L (3.6-5.0)
[2022-08-14 16:47] LABS: CALCIUM 9.6 MG/DL (8.5-10.1)
[2022-08-14 16:49] LABS: TOTAL PROTEIN 6.9 GM/DL (6.4-8.2)
[2022-08-14 16:50] LABS: BILIRUBIN,TOTAL 0.3 MG/DL (0.1-1.0)
[2022-08-14 16:52] LABS: CREATININE SERUM 0.78 MG/DL (0.60-1.30)
--- NOTE | 2022-08-14 17:32 | Diagnostic Imaging Report ---
INDICATION: Cough. EXAMINATION: Chest, 08/14/2022. COMPARISON: 10/25/2019. FINDINGS: Two views of the chest. There is cardiomegaly with pulmonary vascular congestion. Suprahilar infiltrate suspected with a likely infiltrate in the medial right lung base. The remaining lungs demonstrate a focal airspace opacity in the left perihilar region, possibly infiltrate with mass highly suspected. No effusions or pneumothorax. IMPRESSION: 1. Findings of pulmonary edema with scattered infiltrates as above. 2. Suspected mass in the left perihilar region. CT could provide further characterization. Dictated by: Dictated on workstation # [id number]
[2022-08-14] MEDS ORDERED: IOHEXOL 350 MG/ML 100 ML (OMNIPAQUE 350) VIAL IV ONE (17:45)
[2022-08-14] MEDS ORDERED: NS 100 ML (IVPB) BAG IV ONE (17:45)
[2022-08-14] MEDS ORDERED: HOLD METFORMIN - RECEIVED CONTRAST 20 ML VIAL IV SCH (17:45)
[2022-08-14] MEDS ORDERED: diphenhydrAMINE 50 MG/ML INJ (BENADRYL) IVP ONE (18:15)
--- NOTE | 2022-08-14 18:37 | Diagnostic Imaging Report ---
EXAMINATION: CT chest, abdomen, and pelvis with contrast from 08/14/2022. TECHNIQUE: Multiple contiguous axial images were obtained through the chest, abdomen, and pelvis after the administration of intravenous contrast. Auto Exposure Controls were utilized during the CT exam to meet ALARA standards for radiation dose reduction. INDICATION: Mass versus infiltrate. COMPARISON: Comparison made to a CT abdomen and pelvis from 07/28/2018. Comparison to a chest from 12/05/2015 as well. FINDINGS: CHEST: The lungs are markedly abnormal with multiple cavitary lesions noted bilaterally. Some of the larger lesions are noted within the left upper lobe with the more anterior lesion demonstrating central cavitation. This measures just over 2 cm in greatest dimension. An adjacent more posterior solid-appearing lesion measures 2.2 cm. A lateral lesion measures 1.5 cm in greatest dimension. Multiple other smaller nodules and cavitations noted throughout the left upper lobe. There is a solid-appearing nodule in the posterior right lower lobe measuring a centimeter in greatest dimension. Multiple other scattered nodules seen throughout the right lower lobe with a slight tree-in-bud appearance in the superior segment. Tree-in-bud appearance diffusely throughout the right upper lobe with small nodules seen throughout the right middle lobe. There is a focal airspace opacity in the medial right middle lobe, possibly atelectasis. Diffuse groundglass opacities otherwise noted throughout both lungs. There is no pneumothorax. There are no pericardial or pleural effusions. Diffuse marked lymphadenopathy is seen throughout the mediastinum and bilateral maritza. There are multiple masses along the lateral border of the left breast, the largest of which measures 2.4 cm in greatest dimension. Slightly prominent lymph nodes noted in the left lateral chest wall with left axillary adenopathy. Largest lymph node measures 2 cm in greatest dimension. There is a suspected prominent lymph node along the left inframammary chain measuring 1.3 cm in greatest dimension. The osseous structures are intact. IMPRESSION: 1. Innumerable cavitary lesions throughout both lungs with more solid masses noted bilaterally as detailed above, highly suspicious for a metastatic process with a superimposed atypical infectious etiology suspected given the cavitations and tree in bud appearance described above. 2. Diffuse mediastinal and hilar adenopathy suggesting metastasis, although some of this may be inflammatory as well. Left axillary adenopathy is also noted. 3. Left lateral breast masses. CT ABDOMEN AND PELVIS: The liver is prominent but otherwise unremarkable. There is marked heterogeneity throughout the spleen. This is nonspecific and could be due to timing of contrast opacification. However, given the other findings in the chest, masses within the spleen and even infectious processes including abscesses not excluded. The gallbladder is unremarkable. The pancreas is normal. Right adrenal gland is normal. Left adrenal gland is slightly prominent, likely due to hyperplasia. Kidneys are normal. Nonspecific calcifications noted throughout the right aspect of the retroperitoneum. Suspected associated lymphadenopathy is noted. Multiple prominent lymph nodes are noted within the left aspect of the retroperitoneum as well. Diffuse adenopathy is seen bilaterally along the iliac chains, some of which are partially calcified. Bilateral inguinal adenopathy is also noted. Some of the prominent lymph nodes are partially calcified in the inguinal regions. Medial to the spleen, there is a soft tissue prominence which is poorly characterized and difficult to separate from the pancreas. A focal enlarged lymph node or separate mass is not excluded. There is either a focal collection of loops of small bowel in the left lower quadrant anterior to the ilium versus a lymph node mass. No free air. No free fluid. No acute osseous abnormality. IMPRESSION: 1. Heterogeneity throughout the spleen which is nonspecific, given other findings, a mass or even underlying abscess is difficult to exclude. 2. Diffuse retroperitoneal and pelvic adenopathy as described above, some of which are partially calcified. Findings are highly suspicious for either a metastatic process or lymphoma. Mass medial to the spleen is difficult to exclude with a mass in the left aspect of the pelvis also not excluded. 3. Hepatomegaly with other findings, as above. Dictated by: Dictated on workstation # [id number]
[2022-08-14] MEDS ORDERED: ENOXAPARIN 40 MG/0.4 ML (LOVENOX) SYR SC SCH (18:45)
[2022-08-14] MEDS ORDERED: ONDANSETRON 4 MG (ZOFRAN) ORAL DISSOLVE TAB PO PRN (18:45)
[2022-08-14] MEDS ORDERED: ONDANSETRON 4 MG/2 ML (SDV) Z0FRAN IV PRN (18:45)
[2022-08-14] MEDS ORDERED: NALOXONE 0.4 MG/ML 1 ML (NARCAN) VIAL IV PRN (18:45)
[2022-08-14] MEDS ORDERED: WATER (STERILE) FOR INJ 10 ML BTL INJ SCH (18:45)
[2022-08-14] MEDS ORDERED: diphenhydrAMINE 50 MG/ML INJ (BENADRYL) IVP PRN (18:45)
[2022-08-14] MEDS ORDERED: ACETAMINOPHEN 325 MG TABLET PO PRN (18:45)
[2022-08-14] MEDS ORDERED: diphenhydrAMINE 25 MG TAB (BENADRYL) PO PRN (18:45)
[2022-08-14] MEDS ORDERED: LACTULOSE SYRUP 10GM/15ML (ENULOSE) 30ML UDC PO PRN (18:45)
[2022-08-14] MEDS ORDERED: HYDROmorphone 2 MG/ML VIAL (DILAUDID) IV PRN (18:45)
[2022-08-14] MEDS ORDERED: CALCIUM CARBONATE 500 MG (TUMS) TAB.CHEW PO PRN (18:45)
[2022-08-14] MEDS ORDERED: polyethylene glycoL POWDER 17 GM (MIRALAX) PACK PO PRN (18:45)
[2022-08-14] MEDS ORDERED: BISACODYL 10 MG SUPP (DULCOLAX) PR PRN (18:45)
[2022-08-14] MEDS ORDERED: ZIPRASIDONE 20 MG INJ (GEODON) VIAL IM PRN (18:45)
[2022-08-14] MEDS ORDERED: ANTACID SUSP 30 ML UDC (MYLANTA) PO PRN (18:45)
[2022-08-14] MEDS ORDERED: MELATONIN 3 MG TABLET PO PRN (18:45)
[2022-08-14] MEDS ORDERED: MILK OF MAGNESIA 400 MG/5 ML 30 ML UDC PO PRN (18:45)
[2022-08-14 19:16] VITALS: BP 95/55
[2022-08-14] MEDS: SENNOSIDES 8.6 MG (SENOKOT) TAB PO SCH (21:48)
[2022-08-14] MEDS: DOCUSATE SODIUM 100 MG (COLACE) CAP PO SCH (21:48)
[2022-08-14] MEDS: NS IV 1000 ML 1,000 ML IV SCH (21:57)
[2022-08-14 23:07] VITALS: BP 111/73
[2022-08-15 04:10] VITALS: BP 131/64
[2022-08-15] MEDS: LORazepam INJ 2 MG/ML (ATIVAN) VIAL IVP PRN ×2 (04:19→18:12)
[2022-08-15] MEDS: NS IV 1000 ML 1,000 ML IV SCH ×4 (05:36→20:13)
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
[2022-08-15 06:13] LABS: BASOPHILS # (AUTO) 0.1 10^3/uL (0.0-0.1); BASOPHILS % (AUTO) 0 % (0-10); EOSINOPHILS # (AUTO) 0.1 10^3/uL (0.0-0.3); EOSINOPHILS % (AUTO) 0 % (0-10); HEMATOCRIT 33 % (35-52); LYMPHOCYTES # (AUTO) 33.6 10^3/uL (1.0-4.0); LYMPHOCYTES % (AUTO) 83 % (12-44); MEAN CORPUSCULAR HEMOGLOBIN 26 pg (25-34); MEAN CORPUSCULAR HGB CONC 30 g/dL (32-36); MEAN CORPUSCULAR VOLUME 85 fL (80-99); MEAN PLATELET VOLUME 10.4 fL (9.0-12.2); MONOCYTES % (AUTO) 7 % (0-12); NEUTROPHILS # (AUTO) 3.9 10^3/uL (1.8-7.8); NEUTROPHILS % (AUTO) 10 % (42-75); PLATELET COUNT 202 10^3/uL (130-400)
[2022-08-15 06:16] LABS: WHITE BLOOD COUNT 40.7 10^3/uL (4.3-11.0)
[2022-08-15 06:32] LABS: ALBUMIN 3.2 GM/DL (3.2-4.5); POTASSIUM 3.9 MMOL/L (3.6-5.0)
[2022-08-15 06:35] LABS: TOTAL PROTEIN 5.5 GM/DL (6.4-8.2)
[2022-08-15 06:37] LABS: BILIRUBIN,TOTAL 0.3 MG/DL (0.1-1.0)
[2022-08-15 06:38] LABS: CREATININE SERUM 0.71 MG/DL (0.60-1.30)
[2022-08-15] MEDS: LORazepam 1 MG (ATIVAN) TAB PO PRN (08:36)
[2022-08-15] MEDS: DOCUSATE SODIUM 100 MG (COLACE) CAP PO SCH ×3 (08:37→23:39)
[2022-08-15] MEDS: SENNOSIDES 8.6 MG (SENOKOT) TAB PO SCH ×3 (08:37→23:39)
[2022-08-15 08:55] VITALS: BP 113/53
[2022-08-15 11:42] VITALS: BP 88/53
[2022-08-15 16:00] VITALS: BP 104/58
--- NOTE | 2022-08-15 18:27 | Diagnostic Imaging Report ---
EXAMINATION: CT head without contrast. TECHNIQUE: Multiple contiguous axial images were obtained through the brain without the use of intravenous contrast. All CT scans use one or more of the following dose optimizing techniques: automated exposure control, MA and/or KvP adjustment based on patient size and exam type or iterative reconstruction. HISTORY: Altered mental status. Dehydration. History of CLL. COMPARISON: MRI brain on 11/11/2017. FINDINGS: No large acute territorial ischemia, mass, or hemorrhage. No midline shift or mass effect. Decreased attenuation is seen in the periventricular and subcortical white matter. The ventricles and cortical sulci are prominent. The basilar cisterns are patent and unremarkable. The orbits are normal. Paranasal sinuses are normal. Small right-sided mastoid effusion. No soft tissue abnormality is seen. No osseus lesions or fractures are seen. IMPRESSION: 1. No large acute territorial ischemia, mass, or hemorrhage. 2. Chronic microvascular disease. 3. Generalized parenchymal volume loss. Dictated by: Dictated on workstation # [id number]
[2022-08-15 20:00] VITALS: BP 107/65
[2022-08-15] MEDS: ENOXAPARIN INJECTION 30 MG/0.3 ML SYR SC SCH (20:12)
[2022-08-16] VITALS: BP 110/56
[2022-08-16 04:08] VITALS: BP 116/76
[2022-08-16 06:03] LABS: BASOPHILS # (AUTO) 0.1 10^3/uL (0.0-0.1); BASOPHILS % (AUTO) 0 % (0-10); EOSINOPHILS # (AUTO) 0.1 10^3/uL (0.0-0.3); EOSINOPHILS % (AUTO) 0 % (0-10); HEMATOCRIT 32 % (35-52); HEMOGLOBIN 9.9 g/dL (11.5-16.0); LYMPHOCYTES # (AUTO) 39.1 10^3/uL (1.0-4.0); LYMPHOCYTES % (AUTO) 82 % (12-44); MEAN CORPUSCULAR HEMOGLOBIN 26 pg (25-34); MEAN CORPUSCULAR HGB CONC 31 g/dL (32-36); MEAN CORPUSCULAR VOLUME 83 fL (80-99); MEAN PLATELET VOLUME 10.4 fL (9.0-12.2); MONOCYTES # (AUTO) 3.6 10^3/uL (0.0-1.0); MONOCYTES % (AUTO) 8 % (0-12); NEUTROPHILS # (AUTO) 4.6 10^3/uL (1.8-7.8); NEUTROPHILS % (AUTO) 10 % (42-75); PLATELET COUNT 213 10^3/uL (130-400)
[2022-08-16 06:12] LABS: WHITE BLOOD COUNT 47.5 10^3/uL (4.3-11.0)
[2022-08-16 06:32] LABS: ALBUMIN 3.2 GM/DL (3.2-4.5); BILIRUBIN,TOTAL 0.3 MG/DL (0.1-1.0); CALCIUM 8.4 MG/DL (8.5-10.1); CREATININE SERUM 0.66 MG/DL (0.60-1.30); POTASSIUM 4.4 MMOL/L (3.6-5.0); TOTAL PROTEIN 5.2 GM/DL (6.4-8.2)
[2022-08-16 08:31] VITALS: BP 104/58
[2022-08-16] MEDS: DOCUSATE SODIUM 100 MG (COLACE) CAP PO SCH ×2 (09:31→21:21)
[2022-08-16] MEDS: SENNOSIDES 8.6 MG (SENOKOT) TAB PO SCH ×2 (09:32→21:21)
[2022-08-16] MEDS: NS IV 1000 ML 1,000 ML IV SCH ×2 (11:24→17:34)
[2022-08-16 11:40] VITALS: BP 110/62
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
[2022-08-16] MEDS: LORazepam 1 MG (ATIVAN) TAB PO PRN (18:37)
[2022-08-16 19:55] VITALS: BP 108/58
[2022-08-16] MEDS: ENOXAPARIN INJECTION 30 MG/0.3 ML SYR SC SCH (21:41)
[2022-08-16] MEDS: LORazepam INJ 2 MG/ML (ATIVAN) VIAL IVP PRN (22:19)
[2022-08-16 23:17] VITALS: BP 81/53
[2022-08-17] MEDS: NS IV 1000 ML 1,000 ML IV SCH ×2 (01:32→09:33)
[2022-08-17 03:24] VITALS: BP 83/46
[2022-08-17 06:29] LABS: BASOPHILS # (AUTO) 0.1 10^3/uL (0.0-0.1); BASOPHILS % (AUTO) 0 % (0-10); EOSINOPHILS # (AUTO) 0.1 10^3/uL (0.0-0.3); EOSINOPHILS % (AUTO) 0 % (0-10); HEMATOCRIT 30 % (35-52); HEMOGLOBIN 8.8 g/dL (11.5-16.0); LYMPHOCYTES # (AUTO) 22.7 10^3/uL (1.0-4.0); LYMPHOCYTES % (AUTO) 82 % (12-44); MEAN CORPUSCULAR HEMOGLOBIN 25 pg (25-34); MEAN CORPUSCULAR HGB CONC 30 g/dL (32-36); MEAN CORPUSCULAR VOLUME 85 fL (80-99); MEAN PLATELET VOLUME 10.1 fL (9.0-12.2); MONOCYTES # (AUTO) 2.5 10^3/uL (0.0-1.0); MONOCYTES % (AUTO) 9 % (0-12); NEUTROPHILS # (AUTO) 2.5 10^3/uL (1.8-7.8); NEUTROPHILS % (AUTO) 9 % (42-75); PLATELET COUNT 156 10^3/uL (130-400); WHITE BLOOD COUNT 27.8 10^3/uL (4.3-11.0)
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
[2022-08-17 06:52] LABS: ALBUMIN 2.8 GM/DL (3.2-4.5); BILIRUBIN,TOTAL 0.2 MG/DL (0.1-1.0); CALCIUM 8.4 MG/DL (8.5-10.1); CREATININE SERUM 0.64 MG/DL (0.60-1.30); POTASSIUM 3.6 MMOL/L (3.6-5.0); TOTAL PROTEIN 4.7 GM/DL (6.4-8.2)
[2022-08-17 07:05] LABS: BASOPHILS % (MANUAL) 1 %; LYMPHOCYTES % (MANUAL) 89 %; NEUTROPHILS % (MANUAL) 10 %
[2022-08-17 07:57] VITALS: BP 98/57
[2022-08-17] MEDS: DOCUSATE SODIUM 100 MG (COLACE) CAP PO SCH ×2 (08:25→20:45)
[2022-08-17] MEDS: SENNOSIDES 8.6 MG (SENOKOT) TAB PO SCH ×2 (08:25→20:45)
[2022-08-17] MEDS: LORazepam 1 MG (ATIVAN) TAB PO PRN (09:33)
[2022-08-17 11:35] VITALS: BP 100/59
[2022-08-17] MEDS: HYDROmorphone 2 MG/ML VIAL (DILAUDID) IV PRN ×3 (12:24→22:07)
[2022-08-17 19:31] VITALS: BP 92/46
[2022-08-17] MEDS: ENOXAPARIN INJECTION 30 MG/0.3 ML SYR SC SCH ×2 (20:45→22:06)
[2022-08-18] VITALS (7 sets, daily range): BP systolic 90–111; BP diastolic 50–68
[2022-08-18] MEDS: LORazepam INJ 2 MG/ML (ATIVAN) VIAL IVP PRN ×3 (00:06→21:28)
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
[2022-08-18] MEDS: DOCUSATE SODIUM 100 MG (COLACE) CAP PO SCH ×2 (07:53→21:48)
[2022-08-18] MEDS: SENNOSIDES 8.6 MG (SENOKOT) TAB PO SCH ×2 (07:54→21:49)
[2022-08-18] MEDS: HYDROmorphone 2 MG/ML VIAL (DILAUDID) IV PRN ×3 (07:54→22:58)
[2022-08-18] MEDS: ENOXAPARIN INJECTION 30 MG/0.3 ML SYR SC SCH (21:28)
[2022-08-19] MEDS: LORazepam INJ 2 MG/ML (ATIVAN) VIAL IVP PRN ×5 (01:18→19:58)
[2022-08-19] MEDS: HYDROmorphone 2 MG/ML VIAL (DILAUDID) IV PRN ×3 (02:48→21:07)
[2022-08-19 03:02] VITALS: BP 98/54
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
[2022-08-19 08:00] VITALS: BP 94/54
[2022-08-19] MEDS: DOCUSATE SODIUM 100 MG (COLACE) CAP PO SCH ×2 (09:14→21:31)
[2022-08-19] MEDS: SENNOSIDES 8.6 MG (SENOKOT) TAB PO SCH ×2 (09:15→21:31)
[2022-08-19] MEDS ORDERED: fentaNYL PATCH 25 MCG (DURAGESIC) TD SCH (10:30)
[2022-08-19 12:00] VITALS: BP 90/55
[2022-08-19 15:39] VITALS: BP 96/54
[2022-08-19] MEDS: ENOXAPARIN INJECTION 30 MG/0.3 ML SYR SC SCH ×2 (19:58→21:32)
[2022-08-19 20:00] VITALS: BP 108/72
[2022-08-20] VITALS (7 sets, daily range): BP systolic 80–129; BP diastolic 48–62
[2022-08-20] MEDS: HYDROmorphone 2 MG/ML VIAL (DILAUDID) IV PRN ×6 (03:15→23:10)
[2022-08-20] MEDS: LORazepam INJ 2 MG/ML (ATIVAN) VIAL IVP PRN ×3 (07:39→21:32)
[2022-08-20] MEDS ORDERED: LORA2ORA PO (10:13)
[2022-08-20] MEDS ORDERED: OXYC5SOL19 PO (10:13)
--- NOTE | 2022-08-20 10:15 | Discharge Summary ---
Diagnosis/Chief Complaint Date of Admission Aug 16, 2022 at 14:15 Date of Discharge Discharge Date: Aug 20, 2022 Discharge Summary Discharge Physical Examination Allergies: Coded Allergies: Sulfa (Sulfonamide Antibiotics) (Verified Allergy, Unknown, 08/11/21) Uncoded Allergies: IV contrast (Allergy, Intermediate, RASH, 07/28/18) Vitals & I&Os Vital Signs Date Time Temp Pulse Resp B/P (MAP) Pulse Ox O2 Delivery O2 Flow Rate FiO2 08/20/22 20:00 37.5 96 18 129/58 (81) 90 Room Air 08/20/22 08:00 1.00 Hospital Course Labs (last 24 hrs) Laboratory Tests 08/14/22 16:05: White Blood Count 58.7*H, Red Blood Count 4.53, Hemoglobin 11.5, Hematocrit 39, Mean Corpuscular Volume 85, Mean Corpuscular Hemoglobin 25, Mean Corpuscular Hemoglobin Concent 30L, Red Cell Distribution Width 18.6H, Platelet Count 261, Mean Platelet Volume 10.3, Immature Granulocyte % (Auto) 0, Neutrophils (%) (Auto) 9L, Lymphocytes (%) (Auto) 84H, Monocytes (%) (Auto) 7, Eosinophils (%) (Auto) 0, Basophils (%) (Auto) 0, Neutrophils # (Auto) 5.2, Lymphocytes # (Auto) 49.1H, Monocytes # (Auto) 4.2H, Eosinophils # (Auto) 0.1, Basophils # (Auto) 0.1, Immature Granulocyte # (Auto) 0.1, Sodium Level 138, Potassium Level 4.4, Chloride Level 105, Carbon Dioxide Level 20L, Anion Gap 13, Blood Urea Nitrogen 22H, Creatinine 0.78, Estimat Glomerular Filtration Rate 88, BUN/Creatinine Ratio 28, Glucose Level 112H, Calcium Level 9.6, Corrected Calcium 9.6, Total Bilirubin 0.3, Aspartate Amino Transf (AST/SGOT) 9, Alanine Aminotransferase (ALT/SGPT) 7, Alkaline Phosphatase 130, Total Protein 6.9, Albumin 4.0 08/14/22 17:06: Influenza Type A Antigen NEGATIVE, Influenza Type B Antigen NEGATIVE, SARS-CoV-2 RNA (RT-PCR) Not Detected 08/14/22 19:00: TB Test (QFT) Nil 0.27, TB Test (QFT) Mitogen Minus Nil 6.15, TB Test (QFT) Antigen Minus Nil 1 0.02, TB Test (QFT) Antigen Minus Nil 2 <0.00, TB Test (QFT) Interpretation Negative 08/15/22 06:00: White Blood Count 40.7*H, Red Blood Count 3.90, Hemoglobin 10.0L, Hematocrit 33L , Mean Corpuscular Volume 85, Mean Corpuscular Hemoglobin 26, Mean Corpuscular Hemoglobin Concent 30L, Red Cell Distribution Width 18.6H, Platelet Count 202, Mean Platelet Volume 10.4, Immature Granulocyte % (Auto) 0, Neutrophils (%) (Auto) 10L, Lymphocytes (%) (Auto) 83H, Monocytes (%) (Auto) 7, Eosinophils (%) (Auto) 0, Basophils (%) (Auto) 0, Neutrophils # (Auto) 3.9, Lymphocytes # (Auto) 33.6H, Monocytes # (Auto) 3.0H, Eosinophils # (Auto) 0.1, Basophils # (Auto) 0.1, Immature Granulocyte # (Auto) 0.1, Sodium Level 136, Potassium Level 3.9, Chloride Level 106, Carbon Dioxide Level 19L, Anion Gap 11, Blood Urea Nitrogen 15, Creatinine 0.71, Estimat Glomerular Filtration Rate 98, BUN/Creatinine Ratio 21, Glucose Level 91, Calcium Level 9.0, Corrected Calcium 9.6, Total Bilirubin 0.3, Aspartate Amino Transf (AST/SGOT) 12, Alanine Aminotransferase (ALT/SGPT) 7, Alkaline Phosphatase 108, Total Protein 5.5L, Albumin 3.2 08/16/22 05:40: White Blood Count 47.5*H, Red Blood Count 3.83, Hemoglobin 9.9L, Hematocrit 32L, Mean Corpuscular Volume 83, Mean Corpuscular Hemoglobin 26, Mean Corpuscular Hemoglobin Concent 31L, Red Cell Distribution Width 18.3H, Platelet Count 213, Mean Platelet Volume 10.4, Immature Granulocyte % (Auto) 0, Neutrophils (%) (Auto) 10L, Lymphocytes (%) (Auto) 82H, Monocytes (%) (Auto) 8, Eosinophils (%) (Auto) 0, Basophils (%) (Auto) 0, Neutrophils # (Auto) 4.6, Lymphocytes # (Auto) 39.1H, Monocytes # (Auto) 3.6H, Eosinophils # (Auto) 0.1, Basophils # (Auto) 0.1, Immature Granulocyte # (Auto) 0.1, Sodium Level 136, Potassium Level 4.4, Chloride Level 105, Carbon Dioxide Level 19L, Anion Gap 12, Blood Urea Nitrogen 8, Creatinine 0.66, Estimat Glomerular Filtration Rate 102, BUN/Creatinine Ratio 12, Glucose Level 91, Calcium Level 8.4L, Corrected Calcium 9.0, Total Bilirubin 0.3, Aspartate Amino Transf (AST/SGOT) 10, Alanine Aminotransferase (ALT/SGPT) 8, Alkaline Phosphatase 107, Total Protein 5.2L, Albumin 3.2 08/17/22 06:10: White Blood Count 27.8H, Red Blood Count 3.48L, Hemoglobin 8.8L, Hematocrit 30L, Mean Corpuscular Volume 85, Mean Corpuscular Hemoglobin 25, Mean Corpuscular Hemoglobin Concent 30L, Red Cell Distribution Width 18.2H, Platelet Count 156, Mean Platelet Volume 10.1, Immature Granulocyte % (Auto) 0, Neutrophils (%) (Auto) 9L, Lymphocytes (%) (Auto) 82H, Monocytes (%) (Auto) 9, Eosinophils (%) (Auto) 0, Basophils (%) (Auto) 0, Neutrophils # (Auto) 2.5, Lymphocytes # (Auto) 22.7H, Monocytes # (Auto) 2.5H, Eosinophils # (Auto) 0.1, Basophils # (Auto) 0.1, Immature Granulocyte # (Auto) 0.0, Sodium Level 140, Potassium Level 3.6, Chloride Level 110H, Carbon Dioxide Level 20L, Anion Gap 10, Blood Urea Nitrogen 10, Creatinine 0.64, Estimat Glomerular Filtration Rate 102, BUN/Creatinine Ratio 16, Glucose Level 86, Calcium Level 8.4L, Corrected Calcium 9.4, Total Bilirubin 0.2, Aspartate Amino Transf (AST/SGOT) 8, Alanine Aminotransferase (ALT/SGPT) 7, Alkaline Phosphatase 98, Total Protein 4.7L, Albumin 2.8L, Neutrophils % (Manual) 10, Lymphocytes % (Manual) 89, Basophils % (Manual) 1, Smudge Cells MOD Pending Labs Laboratory Tests 08/14/22 16:05: White Blood Count 58.7, Red Blood Count 4.53, Hemoglobin 11.5, Hematocrit 39, Mean Corpuscular Volume 85, Mean Corpuscular Hemoglobin 25, Mean Corpuscular Hemoglobin Concent 30, Red Cell Distribution Width 18.6, Platelet Count 261, Mean Platelet Volume 10.3, Immature Granulocyte % (Auto) 0, Neutrophils (%) (Auto) 9, Lymphocytes (%) (Auto) 84, Monocytes (%) (Auto) 7, Eosinophils (%) (Auto) 0, Basophils (%) (Auto) 0, Neutrophils # (Auto) 5.2, Lymphocytes # (Auto) 49.1, Monocytes # (Auto) 4.2, Eosinophils # (Auto) 0.1, Basophils # (Auto) 0.1, Immature Granulocyte # (Auto) 0.1, Sodium Level 138, Potassium Level 4.4, Chloride Level 105, Carbon Dioxide Level 20, Anion Gap 13, Blood Urea Nitrogen 22, Creatinine 0.78, Estimat Glomerular Filtration Rate 88, BUN/Creatinine Ratio 28, Glucose Level 112, Calcium Level 9.6, Corrected Calcium 9.6, Total Bilirubin 0.3, Aspartate Amino Transf (AST/SGOT) 9, Alanine Aminotransferase (ALT/SGPT) 7, Alkaline Phosphatase 130, Total Protein 6.9, Albumin 4.0 08/14/22 17:06: Influenza Type A Antigen NEGATIVE, Influenza Type B Antigen NEGATIVE, SARS-CoV-2 RNA (RT-PCR) Not Detected 08/14/22 19:00: TB Test (QFT) Nil 0.27, TB Test (QFT) Mitogen Minus Nil 6.15, TB Test (QFT) Antigen Minus Nil 1 0.02, TB Test (QFT) Antigen Minus Nil 2 <0.00, TB Test (QFT) Interpretation Negative 08/15/22 06:00: White Blood Count 40.7, Red Blood Count 3.90, Hemoglobin 10.0, Hematocrit 33, Mean Corpuscular Volume 85, Mean Corpuscular Hemoglobin 26, Mean Corpuscular Hemoglobin Concent 30, Red Cell Distribution Width 18.6, Platelet Count 202, Mean Platelet Volume 10.4, Immature Granulocyte % (Auto) 0, Neutrophils (%) (Auto) 10, Lymphocytes (%) (Auto) 83, Monocytes (%) (Auto) 7, Eosinophils (%) (Auto) 0, Basophils (%) (Auto) 0, Neutrophils # (Auto) 3.9, Lymphocytes # (Auto) 33.6, Monocytes # (Auto) 3.0, Eosinophils # (Auto) 0.1, Basophils # (Auto) 0.1, Immature Granulocyte # (Auto) 0.1, Sodium Level 136, Potassium Level 3.9, Chloride Level 106, Carbon Dioxide Level 19, Anion Gap 11, Blood Urea Nitrogen 15, Creatinine 0.71, Estimat Glomerular Filtration Rate 98, BUN/Creatinine Ratio 21, Glucose Level 91, Calcium Level 9.0, Corrected Calcium 9.6, Total Bilirubin 0.3, Aspartate Amino Transf (AST/SGOT) 12, Alanine Aminotransferase (ALT/SGPT) 7, Alkaline Phosphatase 108, Total Protein 5.5, Albumin 3.2 08/16/22 05:40: White Blood Count 47.5, Red Blood Count 3.83, Hemoglobin 9.9, Hematocrit 32, Mean Corpuscular Volume 83, Mean Corpuscular Hemoglobin 26, Mean Corpuscular Hemoglobin Concent 31, Red Cell Distribution Width 18.3, Platelet Count 213, Mean Platelet Volume 10.4, Immature Granulocyte % (Auto) 0, Neutrophils (%) (Auto) 10, Lymphocytes (%) (Auto) 82, Monocytes (%) (Auto) 8, Eosinophils (%) (Auto) 0, Basophils (%) (Auto) 0, Neutrophils # (Auto) 4.6, Lymphocytes # (Auto) 39.1, Monocytes # (Auto) 3.6, Eosinophils # (Auto) 0.1, Basophils # (Auto) 0.1, Immature Granulocyte # (Auto) 0.1, Sodium Level 136, Potassium Level 4.4, Chloride Level 105, Carbon Dioxide Level 19, Anion Gap 12, Blood Urea Nitrogen 8, Creatinine 0.66, Estimat Glomerular Filtration Rate 102, BUN/Creatinine Ratio 12, Glucose Level 91, Calcium Level 8.4, Corrected Calcium 9.0, Total Bilirubin 0.3, Aspartate Amino Transf (AST/SGOT) 10, Alanine Aminotransferase (ALT/SGPT) 8, Alkaline Phosphatase 107, Total Protein 5.2, Albumin 3.2 08/17/22 06:10: White Blood Count 27.8, Red Blood Count 3.48, Hemoglobin 8.8, Hematocrit 30, M amarilis Corpuscular Volume 85, Mean Corpuscular Hemoglobin 25, Mean Corpuscular Hemoglobin Concent 30, Red Cell Distribution Width 18.2, Platelet Count 156, Mean Platelet Volume 10.1, Immature Granulocyte % (Auto) 0, Neutrophils (%) (Auto) 9, Lymphocytes (%) (Auto) 82, Monocytes (%) (Auto) 9, Eosinophils (%) (Auto) 0, Basophils (%) (Auto) 0, Neutrophils # (Auto) 2.5, Lymphocytes # (Auto) 22.7, Monocytes # (Auto) 2.5, Eosinophils # (Auto) 0.1, Basophils # (Auto) 0.1, Immature Granulocyte # (Auto) 0.0, Sodium Level 140, Potassium Level 3.6, Chloride Level 110, Carbon Dioxide Level 20, Anion Gap 10, Blood Urea Nitrogen 10, Creatinine 0.64, Estimat Glomerular Filtration Rate 102, BUN/Creatinine Ratio 16, Glucose Level 86, Calcium Level 8.4, Corrected Calcium 9.4, Total Bilirubin 0.2, Aspartate Amino Transf (AST/SGOT) 8, Alanine Aminotransferase (ALT/SGPT) 7, Alkaline Phosphatase 98, Total Protein 4.7, Albumin 2.8, Neutrophils % (Manual) 10, Lymphocytes % (Manual) 89, Basophils % (Manual) 1, Smudge Cells MOD Discharge Home Medications: Active Scripts Active Lorazepam Intensol (Lorazepam) 2 Mg/Ml Oral.conc 2 Mg PO Q2H PRN Oxycodone HCl 5 Mg/5 Ml Solution 5 Mg PO Q3HR Instructions to patient/family Please see electronic discharge instructions given to patient. Diagnosis/Problems Diagnosis/Problems (1) Dehydration Status: Acute (2) Dementia Status: Acute (3) CLL (chronic lymphocytic leukemia) Status: Chronic Clinical Quality Measures DVT/VTE Risk/Contraindication: Contraindications-Mechi: Other *list below* Other: agitation RICO HUANG DO Aug 20, 2022 10:15
[2022-08-20] MEDS: SENNOSIDES 8.6 MG (SENOKOT) TAB PO SCH ×2 (10:23→22:45)
[2022-08-20] MEDS: DOCUSATE SODIUM 100 MG (COLACE) CAP PO SCH ×2 (10:23→22:45)
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
[2022-08-20] MEDS: ENOXAPARIN INJECTION 30 MG/0.3 ML SYR SC SCH (22:46)
[2022-08-21] MEDS: LORazepam INJ 2 MG/ML (ATIVAN) VIAL IVP PRN ×2 (01:21→09:53)
[2022-08-21] MEDS: HYDROmorphone 2 MG/ML VIAL (DILAUDID) IV PRN ×2 (01:21→08:25)
[2022-08-21 04:59] VITALS: BP 90/54
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
[2022-08-21 07:17] VITALS: BP 122/71
[2022-08-21] MEDS: DOCUSATE SODIUM 100 MG (COLACE) CAP PO SCH (07:43)
[2022-08-21] MEDS: SENNOSIDES 8.6 MG (SENOKOT) TAB PO SCH (07:43)
[2022-08-21 11:20] VITALS: BP 103/64
[2022-08-21 14:21] VITALS: BP 103/64
[2022-08-22] MEDS ORDERED: FENTANYL PATCH REMOVAL TP SCH (08:59)
== END 2022-08-21 14:29 | disposition hospice, inpatient (51) | DRG 884 ==
LOC: EDUNIT# 15:08 → ER 15:11 → 4TH 18:11 → OBSVTOIN 08-16 14:15
PROVIDERS: ADMIT Internal Medicine; ATTEND Internal Medicine
DX: F03.90 Unspecified dementia, unspecified severity, without behavioral disturbance, psychotic disturbance, mood disturbance, and anxiety (principal); C91.10 Chronic lymphocytic leukemia of B-cell type not having achieved remission; C79.81 Secondary malignant neoplasm of breast; E86.0 Dehydration; Z51.5 Encounter for palliative care; K58.9 Irritable bowel syndrome, unspecified; F41.9 Anxiety disorder, unspecified; F32.A Depression, unspecified; Z87.891 Personal history of nicotine dependence; G43.909 Migraine, unspecified, not intractable, without status migrainosus; Z92.21 Personal history of antineoplastic chemotherapy; Z20.822 Contact with and (suspected) exposure to COVID-19; Z66 Do not resuscitate
CPT/HCPCS: 36415; 70450; 71045; 71260; 74177; 80053; 85007; 85025; 85027; 86480; 87636; 87804; G0378